=== PATIENT | female | born 1950 | race Caucasian/White ===

== ENCOUNTER → 2018-10-27 16:41 | Outpatient (CLI) | payer MEDICARE, MEDICAID, SELFPAY ==
--- NOTE | 2018-10-27 | XR_ITS ---
XR hip BI w PEL1V CLINICAL INDICATION: Bilateral hip pain ORDERING PHYSICIAN: Fidel aCrdona MD PATIENT AGE: 68 years Comparison: None FINDINGS: AP and abduction views are obtained of both hips. No fracture or dislocation. No significant degenerative change. No significant sclerosis or bony spurring. IMPRESSION: Negative hips with pelvis
--- NOTE | 2018-10-27 | XR_ITS ---
EXAM: XR lumbar spine 6V w bending HISTORY: Low back pain ORDERING PHYSICIAN: Fidel Cardona MD PATIENT AGE: 68 years COMPARISON: None FINDINGS: There is minimal lumbar curvature convex left. No acute fracture or dislocation is evident. There is mild anterolisthesis of L4 on L5 of 4 mm. There is mild degenerative disc disease at T12-S1. Flexion and extension views show no abnormal subluxation in flexion or extension. IMPRESSION: Mild multilevel degenerative disc disease with minimal anterolisthesis of L4 on L5 which does not significantly change in flexion or extension
== END ==
PROVIDERS: PCP Family Medicine; Visit Provider Family Medicine
DX: M25.552 Pain in left hip (principal); M25.551 Pain in right hip; M54.42 Lumbago with sciatica, left side; M54.41 Lumbago with sciatica, right side
CPT/HCPCS: 72114; 73521

== ENCOUNTER 2018-12-12 08:53 | Outpatient (RCR) | payer MEDICARE, MEDICAID, SELFPAY ==
--- NOTE | 2018-12-12 09:39 | HMH.PTOPEV ---
PT Outpatient Evaluation Rehab PT Outpatient Evaluation Start: 12/12/18 09:23 Freq: Status: Active Protocol: Document 12/12/18 09:23 CHRISTIAN (Rec: 12/12/18 09:39 CHRISTIAN [id number]) Electronically Signed By Eran Foley, PT 12/12/18 09:23 Outpatient Therapy Subjective History Subjective History Pt reports h/o chronic LBP since injury in 1988. Pt reports reinjury ~3 months while lifting heavy boxes. I tore my right side out in , and tore my left side out when I picked up that box. Pt reports B LE radicular s/s as well, 'sharp pain all the way down, and then I fall'-8 falls in the last 3 months. Chief Complaint Pain,Gives out/Unstable, Paresthesia,Weakness Symptom Type Ache,Throb,Sharp,Dull,Stabbing ,Burning,Numbness,Tingling, Shooting Symptoms Relieved By Rest/Positioning,Prescription Meds Symptoms Aggravated By Standing,Walking Prior Functional Limitations Housework,Standing,Walking Current Functional Limitations Lifting,Housework,Standing, Walking Symptom Description Constant and Continuous Level of pain today (0-10) 10 Pain scale - at its best (0-10) 10 Pain scale - at its worst (0-10) 10 Lumbopelvic Eval Posture Thoracic Spine Posture Standing Position Neutral Lumbar Spine Posture Standing Position Neutral Assistive device Assistive Devices Wheelchair Gait Observation General Gait Pattern Observation Antalgic Gait,Wide Based Gait, Ataxic Gait,Shuffling Step Palapation tenderness bilateral thoracic spinal tenderness Yes: 2/4 lumbar spinal tenderness Yes: 3/4 paraspinal tenderness Yes: 3/4 buttock tenderness Yes: 3/4 Lumbar/Sacral Palpation Findings Tenderness Accessory Movement T-spine Vertebrae Accessory Movements Central P/A [place] that Elicit Symptoms T10 bilateral T11 bilateral T12 bilateral L-spine Vertebrae Accessory Movements Central P/A [place] that Elicit Symptoms L2 bilateral L3 bilateral L4 bilateral L5 bilateral S1 bilateral Range of Motion Lumbar Spine Active Flexion Range of 0-15 Motion (degrees) Lum
== END 2018-12-12 08:55 | disposition home or self-care (01) ==
LOC: PT 08:53
PROVIDERS: PCP Family Medicine; Visit Provider Family Medicine
DX: M54.5 Low back pain (principal)
CPT/HCPCS: 97163

== ENCOUNTER → 2019-07-31 08:28 | Outpatient (CLI) | payer MEDICARE, MEDICAID, SELFPAY ==
--- NOTE | 2019-07-31 08:28 | MR_ITS ---
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 3-D MIP and myelographic images are also rendered and reviewed FINDINGS: There is normal alignment. Spinal cord ends at the L2 level. T12-L1: Minimal bulging disc. Small central annular fissure. L1-L2: Unremarkable. L2-L3: Unremarkable. L3-L4: Mild facet hypertrophic change. L4-5: Minimal bulging disc with facet and ligamentum hypertrophy. There is narrowing of the canal with bilateral lateral recess narrowing mild to moderate right foraminal narrowing and moderate left foraminal narrowing. There is canal stenosis at this level with canal at 10 mm. L5-S1: Mild facet and ligamentum hypertrophy with mild bilateral foraminal narrowing. No extruded herniated disc. IMPRESSION: 1. Overall no significant change compared to the previous exam. 2. Mild lumbar spondylosis with facet and ligamentum hypertrophy. Please see above for detailed description at each level. 3. L4-5: Minimal bulging disc with facet and ligamentum hypertrophy. There is narrowing of the canal with bilateral lateral recess narrowing mild to moderate right foraminal narrowing and moderate left foraminal narrowing. There is canal stenosis at this level with canal at 10 mm. 4. L5-S1: Mild facet and ligamentum hypertrophy with mild bilateral foraminal narrowing. 5. No extruded herniated disc evident Dictated by: Tony Melton MD 07/31/2019 18:15 Electronically signed by Tony Melton MD in [place] 07/31/2019 18:15
== END ==
PROVIDERS: PCP Emergency Medicine; Visit Provider Emergency Medicine
DX: M54.16 Radiculopathy, lumbar region (principal)
CPT/HCPCS: 72148; 76376

== ENCOUNTER 2019-09-23 03:15 | Observation (INO) | payer MEDICARE, MEDICAID, SELFPAY ==
[2019-09-23] VITALS (14 sets, daily range): BP systolic 102–159; BP diastolic 47–87; PULSE 59–70; RESP 14–18; TEMP 36.4–36.7; O2SAT 92–98; BMI 37.9; BMI 40.5
--- NOTE | 2019-09-23 03:17 | ECG_ITS ---
APPROVED REPORT Exam: Resting ECG HR:67 bpm ECG Measurements Heart Rate 67 AXES VT 144 P -26 QRSd 98 QRS 34 QT 408 T 64 QTc 431 <Conclusion> Normal sinus rhythm Normal ECG Electronically signed by : Fidel Richards, 09/24/2019 17:13:06
--- NOTE | 2019-09-23 03:18 | XR_ITS ---
PROCEDURE: XR CHEST PORTABLE CLINICAL HISTORY: chest pain/soa COMPARISON: CXR CHEST(2 VIEWS-NOT PORTABLE) from 05/14/2012 CXR2 CHEST-AP VIEW ONLY from 10/25/2015 CXR2V XR chest 2V from 01/30/2018 FINDINGS: Borderline cardiomegaly without failure. Prior CABG The lungs are clear without infiltrates, suspicious nodules, or pleural effusions. No acute bony abnormalities. IMPRESSION: No change with no acute finding Dictated by: Tony Melton MD 09/23/2019 07:28 Electronically signed by Tony Melton MD in [place] 09/23/2019 07:28
--- NOTE | 2019-09-23 03:26 | PC.NURSE ---
on phone with dr rizzo.
--- NOTE | 2019-09-23 03:28 | HMH.EDCP ---
ED Disposition Clinical Impression: S/P CABG (coronary artery bypass graft), Obesity (BMI 30-39.9), Hypothyroidism (acquired), Renal insufficiency, Elevated brain natriuretic peptide (BNP) level Chest pain Qualifiers: Chest pain type: precordial pain Qualified Code(s): R07.2 - Precordial pain Disposition: Admitted as Observation Condition on Discharge: Good - Critical Care Critical Care Time: No Attestation: On , the high probability of a clinically significant, sudden or life threatening deterioration of the following system(s) required my full and direct attention, intervention and personal management. The time I documented below is in addition to time spent performing reported procedures but includes the following listed in this critical care notation. Medical Decision Making - Medical Records Medical records reviewed: Yes: I reviewed the patient's medical records. - Faraz Inquiry Pt receiving controlled substance: No Vital Signs: 09/23/19 03:16 09/23/19 04:03 Temperature 97.8 F Temperature Source Oral Pulse Rate [Right Brachial] 68 64 Respiratory Rate 16 18 Blood Pressure [Right Arm] 159/87 H 133/74 Blood Pressure Mean [Right Arm] 111 93 Blood Pressure Source [Right Arm] Automatic Cuff Blood Pressure Position [Right Arm] Sitting 02 Sat by Pulse Oximetry 98 95 Oxygen Delivery Method Room Air Room Air - Lab Data Lab results reviewed: Yes: I reviewed the patient's lab results. Lab Results 09/23/19 03:22: WBC 14.6 H, RBC 4.26, Hgb 12.0 L, Hct 37.2, MCV 87.4, MCH 28.1, MCHC 32.2, RDW 15.4, Plt Count 284, MPV 8.9, Neut % (Auto) 71.4, Lymph % (Auto) 24.2, Harris % (Auto) 2.9, Eos % (Auto) 1.0, Baso % (Auto) 0.4, Neut # (Auto) 10.4 H, Lymph # (Auto) 3.6, Harris # (Auto) 0.4, Eos # (Auto) 0.2, Baso # (Auto) 0.1 09/23/19 03:22: Sodium 139, Potassium 4.1, Chloride 101, Carbon Dioxide 32 H, Anion Gap 10.1, BUN 25 H, Creatinine 1.20 H, Estimated Creat Clear 77, Estimated GFR 45 L, Est GFR ( Amer) 54 L, Glucose 123 H, Calcium 9.3, Troponin I < 0.01 09/23/19 03:22: NT-Pro-B Natriuret Pep 660 H Result diagrams: 09/23/19 03:22 09/23/19 03:22 Orders (Tests/Meds): ED MEDICATIONS Discontinued Medications Generic Name Dose Route Start Last Admin Trade Name Freq PRN Reason Stop Dose Admin Hydromorphone HCl 0.5 mg 09/23/19 03:30 09/23/19 03:37 Dilaudid 2mg/Ml Syringe IV 09/23/19 03:31 0.5 mg ONCE ONE Administration Nitroglycerin 1 gm 09/23/19 03:30 09/23/19 03:38 Nitroglycerin 1 Inch Oint Udp TD 09/23/19 03:31 1 gm ONCE ONE Administration Ondansetron HCl 4 mg 09/23/19 03:39 09/23/19 03:39 Zofran 4mg/2ml Vial IV 09/23/19 03:40 4 mg ONCE ONE Administration ORDERS Category Date Time Status Chest XR -- portable [XR chest portable] Stat Exams 09/23/19 03:18 Taken Troponin I Q3H Lab 09/23/19 06:30 Ordered Troponin I Q3H Lab 09/23/19 09:30 Ordered - Radiology Data #1 Image(s): Chest Image Reviewed: Yes I reviewed the patient's radiology image Preliminary Findings: Abnormal (cm) - ECG Data Tracing #1 Normal Sinus Rhythm: Yes Ischemic changes: non-specific ST-T wave changes ECG compared to prior tracings: this ECG reveals significant changes - Physician Consults Physician Consulted: matthias Reason -: Pt condition Chest Pain HPI - General Chief Complaint: Chest Pain Stated Complaint: cp Time Seen by Provider: 09/23/19 03:20 Mode of Arrival: Family Vehicle Source of Information: Patient, Medical Record Limitations: No Limitations Description of Symptoms (Recalled from ER Triage Doc. by RN): chest pain that initiates in the center of her chest and radiates up her left jaw, down her left arm. denies nausea. has some soa. denies any additional complaints. unable to take nitro due to hypersensitivity per her report. sees dr rizzo and dr godoy for continuity of care. took aspirin 324mg total prior to arrival to ed - History of Present
[2019-09-23 03:36] LABS: Basophils # 0.1 K/mm3 (0-0.2); Basophils % 0.4 % (0.1-2.0); Eosinophils # 0.2 K/mm3 (0.0-0.4); Hematocrit 37.2 % (37.0-47.0); Lymphocytes # 3.6 K/mm3 (0.7-4.5); Lymphocytes % 24.2 % (10-50); Mean Corpuscular HGB Conc 32.2 g/dL (31.8-35.4); Mean Corpuscular Hemoglobin 28.1 pg (27.0-31.2); Mean Corpuscular Volume 87.4 fl (81-99); Mean Platelet Volume 8.9 fl (7.4-10.4); Monocytes # 0.4 K/mm3 (0.1-1.0); Monocytes % 2.9 % (1.7-9.3); Neutrophils # 10.4 K/mm3 (1.8-7.8); Neutrophils % 71.4 % (37.0-80.0); Platelet Count 284 K/mm3 (142-424); Red Blood Count 4.26 M/mm3 (4.20-5.40); Red Cell Distribution Width 15.4 % (11.5-17.5); White Blood Count 14.6 K/mm3 (4.8-10.8)
[2019-09-23 03:47] LABS: Anion Gap 10.1 mEq/L (5-15); Blood Urea Nitrogen 25 mg/dl (7-17); Calcium 9.3 mg/dl (8.4-10.2); Carbon Dioxide 32 mmol/L (22.0-30.0); Chloride 101 mmol/L (98-107); Creatinine Clearance Estimated 77 mL/min (50-200); Estimated Glomerular Filt Rate 45 ml/min (>60); GFR (African American) 54 ML/MIN (>60); Glucose 123 mg/dl (74-100); Potassium 4.1 mmoL/L (3.5-5.1); Sodium 139 mmol/L (136-145)
[2019-09-23 03:56] LABS: NT Pro Brain Natriuretic Pep. 660 pg/mL (0-125)
[2019-09-23 04:08] LABS: Troponin I < 0.01 ng/ml (0.00-0.034)
--- NOTE | 2019-09-23 04:55 | PC.NURSE ---
patient up to floor via wheelchair.
--- NOTE | 2019-09-23 05:49 | PC.NURSE ---
PT STATES SHE IS UNAWARE OF THE MEDICATIONS AND DOSAGE SHE TAKES ON A DAILY BASIS. SHE STATES SHE WILL CALL HER DAUGHTER AND HAVE HER BRING THEM IN THIS MORNING ONCE WE EXPLAINED HER MEDICARE OBSERVATION STATUS. WILL PASS ON TO THE MORNING SHIFT.
--- NOTE | 2019-09-23 05:54 | PC.NURSE ---
A&OX4. PT IS TOLERATING ROOM AIR WELL. RESPIRATIONS REGULAR AND UNLABORED. DIMINISHED BREATH SOUNDS NOTED THROUGHOUT. +1 PITTING EDEMA NOTED TO BLE. NO COUGH NOTED. PT DENIES ANY CHEST PAIN OR NAUSEA. HAND TEACHER PRIVATE EQUAL. ACTIVE BOWEL SOUNDS HEARD IN ALL 4 QUADRANTS. SOFT AND NONTENDER. TELE MONITOR IN USE. NITRO PATCH NOTED TO L UPPER CHEST. NS INFUSING AT 50ML/HR. FSBS WITHIN NORMAL LIMITS. PT IS CURRENTLY RESTING IN BED. BED IN LOWEST POSITION. CALL LIGHT WITHIN REACH. VSS. NO CONCERNS AT THIS TIME. WILL CONTINUE TO MONITOR.
[2019-09-23 06:24] LABS: POC Glucose,Bedside 147 (70-110)
--- NOTE | 2019-09-23 07:12 | HMH.HP ---
*Admission Date: 09/23/19 *Chief complaint: chest pain *History of present illness: this pt presented to the ed with sudden onset of ant lt chest pain described as tightness with radiation to jaw and lt upper ext - she has had pain over the last few weeks but increased tonight - has hx of cad with prev cabg - pt was admitted for eval and treatment and card eval - [facility] History I have reviewed the patient's past medical history: Yes Medical History: Reports:: Asthma, Cancer, Congestive Heart Failure, Chronic Obstructive Pulmonary Disease (COPD), Diabetes Mellitus Type 2, Hypertension, Myocardial Infarction, Transient Ischemic Attacks (TIA) Denies:: Diabetes Mellitus Type 1 *Have you ever received a pneumonia vaccine?: Yes *Have you received a flu vaccine this season?: Yes Other Surgeries: Yes: CABG, Cardiac Catheterization, Cardiac Surgery, Cholecystectomy, Colonoscopy, , Hernia Repair Amputation: No Fractures: No - *Social History Smoking Status: Never smoker Alcohol Intake: former Substance Use Type: denies use *Occupational Status:: retired *Travel in the last 8 weeks: None Family Hx:: Unable to obtain Review of Systems - Review of Systems Review of systems:: pertinent systems reviewed and negative unless documented below - Constitutional Denies fever(s) - Eyes Denies change in vision - ENT Denies sore throat - *Cardiovascular Reports chest pain, Reports radiating jaw, neck or arm pain - *Respiratory Denies cough - *Gastrointestinal Denies abdominal pain - *Genitourinary Denies blood in urine - *Musculoskeletal Denies joint pain - Integumentary/Breasts Denies rash - *Neurologic Denies localized weakness, Denies seizure-like activity - Psychiatric Denies depression Meds Home Medications Medication Instructions Recorded Confirmed Type Ipratropium/Albuterol Sulfate 2 puff IH Q6H #1 inh 01/30/18 08/03/19 Rx [Combivent Respimat Inh] atorvastatin 20 mg tablet 20 mg PO QHS 12/13/18 08/03/19 History cholecalciferol (vitamin D3) 10 400 unit PO DAILY 12/13/18 08/03/19 History mcg (400 unit) capsule docusate sodium 100 mg capsule 100 mg PO .every other day cap 12/13/18 08/03/19 History fluoxetine 20 mg capsule 20 mg PO DAILY 12/13/18 08/03/19 History folic acid 800 mcg tablet 800 mcg PO DAILY 12/13/18 08/03/19 History [id number] 500 tab PO tab 12/13/18 08/03/19 History isosorbide mononitrate 60 mg 60 mg PO DAILY 12/13/18 08/03/19 History tablet,extended release 24 hr levothyroxine 100 mcg capsule 100 mcg PO DAILY 12/13/18 08/03/19 History meclizine 25 mg tablet 25 mg PO TID PRN 12/13/18 08/03/19 History metoprolol succinate 50 mg 50 mg PO DAILY 12/13/18 08/03/19 History tablet,extended release 24 hr omeprazole 40 mg capsule,delayed 40 mg PO DAILY 12/13/18 08/03/19 History release prazosin 1 mg capsule 2 mg PO QHS cap 12/13/18 08/03/19 History vitamin E (dl, acetate) 400 unit 400 unit PO DAILY 12/13/18 08/03/19 History capsule blood sugar diagnostic See Rx Instructions .ROUTE 06/13/19 08/03/19 Rx .MEDSUPPLY #100 each lancets See Rx Instructions .ROUTE 06/13/19 08/03/19 Rx .MEDSUPPLY #50 each methocarbamol 750 mg tablet 750 mg PO TID 30 Days #90 tab 07/06/19 08/03/19 Rx albuterol sulfate 90 mcg/actuation 2 puff INHALATION Q4-6H PRN #18 g 07/16/19 08/03/19 Rx aerosol inhaler ipratropium 20 mcg-albuterol 100 1 puff INHALATION Q6H #4 g 07/16/19 08/03/19 Rx mcg/actuation mist for inhalation gabapentin 600 mg tablet 600 mg PO TID #90 tab 08/03/19 Rx tramadol 50 mg tablet 50 mg PO TID PRN #90 tab 08/03/19 Rx trazodone 50 mg tablet 50 mg PO QHS #30 tab 08/03/19 Rx clopidogrel 75 mg tablet See Rx Instructions .ROUTE 09/03/19 Rx .COMPLEX #90 unspecified Allergies Allergy/AdvReac Type Severity Reaction Status Date / Time morphine [MORPHINE] Allergy Unknown Verified 08/03/19 10:19 Exam Vital signs and Labs for Last 24 Hours: Temp
[2019-09-23 07:14] LABS: Basophils % 0.3 % (0.1-2.0); Eosinophils # 0.2 K/mm3 (0.0-0.4); Eosinophils % 1.5 % (0.1-12.0); Hematocrit 36.1 % (37.0-47.0); Hemoglobin 11.7 g/dL (12.2-16.2); Lymphocytes % 24.4 % (10-50); Mean Corpuscular HGB Conc 32.3 g/dL (31.8-35.4); Mean Corpuscular Hemoglobin 28.1 pg (27.0-31.2); Mean Corpuscular Volume 87.1 fl (81-99); Mean Platelet Volume 8.7 fl (7.4-10.4); Monocytes # 0.3 K/mm3 (0.1-1.0); Monocytes % 2.7 % (1.7-9.3); Neutrophils # 8.6 K/mm3 (1.8-7.8); Neutrophils % 71.2 % (37.0-80.0); Platelet Count 233 K/mm3 (142-424); Red Blood Count 4.15 M/mm3 (4.20-5.40); Red Cell Distribution Width 15.4 % (11.5-17.5); White Blood Count 12.1 K/mm3 (4.8-10.8)
--- NOTE | 2019-09-23 07:25 | PC.NURSE ---
[facility]OR ABOUT MEDREC NEEDING TO BE COMPLETED AND THAT THE PT'S DAUGHTER WOULD BE BRINGING HOME MEDS IN THIS AM.
[2019-09-23 07:40] LABS: Anion Gap 9.1 mEq/L (5-15); Blood Urea Nitrogen 25 mg/dl (7-17); Calcium 9.1 mg/dl (8.4-10.2); Carbon Dioxide 28 mmol/L (22.0-30.0); Chloride 104 mmol/L (98-107); Chol/HDL Ratio 3.4 (1-3.5); Cholesterol 128 mg/dl (140-200); Creatinine Clearance Estimated 81 mL/min (50-200); Estimated Glomerular Filt Rate 50 ml/min (>60); GFR (African American) 60 ML/MIN (>60); Glucose 140 mg/dl (74-100); HDL Cholesterol 38 mg/dl (40-60); Magnesium 1.8 mg/dl (1.6-2.3); Potassium 4.1 mmoL/L (3.5-5.1); Sodium 137 mmol/L (136-145); Triglycerides 146 mg/dl (30-150); VLDL Cholesterol 29 mg/dL (0-40)
[2019-09-23 07:51] LABS: Direct LDL Cholesterol 53.59 mg/dL (100-129)
[2019-09-23 07:52] LABS: Troponin I < 0.01 ng/ml (0.00-0.034)
--- NOTE | 2019-09-23 09:36 | P.CONPHA_ITS ---
[facility] Pharmacy VTE Monitoring - Patient Demographics Admission date: 09/23/19 Report Date: 09/23/19 Time: 09:36 Allergies/Adverse Reactions: Patient Allergies morphine [MORPHINE] Allergy (Unknown, Verified 08/03/19 10:19) Height: 1.6 m Weight: 103.873 kg Patient Problems: Current Active Problems Chest pain (Acute) Obesity (BMI 30-39.9) (Acute) Hypothyroidism (acquired) (Acute) Renal insufficiency (Acute) Elevated brain natriuretic peptide (BNP) level (Acute) Obesity (Acute) S/P CABG (coronary artery bypass graft) (Acute) - VTE Risk Labs: VTE Related Lab Results Hgb 11.7 g/dL (12.2-16.2) L 09/23/19 07:01 Hct 36.1 % (37.0-47.0) L 09/23/19 07:01 Plt Count 233 K/mm3 (142-424) 09/23/19 07:01 BUN 25 mg/dl (7-17) H 09/23/19 07:01 Creatinine 1.10 mg/dl (0.52-1.04) H 09/23/19 07:01 Estimated Creat Clear 81 mL/min (50-200) 09/23/19 07:01 VTE Score: 9 VTE Risk Level: Moderate Risk - Prophylaxis Types of VTE Prophylaxis: TEDS Knee High (JOSE HOSE ORDER PLACED) Location of Applied Device: Bilateral Lower Extremeties
[2019-09-23 10:12] LABS: Troponin I < 0.01 ng/ml (0.00-0.034)
[2019-09-23 10:58] LABS: POC Glucose,Bedside 137 (70-110)
--- NOTE | 2019-09-23 15:17 | PC.NURSE ---
Pt has been alert and oriented and able to make needs known. Has been NSR on tele, did complain of chest pain x 1 this am. Has not since then c/o. Pt has also c/o of headache. PRN tylenol given and was ineffective. Spoke with Dr. Richards and received an order for motrin 600 mg tid prn and omeprazole which is a home med. Pt also c/o earlier that her vision was green and when that has happened in the past it has been prior to a stroke or HI. Neuro checks are WNL at this time. Did make Dr. Richards aware and ask if he wanted head ct at this time and he does not. Will cont to mx. CB in reach. VSS at this time.
[2019-09-23 16:15] LABS: POC Glucose,Bedside 136 (70-110)
[2019-09-23 22:01] LABS: POC Glucose,Bedside 146 (70-110)
[2019-09-24] VITALS: PULSE 50
--- NOTE | 2019-09-24 02:29 | PC.NURSE ---
A&OX4. PT HAS TOLERATED ROOM AIR WELL THROUGHOUT SHIFT. NO COMPLAINTS OF SOB THUS FAR. RESPIRATIONS REGULAR AND UNLABORED. LUNG SOUNDS BILATERALLY CLEAR. NO COUGH NOTED. NSR AND SINUS ITZ ON TELE. NONPITTING EDEMA NOTED TO RLE. ACTIVE BOWEL SOUNDS HEARD IN ALL 4 QUADRANTS. SOFT AND NONTENDER. PT REPORTS NO BM TONIGHT, BUT REPORTS PASSING FLATUS. PT AMBULATES TO THE RESTROOM WITH STANDBY ASSISTANCE. STEADY GAIT AND TOLERATES WELL. CLEAR LIGHT YELLOW URINE NOTED. PT RECEIVED SHOWER, LINEN CHANGE, AND WAS CLIPPED FOR POSSIBLE SERGIO CONSULT. HAND CHOPPER FEEDER EQUAL. NO COMPLAINTS OF CHEST PAIN THUS FAR. NS INFUSING AT 50ML/HR. PT CURRENTLY RESTING IN BED. BED IN LOWEST POSITION. CALL LIGHT WITHIN REACH. VSS. NO CONCERNS AT THIS TIME. WILL CONTINUE TO MONITOR.
[2019-09-24 03:29] VITALS: BP 120/69; PULSE 63; RESP 16; TEMP 36.6; O2SAT 93
[2019-09-24 04:00] VITALS: PULSE 60
[2019-09-24 05:24] VITALS: BMI 40.2
[2019-09-24 05:47] LABS: POC Glucose,Bedside 129 (70-110)
--- NOTE | 2019-09-24 07:21 | HMH.CNCARD ---
History of Present Illness Consult date: 09/24/19 Requesting physician: Marcus Montgomery Consult reason: chest pain Chief complaint: chest pain Additional Medical History:: 1. Coronary artery disease A. History of coronary bypass grafting about 2004 in [place] B. Syncope with NSTEMI, 10/2015, with cardiac cath results: ANGIOGRAPHIC RESULTS: 1. The left main artery normal 2. The left anterior descending artery is a small caliber vessel throughout consistent with a vasculopathic vessel. Proximally and in the mid segments there are diffuse 40% stenoses. The mid LAD has an anastomotic graft from the left internal mammary artery. Distal to the bypass graft the LAD is a smaller caliber vessel less than 1 mm and appears to have vasculopathic disease as it wraps the apex. The first diagonal artery is a small caliber vessel subtotally occluded proximally 3. The circumflex artery is nondominant and has proximal concentric 40% stenosis 4. The right coronary artery is a large dominant vessel and has a proximal to mid vessel hazy 50% stenosis followed by an additional 30-40% stenosis distally 5. The FU ventriculogram reveals normal 65% 6. The left ventricular end-diastolic pressure 10 mmHg 7. The left internal mammary artery is a widely patent graft which anastomoses into the mid LAD and then supplies a small vasculopathic LAD distally as described above 8. The right internal mammary artery is widely patent to the chest wall 9. There appeared to be no patent vein graft to the coronary arteries IMPRESSION: 1. Coronary artery disease as described above 2. Normal ejection fraction 3. Normal left ventricular end-diastolic pressure 4. Subtotally occluded first diagonal artery which is probably the culprit for the non-STEMI 5. Patent GOMEZ to the LAD PLAN: 1. Medical management 2. LDL less than 70 3. Aspirin Plavix for one year B. [facility], 10/2016, no ischemia with LVEF of 65% 2. History of diabetes mellitus, previously on insulin. Discontinued after significant weight loss. 3. Hypertension A. Echo, 10/2016 1. Mildly enlarged left atrium, normal left ventricular size, visually estimated ejection fraction 55% with no obvious regional wall motion abnormality, grade 1 diastolic dysfunction seen with tissue Doppler evidence of raised left atrial pressure. 2. Mildly enlarged right ventricle with normal contractility. 3. Mild mitral and tricuspid regurgitation. 4. No significant pericardial effusion noted. 4. Hyperlipidemia 5. History of breast cancer, status post LEFT lumpectomy 6. History of CVA ?3 in the remote past with no residual. A. History of carotid artery intervention of the LEFT side in the past. B. CNI, 2016, less than 20% stenosis bilaterally 7. 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 reportedly transient renal failure but without dialysis in the past. 8. Hypothyroidism 9. History of gout 10. Chronic back pain A. MRI of the L-spine without contrast, MRI-3D rendering/myelogram, 2016,1. Mild multilevel spondylosis. 2. Bulging disc at L4-L5 with canal stenosis and bilateral lateral recess and foraminal narrowing from facet and ligamentum flavum hypertrophy. 3. No disc herniation 11. COPD secondary to second-hand smoke and chemical exposure while working in [employer] department. 12. BRYCE by sleep study, 2017, referred for CPAP therapy. History of present illness: 69-year-old white female with known history of coronary artery disease status post coronary artery bypass grafting in the remote past presented to the emergency department for 1 month history of increasing lower extremity edema and shortness of breath along with onset of left-sided chest discomfort that radiated into the left arm and neck for about 5 minutes on 09/22/2019. She took 3 baby aspirin at home with resolution of symptoms thereafter. Patient was seen in the emergency department and admitted for further evaluation.
[2019-09-24 08:00] VITALS: BP 153/74; PULSE 60; PULSE 70; RESP 17; TEMP 36.7; O2SAT 94
--- NOTE | 2019-09-24 08:00 | CA_ITS ---
APPROVED REPORT EXAM: Comprehensive 2D, Doppler, and color-flow Echocardiogram Switchman: Suha Angulo CRT Ht: 5 ft 2 in Wt: 227lbs BSA: 2.02 BP: 154/86 mmHg Indications: Chest Pain, Congestive Heart Failure, COPD, Murmur, CVA/TIA, Diabetes, Obesity, CAD, Hyperlipidemia, Hypertension/HDD 2D Dimensions LVOT 1.66 cm (M/F) 1.5-2.5 M-Mode Dimensions RVDd 2.28 cm (0.9-2.6) LVDd 5.26 cm (3.5-5.7) LVDs 3.76 cm (3.5-5.7) IVSd 1.45 cm (0.6-1.1) PWd 0.77 cm (0.6-1.1) EF (Teich) 54.60% FS 28.50% EDV (Teich) 133.00 mL ESV (Teich) 60.40 mL LV Diastology E/A Ratio 1.66 Mitral Valve MV A Velocity 73.00 (40-130 cm/s) Left Ventricle Left atrium is mildly enlarged, left ventricle is normal size, mild concentric left ventricular hypertrophy, visually estimated ejection fraction 55% with no regional wall motion abnormality, grade 1 diastolic dysfunction seen with tissue Doppler evidence of raise left atrial pressure. Right Ventricle Right atrium and right ventricle are mildly enlarged with normal contractility. Aortic Valve Aortic valve is thickened and calcified, there is no aortic stenosis, there is trace aortic insufficiency. Mitral Valve Mitral valve is minimally thickened, there is mild mitral regurgitation. Tricuspid Valve Tricuspid valve is grossly normal, there is mild tricuspid regurgitation, calculated right ventricular systolic pressure 32 mmHg. Pulmonic Valve Pulmonic valve is poorly visualized. Great Vessels Aortic root is normal size. Pericardium No significant pericardial effusion noted. Conclusion 1. Biatrial enlargement, normal left ventricular size, mild concentric left ventricular hypertrophy, visually estimated ejection fraction 55% with no regional wall motion abnormality, grade 1 diastolic dysfunction seen with tissue Doppler evidence of raise left atrial pressure. 2. Mildly enlarged right ventricle with normal contractility. 3. Trace aortic, mild mitral and tricuspid regurgitation, calculated right ventricular systolic pressure 32 mmHg. 4. No significant pericardial effusion noted. Electronically signed by : Simon Spain, 09/24/2019 18:26:02
[2019-09-24 11:29] LABS: POC Glucose,Bedside 135 (70-110)
[2019-09-24 11:43] VITALS: BP 118/55; PULSE 61; RESP 18; TEMP 36.7; O2SAT 95
[2019-09-24 12:00] VITALS: PULSE 60
--- NOTE | 2019-09-24 12:53 | HMH.DCSUM ---
General - General Admission date:: 09/23/19 Discharge date: 09/24/19 HPI HPI: this pt presented to the ed with sudden onset of ant lt chest pain described as tightness with radiation to jaw and lt upper ext - she has had pain over the last few weeks but increased tonight - has hx of cad with prev cabg - pt was admitted for eval and treatment and card eval - Hospital Course Hospital Course: pt has did well with stable vital signs and labs ok - she was seen by card -. Coronary artery disease A. History of coronary bypass grafting about 2004 in [place] B. Syncope with NSTEMI, 10/2015, with cardiac cath results: ANGIOGRAPHIC RESULTS: 1. The left main artery normal 2. The left anterior descending artery is a small caliber vessel throughout consistent with a vasculopathic vessel. Proximally and in the mid segments there are diffuse 40% stenoses. The mid LAD has an anastomotic graft from the left internal mammary artery. Distal to the bypass graft the LAD is a smaller caliber vessel less than 1 mm and appears to have vasculopathic disease as it wraps the apex. The first diagonal artery is a small caliber vessel subtotally occluded proximally 3. The circumflex artery is nondominant and has proximal concentric 40% stenosis 4. The right coronary artery is a large dominant vessel and has a proximal to mid vessel hazy 50% stenosis followed by an additional 30-40% stenosis distally 5. The FU ventriculogram reveals normal 65% 6. The left ventricular end-diastolic pressure 10 mmHg 7. The left internal mammary artery is a widely patent graft which anastomoses into the mid LAD and then supplies a small vasculopathic LAD distally as described above 8. The right internal mammary artery is widely patent to the chest wall 9. There appeared to be no patent vein graft to the coronary arteries IMPRESSION: 1. Coronary artery disease as described above 2. Normal ejection fraction 3. Normal left ventricular end-diastolic pressureedical management 2. LDL less than 70 3. Aspirin Plavix for one year B. Shaka myoview, 10/2016, no ischemia with LVEF of 65% 2. History of diabetes mellitus, previously on insulin. Discontinued after significant weight loss. 3. Hypertension A. Echo, 10/2016 1. Mildly enlarged left atrium, normal left ventricular size, visually estimated ejection fraction 55% with no obvious regional wall motion abnormality, grade 1 diastolic dysfunction seen with tissue Doppler evidence of raised left atrial pressure. 2. Mildly enlarged right ventricle with normal contractility. 3. Mild mitral and tricuspid regurgitation. 4. No significant pericardial effusion noted. 4. Hyperlipidemia 5. History of breast cancer, status post LEFT lumpectomy 6. History of CVA ?3 in the remote past with no residual. A. History of carotid artery intervention of the LEFT side in the past. B. CNI, 2016, less than 20% stenosis bilaterally 4. Subtotally occluded first diagonal artery which is probably the culprit for the non-STEMI 5. Patent GOMEZ to the LAD 69-year-old white female with known history of coronary artery disease status post coronary artery bypass grafting in the remote past presented to the emergency department for 1 month history of increasing lower extremity edema and shortness of breath along with onset of left-sided chest discomfort that radiated into the left arm and neck for about 5 minutes on 09/22/2019. She took 3 baby aspirin at home with resolution of symptoms thereafter. Patient was seen in the emergency department and admitted for further evaluation. Cardiac troponins have returned normal x3 and EKG shows sinus rhythm with slight ST elevation in the inferior leads felt due to early repolarization changes. Chest x-ray shows no evidence of congestive heart failure proBNP elevated at 660. She does complain of some left sided chest soreness that is related to respiratory movement. It is not reproduced with palpation
[2019-09-24 12:58] VITALS: BMI 40.2
--- NOTE | 2019-09-24 13:46 | HMH.PHAINT ---
PATIENT WAS COUNSELED ON NEW MEDICATION: FUROSEMIDE. THE PATIENT WILL CONTINUE TO TAKE ALL HOME MEDICATIONS EXCEPT FOR PRAZOSIN WHICH WAS DISCONTINUED. THE PATIENT DID NOT HAVE ANY QUESTIONS.
--- NOTE | 2019-09-24 15:56 | PC.NURSE ---
Pt has been d/cd. She is alert and oriented and able to make needs known. This nurse did explain d/c instructions and educate pt that she has two f/u appts with dr rizzo and walt. Cardiology plans to do a stress test outpatient after acute chf. Have made pt aware of this. Have explained pumping of heart and pt needed will need reinforcement education in which I did make BECCA Thompson aware of and he stated they would go over everything once again in detail when pt comes to outpatient f/u. Noted. Pt sitting up at this time with no current c/o's. VSS. CB in reach. Awaiting d/c at this time.
== END 2019-09-24 16:00 | disposition home or self-care (01) ==
LOC: ER 03:32 → 2ND 04:25
PROVIDERS: Admitting Provider Emergency Medicine; Emergency Provider Emergency Medicine; PCP Emergency Medicine; Visit Provider Emergency Medicine
DX: R07.9 Chest pain, unspecified (principal); I25.10 Atherosclerotic heart disease of native coronary artery without angina pectoris; I11.0 Hypertensive heart disease with heart failure; I50.9 Heart failure, unspecified; Z95.1 Presence of aortocoronary bypass graft; E03.9 Hypothyroidism, unspecified; Z77.22 Contact with and (suspected) exposure to environmental tobacco smoke (acute) (chronic); J44.9 Chronic obstructive pulmonary disease, unspecified; I34.0 Nonrheumatic mitral (valve) insufficiency; E11.42 Type 2 diabetes mellitus with diabetic polyneuropathy; Z79.4 Long term (current) use of insulin; Z79.01 Long term (current) use of anticoagulants
CPT/HCPCS: 36415; 71045; 80048; 80061; 82962; 83735; 83880; 84484; 85025; 93005; 93306; 96375; 99284; G0378; J2405

== ENCOUNTER → 2019-10-01 14:34 | Outpatient (CLI) | payer MEDICARE, MEDICAID, SELFPAY ==
[2019-10-01 16:14] LABS: Chloride 98 mmol/L (98-107); Potassium 4.5 mmoL/L (3.5-5.1); Sodium 138 mmol/L (136-145)
[2019-10-01 16:17] LABS: Anion Gap 13.5 mEq/L (5-15); Blood Urea Nitrogen 14 mg/dl (7-17); Calcium 9.1 mg/dl (8.4-10.2); Carbon Dioxide 31 mmol/L (22.0-30.0); Estimated Glomerular Filt Rate 62 ml/min (>60); GFR (African American) 76 ML/MIN (>60); Glucose 147 mg/dl (74-100); Magnesium 1.7 mg/dl (1.6-2.3)
[2019-10-01 16:25] LABS: NT Pro Brain Natriuretic Pep. 409 pg/mL (0-125)
== END ==
PROVIDERS: Visit Provider Physician Assistant
DX: I50.9 Heart failure, unspecified; R06.00 Dyspnea, unspecified; R07.2 Precordial pain; E11.69 Type 2 diabetes mellitus with other specified complication; E66.9 Obesity, unspecified; G45.9 Transient cerebral ischemic attack, unspecified; I25.119 Atherosclerotic heart disease of native coronary artery with unspecified angina pectoris; I34.0 Nonrheumatic mitral (valve) insufficiency; J44.9 Chronic obstructive pulmonary disease, unspecified; Z95.1 Presence of aortocoronary bypass graft
CPT/HCPCS: 36415; 80048; 83735; 83880

== ENCOUNTER → 2019-10-15 10:54 | Outpatient (CLI) | payer MEDICARE, MEDICAID, SELFPAY ==
--- NOTE | 2019-10-15 | CA_ITS ---
APPROVED REPORT Exam: Pharmacologic Technologist: Karishma Farfan Ht: 5 ft 3 in Wt: 227 lbs BSA: 2.04 m2 HR: 63 bpm BP: 127/67 mmHg Indications: CAD Medical History Medications: Omeprazole,,,,, Levothyroxine,,,,, Furosemide (LASIX),,,,, Isosorbide,,,,, Metoprolol,,,,, Gabapentin,,,,, Vitamin E,,,,, Vitamin B12,,,,, Vitamin D3,,,,, Allopurinol,,,,, Atorvastatin,,,,, Combivent,,,,, Stress Test Details Test: LEXISCAN HR Resting HR: 68 bpm Max Heart Rate (APMHR): 153 bpm Max HR Achieved: 87 bpm Target HR (85% APMHR): 130 bpm % of APMHR: 56 Recovery HR: 73 bpm BP Resting BP: 127.0/67.0 mmHg Max BP: 132.0/56.0 mmHg Recovery BP: 113.0/71.0 mmHg ECG Clinical Reason for Termination: Completed Protocol Exercise duration: 04:20 min Highest Stage Achieved: Stress ECG Conclusion Resting ECG: Normal sinus rhythm Symptoms: Mild chest pain for 30 seconds at time of injection. Arrhythmias/Ectopy: None ST-T Changes: <1.[address] segment changes Conclusion: Non-diagnostic lexiscan stress test. Patient received the infusion per protocol without arrhythmias or ST segment changes. She had 30 seconds of chest pain during the infusion only. See the nuclear report for further information. Test Summary REST . . . . . . . Resting REST 07:24 . . 68 . 127/ 67 . . Stage 1 . . . . . . . Myoview Injected Stage 1 01:00 . . 80 . . . . Stage 2 . . . . . . . Chest pain lightheaded Stage 2 01:00 . . 85 . . . . Stage 3 01:00 . . 80 . 132/ 56 . . Stage 4 01:00 . . 77 . . . . Stage 4 01:20 . . 78 . 124/ 61 . Stop exercise at 04:20 RECOVERY 01:00 . . 74 . . . . RECOVERY 02:00 . . 75 . . . . RECOVERY 03:00 . . 74 . . . . RECOVERY 04:00 . . 74 . 113/ 71 . . RECOVERY 04:30 . . 74 . 113/ 71 . . Electronically signed by : Simon Spain, 10/15/2019 17:49:59
--- NOTE | 2019-10-15 10:54 | NM_ITS ---
APPROVED REPORT Exam: Nuclear Stress Test Indication: chest pain..short of breath..fatigue Patient Location: Outpatient Stress Tech: Karishma Farfan NM Tech:Carmel Swain NOREENBlair RT(R)(N) Ht: 5 ft 3 in Wt: 227 lbs Bra Size: 40dd HR: 63 bpm BP: 124/67 mmHg BSA: 2.04 m2 BMI: 40.2 History: chest pain..short of breath..fatigue Procedure: Patient received a 0.4 mg of intravenous Lexiscan, resting heart rate 63 bpm, resting blood pressure 127/67 mmHg, with Lexiscan maximum heart rate achived was 81 bpm which is Less than 85 % of the maximum predicted heart rate and blood pressure was 132/56 mmHg. Electrocardiogram Resting electrocardiogram showed sinus rhythm, with Lexiscan there is less than 1.[address] segment depression noted from the baseline EKG. The EKG portion of the Lexiscan Myoview is nondiagnostic. Cardiac Stress and Resting SPECT Images: Cardiac Stress and Resting SPECT images were obtained using technetium 99m Myoview 31.6 mCi stress and 10.09 mCi at rest. Gated SPECT for analysis of segmental wall motion and calculation of ejection fraction also done. Cardiac stress and resting SPECT images show uniform myocardial activity without segmental perfusion abnormality, computer derived ejection fraction is over 65% with no regional wall motion abnormality, right ventricle is normal size and contractility. Conclusion: 1. The EKG portion of the Lexiscan Myoview is nondiagnostic. 2. No scintigraphic evidence of reversible ischemia seen, computer derived ejection fraction is over 65% with no regional wall motion abnormality, right ventricle is normal size and contractility. 3. Normal Lexiscan Myoview study. Electronically signed by : Simon Spain, 10/15/2019 17:52:15
--- NOTE | 2019-10-15 13:31 | HMH.ITSHM ---
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 [] tramadol spironolactone omeprazole levothyroxine
== END ==
PROVIDERS: PCP Emergency Medicine; Visit Provider Physician Assistant
DX: E11.69 Type 2 diabetes mellitus with other specified complication (principal); E66.9 Obesity, unspecified; G45.8 Other transient cerebral ischemic attacks and related syndromes; I25.119 Atherosclerotic heart disease of native coronary artery with unspecified angina pectoris; I34.0 Nonrheumatic mitral (valve) insufficiency; I50.9 Heart failure, unspecified; J44.9 Chronic obstructive pulmonary disease, unspecified; R06.00 Dyspnea, unspecified; R07.2 Precordial pain; Z95.1 Presence of aortocoronary bypass graft
CPT/HCPCS: 78452; 93017; A9502; J2785

== ENCOUNTER → 2019-10-22 09:44 | Outpatient (CLI) | payer MEDICARE, MEDICAID, SELFPAY ==
[2019-10-22 12:15] LABS: Chloride 99 mmol/L (98-107); Sodium 139 mmol/L (136-145)
[2019-10-22 12:16] LABS: Potassium 4.3 mmoL/L (3.5-5.1)
[2019-10-22 12:18] LABS: Blood Urea Nitrogen 30 mg/dl (7-17); Estimated Glomerular Filt Rate 55 ml/min (>60); GFR (African American) 67 ML/MIN (>60)
[2019-10-22 12:19] LABS: Anion Gap 15.3 mEq/L (5-15); Calcium 9.3 mg/dl (8.4-10.2); Carbon Dioxide 29 mmol/L (22.0-30.0); Glucose 163 mg/dl (74-100)
[2019-10-22 12:28] LABS: NT Pro Brain Natriuretic Pep. 318 pg/mL (0-125)
== END ==
PROVIDERS: Visit Provider Internal Medicine Cardiovascular Disease
DX: E66.9 Obesity, unspecified (principal); I25.10 Atherosclerotic heart disease of native coronary artery without angina pectoris; I34.0 Nonrheumatic mitral (valve) insufficiency; I50.9 Heart failure, unspecified; R60.0 Localized edema; R06.00 Dyspnea, unspecified; R07.9 Chest pain, unspecified; Z95.1 Presence of aortocoronary bypass graft; I38 Endocarditis, valve unspecified; I11.0 Hypertensive heart disease with heart failure
CPT/HCPCS: 36415; 80048; 83880

== ENCOUNTER → 2019-11-01 13:35 | Outpatient (CLI) | payer MEDICARE, MEDICAID, SELFPAY ==
[2019-11-01 14:52] LABS: Hemoglobin A1C 7.3 % (4.0-6.0)
== END ==
PROVIDERS: Visit Provider Family Medicine
DX: E11.69 Type 2 diabetes mellitus with other specified complication (principal); Z79.4 Long term (current) use of insulin
CPT/HCPCS: 83036

== ENCOUNTER → 2020-01-07 11:01 | Outpatient (CLI) | payer MEDICARE, MEDICAID, SELFPAY ==
[2020-01-07 14:40] LABS: Coronavirus 19 IgG Antibody Negative (Negative); Coronavirus 19 IgM Antibody Negative (Negative)
== END ==
PROVIDERS: Visit Provider Emergency Medicine
DX: Z03.818 Encounter for observation for suspected exposure to other biological agents ruled out (principal)
CPT/HCPCS: 86328

== ENCOUNTER → 2020-01-08 20:17 | Outpatient (CLI) | payer MEDICARE, MEDICAID, SELFPAY | PROVIDERS: PCP Emergency Medicine; Visit Provider Emergency Medicine | DX: I10 Essential (primary) hypertension; R40.0 Somnolence; R06.83 Snoring; J44.9 Chronic obstructive pulmonary disease, unspecified; G47.33 Obstructive sleep apnea (adult) (pediatric) | CPT/HCPCS: 95810 ==

== ENCOUNTER → 2020-01-11 13:52 | Outpatient (CLI) | payer MEDICARE, MEDICAID, SELFPAY ==
[2020-01-11 14:29] LABS: Chloride 97 mmol/L (98-107)
[2020-01-11 14:30] LABS: Potassium 4.7 mmoL/L (3.5-5.1); Sodium 141 mmol/L (136-145)
[2020-01-11 14:32] LABS: Alanine Aminotransferase 20 U/L (12-78); Alkaline Phosphatase 157 U/L (38-126); Aspartate Amino Transferase 29 U/L (14-36); Bilirubin,Total 0.3 mg/dl (0.2-1.3); Blood Urea Nitrogen 29 mg/dl (7-17); Estimated Glomerular Filt Rate 45 ml/min (>60); GFR (African American) 54 ML/MIN (>60)
[2020-01-11 14:33] LABS: Albumin Level 4.1 g/dl (3.5-5.0); Albumin/Globulin Ratio 1.2 (1.1-1.8); Anion Gap 14.7 mEq/L (5-15); Carbon Dioxide 34 mmol/L (22.0-30.0); Chol/HDL Ratio 4.6 (1-3.5); Cholesterol 166 mg/dl (140-200); Globulin 3.4 g/dL (1.3-3.2); Glucose 158 mg/dl (74-100); HDL Cholesterol 36 mg/dl (40-60); Total Protein,Serum 7.5 g/dl (6.3-8.2); Triglycerides 216 mg/dl (30-150); VLDL Cholesterol 43 mg/dL (0-40)
[2020-01-11 14:44] LABS: Direct LDL Cholesterol 66.53 mg/dL (100-129)
[2020-01-11 15:03] LABS: Thyroid Stimulating Hormone 0.26 uIU/mL (0.465-4.68)
[2020-01-11 15:58] LABS: Creatinine,Urine Random 54 mg/dL (Not Estab.); Microalbumin < 6.000 mg/L (0-16.7)
== END ==
PROVIDERS: Visit Provider Family Medicine
DX: E11.9 Type 2 diabetes mellitus without complications (principal); Z86.32 Personal history of gestational diabetes; K59.00 Constipation, unspecified; E03.9 Hypothyroidism, unspecified; Z79.4 Long term (current) use of insulin
CPT/HCPCS: 80053; 80061; 82043; 82570; 83036; 84443

== ENCOUNTER → 2020-02-22 10:28 | Outpatient (CLI) | payer MEDICARE, MEDICAID, SELFPAY ==
[2020-02-22 12:28] LABS: Anion Gap 13.4 mEq/L (5-15); Blood Urea Nitrogen 29 mg/dl (7-17); Calcium 9.4 mg/dl (8.4-10.2); Carbon Dioxide 30 mmol/L (22.0-30.0); Chloride 100 mmol/L (98-107); Estimated Glomerular Filt Rate 50 ml/min (>60); GFR (African American) 60 ML/MIN (>60); Glucose 198 mg/dl (74-100); Potassium 4.4 mmoL/L (3.5-5.1); Sodium 139 mmol/L (136-145)
[2020-02-22 12:36] LABS: NT Pro Brain Natriuretic Pep. 105 pg/mL (0-125)
== END ==
PROVIDERS: Visit Provider Urology
DX: I10 Essential (primary) hypertension (principal); I25.10 Atherosclerotic heart disease of native coronary artery without angina pectoris; I34.0 Nonrheumatic mitral (valve) insufficiency; I50.9 Heart failure, unspecified; I38 Endocarditis, valve unspecified
CPT/HCPCS: 36415; 80048; 83880

== ENCOUNTER → 2020-03-24 10:26 | Outpatient (CLI) | payer MEDICARE, MEDICAID, SELFPAY | PROVIDERS: PCP Emergency Medicine; Visit Provider Emergency Medicine | DX: Z20.828 Contact with and (suspected) exposure to other viral communicable diseases (principal); U07.1 COVID-19 | CPT/HCPCS: U0003 ==

== ENCOUNTER 2020-07-07 16:42 | Emergency (ER) | payer MEDICARE, MEDICAID, SELFPAY ==
[2020-07-07] VITALS (9 sets, daily range): BP systolic 144–174; BP diastolic 74–90; PULSE 74–82; RESP 18–19; TEMP 36.7; O2SAT 95–100; BMI 38.9
--- NOTE | 2020-07-07 16:49 | HMH.EDGENADL ---
ED Disposition Clinical Impression: Hyperglycemia UTI (urinary tract infection) Qualifiers: Urinary tract infection type: acute cystitis Hematuria presence: without hematuria Qualified Code(s): N30.00 - Acute cystitis without hematuria Disposition: Home, Self-Care Condition on Discharge: Good Instructions: DI for Hyperglycemia -- Adult Additional Instructions: Continue insulin. Take abx as prescribed. Return if new or worsening symptoms. Referrals: Marcus Montgomery MD [Primary Care Provider] - - Critical Care Critical Care Time: No Attestation: On , the high probability of a clinically significant, sudden or life threatening deterioration of the following system(s) required my full and direct attention, intervention and personal management. The time I documented below is in addition to time spent performing reported procedures but includes the following listed in this critical care notation. Medical Decision Making - Medical Records Medical records reviewed: Yes: I reviewed the patient's medical records. - Faraz Inquiry Pt receiving controlled substance: No Vital Signs: 07/07/20 16:43 07/07/20 16:52 07/07/20 17:03 Temperature Temperature Source Pulse Rate 82 76 Pulse Rate [Left Radial] 74 Respiratory Rate 18 Blood Pressure 150/90 H 144/76 H Blood Pressure [Right Arm] 144/76 H Blood Pressure Mean 94 99 Blood Pressure Mean [Right Arm] 98 Blood Pressure Source [Right Arm] Automatic Cuff Blood Pressure Position [Right Arm] Sitting 02 Sat by Pulse Oximetry 98 98 96 Oxygen Delivery Method Room Air 07/07/20 18:19 07/07/20 18:31 07/07/20 19:01 Temperature Temperature Source Pulse Rate 74 74 77 Pulse Rate [Left Radial] Respiratory Rate Blood Pressure 150/74 H 156/81 H 151/81 H Blood Pressure [Right Arm] Blood Pressure Mean 99 92 93 Blood Pressure Mean [Right Arm] Blood Pressure Source [Right Arm] Blood Pressure Position [Right Arm] 02 Sat by Pulse Oximetry 95 96 95 Oxygen Delivery Method 07/07/20 19:31 07/07/20 20:01 07/07/20 20:42 Temperature 98.1 F Temperature Source Oral Pulse Rate 76 79 74 Pulse Rate [Left Radial] Respiratory Rate 19 18 Blood Pressure 173/86 H 174/88 H 152/80 H Blood Pressure [Right Arm] Blood Pressure Mean 110 101 Blood Pressure Mean [Right Arm] Blood Pressure Source [Right Arm] Blood Pressure Position [Right Arm] 02 Sat by Pulse Oximetry 100 Oxygen Delivery Method Room Air Room Air - Lab Data Lab Results 07/07/20 16:48: POC Glucose 306 H* 07/07/20 16:50: WBC 14.6 H, RBC 4.76, Hgb 14.0, Hct 43.6, MCV 91.6, MCH 29.5, MCHC 32.2, RDW 14.6, Plt Count 366, MPV 8.9, Neut % (Auto) 75.2, Lymph % (Auto) 20.7, [place] % (Auto) 2.7, Eos % (Auto) 1.0, Baso % (Auto) 0.3, Neut # (Auto) 11.0 H, Lymph # (Auto) 3.0, [place] # (Auto) 0.4, Eos # (Auto) 0.2, Baso # (Auto) 0.1 07/07/20 16:50: Sodium 137, Potassium 3.6, Chloride 100, Carbon Dioxide 25, Anion Gap 15.6 H, BUN 21 H, Creatinine 1.00, Estimated Creat Clear 86, Estimated GFR 55 L, Est GFR ( Amer) 67, Glucose 276 H, Calcium 10.1, Magnesium 1.6, Total Bilirubin 0.4, AST 40 H, ALT 29, Alkaline Phosphatase 204 H, Troponin I < 0.01, Total Protein 7.9, Albumin 4.3, Globulin 3.6 H, Albumin/Globulin Ratio 1.2, Lipase 58 07/07/20 18:15: Urine Color Yellow, Urine Appearance Sl cloudy, Urine pH 6.0, Ur Specific [place] 1.010, Urine Protein Negative, Urine Glucose (UA) Negative, Urine Ketones Negative, Urine Blood Negative, Urine Nitrate Negative, Urine Bilirubin Negative, Urine Urobilinogen 0.2, Ur Leukocyte Esterase Trace, Urine WBC 3-5, Ur Squamous Epith Cells 3-5, Urine Bacteria 1+ 07/07/20 19:20: Troponin I < 0.01 Result diagrams: 07/07/20 16:50 07/07/20 16:50 Orders (Tests/Meds): ED MEDICATIONS Discontinued Medications Generic Name Dose Route Start Last Admin Trade Name Freq PRN Reason Stop Dose Admin Sodium Chloride 1,000 mls @ 999 mls/hr
--- NOTE | 2020-07-07 17:05 | XR_ITS ---
PROCEDURE: XR CHEST PORTABLE CLINICAL HISTORY: hyperglycemia COPD, CHF, emphysema, shortness of air COMPARISON: CR CXR2 CHEST-AP VIEW ONLY from 10/25/2015 CR CXR2V XR chest 2V from 01/30/2018 CR XR CHEST PORTABLE from 09/23/2019 FINDINGS: There has been a prior CABG. There is evidence of old granulomatous disease. No lobar consolidation or collapse. The lungs are clear without infiltrates, suspicious nodules, or pleural effusions. No acute bony abnormalities. IMPRESSION: No change with no acute finding Dictated by: Tony Melton MD 07/07/2020 17:32 Tony Melton MD in [place] 07/07/2020 17:32
[2020-07-07 17:15] LABS: Basophils # 0.1 K/mm3 (0-0.2); Basophils % 0.3 % (0.1-2.0); Eosinophils # 0.2 K/mm3 (0.0-0.4); Hematocrit 43.6 % (37.0-47.0); Lymphocytes % 20.7 % (10-50); Mean Corpuscular HGB Conc 32.2 g/dL (31.8-35.4); Mean Corpuscular Hemoglobin 29.5 pg (27.0-31.2); Mean Corpuscular Volume 91.6 fl (81-99); Mean Platelet Volume 8.9 fl (7.4-10.4); Monocytes # 0.4 K/mm3 (0.1-1.0); Monocytes % 2.7 % (1.7-9.3); Neutrophils % 75.2 % (37.0-80.0); Platelet Count 366 K/mm3 (142-424); Red Blood Count 4.76 M/mm3 (4.20-5.40); Red Cell Distribution Width 14.6 % (11.5-17.5); White Blood Count 14.6 K/mm3 (4.8-10.8)
[2020-07-07 17:18] LABS: Chloride 100 mmol/L (98-107); Potassium 3.6 mmoL/L (3.5-5.1); Sodium 137 mmol/L (136-145)
[2020-07-07 17:20] LABS: Alanine Aminotransferase 29 U/L (12-78); Alkaline Phosphatase 204 U/L (38-126); Aspartate Amino Transferase 40 U/L (14-36); Bilirubin,Total 0.4 mg/dl (0.2-1.3); Blood Urea Nitrogen 21 mg/dl (7-17); Creatinine Clearance Estimated 86 mL/min (50-200); Estimated Glomerular Filt Rate 55 ml/min (>60); GFR (African American) 67 ML/MIN (>60)
[2020-07-07 17:21] LABS: Albumin Level 4.3 g/dl (3.5-5.0); Albumin/Globulin Ratio 1.2 (1.1-1.8); Anion Gap 15.6 mEq/L (5-15); Calcium 10.1 mg/dl (8.4-10.2); Carbon Dioxide 25 mmol/L (22.0-30.0); Globulin 3.6 g/dL (1.3-3.2); Glucose 276 mg/dl (74-100); Lipase 58 U/L (23-300); Magnesium 1.6 mg/dl (1.6-2.3); Total Protein,Serum 7.9 g/dl (6.3-8.2)
[2020-07-07 18:23] LABS: Microscopic, Urine URINE MICROSCOPIC (MICROSCOPIC)
[2020-07-07 18:27] LABS: Appearance,Urine SL CLOUDY (Clear); Bilirubin,Urine Negative (Negative); Blood, Urine Negative (Negative); Color,Urine YELLOW (Yellow); Glucose,Urine (UA) Negative (Negative); Ketones,Urine Negative (Negative); Leukocyte Esterase,Urine TRACE (Negative); Nitrate,Urine Negative (Negative); Protein,Urine Negative (Negative); Urobilinogen,Urine 0.2 EU/dl (0.2)
[2020-07-07 18:33] LABS: Bacteria,Urine 1+ /lpf
--- NOTE | 2020-07-07 18:47 | ECG_ITS ---
APPROVED REPORT Exam: Resting ECG HR:76 bpm ECG Measurements Heart Rate 76 AXES KS 160 P 57 QRSd 98 QRS 33 QT 404 T 47 QTc 454 Conclusion Normal sinus rhythm Nonspecific ST and T wave abnormality Abnormal ECG Electronically signed by : Fidel Richards, 07/09/2020 17:36:42
[2020-07-07 19:29] LABS: POC Glucose,Bedside 306 (70-110)
[2020-07-07 19:51] LABS: Troponin I < 0.01 ng/ml (0.00-0.034)
[2020-07-07 19:57] LABS: Troponin I < 0.01 ng/ml (0.00-0.034)
== END 2020-07-07 20:51 | disposition home or self-care (01) ==
PROVIDERS: Emergency Provider Emergency Medicine; PCP Emergency Medicine
DX: N30.00 Acute cystitis without hematuria (principal); E11.65 Type 2 diabetes mellitus with hyperglycemia; I50.9 Heart failure, unspecified; J44.9 Chronic obstructive pulmonary disease, unspecified; E78.5 Hyperlipidemia, unspecified; I10 Essential (primary) hypertension; E03.9 Hypothyroidism, unspecified; I25.10 Atherosclerotic heart disease of native coronary artery without angina pectoris; K21.9 Gastro-esophageal reflux disease without esophagitis; I25.2 Old myocardial infarction; M79.7 Fibromyalgia; Z79.899 Other long term (current) drug therapy
CPT/HCPCS: 71045; 80053; 81001; 82962; 83690; 83735; 84484; 85025; 87086; 93005; 99283; J2405

== ENCOUNTER 2020-07-08 17:42 | Emergency (ER) | payer MEDICARE, MEDICAID, SELFPAY ==
[2020-07-08] VITALS (9 sets, daily range): BP systolic 148–172; BP diastolic 76–86; PULSE 66–87; RESP 14–22; TEMP 36.7–37; O2SAT 92–99; BMI 40.4
--- NOTE | 2020-07-08 17:43 | PC.NURSE ---
BLOOD GLUCOSE CHECK AT BEDSIDE: 181. MADE AWARE
--- NOTE | 2020-07-08 17:47 | HMH.EDGENADL ---
ED Disposition Clinical Impression: Gastroenteritis, Anxiety state, Hyperglycemia Disposition: Home, Self-Care Condition on Discharge: Good Instructions: DI for Diarrhea and Traveler's Diarrhea -- Adult, DI for Vomiting -- Adult, DI for Anxiety -- Adult, DI for Hyperglycemia -- Adult Additional Instructions: See Dr. Montgomery in his office tomorrow at 10 AM or 1 PM. Referrals: PCP,No [Non-Staff] - - Critical Care Critical Care Time: No Attestation: On , the high probability of a clinically significant, sudden or life threatening deterioration of the following system(s) required my full and direct attention, intervention and personal management. The time I documented below is in addition to time spent performing reported procedures but includes the following listed in this critical care notation. Medical Decision Making - Medical Records Medical records reviewed: Yes: I reviewed the patient's medical records. MR Comment: Reviewed emergency department record from yesterday. - Faraz Inquiry Pt receiving controlled substance: Yes Faraz was queried for this patient: Yes Risks and benefits of using a controlled substance: were not discussed with pt by me Vital Signs: 07/08/20 17:42 07/08/20 18:30 07/08/20 18:39 Temperature 98.1 F Temperature Source Oral Pulse Rate 66 Pulse Rate [Right Radial] 74 Respiratory Rate 18 14 Blood Pressure 172/76 H Blood Pressure [Right Arm] 159/84 H Blood Pressure Mean 92 Blood Pressure Mean [Right Arm] 109 Blood Pressure Source [Right Arm] Automatic Cuff Blood Pressure Position [Right Arm] Sitting 02 Sat by Pulse Oximetry 99 99 Oxygen Delivery Method Room Air Nasal Cannula Oxygen Flow Rate (LPM) 2 07/08/20 18:44 Temperature Temperature Source Pulse Rate Pulse Rate [Right Radial] Respiratory Rate Blood Pressure Blood Pressure [Right Arm] Blood Pressure Mean Blood Pressure Mean [Right Arm] Blood Pressure Source [Right Arm] Blood Pressure Position [Right Arm] 02 Sat by Pulse Oximetry 99 Oxygen Delivery Method Nasal Cannula Oxygen Flow Rate (LPM) 4 - Lab Data Lab Results 07/08/20 17:35: WBC 15.1 H, RBC 4.66, Hgb 13.7, Hct 41.9, MCV 89.9, MCH 29.4, MCHC 32.7, RDW 14.4, Plt Count 360, MPV 8.7, Neut % (Auto) 76.0, Lymph % (Auto) 20.4, [place] % (Auto) 3.3, Eos % (Auto) 0.1, Baso % (Auto) 0.2, Neut # (Auto) 11.5 H, Lymph # (Auto) 3.1, [place] # (Auto) 0.5, Eos # (Auto) 0.0, Baso # (Auto) 0.0, Total Counted 100, Neutrophils % (Manual) 84 H, Lymphocytes % (Manual) 9 L, Atypical Lymphs % 6.0, Monocytes % (Manual) 1 L, Platelet Estimate Normal, RBC Morphology Normal 07/08/20 17:35: Sodium 138, Potassium 3.4 L, Chloride 102, Carbon Dioxide 22, Anion Gap 17.4 H, BUN 17, Creatinine 1.10 H, Estimated Creat Clear 81, Estimated GFR 50 L, Est GFR ( Amer) 60, Glucose 210 H, Calcium 10.2, Total Bilirubin 0.4, AST 44 H, ALT 32, Alkaline Phosphatase 183 H, Troponin I < 0.01, Total Protein 7.7, Albumin 4.4, Globulin 3.3 H, Albumin/Globulin Ratio 1.3 07/08/20 17:35: ESR 31 H 07/08/20 17:35: C-Reactive Protein 31.9 H 07/08/20 18:01: Urine Color Yellow, Urine Appearance Clear, Urine pH 6.0, Ur Specific [place] <= 1.005, Urine Protein Negative, Urine Glucose (UA) Negative, Urine Ketones 1+, Urine Blood Negative, Urine Nitrate Negative, Urine Bilirubin Negative, Urine Urobilinogen 0.2, Ur Leukocyte Esterase Negative, Urine RBC 3-5, Urine WBC 10-20, Ur Squamous Epith Cells 10-20, Urine Bacteria 1+ Result diagrams: 07/08/20 17:35 07/08/20 17:35 Orders (Tests/Meds): ED MEDICATIONS Generic Name Dose Route Start Last Admin Trade Name Freq PRN Reason Stop Dose Admin Sodium Chloride 1,000 mls @ 100 mls/hr 07/08/20 18:15 07/08/20 18:20 Sod Chlor 0.9% 1000ml Bag IV 08/07/20 18:14 100 mls/hr .Q10H JOE Administration Sodium Chloride 10 ml 07/08/20 18:08 Sodium Chloride 0.9% 10ml Vial IV 05/20/21 18:07 NEEDED PRN to Dilute Lorazepam inj
--- NOTE | 2020-07-08 18:09 | ECG_ITS ---
APPROVED REPORT Exam: Resting ECG HR:75 bpm ECG Measurements Heart Rate 75 AXES [place] 150 P 57 QRSd 96 QRS 16 QT 432 T 32 QTc 482 Conclusion Normal sinus rhythm Normal ECG Electronically signed by : Fidel Richards, 07/23/2020 17:00:15
[2020-07-08 18:15] LABS: Basophils % 0.2 % (0.1-2.0); Eosinophils % 0.1 % (0.1-12.0); Hematocrit 41.9 % (37.0-47.0); Hemoglobin 13.7 g/dL (12.2-16.2); Lymphocytes # 3.1 K/mm3 (0.7-4.5); Lymphocytes % 20.4 % (10-50); Mean Corpuscular HGB Conc 32.7 g/dL (31.8-35.4); Mean Corpuscular Hemoglobin 29.4 pg (27.0-31.2); Mean Corpuscular Volume 89.9 fl (81-99); Mean Platelet Volume 8.7 fl (7.4-10.4); Monocytes # 0.5 K/mm3 (0.1-1.0); Monocytes % 3.3 % (1.7-9.3); Neutrophils # 11.5 K/mm3 (1.8-7.8); Platelet Count 360 K/mm3 (142-424); Red Blood Count 4.66 M/mm3 (4.20-5.40); Red Cell Distribution Width 14.4 % (11.5-17.5); White Blood Count 15.1 K/mm3 (4.8-10.8)
[2020-07-08 18:16] LABS: Chloride 102 mmol/L (98-107); Potassium 3.4 mmoL/L (3.5-5.1); Sodium 138 mmol/L (136-145)
[2020-07-08 18:17] LABS: MANUAL DIFFERENTIAL MANUAL DIFFERENTIAL (MANUAL DIFF)
[2020-07-08 18:18] LABS: Blood Urea Nitrogen 17 mg/dl (7-17); Creatinine Clearance Estimated 81 mL/min (50-200); Estimated Glomerular Filt Rate 50 ml/min (>60); GFR (African American) 60 ML/MIN (>60)
[2020-07-08 18:19] LABS: Alanine Aminotransferase 32 U/L (12-78); Albumin Level 4.4 g/dl (3.5-5.0); Albumin/Globulin Ratio 1.3 (1.1-1.8); Alkaline Phosphatase 183 U/L (38-126); Anion Gap 17.4 mEq/L (5-15); Aspartate Amino Transferase 44 U/L (14-36); Bilirubin,Total 0.4 mg/dl (0.2-1.3); Calcium 10.2 mg/dl (8.4-10.2); Carbon Dioxide 22 mmol/L (22.0-30.0); Globulin 3.3 g/dL (1.3-3.2); Glucose 210 mg/dl (74-100); Total Protein,Serum 7.7 g/dl (6.3-8.2)
[2020-07-08 18:27] LABS: Microscopic, Urine URINE MICROSCOPIC (MICROSCOPIC)
[2020-07-08 18:28] LABS: Appearance,Urine CLEAR (Clear); Bilirubin,Urine Negative (Negative); Blood, Urine Negative (Negative); Color,Urine YELLOW (Yellow); Glucose,Urine (UA) Negative (Negative); Ketones,Urine 1+ (Negative); Leukocyte Esterase,Urine Negative (Negative); Nitrate,Urine Negative (Negative); Protein,Urine Negative (Negative); Specific Gravity, Urine <= 1.005 (1.005-1.030); Urobilinogen,Urine 0.2 EU/dl (0.2)
[2020-07-08 18:29] LABS: C-Reactive Protein 31.9 mg/L (0-4)
[2020-07-08 18:31] LABS: Lymphocytes % 9 % (10-50); Monocytes % 1 % (2-9); Neutrophils % 84 % (42-76); Platelet Estimate Normal; RBC Morphology Normal; Total Cells Counted 100
--- NOTE | 2020-07-08 18:34 | PC.NURSE ---
pt SaO2 noted to be 66% on monitor, when I arrived in pts room pt noted to be griffith in color in the face, pt opened her eyes with verbal stimuli, stated she felt real weird - SaO2 49% on RA at that time. Alerted other ER staff and ER MD, pt placed on 100% NRB. Pt SaO2 back to normal with oxygen, EKG performed, ER MD at BS
[2020-07-08 18:38] LABS: Troponin I < 0.01 ng/ml (0.00-0.034)
--- NOTE | 2020-07-08 18:39 | PC.NURSE ---
pt noted to be going to sleep, SaO2 dropped again at this time to 78% and then to 66% on RA. NRB at 100% placed on pt again, SaO2 improved. Pt at this time reports she has sleep apnea real bad , states she does not wear oxygen at night r/t not being able to tolerate it. Pt placed on O2 @2L per NC, will continue to monitor.
--- NOTE | 2020-07-08 18:44 | PC.NURSE ---
pt dropped SaO2 again at this time, woke pt up encouraged her to take deep breaths in her nose. Pt easily alertable. Pt O2 increased to 4L per NC at this time. Notified JEAN FRANKLIN
[2020-07-08 18:54] LABS: Bacteria,Urine 1+ /lpf
--- NOTE | 2020-07-08 19:29 | PC.NURSE ---
Assisting pt to BSC
[2020-07-08 20:01] LABS: Erythrocyte Sedimentation Rate 31 mm/hr (0-30)
--- NOTE | 2020-07-08 20:25 | PC.NURSE ---
Called pt's daughter Frida to notify pt is ready for d/c
--- NOTE | 2020-07-08 21:35 | PC.NURSE ---
Called pt's daughter per pt's request
[2020-09-01 11:17] LABS: POC Glucose,Bedside 181 (70-110)
== END 2020-07-08 22:05 | disposition home or self-care (01) ==
PROVIDERS: Emergency Provider Emergency Medicine; PCP Emergency Medicine
DX: K52.9 Noninfective gastroenteritis and colitis, unspecified (principal); F41.1 Generalized anxiety disorder; E11.65 Type 2 diabetes mellitus with hyperglycemia; I25.10 Atherosclerotic heart disease of native coronary artery without angina pectoris; N39.0 Urinary tract infection, site not specified; J44.9 Chronic obstructive pulmonary disease, unspecified; K21.9 Gastro-esophageal reflux disease without esophagitis; I10 Essential (primary) hypertension; I25.2 Old myocardial infarction; M79.7 Fibromyalgia; E03.9 Hypothyroidism, unspecified; Z79.899 Other long term (current) drug therapy
CPT/HCPCS: 80053; 81001; 82962; 84484; 85007; 85025; 85651; 86140; 93005; 96365; 96375; 99282; J2405

== ENCOUNTER → 2020-08-13 14:46 | Outpatient (CLI) | payer MEDICARE, MEDICAID, SELFPAY | PROVIDERS: Visit Provider Nurse Practitioner Family | DX: N30.00 Acute cystitis without hematuria (principal) | CPT/HCPCS: 87086 ==

== ENCOUNTER 2020-08-13 22:55 | Emergency (ER) | payer MEDICARE, MEDICAID, SELFPAY ==
[2020-08-13 22:55] VITALS: BP 150/78; PULSE 87; RESP 20; TEMP 36.5; O2SAT 100; BMI 39.4
[2020-08-13 23:11] LABS: POC Glucose,Bedside 173 (70-110)
[2020-08-13 23:23] LABS: Basophils % 0.2 % (0.1-2.0); Eosinophils # 0.1 K/mm3 (0.0-0.4); Eosinophils % 0.6 % (0.1-12.0); Hematocrit 45.8 % (37.0-47.0); Hemoglobin 15.4 g/dL (12.2-16.2); Lymphocytes # 3.4 K/mm3 (0.7-4.5); Lymphocytes % 18.6 % (10-50); Mean Corpuscular HGB Conc 33.5 g/dL (31.8-35.4); Mean Corpuscular Hemoglobin 30.1 pg (27.0-31.2); Mean Corpuscular Volume 89.8 fl (81-99); Mean Platelet Volume 8.8 fl (7.4-10.4); Monocytes # 0.5 K/mm3 (0.1-1.0); Monocytes % 2.7 % (1.7-9.3); Neutrophils # 14.2 K/mm3 (1.8-7.8); Neutrophils % 77.9 % (37.0-80.0); Platelet Count 325 K/mm3 (142-424); Red Cell Distribution Width 13.9 % (11.5-17.5); White Blood Count 18.3 K/mm3 (4.8-10.8)
--- NOTE | 2020-08-13 23:26 | CT_ITS ---
PROCEDURE INFORMATION: Exam: CT Abdomen And Pelvis With Contrast Exam date and time: 08/13/2020 11:26 PM Age: 70 years old Clinical indication: Nausea and vomiting and other: Back pain; Prior surgery; Surgery date: 6+ months; Surgery type: Gb; Patient HX: Back pain, nausea, vomiting and recent dx of UTI; Additional info: Back and low abd pain, nausea, recent dx UTI TECHNIQUE: Imaging protocol: Computed tomography of the abdomen and pelvis with contrast. Radiation optimization: All CT scans at this facility use at least one of these dose optimization techniques: automated exposure control; mA and/or kV adjustment per patient size (includes targeted exams where dose is matched to clinical indication); or iterative reconstruction. Contrast material: ISOVUE; Contrast volume: 75 ml; Contrast route: IV; COMPARISON: CR XR HIP BI W [id number] 10/27/2018 4:59 PM FINDINGS: Liver: Normal. No mass. Gallbladder and bile ducts: cholecystectomy. Pancreas: Normal. No ductal dilation. Spleen: Normal. No splenomegaly. Adrenal glands: Normal. No mass. Kidneys and ureters: Normal. No hydronephrosis. Stomach and bowel: Diverticulosis in the sigmoid without diverticulitis. No colitis. No small bowel obstruction. Appendix: Normal appendix. Intraperitoneal space: Unremarkable. No free air. No significant fluid collection. Vasculature: Unremarkable. No abdominal aortic aneurysm. Lymph nodes: Unremarkable. No enlarged lymph nodes. Urinary bladder: Urinary bladder not well distended. Cannot exclude cystitis. Reproductive: Unremarkable as visualized. Bones/joints: Unremarkable. No acute fracture. Soft tissues: Small umbilical hernia with fat. IMPRESSION: Possible cystitis otherwise no additional acute findings in the abdomen pelvis.
[2020-08-13 23:27] LABS: Lipase 50 U/L (23-300)
[2020-08-13 23:28] LABS: Alanine Aminotransferase 31 U/L (12-78); Albumin Level 4.5 g/dl (3.5-5.0); Albumin/Globulin Ratio 1.3 (1.1-1.8); Alkaline Phosphatase 191 U/L (38-126); Amylase 53 U/L (30-110); Anion Gap 14.3 mEq/L (5-15); Aspartate Amino Transferase 40 U/L (14-36); Bilirubin,Total 0.6 mg/dl (0.2-1.3); Blood Urea Nitrogen 15 mg/dl (7-17); Calcium 9.9 mg/dl (8.4-10.2); Carbon Dioxide 26 mmol/L (22.0-30.0); Chloride 101 mmol/L (98-107); Creatinine Clearance Estimated 81 mL/min (50-200); Estimated Glomerular Filt Rate 49 ml/min (>60); GFR (African American) 60 ML/MIN (>60); Globulin 3.6 g/dL (1.3-3.2); Glucose 195 mg/dl (74-100); Potassium 4.3 mmoL/L (3.5-5.1); Sodium 137 mmol/L (136-145); Total Protein,Serum 8.1 g/dl (6.3-8.2)
[2020-08-13 23:29] LABS: MANUAL DIFFERENTIAL MANUAL DIFFERENTIAL (MANUAL DIFF)
[2020-08-13 23:34] LABS: C-Reactive Protein 32.4 mg/L (0-4)
[2020-08-13 23:43] LABS: Eosinophils % 1 % (0-3); Lymphocytes % 21 % (10-50); Monocytes % 2 % (2-9); Neutrophils % 76 % (42-76); Platelet Estimate Normal; Stomatocytes 1+; Total Cells Counted 100
[2020-08-13 23:48] LABS: Procalcitonin 0.051 ng/mL (0.0-2.0)
[2020-08-14] VITALS (7 sets, daily range): BP systolic 116–174; BP diastolic 53–85; PULSE 72–83; RESP 14–19; TEMP 36.7; O2SAT 96–98
[2020-08-14 00:17] LABS: Lactic Acid 2.2 mmol/L (0.7-2.1)
--- NOTE | 2020-08-14 00:20 | PC.NURSE ---
pt to ct at this time.
[2020-08-14 00:23] LABS: Erythrocyte Sedimentation Rate 20 mm/hr (0-30)
--- NOTE | 2020-08-14 00:24 | HMH.EDGENADL ---
ED Disposition Clinical Impression: UTI (urinary tract infection) Qualifiers: Urinary tract infection type: acute cystitis Hematuria presence: without hematuria Qualified Code(s): N30.00 - Acute cystitis without hematuria Disposition: Home, Self-Care Condition on Discharge: Good Instructions: DI for Acute Pain -- Adult Additional Instructions: fluids and see pcp for follow up Referrals: Tonio Sanchez APRN [Primary Care Provider] - - Critical Care Critical Care Time: No Attestation: On 08/13/20, the high probability of a clinically significant, sudden or life threatening deterioration of the following system(s) required my full and direct attention, intervention and personal management. The time I documented below is in addition to time spent performing reported procedures but includes the following listed in this critical care notation. Medical Decision Making - Medical Records Medical records reviewed: Yes: I reviewed the patient's medical records. - Faraz Inquiry Pt receiving controlled substance: No Vital Signs: 08/13/20 22:55 08/14/20 01:04 08/14/20 01:05 Temperature 97.7 F Temperature Source Oral Pulse Rate 80 72 Pulse Rate [Right] 87 Respiratory Rate 20 19 16 Blood Pressure 164/60 H 164/60 H Blood Pressure [Right Arm] 150/78 H Blood Pressure Mean 95 Blood Pressure Mean [Right Arm] 102 Blood Pressure Source Automatic Cuff Blood Pressure Source [Right Arm] Automatic Cuff Blood Pressure Position Sitting 02 Sat by Pulse Oximetry 100 96 98 Oxygen Delivery Method Room Air Room Air 08/14/20 01:31 Temperature Temperature Source Pulse Rate 78 Pulse Rate [Right] Respiratory Rate 16 Blood Pressure 163/68 H Blood Pressure [Right Arm] Blood Pressure Mean 99 Blood Pressure Mean [Right Arm] Blood Pressure Source Blood Pressure Source [Right Arm] Blood Pressure Position 02 Sat by Pulse Oximetry 96 Oxygen Delivery Method Room Air - Lab Data Lab results reviewed: Yes: I reviewed the patient's lab results. Lab Results 08/13/20 23:03: POC Glucose 173 H 08/13/20 23:05: WBC 18.3 H, RBC 5.10, Hgb 15.4, Hct 45.8, MCV 89.8, MCH 30.1, MCHC 33.5, RDW 13.9, Plt Count 325, MPV 8.8, Neut % (Auto) 77.9, Lymph % (Auto) 18.6, [place] % (Auto) 2.7, Eos % (Auto) 0.6, Baso % (Auto) 0.2, Neut # (Auto) 14.2 H, Lymph # (Auto) 3.4, [place] # (Auto) 0.5, Eos # (Auto) 0.1, Baso # (Auto) 0.0, Total Counted 100, Neutrophils % (Manual) 76, Lymphocytes % (Manual) 21, Monocytes % (Manual) 2, Eosinophils % (Manual) 1, Platelet Estimate Normal, Stomatocytes 1+, ESR 20 08/13/20 23:05: Sodium 137, Potassium 4.3, Chloride 101, Carbon Dioxide 26, Anion Gap 14.3, BUN 15, Creatinine 1.10 H, Estimated Creat Clear 81, Estimated GFR 49 L, Est GFR ( Amer) 60, Glucose 195 H, Calcium 9.9, Total Bilirubin 0.6, AST 40 H, ALT 31, Alkaline Phosphatase 191 H, C-Reactive Protein 32.4 H, Total Protein 8.1, Albumin 4.5, Globulin 3.6 H, Albumin/Globulin Ratio 1.3, Amylase 53, Procalcitonin 0.051 08/13/20 23:05: Lipase 50 08/13/20 23:48: Lactate 2.2 H 08/14/20 00:00: Urine Color Yellow, Urine Appearance Clear, Urine pH 8.0, Ur Specific [place] 1.010, Urine Protein Negative, Urine Glucose (UA) Negative, Urine Ketones Negative, Urine Blood Negative, Urine Nitrate Negative, Urine Bilirubin Negative, Urine Urobilinogen 0.2, Ur Leukocyte Esterase Negative, Urine WBC Occasional, Urine Bacteria Trace, Urine Mucus 1+ Result diagrams: 08/13/20 23:05 08/13/20 23:05 Orders (Tests/Meds): ED MEDICATIONS Generic Name Dose Route Start Last Admin Trade Name Freq PRN Reason Stop Dose Admin Sodium Chloride 1,000 mls @ 999 mls/hr 08/13/20 23:30 08/13/20 23:27 Sod Chlor 0.9% 1000ml Bag IV 08/14/20 00:30 999 mls/hr .Q1H1M JOE Administration Sodium Chloride 1,000 mls @ 999 mls/hr 08/14/20 01:30 08/14/20 01:31 Sod Chlor 0.9% 1000ml Bag IV 08/14/20 02:30 999 mls/hr .Q1H1M JOE Administration Ceftriaxone Sodium 1 gm/
[2020-08-14 01:38] LABS: Microscopic, Urine URINE MICROSCOPIC (MICROSCOPIC)
[2020-08-14 01:40] LABS: Appearance,Urine CLEAR (Clear); Bilirubin,Urine Negative (Negative); Blood, Urine Negative (Negative); Color,Urine YELLOW (Yellow); Glucose,Urine (UA) Negative (Negative); Ketones,Urine Negative (Negative); Leukocyte Esterase,Urine Negative (Negative); Nitrate,Urine Negative (Negative); Protein,Urine Negative (Negative); Urobilinogen,Urine 0.2 EU/dl (0.2)
[2020-08-14 01:47] LABS: Bacteria,Urine Trace /lpf; Mucus,Urine 1+ /lpf; WBC,Urine Occasional #/hpf (0-3)
--- NOTE | 2020-08-14 01:56 | PC.NURSE ---
pt placed on 2LPM NC d/t SaO2 dropped to 80%. Pt sleepy post phenergan but feels much better . Easily awakens and is Oriented x4. Pt says she does not usually use oxygen but states she has had to have O2 before from anxiety medication. Current sat 98%
--- NOTE | 2020-08-14 02:32 | PC.WOUNDNOTE ---
Pt weaned off of O2, sats 93-98% on room air
== END 2020-08-14 03:08 | disposition home or self-care (01) ==
PROVIDERS: Emergency Provider Emergency Medicine; PCP Nurse Practitioner Family
DX: N30.00 Acute cystitis without hematuria (principal); J44.9 Chronic obstructive pulmonary disease, unspecified; E11.9 Type 2 diabetes mellitus without complications; I25.10 Atherosclerotic heart disease of native coronary artery without angina pectoris; E78.5 Hyperlipidemia, unspecified; Z88.5 Allergy status to narcotic agent; I25.2 Old myocardial infarction; E03.9 Hypothyroidism, unspecified; K21.9 Gastro-esophageal reflux disease without esophagitis; Z79.899 Other long term (current) drug therapy
CPT/HCPCS: 74177; 80053; 81001; 82150; 82962; 83605; 83690; 84145; 85007; 85025; 85651; 86140; 87040; 87086; 96365; 96366; 96375; 99283; J2405; Q9967

== ENCOUNTER 2020-08-14 13:46 | Emergency (ER) | payer MEDICARE, MEDICAID, SELFPAY ==
[2020-08-14 13:46] VITALS: BP 138/63; PULSE 79; RESP 18; TEMP 36.8; O2SAT 98; BMI 39.4
--- NOTE | 2020-08-14 14:10 | HMH.EDGENADL ---
ED Disposition Clinical Impression: Withdrawal complaint, Vomiting and diarrhea, Anxiety state Leukocytosis Qualifiers: Leukocytosis type: unspecified Qualified Code(s): D72.829 - Elevated white blood cell count, unspecified Disposition: Home, Self-Care Condition on Discharge: Fair Instructions: DI for Anxiety -- Adult, DI for Diarrhea and Traveler's Diarrhea -- Adult, DI for Nausea -- Adult Additional Instructions: See your primary care provider in the office tomorrow. Zofran as needed for nausea. Restart gabapentin as prescribed. Prescriptions: Gabapentin 600 mg PO TID #15 tablet Transmission Status: Sent to [facility] Referrals: Provider,Referral, [Primary Care Provider] - - Critical Care Critical Care Time: No Attestation: On 08/14/20, the high probability of a clinically significant, sudden or life threatening deterioration of the following system(s) required my full and direct attention, intervention and personal management. The time I documented below is in addition to time spent performing reported procedures but includes the following listed in this critical care notation. Medical Decision Making - Faraz Inquiry Pt receiving controlled substance: Yes Faraz was queried for this patient: Yes (Last prescription for gabapentin 07/05, 30-day supply) Risks and benefits of using a controlled substance: were discussed with pt by Vital Signs: 08/14/20 13:46 08/14/20 14:55 Temperature 98.3 F Temperature Source Oral Oral Pulse Rate 83 Pulse Rate [Right] 79 Respiratory Rate 18 18 Blood Pressure 133/58 L Blood Pressure [Right Arm] 138/63 Blood Pressure Mean [Right Arm] 88 02 Sat by Pulse Oximetry 98 97 Oxygen Delivery Method Room Air Room Air - Lab Data Lab Results 08/14/20 14:28: WBC 18.4 H, RBC 4.59, Hgb 13.6 D, Hct 41.0, MCV 89.4, MCH 29.6, MCHC 33.1, RDW 14.1, Plt Count 324, MPV 8.3, Neut % (Auto) 80.1 H, Lymph % (Auto) 16.4, [place] % (Auto) 2.3, Eos % (Auto) 1.1, Baso % (Auto) 0.2, Neut # (Auto) 14.7 H, Lymph # (Auto) 3.0, [place] # (Auto) 0.4, Eos # (Auto) 0.2, Baso # (Auto) 0.0, Total Counted 100, Neutrophils % (Manual) 77 H, Lymphocytes % (Manual) 20, Monocytes % (Manual) 3, Platelet Estimate Normal, RBC Morphology Normal 08/14/20 14:28: Sodium 136, Potassium 4.1, Chloride 102, Carbon Dioxide 21 L, Anion Gap 17.1 H, BUN 13, Creatinine 1.10 H, Estimated Creat Clear 81, Estimated GFR 49 L, Est GFR ( Amer) 60, Glucose 181 H, Calcium 9.6, Total Bilirubin 0.4, AST 44 H, ALT 33, Alkaline Phosphatase 169 H, Total Protein 7.7, Albumin 4.3, Globulin 3.4 H, Albumin/Globulin Ratio 1.3 Result diagrams: 08/14/20 14:28 08/14/20 14:28 Orders (Tests/Meds): ED MEDICATIONS Discontinued Medications Generic Name Dose Route Start Last Admin Trade Name Freq PRN Reason Stop Dose Admin Clonazepam 1 mg 08/14/20 14:39 08/14/20 14:45 Clonazepam 0.5mg Tablet PO 08/14/20 14:40 1 mg ONCE ONE Administration Gabapentin 600 mg 08/14/20 14:39 08/14/20 14:46 Gabapentin 600mg Tablet PO 08/14/20 14:40 600 mg ONCE ONE Administration Ondansetron HCl 4 mg 08/14/20 14:40 08/14/20 14:46 Ondansetron 4mg/2ml Vial IV 08/14/20 14:41 4 mg ONCE ONE Administration ORDERS Category Date Time Status Diarrhea 6-11 Panel, Cdiff PCR Stat Lab 08/14/20 14:51 Ordered - Physician Consults Physician Consulted: Neus Time: 14:45 Reason -: Pt condition Comment/Response: Okay to prescribe gabapentin for several days until follow-up in the office. - Reevaluation(s) Time: 15:35 Reevaluation #1: sleeping. When awakened states she feels better. Agreeable with plan. Has nausea medicine at home. General Adult HPI - General Chief complaint: Nausea/Vomiting/Diarrhea Stated complaint: N/V/D Time Seen by Provider: 08/14/20 14:10 Mode of Arrival: EMS Limitations: No Limitations Description of Symptoms (Recalled from ER Triage Doc. by RN): PT C/O N/V/D FOR THE LAS
[2020-08-14 14:30] VITALS: BP 152/86; PULSE 70; O2SAT 96
--- NOTE | 2020-08-14 14:36 | PC.NURSE ---
Dr Montalvo called for consult on patient.
[2020-08-14 14:38] LABS: Basophils % 0.2 % (0.1-2.0); Eosinophils # 0.2 K/mm3 (0.0-0.4); Eosinophils % 1.1 % (0.1-12.0); Lymphocytes % 16.4 % (10-50); Mean Corpuscular HGB Conc 33.1 g/dL (31.8-35.4); Mean Corpuscular Hemoglobin 29.6 pg (27.0-31.2); Mean Corpuscular Volume 89.4 fl (81-99); Mean Platelet Volume 8.3 fl (7.4-10.4); Monocytes # 0.4 K/mm3 (0.1-1.0); Monocytes % 2.3 % (1.7-9.3); Neutrophils # 14.7 K/mm3 (1.8-7.8); Neutrophils % 80.1 % (37.0-80.0); Platelet Count 324 K/mm3 (142-424); Red Blood Count 4.59 M/mm3 (4.20-5.40); Red Cell Distribution Width 14.1 % (11.5-17.5); White Blood Count 18.4 K/mm3 (4.8-10.8)
[2020-08-14 14:40] LABS: MANUAL DIFFERENTIAL MANUAL DIFFERENTIAL (MANUAL DIFF)
[2020-08-14 14:48] LABS: Chloride 102 mmol/L (98-107); Sodium 136 mmol/L (136-145)
[2020-08-14 14:49] LABS: Lymphocytes % 20 % (10-50); Monocytes % 3 % (2-9); Neutrophils % 77 % (42-76); Platelet Estimate Normal; Potassium 4.1 mmoL/L (3.5-5.1); RBC Morphology Normal; Total Cells Counted 100
[2020-08-14 14:51] LABS: Alanine Aminotransferase 33 U/L (12-78); Albumin Level 4.3 g/dl (3.5-5.0); Albumin/Globulin Ratio 1.3 (1.1-1.8); Alkaline Phosphatase 169 U/L (38-126); Anion Gap 17.1 mEq/L (5-15); Aspartate Amino Transferase 44 U/L (14-36); Bilirubin,Total 0.4 mg/dl (0.2-1.3); Blood Urea Nitrogen 13 mg/dl (7-17); Calcium 9.6 mg/dl (8.4-10.2); Carbon Dioxide 21 mmol/L (22.0-30.0); Creatinine Clearance Estimated 81 mL/min (50-200); Estimated Glomerular Filt Rate 49 ml/min (>60); GFR (African American) 60 ML/MIN (>60); Globulin 3.4 g/dL (1.3-3.2); Glucose 181 mg/dl (74-100); Total Protein,Serum 7.7 g/dl (6.3-8.2)
[2020-08-14 14:55] VITALS: BP 133/58; PULSE 83; RESP 18; O2SAT 97
[2020-08-14 15:00] VITALS: BP 133/58; PULSE 70; O2SAT 100
[2020-08-14 15:01] LABS: Hemoglobin 13.6 g/dL (12.2-16.2)
--- NOTE | 2020-08-14 15:21 | PC.NURSE ---
Placed pt on 3lpm of O2. O2 sat was 82% on RA post medication admin. O2 came up to 99% on 3lpm.
[2020-08-14 15:53] VITALS: BP 147/67; PULSE 72; O2SAT 96
[2020-08-14 16:15] VITALS: BP 147/67; PULSE 72; RESP 18; TEMP 36.7; O2SAT 98
== END 2020-08-14 16:17 | disposition home or self-care (01) ==
PROVIDERS: Emergency Provider Emergency Medicine
DX: R11.10 Vomiting, unspecified (principal); R19.7 Diarrhea, unspecified; F41.1 Generalized anxiety disorder; D72.829 Elevated white blood cell count, unspecified; M79.7 Fibromyalgia; I25.10 Atherosclerotic heart disease of native coronary artery without angina pectoris; K21.9 Gastro-esophageal reflux disease without esophagitis; E03.9 Hypothyroidism, unspecified; E78.5 Hyperlipidemia, unspecified; I10 Essential (primary) hypertension; Z79.899 Other long term (current) drug therapy
CPT/HCPCS: 80053; 85007; 85025; 96374; 99282; J2405

== ENCOUNTER → 2020-09-09 13:47 | Outpatient (CLI) | payer MEDICARE, MEDICAID, SELFPAY ==
[2020-09-09 13:54] LABS: Basophils # 0.1 K/mm3 (0-0.2); Basophils % 0.5 % (0.1-2.0); Eosinophils # 0.1 K/mm3 (0.0-0.4); Eosinophils % 0.9 % (0.1-12.0); Hematocrit 43.3 % (37.0-47.0); Hemoglobin 14.5 g/dL (12.2-16.2); Lymphocytes # 2.6 K/mm3 (0.7-4.5); Lymphocytes % 20.1 % (10-50); Mean Corpuscular HGB Conc 33.5 g/dL (31.8-35.4); Mean Corpuscular Hemoglobin 30.4 pg (27.0-31.2); Mean Corpuscular Volume 90.7 fl (81-99); Mean Platelet Volume 9.2 fl (7.4-10.4); Monocytes # 0.3 K/mm3 (0.1-1.0); Monocytes % 2.5 % (1.7-9.3); Neutrophils % 76.1 % (37.0-80.0); Platelet Count 294 K/mm3 (142-424); Red Blood Count 4.77 M/mm3 (4.20-5.40); Red Cell Distribution Width 14.4 % (11.5-17.5); White Blood Count 13.1 K/mm3 (4.8-10.8)
[2020-09-09 14:34] LABS: Chloride 100 mmol/L (98-107); Potassium 4.3 mmoL/L (3.5-5.1); Sodium 139 mmol/L (136-145)
[2020-09-09 14:36] LABS: Blood Urea Nitrogen 43 mg/dl (7-17); Estimated Glomerular Filt Rate 41 ml/min (>60); GFR (African American) 49 ML/MIN (>60)
[2020-09-09 14:37] LABS: Alanine Aminotransferase 19 U/L (12-78); Albumin Level 4.3 g/dl (3.5-5.0); Albumin/Globulin Ratio 1.2 (1.1-1.8); Alkaline Phosphatase 184 U/L (38-126); Anion Gap 19.3 mEq/L (5-15); Aspartate Amino Transferase 31 U/L (14-36); Bilirubin,Total 0.4 mg/dl (0.2-1.3); Calcium 9.2 mg/dl (8.4-10.2); Carbon Dioxide 24 mmol/L (22.0-30.0); Globulin 3.5 g/dL (1.3-3.2); Glucose 188 mg/dl (74-100); Total Protein,Serum 7.8 g/dl (6.3-8.2)
[2020-09-09 15:01] LABS: Hemoglobin A1C 7.5 % (4.0-6.0)
[2020-09-09 15:12] LABS: Thyroid Stimulating Hormone 6.23 uIU/mL (0.465-4.68)
== END ==
PROVIDERS: Visit Provider Family Medicine
DX: Z09 Encounter for follow-up examination after completed treatment for conditions other than malignant neoplasm (principal); R73.9 Hyperglycemia, unspecified
CPT/HCPCS: 80053; 83036; 84443; 85025

== ENCOUNTER → 2020-09-29 12:47 | Outpatient (CLI) | payer MEDICARE, MEDICAID, SELFPAY ==
[2020-09-29 12:51] LABS: Microscopic, Urine URINE MICROSCOPIC (MICROSCOPIC)
[2020-09-29 13:19] LABS: Appearance,Urine CLEAR (Clear); Bilirubin,Urine Negative (Negative); Blood, Urine Negative (Negative); Color,Urine YELLOW (Yellow); Glucose,Urine (UA) Negative (Negative); Ketones,Urine Negative (Negative); Leukocyte Esterase,Urine 1+ (Negative); Nitrate,Urine Negative (Negative); Protein,Urine Negative (Negative); Specific Gravity, Urine <= 1.005 (1.005-1.030); Urobilinogen,Urine 0.2 EU/dl (0.2)
[2020-09-29 14:24] LABS: Bacteria,Urine Trace /lpf
== END ==
PROVIDERS: Visit Provider Emergency Medicine
DX: R30.0 Dysuria (principal)
CPT/HCPCS: 81001; 87086

== ENCOUNTER → 2020-10-16 12:06 | Outpatient (CLI) | payer MEDICARE, MEDICAID, SELFPAY ==
[2020-10-16 13:09] LABS: Blood Urea Nitrogen 25 mg/dl (7-17); Estimated Glomerular Filt Rate 55 ml/min (>60); GFR (African American) 67 ML/MIN (>60)
== END ==
PROVIDERS: Visit Provider Family Medicine
DX: R56.9 Unspecified convulsions (principal)
CPT/HCPCS: 36415; 82565; 84520

== ENCOUNTER → 2020-10-17 09:56 | Outpatient (CLI) | payer MEDICARE, MEDICAID, SELFPAY ==
--- NOTE | 2020-10-17 09:57 | CT_ITS ---
PROCEDURE: CT HEAD/BRAIN WO/W CON CLINICAL INDICATION: MAHONEY, seizure COMPARISON: CT HEADWO CT head/brain wo con from 08/13/2018 TECHNIQUE: IV Contrast: 100ML Isovue 370 Axial images obtained. All CT scans at the facility use one or more dose reduction, viz: automated exposure control, ma/kV adjustment per patient size (including targeted exams where dose is matched to indication, i.e. head), or iterative reconstruction technique. FINDINGS: No midline shift, mass effect, intracranial hemorrhage, hydrocephalus, or extra-axial fluid collection is evident. No enhancing lesions are evident. The calvarium has an unremarkable appearance. No mastoid effusion . There is [id number]. Mucosal thickening of the sphenoid sinus on the left. Cavum septum pellucidum is present as a normal variant IMPRESSION: Negative MRI of the head without and with contrast. Left sphenoid sinus mucosal thickening Dictated by: Tony Melton MD 10/17/2020 16:50 Tony Melton MD in [place] 10/17/2020 16:50
== END ==
PROVIDERS: PCP Emergency Medicine; Visit Provider Family Medicine
DX: G40.909 Epilepsy, unspecified, not intractable, without status epilepticus (principal); G43.509 Persistent migraine aura without cerebral infarction, not intractable, without status migrainosus; R42 Dizziness and giddiness
CPT/HCPCS: 70470; Q9967

== ENCOUNTER 2020-11-05 19:18 | Emergency (ER) | payer MEDICARE, MEDICAID, SELFPAY ==
[2020-11-05 18:51] VITALS: BP 169/75; PULSE 69; RESP 18; TEMP 36.9; O2SAT 97; BMI 41.1
--- NOTE | 2020-11-05 19:11 | HMH.EDBACK ---
ED Disposition Condition on Discharge: Good - Critical Care Critical Care Time: No <Jaren Olvera - Last Filed: 11/05/20 20:00> <Marcus Montgomery - Last Filed: 11/05/20 21:17> Clinical Impression: Lumbar radiculopathy Disposition: Home, Self-Care Instructions: DI for Back Pain With Sciatica Additional Instructions: call pcp for follow up and meds Referrals: Provider,Referral, MD [Primary Care Provider] - Attestation: On 11/05/20, the high probability of a clinically significant, sudden or life threatening deterioration of the following system(s) required my full and direct attention, intervention and personal management. The time I documented below is in addition to time spent performing reported procedures but includes the following listed in this critical care notation. Medical Decision Making - Medical Records Medical records reviewed: Yes: I reviewed the patient's medical records. - Faraz Inquiry Pt receiving controlled substance: No <Jaren Olvera - Last Filed: 11/05/20 20:00> - Lab Data Lab results reviewed: Yes: I reviewed the patient's lab results. - Radiology Data #1 Image(s): L-Spine Image Reviewed: Yes I reviewed the patient's radiology image Preliminary Findings: Abnormal <Marcus Montgomery - Last Filed: 11/05/20 21:17> Vital Signs: 11/05/20 18:51 Temperature 98.4 F Temperature Source Oral Pulse Rate [Right] 69 Respiratory Rate 18 Blood Pressure [Right Arm] 169/75 H Blood Pressure Mean [Right Arm] 106 02 Sat by Pulse Oximetry 97 Oxygen Delivery Method Room Air Orders (Tests/Meds): ED MEDICATIONS Discontinued Medications Generic Name Dose Route Start Last Admin Trade Name Michael PRN Reason Stop Dose Admin Ketorolac Tromethamine 60 mg 11/05/20 19:51 11/05/20 20:06 Ketorolac 60mg/2ml Vial IM 11/05/20 19:52 60 mg ONCE ONE Administration Lidocaine 1 each 11/05/20 19:51 11/05/20 20:06 Lidocaine 5% Transdermal Patch TP 11/05/20 19:52 1 each ONCE ONE Administration ORDERS Category Date Time Status Lumbar spine XR 2-3 views [XR lumbar spine 2-3V] Stat Exams 11/05/20 19:29 Taken Medical Decision Narrative: 70-year-old female presents with lumbar pain as above. She is in no acute distress nontoxic-appearing no concern for cauda equina syndrome conus medullaris trauma infection or other emergent pathology. Screening lumbar x-ray will be obtained. Given symptomatic treatment of Toradol lidocaine patch and Robaxin. Dr. Montgomery to follow-up on final results and disposition (Jaren Olvera) feels better and no cauda equina but has radicular pain (Marcus Montgomery) Back Pain HPI - General Mode of Arrival: EMS Limitations: No Limitations Description of Symptoms (Recalled from ER Triage Doc. by RN): Patient c/o lower back pain starting today. Patient reports she has chronic back pain. Patient denies any injury today but reports her back started having back spasms. Patient reports she is normally ambulatory. - History of Present Illness MD Complaint: back pain Onset (ago): hour(s) (3) Duration: constant Similar Symptoms Previously: Yes <Jaren Olvera - Last Filed: 11/05/20 20:00> - General Source of Information: Patient, EMS, Medical Record - History of Present Illness Severity: moderate Radiation: left leg, right leg Severity scale (1-10): 6 Exacerbating factors: movement Associated symptoms: difficulty walking <Marcus Montgomery - Last Filed: 11/05/20 21:17> - General Chief Complaint: Back Pain/Injury Stated Complaint: Back Pain Time Seen by Provider: 11/05/20 19:00 - History of Present Illness HPI Narrative: 70-year-old female with history of chronic lumbar pain presents with worsening lower back pain. She says the pain is worse on the left side and radiates to her left hip. Worse with movement dull constant aching. No fever no chills. No new trauma to her back. No urinary or bowel incontinence and no groin numbne
--- NOTE | 2020-11-05 19:29 | XR_ITS ---
PROCEDURE INFORMATION: Exam: XR Lumbosacral Spine Exam date and time: 11/05/2020 7:29 PM Age: 70 years old Clinical indication: Low back pain; Additional info: Lumbar pain TECHNIQUE: Imaging protocol: XR of the lumbosacral spine. Views: 2 or 3 views. COMPARISON: MR LUMBAR SPINE WO CON 07/31/2019 8:38 AM FINDINGS: Bones/joints: Diffuse osteopenia. No acute fracture. The disc spaces are preserved. Facet arthropathy most pronounced at L4-L5 and L5-S1. Soft tissues: Unremarkable. Intraperitoneal space: Multiple surgical clips are present in the right upper quadrant abdomen. IMPRESSION: 1. No acute fracture. 2. Degenerative changes most pronounced at L4-L5 and L5-S1.
[2020-11-05 20:00] VITALS: BP 156/86; PULSE 84; O2SAT 93
[2020-11-05 20:30] VITALS: BP 147/77; PULSE 75; O2SAT 97
[2020-11-05 21:08] VITALS: BP 129/76; PULSE 71; O2SAT 96
--- NOTE | 2020-11-05 21:21 | PC.NURSE ---
ASSITED PT IN CALLING HER DAUGHTER TO PICK HER UP
[2020-11-05 21:28] VITALS: BP 127/72; PULSE 70; RESP 18; TEMP 36.6; O2SAT 95
== END 2020-11-05 22:38 | disposition home or self-care (01) ==
PROVIDERS: Emergency Provider Emergency Medicine
DX: M54.16 Radiculopathy, lumbar region (principal); J45.909 Unspecified asthma, uncomplicated; I50.9 Heart failure, unspecified; J44.9 Chronic obstructive pulmonary disease, unspecified; I25.10 Atherosclerotic heart disease of native coronary artery without angina pectoris; E11.9 Type 2 diabetes mellitus without complications; K21.9 Gastro-esophageal reflux disease without esophagitis; I10 Essential (primary) hypertension; E78.5 Hyperlipidemia, unspecified; I25.2 Old myocardial infarction; E03.9 Hypothyroidism, unspecified; M79.7 Fibromyalgia; Z79.899 Other long term (current) drug therapy
CPT/HCPCS: 72100; 96372; 99282

== ENCOUNTER → 2020-11-17 10:32 | Outpatient (CLI) | payer MEDICARE, MEDICAID, SELFPAY ==
[2020-11-17 10:51] LABS: Adenovirus,PCR Not Detected (NotDetected); Bordetella Pertussis Not Detected (NotDetected); Chlamydophila Pneumoniae, PCR Not Detected (NotDetected); Coronavirus 19, PCR Not Detected (NotDetected); Coronavirus 229E Not Detected (NotDetected); Coronavirus NL63 Not Detected (NotDetected); Coronavirus OC43 Not Detected (NotDetected); Coronovirus HKU1,PCR Not Detected (NotDetected); Human Metapneumovirus Not Detected (NotDetected); Influenza A, PCR Not Detected (NotDetected); Influenza AH1, 2009 Not Detected (NotDetected); Influenza AH1, PCR Not Detected (NotDetected); Influenza AH3,PCR Not Detected (NotDetected); Influenza B, PCR Not Detected (NotDetected); Mycoplasma Pneumoniae, PCR Not Detected (NotDetected); Parainfluenza 1, PCR Not Detected (NotDetected); Parainfluenza 2, PCR Not Detected (NotDetected); Parainfluenza 3, PCR Not Detected (NotDetected); Parainfluenza 4, PCR Not Detected (NotDetected); Respiratory Syncytial Virus Not Detected (NotDetected); Rhinovirus/Enterovirus Not Detected (NotDetected)
== END ==
PROVIDERS: PCP Emergency Medicine; Visit Provider Emergency Medicine
DX: Z20.822 Contact with and (suspected) exposure to COVID-19 (principal)
CPT/HCPCS: 87581; 87633; 87798

== ENCOUNTER → 2021-01-16 10:39 | Outpatient (CLI) | payer MEDICARE, MEDICAID, SELFPAY ==
[2021-01-16 11:04] LABS: Basophils # 0.1 K/mm3 (0-0.2); Basophils % 0.7 % (0.1-2.0); Eosinophils # 0.1 K/mm3 (0.0-0.4); Eosinophils % 1.1 % (0.1-12.0); Hematocrit 44.6 % (37.0-47.0); Hemoglobin 14.2 g/dL (12.2-16.2); Lymphocytes % 23.3 % (10-50); Mean Corpuscular HGB Conc 31.9 g/dL (31.8-35.4); Mean Corpuscular Hemoglobin 30.1 pg (27.0-31.2); Mean Corpuscular Volume 94.5 fl (81-99); Mean Platelet Volume 9.3 fl (7.4-10.4); Monocytes # 0.3 K/mm3 (0.1-1.0); Monocytes % 2.6 % (1.7-9.3); Neutrophils # 9.2 K/mm3 (1.8-7.8); Neutrophils % 72.4 % (37.0-80.0); Platelet Count 384 K/mm3 (142-424); Red Blood Count 4.72 M/mm3 (4.20-5.40); Red Cell Distribution Width 13.9 % (11.5-17.5); White Blood Count 12.7 K/mm3 (4.8-10.8)
[2021-01-16 11:37] LABS: Alanine Aminotransferase 19 U/L (12-78); Alkaline Phosphatase 169 U/L (38-126); Anion Gap 18.1 mEq/L (5-15); Aspartate Amino Transferase 25 U/L (14-36); Bilirubin,Total 0.2 mg/dl (0.2-1.3); Blood Urea Nitrogen 28 mg/dl (7-17); Calcium 9.8 mg/dl (8.4-10.2); Carbon Dioxide 29 mmol/L (22.0-30.0); Chloride 97 mmol/L (98-107); Chol/HDL Ratio 4.4 (1-3.5); Cholesterol 171 mg/dl (140-200); Estimated Glomerular Filt Rate 55 ml/min (>60); GFR (African American) 67 ML/MIN (>60); Glucose 219 mg/dl (74-100); HDL Cholesterol 39 mg/dl (40-60); Potassium 5.1 mmoL/L (3.5-5.1); Sodium 139 mmol/L (136-145); Total Protein,Serum 7.3 g/dl (6.3-8.2); Triglycerides 275 mg/dl (30-150); VLDL Cholesterol 55 mg/dL (0-40)
[2021-01-16 11:48] LABS: Direct LDL Cholesterol 63.99 mg/dL (100-129)
[2021-01-16 11:55] LABS: 25-OH Vitamin D, Total 46.7 ng/mL (30-100)
[2021-01-16 12:08] LABS: Thyroid Stimulating Hormone 1.55 uIU/mL (0.465-4.68)
[2021-01-16 14:30] LABS: Bilirubin,Unconjugated < -0.3 mg/dL (0.0-1.1)
[2021-01-16 14:37] LABS: Bilirubin,Direct 0.3 mg/dl (0.0-0.4)
== END ==
PROVIDERS: Nurse Practitioner Family; Visit Provider Family Medicine
DX: E78.5 Hyperlipidemia, unspecified (principal); R25.2 Cramp and spasm; R07.9 Chest pain, unspecified; R73.9 Hyperglycemia, unspecified; R53.83 Other fatigue; E55.9 Vitamin D deficiency, unspecified
CPT/HCPCS: 36415; 80048; 80061; 80076; 82306; 84439; 84443; 85025

== ENCOUNTER → 2021-01-21 10:36 | Outpatient (CLI) | payer MEDICARE, MEDICAID, SELFPAY ==
[2021-01-21 11:15] LABS: Basophils % 0.4 % (0.1-2.0); Eosinophils # 0.1 K/mm3 (0.0-0.4); Eosinophils % 1.1 % (0.1-12.0); Hematocrit 44.4 % (37.0-47.0); Hemoglobin 13.8 g/dL (12.2-16.2); Lymphocytes # 2.4 K/mm3 (0.7-4.5); Lymphocytes % 20.8 % (10-50); Mean Corpuscular HGB Conc 31.1 g/dL (31.8-35.4); Mean Corpuscular Hemoglobin 29.7 pg (27.0-31.2); Mean Corpuscular Volume 95.6 fl (81-99); Mean Platelet Volume 8.8 fl (7.4-10.4); Monocytes # 0.3 K/mm3 (0.1-1.0); Monocytes % 2.8 % (1.7-9.3); Neutrophils # 8.8 K/mm3 (1.8-7.8); Neutrophils % 74.9 % (37.0-80.0); Platelet Count 326 K/mm3 (142-424); Red Blood Count 4.65 M/mm3 (4.20-5.40); Red Cell Distribution Width 13.5 % (11.5-17.5); White Blood Count 11.7 K/mm3 (4.8-10.8)
[2021-01-21 11:54] LABS: Erythrocyte Sedimentation Rate 19 mm/hr (0-30)
[2021-01-21 12:00] LABS: C-Reactive Protein 29.4 mg/L (0-4)
[2021-01-21 12:18] LABS: Gamma Glutamyl Transpeptidase 43 U/L (12-43)
== END ==
PROVIDERS: Physician Assistant; Visit Provider Nurse Practitioner Family
DX: K52.9 Noninfective gastroenteritis and colitis, unspecified (principal); E80.6 Other disorders of bilirubin metabolism; R73.9 Hyperglycemia, unspecified; R89.9 Unspecified abnormal finding in specimens from other organs, systems and tissues
CPT/HCPCS: 36415; 82977; 85025; 85651; 86140

== ENCOUNTER → 2021-01-27 13:32 | Outpatient (CLI) | payer MEDICARE, MEDICAID, SELFPAY ==
[2021-01-27 14:15] LABS: Hemoglobin A1C 8.6 % (4.0-6.0)
== END ==
PROVIDERS: Visit Provider Family Medicine
DX: R73.9 Hyperglycemia, unspecified (principal)
CPT/HCPCS: 83036

== ENCOUNTER → 2021-02-04 10:51 | Outpatient (CLI) | payer MEDICARE, MEDICAID, SELFPAY ==
[2021-02-04 12:32] LABS: C-Reactive Protein 43.2 mg/L (0-4)
== END ==
PROVIDERS: Visit Provider Nurse Practitioner Family
DX: R60.0 Localized edema (principal)
CPT/HCPCS: 36415; 86140

== ENCOUNTER 2021-03-06 11:12 | Emergency (ER) | payer MEDICARE, MEDICAID, SELFPAY ==
[2021-03-06 12:45] VITALS: BP 143/80; PULSE 74; RESP 18; TEMP 36.4; O2SAT 94; BMI 40.3
--- NOTE | 2021-03-06 13:18 | HMH.EDUTC ---
[facility] [place] Clinical Impression: COPD exacerbation Disposition: Home, Self-Care Condition on Discharge: Good Instructions: Physical Activity for People with COPD, DI for Chronic Obstructive Pulmonary Disease, Preventing the Spread of Coronavirus Discharge Instructions, DI for COVID-19 (Suspected or Confirmed ) Additional Instructions: Drink plenty of fluids. Take tylenol or ibuprofen for pain or fever. Take the medications as directed. Follow up with your regular doctor. GO TO THE ER FOR ANY WORSENING SYMPTOMS Quarantine until you know the results of your covid-19 test. If it is positive, the health department should call you and give you further instructions about your length of Quarantine and other things. Notify your school or workplace of your results and follow their instructions regarding return to work/school. Don't start the oral steroids until tomorrow, since you had the shot here today. Prescriptions: Promethazine/Dextromethorphan [Promethazine-Dm Syrup] 5 ml PO Q6HP PRN #240 ml PRN Reason: Cough Transmission Status: Pending to [facility] Amoxicillin/Potassium Clav [Augmentin 875-125 Tablet] 1 tab PO Q12H 10 Days #20 tab Transmission Status: Pending to [facility] guaiFENesin [Mucinex 600mg tablet] 1 - 2 tab PO BIDP PRN #30 tab PRN Reason: Congestion Transmission Status: Pending to [facility] predniSONE [Prednisone 20mg Tab] 20 mg PO BID 4 Days #8 tab Transmission Status: Pending to [facility] Referrals: Marcus Montgomery MD [Primary Care Provider] - Time of Disposition: 13:56 Medical Decision Making - Medical Records Medical records reviewed: No: I reviewed the patient's medical records. - Faraz Inquiry Pt receiving controlled substance: No Vital Signs: 03/06/21 12:45 Temperature 97.6 F Temperature Source Oral Pulse Rate [Right Brachial] 74 Respiratory Rate 18 Blood Pressure [Right Arm] 143/80 H Blood Pressure Mean [Right Arm] 101 Blood Pressure Source [Right Arm] Automatic Cuff Blood Pressure Position [Right Arm] Sitting 02 Sat by Pulse Oximetry 94 L Oxygen Delivery Method Room Air Orders (Tests/Meds): ED MEDICATIONS Discontinued Medications Generic Name Dose Route Start Last Admin Trade Name Freq PRN Reason Stop Dose Admin Ceftriaxone Sodium 1 gm 03/06/21 13:26 03/06/21 13:45 Ceftriaxone 1gm Vial IM 03/06/21 13:27 1 gm ONCE ONE Administration Lidocaine HCl 0 ml 03/06/21 13:26 03/06/21 13:45 Lidocaine 1% 5ml Pf Vial IM 03/06/21 13:27 2 ml ONCE ONE Administration Methylprednisolone Sodium Succinate 62.5 mg 03/06/21 13:26 03/06/21 13:45 Methylprednisolone Sod Succ 125mg Vial IM 03/06/21 13:27 62.5 mg ONCE ONE Administration ORDERS Category Date Time Status Full Resp Panel w/COVID ([facility]) Routine Lab 03/06/21 13:28 Ordered Medical Decision Narrative: She refused a chest x-ray today. [facility] [place] - General Stated complaint: congestion, h/a, soa Time Seen by Provider: 03/06/21 13:18 Mode of Arrival: Ambulatory Source of Information: Patient Limitations: No Limitations Description of Symptoms (Recalled from Triage Doc. by RN): PATIENT C/O EAR PAIN, SINUS PRESSURE, AND COUGH HEENT Symptoms (Recalled from RN notes): Yes Resp Symptoms (Recalled from RN notes): Yes Skin Symptoms (Recalled from RN notes): No MS Symptoms (Recalled from RN notes): No Functional Status (Recalled from RN notes): WNL - History of Present Illness Provider Complaint: She states that for the past 4 days she has had a worsening cough and chest congestion. She has a history of copd. She has been coughing up greenish sputum. She has not been vaccinated against covid-19, but she has had covid-19 twice. The last time she had it was in May 2020. She denies fever, but she has been chilling and having a head ache. - Related Data Home Medications Medication Instructions Recorded Confirmed Iprat
[2021-03-06 13:57] VITALS: BP 143/80; PULSE 74; RESP 18; TEMP 36.4; O2SAT 94
[2021-03-06 14:06] LABS: Adenovirus,PCR Not Detected (NotDetected); Bordetella Pertussis Not Detected (NotDetected); Chlamydophila Pneumoniae, PCR Not Detected (NotDetected); Coronavirus 19, PCR Not Detected (NotDetected); Coronavirus 229E Not Detected (NotDetected); Coronavirus NL63 Not Detected (NotDetected); Coronavirus OC43 Not Detected (NotDetected); Coronovirus HKU1,PCR Not Detected (NotDetected); Influenza A, PCR Not Detected (NotDetected); Influenza AH1, 2009 Not Detected (NotDetected); Influenza AH1, PCR Not Detected (NotDetected); Influenza AH3,PCR Not Detected (NotDetected); Influenza B, PCR Not Detected (NotDetected); Mycoplasma Pneumoniae, PCR Not Detected (NotDetected); Parainfluenza 1, PCR Not Detected (NotDetected); Parainfluenza 2, PCR Not Detected (NotDetected); Parainfluenza 3, PCR Not Detected (NotDetected); Parainfluenza 4, PCR Not Detected (NotDetected); Respiratory Syncytial Virus Not Detected (NotDetected); Rhinovirus/Enterovirus Not Detected (NotDetected)
[2021-03-06 17:24] LABS: Human Metapneumovirus Detected (NotDetected)
== END 2021-03-06 14:04 | disposition home or self-care (01) ==
PROVIDERS: Emergency Provider Nurse Practitioner Family; PCP Emergency Medicine
DX: J44.1 Chronic obstructive pulmonary disease with (acute) exacerbation (principal); E11.9 Type 2 diabetes mellitus without complications; K21.9 Gastro-esophageal reflux disease without esophagitis; M79.7 Fibromyalgia; E03.9 Hypothyroidism, unspecified; E78.5 Hyperlipidemia, unspecified; I10 Essential (primary) hypertension; I25.2 Old myocardial infarction; Z79.899 Other long term (current) drug therapy
CPT/HCPCS: G0463; 87581; 87632; 87798; 96372; 99202; C9803; U0003; U0005

== ENCOUNTER 2021-04-08 11:03 | Emergency (ER) | payer MEDICARE, MEDICAID, SELFPAY ==
--- NOTE | 2021-04-08 11:15 | HMH.EDGENADL ---
ED Disposition Clinical Impression: Migraine Qualifiers: Migraine type: with aura Status migrainosus presence: without status migrainosus Intractability: not intractable Qualified Code(s): G43.109 - Migraine with aura, not intractable, without status migrainosus Disposition: Home, Self-Care Condition on Discharge: Fair Referrals: Marcus Montgomery MD [Primary Care Provider] - - Critical Care Critical Care Time: No Attestation: On 04/08/21, the high probability of a clinically significant, sudden or life threatening deterioration of the following system(s) required my full and direct attention, intervention and personal management. The time I documented below is in addition to time spent performing reported procedures but includes the following listed in this critical care notation. Medical Decision Making - Medical Records Medical records reviewed: Yes: I reviewed the patient's medical records. - Faraz Inquiry Pt receiving controlled substance: No Vital Signs: 04/08/21 13:54 04/08/21 14:54 Temperature 98.5 F 98.2 F Temperature Source Oral Oral Pulse Rate 63 Pulse Rate [Left Radial] 67 Respiratory Rate 20 16 Blood Pressure 142/62 H Blood Pressure [Right Arm] 156/67 H Blood Pressure Mean [Right Arm] 96 02 Sat by Pulse Oximetry 96 Oxygen Delivery Method Room Air Room Air - Lab Data Lab results reviewed: Yes: I reviewed the patient's lab results. Lab Results 04/08/21 12:00: WBC 11.8 H, RBC 4.67, Hgb 14.2, Hct 44.9, MCV 96.1, MCH 30.5, MCHC 31.7 L, RDW 15.7, Plt Count 304, MPV 9.0, Neut % (Auto) 72.0, Lymph % (Auto) 22.9, [place] % (Auto) 2.6, Eos % (Auto) 1.6, Baso % (Auto) 0.9, Neut # (Auto) 8.5 H, Lymph # (Auto) 2.7, [place] # (Auto) 0.3, Eos # (Auto) 0.2, Baso # (Auto) 0.1 04/08/21 12:00: PT 12.3, INR 1.10 04/08/21 12:00: Sodium 135 L, Potassium 4.2, Chloride 101, Carbon Dioxide 31 H, Anion Gap 7.2, BUN 28 H, Creatinine 1.10 H, Estimated GFR 49 L, Est GFR ( Amer) 60, Glucose 135 H, Calcium 9.3, Total Bilirubin 0.3, AST 35, ALT 20, Alkaline Phosphatase 137 H, Total Protein 7.2, Albumin 3.9, Globulin 3.3 H, Albumin/Globulin Ratio 1.2 Result diagrams: 04/08/21 12:00 04/08/21 12:00 Orders (Tests/Meds): ED MEDICATIONS Discontinued Medications Generic Name Dose Route Start Last Admin Trade Name Freq PRN Reason Stop Dose Admin Diphenhydramine HCl 50 mg 04/08/21 11:32 04/08/21 12:18 Diphenhydramine 50mg/Ml Vial IV 04/08/21 11:33 50 mg ONCE ONE Administration Lactated Ringer's 1,000 mls @ 999 mls/hr 04/08/21 11:45 04/08/21 12:19 Lactated Ringer's 1000 Ml Bag IV 04/08/21 12:45 999 mls/hr .Q1H1M JOE Administration Iopamidol 100 ml 04/08/21 13:34 04/08/21 13:37 Iopamidol-370 (76%);100ml Bottle IV 04/08/21 13:35 100 ml ONCE ONE Administration Ketorolac Tromethamine 15 mg 04/08/21 11:32 04/08/21 12:18 Ketorolac 30mg/Ml Vial IV 04/08/21 11:33 15 mg ONCE ONE Administration Prochlorperazine Edisylate 10 mg 04/08/21 11:32 04/08/21 12:18 Prochlorperazine 10mg/2ml Vial IV 04/08/21 11:33 10 mg ONCE ONE Administration Sodium Chloride 50 ml 04/08/21 13:34 04/08/21 13:36 0.9 % Sodium Chloride 50 Ml Vial IV 04/08/21 13:35 50 ml ONCE ONE Administration Sodium Chloride 10 ml 04/08/21 13:34 04/08/21 13:36 Sodium Chloride 0.9% 10ml Syr (Rad Only) IV 04/08/21 13:35 10 ml ONCE ONE Administration Medical Decision Narrative: 62-year-old female present emerged department chief complaint of left-sided facial numbness and headache. Differential diagnosis for the patient includes TIA, cerebrovascular accident, complex migraine, recrudescence among others. Given this plan order CBC, CMP, CT head as well as CTA head and neck. Patient was given Toradol, fluids, Compazine, Benadryl. Labs are grossly reassuring, CT head and CT head and neck showed no acute abnormalities. Spoke to the patient, patient stated that she had resolution of he
--- NOTE | 2021-04-08 11:28 | CT_ITS ---
FINAL REPORT TECHNIQUE: Thin section axial CT with IV contrast supplemented with multiplanar reconstruction under CT angiogram protocol. 3-D reconstructions were performed. This study was performed with techniques to keep radiation doses as low as reasonably achievable (ALARA). Individualized dose reduction techniques using automated exposure control or adjustment of mA and/or kV according to the patient''s size were employed. CLINICAL HISTORY: tia FINDINGS: No aneurysm is seen. Major intracranial vessels are patent without significant stenosis. IMPRESSION: No aneurysm or evidence of significant stenosis. Reviewed, Interpreted and Dictated by Rufino Cedeno III, MD Transcribed by Guillaume Moon Authenticated by Rufino Cedeno III, MD on 04/08/2021 02:16:52 PM [facility]
--- NOTE | 2021-04-08 11:28 | CT_ITS ---
FINAL REPORT TECHNIQUE: Thin section axial CT with IV contrast supplemented with multiplanar reconstruction under CT angiogram protocol. This study was performed with techniques to keep radiation doses as low as reasonably achievable (ALARA). Individualized dose reduction techniques using automated exposure control or adjustment of mA and/or kV according to the patient''s size were employed. NASCET criteria was utilized during interpretation. CLINICAL HISTORY: tia FINDINGS: Aortic arch: Arch shows no significant narrowing. Great vessel origins are widely patent. Right carotid: No significant stenosis is seen of the cervical common or internal carotid artery. Left carotid: No significant stenosis is seen of the cervical common or internal carotid artery. Vertebral: Left vertebral artery is dominant. No significant stenosis is present. Images through the lungs demonstrate bilateral pulmonary ground-glass opacities that are nonspecific and could represent edema or pneumonia. There are several bilateral nodules measuring up to 5 mm. There is a calcified granuloma in the left lung. IMPRESSION: No significant stenosis. Nonspecific bilateral ground-glass opacities could represent edema or pneumonia. Several bilateral pulmonary nodules up to 5 mm are nonspecific. If indicated, follow-up CT in 6-12 months. Reviewed, Interpreted and Dictated by Rufino Cedeno III, MD Transcribed by Guillaume Moon Authenticated by Rufino Cedeno III, MD on 04/08/2021 02:16:51 PM [facility]
--- NOTE | 2021-04-08 11:28 | CT_ITS ---
FINAL REPORT CLINICAL HISTORY: tia FINDINGS: Axial images of the head were obtained without contrast. Coronal reformatted images were also obtained.This study was performed with techniques to keep radiation doses as low as reasonably achievable (ALARA). Individualized dose reduction techniques using automated exposure control or adjustment of mA and/or kV according to the patient's size were employed. There is no evidence of intracranial hemorrhage or mass. The ventricular size is within normal limits. There is no evidence of shift of the midline structures. No abnormal extra axial fluid collection is identified. No skull abnormality is seen on the bone window images.There is mucosal thickening in the left sphenoid sinus. IMPRESSION: No acute intracranial abnormality. Reviewed, Interpreted and Dictated by Rufino Cedeno III, MD Transcribed by Guillaume Moon Authenticated by Rufino Cedeno III, MD on 04/08/2021 02:16:48 PM [facility]
[2021-04-08 12:32] LABS: Chloride 101 mmol/L (98-107); Sodium 135 mmol/L (136-145)
[2021-04-08 12:33] LABS: Basophils # 0.1 K/mm3 (0-0.2); Basophils % 0.9 % (0.1-2.0); Eosinophils # 0.2 K/mm3 (0.0-0.4); Eosinophils % 1.6 % (0.1-12.0); Hematocrit 44.9 % (37.0-47.0); Hemoglobin 14.2 g/dL (12.2-16.2); Lymphocytes # 2.7 K/mm3 (0.7-4.5); Lymphocytes % 22.9 % (10-50); Mean Corpuscular HGB Conc 31.7 g/dL (31.8-35.4); Mean Corpuscular Hemoglobin 30.5 pg (27.0-31.2); Mean Corpuscular Volume 96.1 fl (81-99); Monocytes # 0.3 K/mm3 (0.1-1.0); Monocytes % 2.6 % (1.7-9.3); Neutrophils # 8.5 K/mm3 (1.8-7.8); Platelet Count 304 K/mm3 (142-424); Potassium 4.2 mmoL/L (3.5-5.1); Red Blood Count 4.67 M/mm3 (4.20-5.40); Red Cell Distribution Width 15.7 % (11.5-17.5); White Blood Count 11.8 K/mm3 (4.8-10.8)
[2021-04-08 12:35] LABS: Alanine Aminotransferase 20 U/L (12-78); Alkaline Phosphatase 137 U/L (38-126); Anion Gap 7.2 mEq/L (5-15); Aspartate Amino Transferase 35 U/L (14-36); Bilirubin,Total 0.3 mg/dl (0.2-1.3); Blood Urea Nitrogen 28 mg/dl (7-17); Carbon Dioxide 31 mmol/L (22.0-30.0); Estimated Glomerular Filt Rate 49 ml/min (>60); GFR (African American) 60 ML/MIN (>60)
[2021-04-08 12:36] LABS: Albumin Level 3.9 g/dl (3.5-5.0); Albumin/Globulin Ratio 1.2 (1.1-1.8); Calcium 9.3 mg/dl (8.4-10.2); Globulin 3.3 g/dL (1.3-3.2); Glucose 135 mg/dl (74-100); Total Protein,Serum 7.2 g/dl (6.3-8.2)
[2021-04-08 13:08] LABS: Prothrombin Time 12.3 seconds (10.1-12.5)
[2021-04-08 13:54] VITALS: BP 156/67; PULSE 67; RESP 20; TEMP 36.9; O2SAT 96; BMI 40.1
[2021-04-08 14:54] VITALS: BP 142/62; PULSE 63; RESP 16; TEMP 36.8; O2SAT 96
== END 2021-04-08 14:56 | disposition home or self-care (01) ==
PROVIDERS: Emergency Provider Emergency Medicine; PCP Emergency Medicine
DX: G43.109 Migraine with aura, not intractable, without status migrainosus (principal); Z86.73 Personal history of transient ischemic attack (TIA), and cerebral infarction without residual deficits; J44.9 Chronic obstructive pulmonary disease, unspecified; I25.10 Atherosclerotic heart disease of native coronary artery without angina pectoris; K21.9 Gastro-esophageal reflux disease without esophagitis; E78.5 Hyperlipidemia, unspecified; I11.0 Hypertensive heart disease with heart failure; I50.9 Heart failure, unspecified; I25.2 Old myocardial infarction
CPT/HCPCS: 70450; 70496; 70498; 80053; 85025; 85610; 96365; 96375; 99283; Q9967

== ENCOUNTER 2021-08-01 22:41 | Emergency (ER) | payer MEDICARE, MEDICAID, SELFPAY ==
[2021-08-01 22:40] VITALS: BP 158/80; PULSE 88; RESP 24; TEMP 36.9; O2SAT 99; BMI 40.4
--- NOTE | 2021-08-01 22:48 | XR_ITS ---
PROCEDURE INFORMATION: Exam: XR Chest Exam date and time: 08/01/2021 10:49 PM Age: 71 years old Clinical indication: Shortness of breath; Prior surgery; Surgery type: Open heart; Additional info: SOA TECHNIQUE: Imaging protocol: XR of the chest. Views: 1 view. COMPARISON: CR XR CHEST PORTABLE 07/07/2020 5:10 PM FINDINGS: Lungs: Unremarkable. No consolidation. Pleural spaces: Unremarkable. No pleural effusion. No pneumothorax. Heart/Mediastinum: Postsurgical changes compatible with CABG procedure. Bones/joints: Unremarkable. IMPRESSION: No acute findings.
--- NOTE | 2021-08-01 22:48 | ECG_ITS ---
APPROVED REPORT Exam: Resting ECG HR:88 bpm ECG Measurements Heart Rate 88 AXES MD 150 P 69 QRSd 101 QRS 57 QT 348 T 72 QTc 394 Conclusion SINUS RHYTHM MINIMAL ST DEPRESSION [0.025+ mV ST DEPRESSION] BORDERLINE ECG UNCONFIRMED REPORT Electronically signed by : Fidel Richards MD 08/02/2021 08:58:49
[2021-08-01 22:57] LABS: Basophils # 0.1 K/mm3 (0-0.2); Basophils % 0.6 % (0.1-2.0); Eosinophils # 0.1 K/mm3 (0.0-0.4); Eosinophils % 0.3 % (0.1-12.0); Hematocrit 41.8 % (37.0-47.0); Hemoglobin 13.7 g/dL (12.2-16.2); Lymphocytes # 3.4 K/mm3 (0.7-4.5); Lymphocytes % 20.6 % (10-50); Mean Corpuscular HGB Conc 32.9 g/dL (31.8-35.4); Mean Corpuscular Hemoglobin 31.1 pg (27.0-31.2); Mean Corpuscular Volume 94.3 fl (81-99); Monocytes # 0.3 K/mm3 (0.1-1.0); Neutrophils # 12.6 K/mm3 (1.8-7.8); Neutrophils % 76.5 % (37.0-80.0); Platelet Count 467 K/mm3 (142-424); Red Blood Count 4.43 M/mm3 (4.20-5.40); Red Cell Distribution Width 14.5 % (11.5-17.5); White Blood Count 16.5 K/mm3 (4.8-10.8)
[2021-08-01 23:01] LABS: MANUAL DIFFERENTIAL MANUAL DIFFERENTIAL (MANUAL DIFF)
[2021-08-01 23:05] LABS: Alanine Aminotransferase 48 U/L (12-78); Albumin Level 4.2 g/dl (3.5-5.0); Albumin/Globulin Ratio 1.2 (1.1-1.8); Alkaline Phosphatase 163 U/L (38-126); Anion Gap 19.5 mEq/L (5-15); Aspartate Amino Transferase 41 U/L (14-36); Blood Urea Nitrogen 30 mg/dl (7-17); Calcium 9.9 mg/dl (8.4-10.2); Carbon Dioxide 23 mmol/L (22.0-30.0); Chloride 100 mmol/L (98-107); Creatinine Clearance Estimated 79 mL/min (50-200); Estimated Glomerular Filt Rate 49 ml/min (>60); GFR (African American) 60 ML/MIN (>60); Globulin 3.5 g/dL (1.3-3.2); Glucose 279 mg/dl (74-100); Potassium 3.5 mmoL/L (3.5-5.1); Sodium 139 mmol/L (136-145); Total Protein,Serum 7.7 g/dl (6.3-8.2)
[2021-08-01 23:16] LABS: Lymphocytes % 17 % (10-50); Neutrophils % 82 % (42-76); Platelet Estimate Slight Increase; RBC Morphology Normal; Total Cells Counted 100
[2021-08-01 23:17] LABS: Bilirubin,Total < 0.1 mg/dl (0.2-1.3); NT Pro Brain Natriuretic Pep. 458 pg/mL (0-125)
[2021-08-01 23:20] LABS: Troponin I < 0.01 ng/ml (0.00-0.034)
[2021-08-01 23:30] VITALS: BP 151/71; PULSE 82; RESP 16; O2SAT 99
[2021-08-02 00:26] VITALS: BP 153/87; PULSE 84; RESP 18; TEMP 36.7; O2SAT 97
[2021-08-02 00:31] VITALS: BP 171/87; PULSE 67; RESP 18; O2SAT 96
[2021-08-02 01:01] VITALS: BP 190/93; PULSE 71; O2SAT 96
[2021-08-02 01:33] VITALS: BP 154/71; PULSE 83; RESP 81; TEMP 36.7; O2SAT 98
--- NOTE | 2021-08-02 01:33 | HMH.EDGENADL ---
ED Disposition Clinical Impression: Chest pain, Acute exacerbation of chronic obstructive airways disease Disposition: Home, Self-Care Condition on Discharge: Good Instructions: DI for Atypical Chest Pain, DI for Chronic Obstructive Pulmonary Disease Additional Instructions: Please follow-up with your primary care physician in 2 to 3 days for further management. You have been given doxycycline to take as prescribed. Please also utilize your albuterol inhaler 2 puffs every 6 hours for the next 2 days and then as needed. Please return back to the emergency department for any concerning symptoms such as difficulty breathing, chest pain or any other concerns. Please follow-up with your COVID results tomorrow if positive please self quarantine for 5 days. Prescriptions: Doxycycline Hyclate [Doxycycline 150mg Tablet] 150 mg PO BID #14 tab Transmission Status: Received by [facility] Referrals: Mert Ledesma MD [Primary Care Provider] - - Critical Care Critical Care Time: No Attestation: On 08/01/21, the high probability of a clinically significant, sudden or life threatening deterioration of the following system(s) required my full and direct attention, intervention and personal management. The time I documented below is in addition to time spent performing reported procedures but includes the following listed in this critical care notation. Medical Decision Making - Medical Records Medical records reviewed: Yes: I reviewed the patient's medical records. - Faraz Inquiry Pt receiving controlled substance: No Vital Signs: 08/01/21 22:40 08/01/21 23:30 08/02/21 00:26 Temperature 98.5 F 98.1 F Temperature Source Oral Pulse Rate 82 84 Pulse Rate [Right] 88 Respiratory Rate 24 16 18 Blood Pressure 151/71 H 153/87 H Blood Pressure [Right Arm] 158/80 H Blood Pressure Mean 109 Blood Pressure Mean [Right Arm] 106 02 Sat by Pulse Oximetry 99 99 97 Oxygen Delivery Method 08/02/21 00:31 08/02/21 01:01 08/02/21 01:33 Temperature 98.1 F Temperature Source Oral Pulse Rate 67 71 83 Pulse Rate [Right] Respiratory Rate 18 81 H Blood Pressure 171/87 H 190/93 H 154/71 H Blood Pressure [Right Arm] Blood Pressure Mean 109 110 Blood Pressure Mean [Right Arm] 02 Sat by Pulse Oximetry 96 96 Oxygen Delivery Method Room Air - Lab Data Lab results reviewed: Yes: I reviewed the patient's lab results. Lab Results 08/01/21 22:49: WBC 16.5 H, RBC 4.43, Hgb 13.7, Hct 41.8, MCV 94.3, MCH 31.1, MCHC 32.9, RDW 14.5, Plt Count 467 H, MPV 9.0, Neut % (Auto) 76.5, Lymph % (Auto) 20.6, [place] % (Auto) 2.0, Eos % (Auto) 0.3, Baso % (Auto) 0.6, Neut # (Auto) 12.6 H, Lymph # (Auto) 3.4, [place] # (Auto) 0.3, Eos # (Auto) 0.1, Baso # (Auto) 0.1, Total Counted 100, Neutrophils % (Manual) 82 H, Band Neutrophils % 1.0, Lymphocytes % (Manual) 17, Platelet Estimate Slight increase, RBC Morphology Normal 08/01/21 22:49: Sodium 139, Potassium 3.5, Chloride 100, Carbon Dioxide 23, Anion Gap 19.5 H, BUN 30 H, Creatinine 1.10 H, Estimated Creat Clear 79, Estimated GFR 49 L, Est GFR ( Amer) 60, Glucose 279 H, Calcium 9.9, Total Bilirubin < 0.1 L, AST 41 H, ALT 48, Alkaline Phosphatase 163 H, Troponin I < 0.01, NT-Pro-B Natriuret Pep 458 H, Total Protein 7.7, Albumin 4.2, Globulin 3.5 H, Albumin/Globulin Ratio 1.2 Result diagrams: 08/01/21 22:49 08/01/21 22:49 Orders (Tests/Meds): ORDERS Category Date Time Status Covid-19 Nasal PCR ([facility]) Routine Lab 08/02/21 01:28 Received Medical Decision Narrative: Esperanza is a 71-year-old male past medical history for CHF and COPD presenting to the emergency department for increased dyspnea over the last 2 days. Patient is afebrile and hemodynamically stable on arrival. Patient is satting 97% on room air and is breathing comfortably with no wheezing, rales or rhonchi on exam. No stridor or accessory muscle use. Patient appears comfortable. Bedside chest x-ray bradly
== END 2021-08-02 01:50 | disposition home or self-care (01) ==
PROVIDERS: Emergency Provider Student in an Organized Health Care Education/Training Program; PCP Family Medicine
DX: J44.1 Chronic obstructive pulmonary disease with (acute) exacerbation (principal); R07.89 Other chest pain; I50.9 Heart failure, unspecified; E11.9 Type 2 diabetes mellitus without complications; E03.9 Hypothyroidism, unspecified; M79.7 Fibromyalgia; Z79.899 Other long term (current) drug therapy; Z87.891 Personal history of nicotine dependence
CPT/HCPCS: 71045; 80053; 83880; 84484; 85007; 85025; 93005; 99283; C9803; U0003; U0005

== ENCOUNTER 2021-09-20 11:06 | Emergency (ER) | payer MEDICARE, MEDICAID, SELFPAY ==
--- NOTE | 2021-09-20 11:15 | XR_ITS ---
PROCEDURE INFORMATION: Exam: XR Right Foot Exam date and time: 09/20/2021 11:14 AM Age: 71 years old Clinical indication: Injury or trauma; Fall; Blunt trauma; Toes; Right lesser toe(s); Injury date: 09/14/21; Injury details: Hit in door jam and 2nd toe was bent back underneath and she pulled it back out; Additional info: Hit on door jam area and 2nd toe fracture TECHNIQUE: Imaging protocol: Radiologic exam of the Right foot. Views: 3 or more views. COMPARISON: CR LLR LOWER LEG-RT 06/22/2015 1:56 PM FINDINGS: Bones/joints: Generalized osteopenia. The irregularity of the distal aspect of the 2nd proximal phalanx. Findings compatible with nondisplaced fracture. Soft tissues: Diffuse soft tissue swelling right 2nd toe. IMPRESSION: 1. Nondisplaced fracture distal right 2nd proximal phalanx. 2. Diffuse soft tissue swelling right 2nd toe.
--- NOTE | 2021-09-20 11:51 | HMH.EDUTC ---
[facility] [place] Disposition Clinical Impression: Cellulitis of second toe, right Fracture of second toe, right, closed Qualifiers: Encounter type: initial encounter Qualified Code(s): S92.501A - Displaced unspecified fracture of right lesser toe(s), initial encounter for closed fracture Diabetes Qualifiers: Diabetes mellitus type: type 2 Diabetes mellitus detention insulin use: unspecified [employer] insulin use status Diabetes mellitus complication status: with other specified complication Qualified Code(s): E11.69 - Type 2 diabetes mellitus with other specified complication Disposition: Home, Self-Care Condition on Discharge: Good Additional Instructions: Rest the extremity, a Elevate the extremity as tolerated while you are resting. Follow up with Dr. Cruz (podiatry). I put in a referral but you need to call her office and schedule an appointment. Follow up with your regular doctor. GO TO THE ER FOR ANY WORSENING SYMPTOMS Prescriptions: cephALEXin [cephALEXin 500mg capsule] 500 mg PO Q6H 10 Days #40 cap Transmission Status: Received by [facility] Referrals: Marcus Montgomery MD [Primary Care Provider] - Christiana Cruz DPM [Staff Physician] - Time of Disposition: 12:27 Medical Decision Making - Medical Records Medical records reviewed: No: I reviewed the patient's medical records. - Faraz Inquiry Pt receiving controlled substance: No Vital Signs: 09/20/21 12:03 09/20/21 12:37 Temperature 98.2 F 98.2 F Temperature Source Oral Pulse Rate 65 Pulse Rate [Left] 65 Respiratory Rate 16 16 Blood Pressure 132/68 Blood Pressure [Right Arm] 132/68 Blood Pressure Mean [Right Arm] 89 02 Sat by Pulse Oximetry 96 - Radiology Data #1 Image(s): Foot/Toes Image Reviewed: Yes I reviewed the patient's radiology image, Yes I have reviewed radiologist's interpretation Preliminary Findings: Abnormal PROCEDURE INFORMATION: Exam: XR Right Foot Exam date and time: 09/20/2021 11:14 AM Age: 71 years old Clinical indication: Injury or trauma; Fall; Blunt trauma; Toes; Right lesser toe(s); Injury date: 09/14/21; Injury details: Hit in door jam and 2nd toe was bent back underneath and she pulled it back out; Additional info: Hit on door jam area and 2nd toe fracture TECHNIQUE: Imaging protocol: Radiologic exam of the Right foot. Views: 3 or more views. COMPARISON: CR LLR LOWER LEG-RT 06/22/2015 1:56 PM FINDINGS: Bones/joints: Generalized osteopenia. The irregularity of the distal aspect of the 2nd proximal phalanx. Findings compatible with nondisplaced fracture. Soft tissues: Diffuse soft tissue swelling right 2nd toe. IMPRESSION: 1. Nondisplaced fracture distal right 2nd proximal phalanx. 2. Diffuse soft tissue swelling right 2nd toe. [facility] [place] HPI - General Stated complaint: AO 09/13 toe pain Time Seen by Provider: 09/20/21 11:51 - History of Present Illness Provider Complaint: 1 week ago she accidentily bumped her right foot on her bathroom door. Since then she has had pain and swelling of the 2nd toe. She is a diabetic. - Related Data Home Medications Medication Instructions Recorded Confirmed Ipratropium/Albuterol Sulfate 2 puff IH QIDP PRN 09/23/19 03/16/21 [Combivent Respimat Inh] docusate sodium 100 mg capsule 100 mg PO DAILY cap 10/01/19 03/16/21 Blood Sugar Diagnostic [Blood See Rx Instructions .ROUTE 08/14/20 03/16/21 Glucose Test] .MEDSUPPLY Blood-Glucose Meter [Blood Glucose See Rx Instructions .ROUTE 08/14/20 03/16/21 Meter] .MEDSUPPLY Trazodone HCl See Rx Instructions .ROUTE .COMPLEX 08/14/20 03/16/21 ondansetron HCL [Ondansetron 8mg 8 mg PO Q8H 08/14/20 03/16/21 tab*] Previous Rx's Medication Instructions Recorded blood sugar diagnostic See Rx Instructions .ROUTE 07/11/20 .MEDSUPPLY #100 each fluticasone propionate 50 1 spray INTRANASAL DAILY #16 g 08/19/20
[2021-09-20 12:03] VITALS: BP 132/68; PULSE 65; RESP 16; TEMP 36.8; O2SAT 96; BMI 37.8
[2021-09-20 12:37] VITALS: BP 132/68; PULSE 65; RESP 16; TEMP 36.8
== END 2021-09-20 12:38 | disposition home or self-care (01) ==
PROVIDERS: Emergency Provider Nurse Practitioner Family; PCP Emergency Medicine
DX: L03.031 Cellulitis of right toe (principal); S92.501A Displaced unspecified fracture of right lesser toe(s), initial encounter for closed fracture; E11.69 Type 2 diabetes mellitus with other specified complication
CPT/HCPCS: 73630; 99212; G0463

== ENCOUNTER 2021-10-03 21:44 | Emergency (ER) | payer MEDICARE, MEDICAID, SELFPAY ==
[2021-10-03 21:41] VITALS: BP 166/115; PULSE 73; RESP 18; TEMP 37.3; O2SAT 99; BMI 38.7
[2021-10-03 21:46] VITALS: BMI 38.7
--- NOTE | 2021-10-03 21:47 | XR_ITS ---
PROCEDURE INFORMATION: Exam: XR Chest Exam date and time: 10/03/2021 11:30 PM Age: 71 years old Clinical indication: Shortness of breath and other: Covid positive; Prior surgery; Surgery date: 6+ months; Surgery type: Open heart; Additional info: SOA, covid + (home test) TECHNIQUE: Imaging protocol: Radiologic exam of the chest. Views: 2 views. COMPARISON: CR XR CHEST PORTABLE 08/01/2021 10:49 PM FINDINGS: Lungs: Numerous subcentimeter calcified granulomas within the lung parenchyma Pleural spaces: Unremarkable. No pleural effusion. No pneumothorax. Heart/Mediastinum: Unremarkable. No cardiomegaly. Bones/joints: Prior median sternotomy wires. Degenerative spondylosis and increased kyphosis of thoracic spine. IMPRESSION: No evidence of acute cardiopulmonary process.
[2021-10-03 21:56] LABS: Influenza A, PCR Not Detected (NotDetected); Influenza B, PCR Not Detected (NotDetected)
[2021-10-03 22:37] LABS: Coronavirus 19, PCR Detected (NotDetected)
[2021-10-03 23:11] LABS: Basophils # 0.1 K/mm3 (0-0.2); Eosinophils # 0.1 K/mm3 (0.0-0.4); Eosinophils % 1.4 % (0.1-12.0); Hematocrit 41.3 % (37.0-47.0); Lymphocytes # 2.8 K/mm3 (0.7-4.5); Mean Corpuscular HGB Conc 31.5 g/dL (31.8-35.4); Mean Platelet Volume 9.6 fl (7.4-10.4); Monocytes # 0.3 K/mm3 (0.1-1.0); Monocytes % 4.1 % (1.7-9.3); Neutrophils # 3.3 K/mm3 (1.8-7.8); Neutrophils % 50.6 % (37.0-80.0); Platelet Count 254 K/mm3 (142-424); Red Blood Count 4.34 M/mm3 (4.20-5.40); Red Cell Distribution Width 15.2 % (11.5-17.5); White Blood Count 6.6 K/mm3 (4.8-10.8)
[2021-10-03 23:23] VITALS: BP 190/100; PULSE 65; O2SAT 95
[2021-10-03 23:26] LABS: Alanine Aminotransferase 47 U/L (12-78); Albumin Level 3.8 g/dl (3.5-5.0); Albumin/Globulin Ratio 1.2 (1.1-1.8); Alkaline Phosphatase 159 U/L (38-126); Aspartate Amino Transferase 54 U/L (14-36); Blood Urea Nitrogen 21 mg/dl (7-17); Calcium 8.6 mg/dl (8.4-10.2); Carbon Dioxide 24 mmol/L (22.0-30.0); Chloride 105 mmol/L (98-107); Creatinine Clearance Estimated 86 mL/min (50-200); Estimated Glomerular Filt Rate 62 ml/min (>60); GFR (African American) 75 ML/MIN (>60); Globulin 3.2 g/dL (1.3-3.2); Glucose 135 mg/dl (74-100); Magnesium 1.5 mg/dl (1.6-2.3); Sodium 138 mmol/L (136-145)
[2021-10-03 23:27] LABS: Lactic Acid 0.8 mmol/L (0.7-2.1)
[2021-10-03 23:31] LABS: C-Reactive Protein 9.1 mg/L (0-4)
[2021-10-03 23:45] LABS: Procalcitonin 0.094 ng/mL (0.0-2.0)
[2021-10-04 00:04] LABS: POC Glucose,Bedside 124 (70-110)
[2021-10-04 00:20] LABS: Bilirubin,Total < 0.1 mg/dl (0.2-1.3); Troponin I < 0.01 ng/ml (0.00-0.034)
[2021-10-04 00:21] LABS: Erythrocyte Sedimentation Rate 22 mm/hr (0-30)
--- NOTE | 2021-10-04 01:15 | HMH.EDSOB ---
ED Disposition Clinical Impression: COVID-19 Disposition: Home, Self-Care Condition on Discharge: Good Instructions: DI for COVID-19 (Suspected or Confirmed ) Additional Instructions: use meds and see pcp for follow up Prescriptions: Molnupiravir [Molnupiravir (Eua)] 800 mg PO BID #40 cap Transmission Status: Pending to [facility] Referrals: Provider,Referral, [Primary Care Provider] - - Critical Care Critical Care Time: No Attestation: On 10/03/21, the high probability of a clinically significant, sudden or life threatening deterioration of the following system(s) required my full and direct attention, intervention and personal management. The time I documented below is in addition to time spent performing reported procedures but includes the following listed in this critical care notation. Medical Decision Making - Medical Records Medical records reviewed: Yes: I reviewed the patient's medical records. - Faraz Inquiry Pt receiving controlled substance: No Vital Signs: 10/03/21 21:41 10/03/21 23:23 Temperature 99.1 F Temperature Source Oral Pulse Rate 65 Pulse Rate [Left Radial] 73 Respiratory Rate 18 Blood Pressure 190/100 H Blood Pressure [Right Arm] 166/115 H Blood Pressure Mean [Right Arm] 132 Blood Pressure Source [Right Arm] Automatic Cuff Blood Pressure Position [Right Arm] Sitting 02 Sat by Pulse Oximetry 99 95 Oxygen Delivery Method Room Air Room Air - Lab Data Lab results reviewed: Yes: I reviewed the patient's lab results. Lab Results 10/03/21 21:45: SARS-CoV-2 (PCR) Detected A, Influenza A Untype (PCR) Not detected, Influenza Type B (PCR) Not detected 10/03/21 23:00: WBC 6.6, RBC 4.34, Hgb 13.0, Hct 41.3, MCV 95.0, MCH 30.0, MCHC 31.5 L, RDW 15.2, Plt Count 254, MPV 9.6, Neut % (Auto) 50.6, Lymph % (Auto) 43.0, [place] % (Auto) 4.1, Eos % (Auto) 1.4, Baso % (Auto) 1.0, Neut # (Auto) 3.3, Lymph # (Auto) 2.8, [place] # (Auto) 0.3, Eos # (Auto) 0.1, Baso # (Auto) 0.1, ESR 22 10/03/21 23:00: Sodium 138, Potassium 4.0, Chloride 105, Carbon Dioxide 24, Anion Gap 13.0, BUN 21 H, Creatinine 0.90, Estimated Creat Clear 86, Estimated GFR 62, Est GFR ( Amer) 75, Glucose 135 H, Calcium 8.6, Magnesium 1.5 L, Total Bilirubin < 0.1 L, AST 54 H, ALT 47, Alkaline Phosphatase 159 H, Troponin I < 0.01, C-Reactive Protein 9.1 H, Total Protein 7.0, Albumin 3.8, Globulin 3.2, Albumin/Globulin Ratio 1.2, Procalcitonin 0.094 10/03/21 23:00: Lactate 0.8 10/03/21 23:56: POC Glucose 124 H Result diagrams: 10/03/21 23:00 10/03/21 23:00 Orders (Tests/Meds): ED MEDICATIONS Generic Name Dose Route Start Last Admin Trade Name Freq PRN Reason Stop Dose Admin Sodium Chloride 3 ml 10/03/21 21:47 Sodium Chloride 3% 15ml Neb IH 11/02/21 21:46 ONCE PRN INDUCE SPUTUM COLLECTION Discontinued Medications Generic Name Dose Route Start Last Admin Trade Name Freq PRN Reason Stop Dose Admin Dexamethasone Sodium Phosphate 10 mg 10/03/21 21:47 10/03/21 21:55 Dexamethasone 4mg/Ml 5ml Mdv IV 10/03/21 21:48 10 mg ONCE ONE Administration Sodium Chloride 1,000 mls @ 999 mls/hr 10/03/21 22:00 10/03/21 21:55 Sod Chlor 0.9% 1000ml Bag IV 10/03/21 23:00 999 mls/hr .Q1H1M JOE Administration ORDERS Category Date Time Status CT angio chest PE protocol Stat Cat Scan 10/03/21 21:47 Ordered Troponin I Q3H Lab 10/04/21 02:00 Ordered Troponin I Q3H Lab 10/04/21 05:00 Ordered Blood Culture Stat Micro 10/03/21 23:00 Received Sputum Culture & Gram Stain Routine Micro 10/03/21 21:47 Ordered - Radiology Data #1 Image(s): Chest Image Reviewed: Yes I have reviewed radiologist's interpretation Preliminary Findings: Normal/NAD Medical Decision Narrative: stable exam with stable labs and has covid-19 Resp/SOB HPI - General Chief Complaint: Shortness of Breath/Dyspnea Stated Complaint: SOA, C19+ Time Seen by Provider: 10/04/21 01:15 Mode of
[2021-10-04 01:50] VITALS: BP 167/87; PULSE 70; RESP 18; TEMP 37.1; O2SAT 98
== END 2021-10-04 01:52 | disposition home or self-care (01) ==
PROVIDERS: Emergency Provider Emergency Medicine
DX: U07.1 COVID-19 (principal); J44.9 Chronic obstructive pulmonary disease, unspecified; E11.9 Type 2 diabetes mellitus without complications; Z79.4 Long term (current) use of insulin; I10 Essential (primary) hypertension; I25.10 Atherosclerotic heart disease of native coronary artery without angina pectoris
CPT/HCPCS: 36415; 71046; 80053; 82962; 83605; 83735; 84145; 84484; 85025; 85651; 86140; 87040; 87077; 87186; 93005; 96361; 96374; 99284; C9803; U0003; U0005

== ENCOUNTER → 2021-10-08 10:47 | Outpatient (CLI) | payer MEDICARE, MEDICAID, SELFPAY ==
--- NOTE | 2021-10-08 10:52 | XR_ITS ---
FINAL REPORT CLINICAL HISTORY: pain RT FOOT FINDINGS: RIGHT FOOT Three views of the right foot demonstrate no acute fracture or dislocation. The visualized joint spaces are normally aligned. There is a small plantar calcaneal spur. The soft tissues are unremarkable. IMPRESSION: No acute bony abnormality. Reviewed, Interpreted and Dictated by Rufino Cedeno III, MD Transcribed by Xin Das Authenticated and [facility]
== END ==
PROVIDERS: PCP Emergency Medicine; Visit Provider Podiatrist
DX: T14.8XXA Other injury of unspecified body region, initial encounter (principal); S92.501D Displaced unspecified fracture of right lesser toe(s), subsequent encounter for fracture with routine healing; M79.674 Pain in right toe(s)
CPT/HCPCS: 73630

== ENCOUNTER 2021-12-08 18:16 | Emergency (ER) | payer MEDICARE, MEDICAID, SELFPAY ==
--- NOTE | 2021-12-08 18:54 | EXP.UTC ---
Discharge Plan Disposition Patient Disposition: Home, Self-Care Condition: Good Prescriptions Prescriptions: No Action docusate sodium [Stool Softener] 100 mg capsule 100 mg PO DAILY insulin glargine 100 unit/mL (3 mL) insulin pen 30 unit SQ QPM Qty: 15 3RF Rx Instructions: please provide pen needles #30 [id number] hydroxyzine pamoate [Vistaril] 25 mg capsule 25 mg PO TID PRN (Reason: itching) Qty: 60 0RF (DME) OneTouch Ultra Blue Test Strip Strip See Rx Instructions .ROUTE .MEDSUPPLY Qty: 100 12RF Rx Instructions: As directed albuterol sulfate 2.5 mg /3 mL (0.083 %) solution for nebulization 2.5 mg IH Q4-6H PRN (Reason: shortness of breath or wheezing) Qty: 180 0RF alcohol swabs [Alcohol Prep Pads] Pads, Medicated See Rx Instructions .ROUTE .COMPLEX Qty: 200 10RF Dose Instruction: DIRECTED Rx Instructions: DIRECTED gabapentin 800 mg tablet 800 mg PO TID PRN (Reason: neuropathy) Qty: 90 3RF ondansetron HCl 8 mg tablet 8 mg PO Q8H Qty: 30 0RF ipratropium-albuterol 120 PUFF mist 2 puff IH QIDP PRN (Reason: SOA) furosemide 40 MG tablet 40 mg PO DAILY metoprolol succinate 50 MG tablet extended release 24 hr 1 tab PO DAILY Rx Instructions: TAKE 1 TABLET BY MOUTH ONCE DAILY FOR BLOOD PRESSURE prazosin 1 MG capsule 2 tab PO DAILY Rx Instructions: TAKE TWO CAPSULES BY MOUTH AT BEDTIME clopidogrel 75 MG tablet 1 tab PO DAILY Rx Instructions: TAKE ONE TABLET BY MOUTH EVERY DAY FOR HEART allopurinol 100 MG tablet 1 tab PO DAILY Rx Instructions: TAKE 1 TABLET BY MOUTH ONCE DAILY FOR GOUT omeprazole 40 MG capsule,delayed release(DR/EC) 1 tab PO DAILY Rx Instructions: TAKE 1 CAPSULE BY MOUTH ONCE DAILY FOR GERD spironolactone 25 MG tablet 1 tab PO DAILY Rx Instructions: TAKE ONE TABLET BY MOUTH TWICE A DAY isosorbide mononitrate 60 MG tablet extended release 24 hr 1 tab PO DAILY Rx Instructions: TAKE 1 TABLET BY MOUTH ONCE DAILY FOR BLOOD PRESSURE methocarbamol 750 MG tablet 1 tab PO TID PRN (Reason: PAIN) Rx Instructions: TAKE 1 TABLET BY MOUTH THREE TIMES DAILY FOR MUSCLE SPASMS *MAY CAUSE DROWSINESS* cephalexin 500 MG capsule 500 mg PO Q6H levothyroxine 125 MCG tablet 125 mcg PO DAILY furosemide 20 MG tablet 20 mg PO DAILY albuterol sulfate 8.5 GM HFA aerosol inhaler See Rx Instructions .Route .COMPLEX Rx Instructions: INHALE 2 PUFFS BY MOUTH EVERY 4 TO 6 HOURS NEEDED FOR SHORTNESS OF BREATH OR WHEEZING fluoxetine 20 MG capsule 3 cap PO DAILY Rx Instructions: TAKE 3 CAPSULES BY MOUTH EVERY DAY FOR DEPRESSION fluticasone propionate 16 GM spray,suspension 1 spray NS DAILY Rx Instructions: administer into each nostril amoxicillin-pot clavulanate 1 EACH tablet 1 tab PO Q12H insulin lispro 100 UNIT/ML insulin pen 5 unit SQ QAC azithromycin 500 MG tablet 500 mg PO DAILY (DME) inhalational spacing device 1 EACH spacer See Rx Instructions .Route DAILY Rx Instructions: As directed topiramate 50 MG tablet 50 mg PO BID (DME) pen needle, diabetic 1 EACH needle See Rx Instructions .Route .COMPLEX Rx Instructions: USE DAILY ubrogepant 50 MG tablet 50 mg PO ONCE Rx Instructions: take at the onset of migraine headache molnupiravir 200 MG capsule 800 mg PO BID Qty: 40 0RF (DME) blood-glucose meter 1 EACH misc See Rx Instructions .Route .MEDSUPPLY Rx Instructions: As directed trazodone 50 MG tablet 1 tab PO DAILY Rx Instructions: TAKE 1 TABLET BY MOUTH AT BEDTIME FOR SLEEP/DEPRESSION (DME) blood sugar diagnostic 1 EACH strip See Rx Instructions .Route .MEDSUPPLY Rx Instructions: As directed guaifenesin 600 MG tablet extended release 12hr 1 - 2 tab PO BIDP GA
[2021-12-08 18:59] VITALS: BP 132/85; PULSE 104; RESP 20; TEMP 37.1; O2SAT 96; BMI 38.4
--- NOTE | 2021-12-08 18:59 | XR_ITS ---
PROCEDURE INFORMATION: Exam: XR Left Hand Exam date and time: 12/08/2021 7:05 PM Age: 71 years old Clinical indication: Pain; Hand; Left; Additional info: Fall TECHNIQUE: Imaging protocol: Radiologic exam of the Left hand. Views: 3 or more views. COMPARISON: No relevant prior studies available. FINDINGS: Bones/joints: No acute fracture or dislocation. Soft tissues: Normal. IMPRESSION: No acute fracture or dislocation.
--- NOTE | 2021-12-08 18:59 | XR_ITS ---
PROCEDURE INFORMATION: Exam: XR Left Elbow Exam date and time: 12/08/2021 7:11 PM Age: 71 years old Clinical indication: Pain; Elbow; Left; Additional info: Fall TECHNIQUE: Imaging protocol: Radiologic exam of the Left elbow. Views: 3 or more views. COMPARISON: CR XR FOREARM LT 2V 12/08/2021 7:10 PM FINDINGS: Bones/joints: No acute fracture or dislocation. Soft tissues: Normal. IMPRESSION: No acute fracture or dislocation.
--- NOTE | 2021-12-08 18:59 | XR_ITS ---
PROCEDURE INFORMATION: Exam: XR Left Wrist Exam date and time: 12/08/2021 7:08 PM Age: 71 years old Clinical indication: Pain; Wrist; Left; Additional info: Fall TECHNIQUE: Imaging protocol: Radiologic exam of the Left wrist. Views: 3 or more views. COMPARISON: CR XR HAND LT MIN 3V 12/08/2021 7:05 PM FINDINGS: Bones/joints: No acute fracture or dislocation. Soft tissues: Normal. IMPRESSION: No acute fracture or dislocation.
--- NOTE | 2021-12-08 18:59 | XR_ITS ---
PROCEDURE INFORMATION: Exam: XR Left Forearm Exam date and time: 12/08/2021 7:10 PM Age: 71 years old Clinical indication: Pain; Lower or forearm; Left; Additional info: Fall TECHNIQUE: Imaging protocol: Radiologic exam of the Left forearm. Views: 2 views. COMPARISON: CR XR WRIST LT MIN 3V 12/08/2021 7:08 PM FINDINGS: Bones/joints: No acute fracture or dislocation. Soft tissues: Normal. IMPRESSION: No acute fracture or dislocation.
[2021-12-08 20:00] VITALS: BP 132/85; PULSE 100; RESP 18; TEMP 37.1; O2SAT 99
== END 2021-12-08 20:06 | disposition home or self-care (01) ==
PROVIDERS: Emergency Provider Nurse Practitioner Family; PCP Nurse Practitioner Family
DX: W19.XXXA Unspecified fall, initial encounter (principal); S60.222A Contusion of left hand, initial encounter; S63.502A Unspecified sprain of left wrist, initial encounter
CPT/HCPCS: 29125; 73080; 73090; 73110; 73130; 99213; G0463

== ENCOUNTER → 2021-12-10 09:32 | Outpatient (CLI) | payer MEDICARE, MEDICAID, SELFPAY ==
--- NOTE | 2021-12-10 09:36 | US_ITS ---
FINAL REPORT CLINICAL HISTORY: GERD FINDINGS: Ultrasound images of the right upper quadrant were obtained. There is mild focal fatty infiltration of the liver. The gallbladder is absent. The common duct is normal. There is a questionable small hernia in the region of the scar. Limited images of the right kidney are unremarkable. IMPRESSION: Focal fatty infiltration of the liver. Questionable small hernia. Recommend CT for better evaluation. Absent gallbladder. Reviewed, Interpreted and Dictated by Raymundo Lambert MD Transcribed by Guillaume Moon Authenticated and [facility]
== END ==
PROVIDERS: PCP Emergency Medicine; Visit Provider Nurse Practitioner Family
DX: R74.8 Abnormal levels of other serum enzymes (principal); R10.11 Right upper quadrant pain
CPT/HCPCS: 76705

== ENCOUNTER 2022-01-25 12:13 | Emergency (ER) | payer MEDICARE, MEDICAID, SELFPAY ==
--- NOTE | 2022-01-25 12:02 | ECG_ITS ---
APPROVED REPORT Exam: Resting ECG HR:66 bpm ECG Measurements Heart Rate 66 AXES AK 140 P -29 QRSd 98 QRS 9 QT 394 T 47 QTc 408 Conclusion SINUS RHYTHM NORMAL ECG UNCONFIRMED REPORT Electronically signed by : Fidel Richards MD 01/25/2022 21:39:21
[2022-01-25 12:13] VITALS: BP 123/62; PULSE 70; RESP 21; TEMP 36.9; O2SAT 97; BMI 37.2
--- NOTE | 2022-01-25 12:25 | XR_ITS ---
FINAL REPORT CLINICAL HISTORY: chest pain COMPARISON: 08/01/2021 FINDINGS: 2 views of the chest were obtained . The heart is mildly enlarged. Patient is status post median sternotomy. The mediastinum is within normal limits. There are chronic interstitial changes. The lungs are otherwise clear. There is no pneumothorax. Osseous structures are unremarkable. IMPRESSION: No acute cardiopulmonary process. Reviewed, Interpreted and Dictated by Raymundo Lambert MD Transcribed by Evelyn Barrientos Authenticated and [facility]
[2022-01-25 12:31] VITALS: PULSE 70
[2022-01-25 12:32] LABS: Basophils # 0.1 K/mm3 (0-0.2); Basophils % 0.8 % (0.1-2.0); Chloride 94 mmol/L (98-107); Eosinophils # 0.2 K/mm3 (0.0-0.4); Eosinophils % 1.8 % (0.1-12.0); Hemoglobin 13.7 g/dL (12.2-16.2); Lymphocytes # 2.9 K/mm3 (0.7-4.5); Lymphocytes % 23.5 % (10-50); Mean Corpuscular HGB Conc 31.9 g/dL (31.8-35.4); Mean Corpuscular Hemoglobin 29.7 pg (27.0-31.2); Mean Corpuscular Volume 93.3 fl (81-99); Mean Platelet Volume 9.1 fl (7.4-10.4); Monocytes # 0.3 K/mm3 (0.1-1.0); Monocytes % 2.6 % (1.7-9.3); Neutrophils # 8.8 K/mm3 (1.8-7.8); Neutrophils % 71.2 % (37.0-80.0); Platelet Count 339 K/mm3 (142-424); Red Blood Count 4.61 M/mm3 (4.20-5.40); Red Cell Distribution Width 13.7 % (11.5-17.5); Sodium 140 mmol/L (136-145); White Blood Count 12.3 K/mm3 (4.8-10.8)
[2022-01-25 12:35] LABS: Blood Urea Nitrogen 18 mg/dl (7-17); Creatinine Clearance Estimated 67 mL/min (50-200); Estimated Glomerular Filt Rate 45 ml/min (>60); GFR (African American) 54 ML/MIN (>60)
[2022-01-25 12:36] LABS: Calcium 9.8 mg/dl (8.4-10.2); Carbon Dioxide 35 mmol/L (22.0-30.0); Glucose 132 mg/dl (74-100)
[2022-01-25 12:45] VITALS: PULSE 62; RESP 19; O2SAT 92
[2022-01-25 12:50] LABS: Troponin I < 0.01 ng/ml (0.00-0.034)
--- NOTE | 2022-01-25 12:57 | HMH.EDGENADL ---
Discharge Plan Disposition Patient Disposition: Home, Self-Care Condition: Good Chief Complaint: Chest Pain Prescriptions Prescriptions: No Action docusate sodium [Stool Softener] 100 mg capsule 100 mg PO DAILY insulin glargine 100 unit/mL (3 mL) insulin pen 30 unit SQ QPM Qty: 15 3RF Rx Instructions: please provide pen needles #30 [id number] hydroxyzine pamoate [Vistaril] 25 mg capsule 25 mg PO TID PRN (Reason: itching) Qty: 60 0RF (DME) OneTouch Ultra Blue Test Strip Strip See Rx Instructions .ROUTE .MEDSUPPLY Qty: 100 12RF Rx Instructions: As directed albuterol sulfate 2.5 mg /3 mL (0.083 %) solution for nebulization 2.5 mg IH Q4-6H PRN (Reason: shortness of breath or wheezing) Qty: 180 0RF alcohol swabs [Alcohol Prep Pads] Pads, Medicated See Rx Instructions .ROUTE .COMPLEX Qty: 200 10RF Dose Instruction: DIRECTED Rx Instructions: DIRECTED gabapentin 800 mg tablet 800 mg PO TID PRN (Reason: neuropathy) Qty: 90 3RF ondansetron HCl 8 mg tablet 8 mg PO Q8H Qty: 30 0RF ipratropium-albuterol 120 PUFF mist 2 puff IH QIDP PRN (Reason: SOA) furosemide 40 MG tablet 40 mg PO DAILY metoprolol succinate 50 MG tablet extended release 24 hr 1 tab PO DAILY Rx Instructions: TAKE 1 TABLET BY MOUTH ONCE DAILY FOR BLOOD PRESSURE prazosin 1 MG capsule 2 tab PO DAILY Rx Instructions: TAKE TWO CAPSULES BY MOUTH AT BEDTIME clopidogrel 75 MG tablet 1 tab PO DAILY Rx Instructions: TAKE ONE TABLET BY MOUTH EVERY DAY FOR HEART allopurinol 100 MG tablet 1 tab PO DAILY Rx Instructions: TAKE 1 TABLET BY MOUTH ONCE DAILY FOR GOUT omeprazole 40 MG capsule,delayed release(DR/EC) 1 tab PO DAILY Rx Instructions: TAKE 1 CAPSULE BY MOUTH ONCE DAILY FOR GERD spironolactone 25 MG tablet 1 tab PO DAILY Rx Instructions: TAKE ONE TABLET BY MOUTH TWICE A DAY isosorbide mononitrate 60 MG tablet extended release 24 hr 1 tab PO DAILY Rx Instructions: TAKE 1 TABLET BY MOUTH ONCE DAILY FOR BLOOD PRESSURE methocarbamol 750 MG tablet 1 tab PO TID PRN (Reason: PAIN) Rx Instructions: TAKE 1 TABLET BY MOUTH THREE TIMES DAILY FOR MUSCLE SPASMS *MAY CAUSE DROWSINESS* cephalexin 500 MG capsule 500 mg PO Q6H levothyroxine 125 MCG tablet 125 mcg PO DAILY furosemide 20 MG tablet 20 mg PO DAILY albuterol sulfate 8.5 GM HFA aerosol inhaler See Rx Instructions .Route .COMPLEX Rx Instructions: INHALE 2 PUFFS BY MOUTH EVERY 4 TO 6 HOURS NEEDED FOR SHORTNESS OF BREATH OR WHEEZING fluoxetine 20 MG capsule 3 cap PO DAILY Rx Instructions: TAKE 3 CAPSULES BY MOUTH EVERY DAY FOR DEPRESSION fluticasone propionate 16 GM spray,suspension 1 spray NS DAILY Rx Instructions: administer into each nostril amoxicillin-pot clavulanate 1 EACH tablet 1 tab PO Q12H insulin lispro 100 UNIT/ML insulin pen 5 unit SQ QAC azithromycin 500 MG tablet 500 mg PO DAILY (DME) inhalational spacing device 1 EACH spacer See Rx Instructions .Route DAILY Rx Instructions: As directed topiramate 50 MG tablet 50 mg PO BID (DME) pen needle, diabetic 1 EACH needle See Rx Instructions .Route .COMPLEX Rx Instructions: USE DAILY ubrogepant 50 MG tablet 50 mg PO ONCE Rx Instructions: take at the onset of migraine headache molnupiravir 200 MG capsule 800 mg PO BID Qty: 40 0RF (DME) blood-glucose meter 1 EACH misc See Rx Instructions .Route .MEDSUPPLY Rx Instructions: As directed trazodone 50 MG tablet 1 tab PO DAILY Rx Instructions: TAKE 1 TABLET BY MOUTH AT BEDTIME FOR SLEEP/DEPRESSION (DME) blood sugar diagnostic 1 EACH strip See Rx Instructions .Route .MEDSUPPLY Rx Instructions: As directed guaifenesin 600 MG tablet extended release
--- NOTE | 2022-01-25 13:23 | PC.NURSE ---
PT AMBULATED UP TO BR WITH NO PROBLEMS
[2022-01-25 13:40] VITALS: BP 125/69; PULSE 63; RESP 18; TEMP 36.8; O2SAT 99
== END 2022-01-25 13:45 | disposition home or self-care (01) ==
PROVIDERS: Emergency Provider Emergency Medicine; PCP Nurse Practitioner Family
DX: R07.9 Chest pain, unspecified (principal); M79.602 Pain in left arm; I25.10 Atherosclerotic heart disease of native coronary artery without angina pectoris; R06.02 Shortness of breath
CPT/HCPCS: 71046; 80048; 84484; 85025; 93005; 99285

== ENCOUNTER 2022-02-27 13:14 | Emergency (ER) | payer MEDICARE, MEDICAID, SELFPAY ==
[2022-02-27] VITALS (7 sets, daily range): BP systolic 93–123; BP diastolic 57–70; PULSE 71–101; RESP 18–20; TEMP 36.6; O2SAT 93–99; BMI 36.1
--- NOTE | 2022-02-27 13:45 | CT_ITS ---
PROCEDURE INFORMATION: Exam: CT Abdomen And Pelvis Without Contrast Exam date and time: 02/27/2022 2:22 PM Age: 71 years old Clinical indication: Constipation; Additional info: Abdo pain, constipation TECHNIQUE: Imaging protocol: Computed tomography of the abdomen and pelvis without contrast. Radiation optimization: All CT scans at this facility use at least one of these dose optimization techniques: automated exposure control; mA and/or kV adjustment per patient size (includes targeted exams where dose is matched to clinical indication); or iterative reconstruction. COMPARISON: CT ABDOMEN PELVIS W CON 08/14/2020 12:32 AM FINDINGS: Lungs: Subsegmental atelectasis noted in lower lobes Liver: Multiple granulomas noted throughout the liver.No focal hepatic lesions within the limits of noncontrast examination. Gallbladder and bile ducts: There has been a cholecystectomy. No biliary ductal dilation. Pancreas: No peripancreatic fluid stranding. No main pancreatic ductal dilation. Spleen: Multiple splenic granulomas. No splenomegaly. Adrenal glands: The adrenal glands are normal. Kidneys and ureters: No nephrolithiasis or hydroureteronephrosis on either side. The left kidney is atrophic Stomach and bowel: Duodenal diverticulum is incidentally noted. Pancolonic diverticulosis noted without acute inflammatory change. Appendix: A normal appendix is identified. Intraperitoneal space: There is no evidence of free intraperitoneal or pelvic fluid. Vasculature: Aorta is nonaneurysmal. Lymph nodes: No evidence of retroperitoneal or mesenteric lymphadenopathy. Urinary bladder: Urinary bladder is unremarkable. Reproductive: Unremarkable as visualized. Bones/joints: Unremarkable. No acute fracture. Soft tissues: There are two small-sized ventral hernias containing omental fat. No evidence of free fluid or stranding to suggest incarceration. IMPRESSION: No acute abnormality in the abdomen or pelvis
--- NOTE | 2022-02-27 13:46 | HMH.EDGENADL ---
Discharge Plan Disposition Patient Disposition: Home, Self-Care Condition: Good Chief Complaint: Dizziness Prescriptions Prescriptions: No Action insulin glargine 100 unit/mL (3 mL) insulin pen 30 unit SQ QPM Qty: 15 3RF Rx Instructions: please provide pen needles #30 [id number] gabapentin 800 mg tablet 800 mg PO TID PRN (Reason: neuropathy) Qty: 90 3RF ondansetron HCl 8 mg tablet 8 mg PO Q8H Qty: 30 0RF furosemide 40 MG tablet 40 mg PO PM metoprolol succinate 50 MG tablet extended release 24 hr 50 mg PO DAILY Rx Instructions: TAKE 1 TABLET BY MOUTH ONCE DAILY FOR BLOOD PRESSURE prazosin 1 MG capsule 2 mg PO DAILY Rx Instructions: TAKE TWO CAPSULES BY MOUTH AT BEDTIME clopidogrel 75 MG tablet 75 mg PO DAILY Rx Instructions: TAKE ONE TABLET BY MOUTH EVERY DAY FOR HEART allopurinol 100 MG tablet 1 tab PO DAILY Rx Instructions: TAKE 1 TABLET BY MOUTH ONCE DAILY FOR GOUT omeprazole 40 MG capsule,delayed release(DR/EC) 40 mg PO DAILY Rx Instructions: TAKE 1 CAPSULE BY MOUTH ONCE DAILY FOR GERD spironolactone 25 MG tablet 25 mg PO DAILY Rx Instructions: TAKE ONE TABLET BY MOUTH TWICE A DAY isosorbide mononitrate 60 MG tablet extended release 24 hr 60 mg PO DAILY Rx Instructions: TAKE 1 TABLET BY MOUTH ONCE DAILY FOR BLOOD PRESSURE methocarbamol 750 MG tablet 1 tab PO TID PRN (Reason: PAIN) Rx Instructions: TAKE 1 TABLET BY MOUTH THREE TIMES DAILY FOR MUSCLE SPASMS *MAY CAUSE DROWSINESS* levothyroxine 125 MCG tablet 125 mcg PO DAILY furosemide 20 MG tablet 20 mg PO AM rosuvastatin 20 mg tablet 20 mg PO DAILY escitalopram oxalate 10 mg tablet 10 mg PO DAILY aspirin [Aspir-81] 81 mg Tablet,Delayed Release (Dr/Ec) 81 mg PO DAILY lisinopril 2.5 mg tablet 2.5 mg PO DAILY Referrals Follow up/Referrals: Provider,Referral, MD [Referring] - See instructions Activity Restrictions/Add. Instructions Additional Instructions/Restrictions: Follow-up with primary care provider if symptoms persist. Return to the emergency department for any worsening. Clinical Impressions Clinical Impression: Acute constipation, Abdominal cramping, Vaso-vagal reaction Discharge ED Provider: Gilberto Singh Adult HPI General Chief complaint: Dizziness Stated complaint: abd pain Time Seen by Provider: 02/27/22 13:37 Mode of Arrival: EMS Source of Information: Patient Limitations: No Limitations Description of Symptoms (Recalled from ER Triage Doc. by RN): pt to ed via ems c/o abd cramping, and dizziness. pt reports she has had some recent changes to her insulin and since then she has had trouble with her bowels. pt states she took a laxative last night and and has been having diarrhea today with increased abd cramping. History of Present Illness HPI narrative: Patient brought in by ambulance. She states that a month ago she had her insulin medication changed and ever since then she has had severe constipation. She says prior to that she had normal bowel movements or diarrhea. She says that she has been taking stool softeners and fiber supplements without significant improvement. Last bowel movement was about 5 to 6 days ago. Last night she took a laxative and she says afterwards she began having severe abdominal cramping diffusely, feeling dizzy, nauseate and lightheaded, sweaty. She says that she used an enema this morning and only had a small amount of bowel movement afterwards. However, she says after arriving in the emergency department she had a large bowel movement followed by water. Cramping has improved. Since arriving she says she also has discomfort in her left arm that feels like somebody is trying to pull her arm off. She says she has a prior history of coronary artery disease and bypass surgery. Related Data Home Medications Medication Instructions
--- NOTE | 2022-02-27 13:56 | ECG_ITS ---
APPROVED REPORT Exam: Resting ECG HR:76 bpm ECG Measurements Heart Rate 76 AXES [place] 161 P 62 QRSd 103 QRS 29 QT 405 T 60 QTc 436 Conclusion SINUS RHYTHM NORMAL ECG UNCONFIRMED REPORT Electronically signed by : Fidel Richards MD 03/01/2022 20:03:46
[2022-02-27 14:07] LABS: Basophils # 0.1 K/mm3 (0-0.2); Basophils % 0.8 % (0.1-2.0); Eosinophils # 0.2 K/mm3 (0.0-0.4); Eosinophils % 1.4 % (0.1-12.0); Hematocrit 44.8 % (37.0-47.0); Hemoglobin 14.2 g/dL (12.2-16.2); Lymphocytes # 2.8 K/mm3 (0.7-4.5); Lymphocytes % 20.7 % (10-50); Mean Corpuscular HGB Conc 31.7 g/dL (31.8-35.4); Mean Corpuscular Hemoglobin 29.1 pg (27.0-31.2); Mean Corpuscular Volume 91.7 fl (81-99); Mean Platelet Volume 9.5 fl (7.4-10.4); Monocytes # 0.4 K/mm3 (0.1-1.0); Monocytes % 2.8 % (1.7-9.3); Neutrophils % 74.4 % (37.0-80.0); Platelet Count 372 K/mm3 (142-424); Red Blood Count 4.88 M/mm3 (4.20-5.40); Red Cell Distribution Width 14.3 % (11.5-17.5); White Blood Count 13.5 K/mm3 (4.8-10.8)
[2022-02-27 14:08] LABS: Chloride 95 mmol/L (98-107)
[2022-02-27 14:08] LABS: POC Glucose,Bedside 161 (70-110)
[2022-02-27 14:09] LABS: Potassium 3.3 mmoL/L (3.5-5.1); Sodium 137 mmol/L (136-145)
[2022-02-27 14:10] LABS: Lipase 33 U/L (23-300)
[2022-02-27 14:11] LABS: Alanine Aminotransferase 24 U/L (12-78); Alkaline Phosphatase 179 U/L (38-126); Anion Gap 14.3 mEq/L (5-15); Aspartate Amino Transferase 32 U/L (14-36); Bilirubin,Total 0.3 mg/dl (0.2-1.3); Blood Urea Nitrogen 22 mg/dl (7-17); Carbon Dioxide 31 mmol/L (22.0-30.0); Creatinine Clearance Estimated 55 mL/min (50-200); Estimated Glomerular Filt Rate 37 ml/min (>60); GFR (African American) 45 ML/MIN (>60)
[2022-02-27 14:12] LABS: Albumin Level 4.1 g/dl (3.5-5.0); Albumin/Globulin Ratio 1.2 (1.1-1.8); Calcium 10.1 mg/dl (8.4-10.2); Globulin 3.3 g/dL (1.3-3.2); Glucose 162 mg/dl (74-100); Total Protein,Serum 7.4 g/dl (6.3-8.2)
--- NOTE | 2022-02-27 14:16 | HMH.ITSTN ---
GFR 37-- Dr advised to do scan without contrast instead
[2022-02-27 14:32] LABS: Troponin I < 0.01 ng/ml (0.00-0.034)
== END 2022-02-27 16:09 | disposition home or self-care (01) ==
PROVIDERS: Emergency Provider Emergency Medicine; PCP Nurse Practitioner Family
DX: K59.03 Drug induced constipation (principal); T38.3X5A Adverse effect of insulin and oral hypoglycemic [antidiabetic] drugs, initial encounter; R55 Syncope and collapse; Z88.5 Allergy status to narcotic agent; G62.9 Polyneuropathy, unspecified
CPT/HCPCS: 74176; 80053; 82962; 83690; 84484; 85025; 93005; 96365; 99284

== ENCOUNTER 2022-05-28 18:11 | Emergency (ER) | payer MEDICARE, MEDICAID, SELFPAY ==
--- NOTE | 2022-05-28 18:52 | EXP.UTC ---
Discharge Plan Disposition Patient Disposition: Home, Self-Care Condition: Good Prescriptions Prescriptions: New ciprofloxacin HCl [Cipro] 500 mg tablet 500 mg PO BID 7 Days Qty: 14 0RF No Action insulin glargine 100 unit/mL (3 mL) insulin pen 30 unit SQ QPM Qty: 15 3RF Rx Instructions: please provide pen needles #30 [id number] gabapentin 800 mg tablet 800 mg PO TID PRN (Reason: neuropathy) Qty: 90 3RF ondansetron HCl 8 mg tablet 8 mg PO Q8H Qty: 30 0RF furosemide 40 MG tablet 40 mg PO PM metoprolol succinate 50 MG tablet extended release 24 hr 50 mg PO DAILY Rx Instructions: TAKE 1 TABLET BY MOUTH ONCE DAILY FOR BLOOD PRESSURE prazosin 1 MG capsule 2 mg PO DAILY Rx Instructions: TAKE TWO CAPSULES BY MOUTH AT BEDTIME clopidogrel 75 MG tablet 75 mg PO DAILY Rx Instructions: TAKE ONE TABLET BY MOUTH EVERY DAY FOR HEART allopurinol 100 MG tablet 1 tab PO DAILY Rx Instructions: TAKE 1 TABLET BY MOUTH ONCE DAILY FOR GOUT omeprazole 40 MG capsule,delayed release(DR/EC) 40 mg PO DAILY Rx Instructions: TAKE 1 CAPSULE BY MOUTH ONCE DAILY FOR GERD spironolactone 25 MG tablet 25 mg PO DAILY Rx Instructions: TAKE ONE TABLET BY MOUTH TWICE A DAY isosorbide mononitrate 60 MG tablet extended release 24 hr 60 mg PO DAILY Rx Instructions: TAKE 1 TABLET BY MOUTH ONCE DAILY FOR BLOOD PRESSURE methocarbamol 750 MG tablet 1 tab PO TID PRN (Reason: PAIN) Rx Instructions: TAKE 1 TABLET BY MOUTH THREE TIMES DAILY FOR MUSCLE SPASMS *MAY CAUSE DROWSINESS* levothyroxine 125 MCG tablet 125 mcg PO DAILY furosemide 20 MG tablet 20 mg PO AM rosuvastatin 20 mg tablet 20 mg PO DAILY escitalopram oxalate 10 mg tablet 10 mg PO DAILY aspirin [Aspir-81] 81 mg Tablet,Delayed Release (Dr/Ec) 81 mg PO DAILY lisinopril 2.5 mg tablet 2.5 mg PO DAILY Referrals Follow up/Referrals: Indu Schrader APRN [Primary Care Provider] - See instructions Activity Restrictions/Add. Instructions Additional Instructions/Restrictions: Drink plenty of fluids. Take tylenol or ibuprofen for pain or fever. Take the medications as directed. Follow up with your regular doctor. GO TO THE ER FOR ANY WORSENING SYMPTOMS We will culture the urine. That will tell what bacteria is causing your infection and which antibiotics will treat it best. Sometimes the first antibiotic we prescribe turns out to not work against different bacteria. So, make sure you follow up within 3 days if you are not getting better. Clinical Impressions Clinical Impression: UTI (urinary tract infection) Instructions Patient Instructions: Urinary Tract Infection, Urine Culture, DI for Urinary Tract Infection (UTI) Discharge ED Provider: Tiago Davalos [facility] General Stated complaint: poss UTI Time Seen by Provider: 05/28/22 18:52 History of Present Illness Provider Complaint: She states that for the past 2 days she has had dysuria and low back pain. She is sure that she has a uti. Related Data Home Medications Medication Instructions Recorded Confirmed allopurinol 100 mg tablet 1 tab PO DAILY GOUT 10/04/21 02/27/22 clopidogrel 75 mg tablet 75 mg PO DAILY Blood thinner 10/04/21 02/27/22 furosemide 20 mg tablet 20 mg PO AM Fluid 10/04/21 02/27/22 furosemide 40 mg tablet 40 mg PO PM Fluid 10/04/21 02/27/22 isosorbide mononitrate 60 mg 60 mg PO DAILY BLOOD PRESSURE 10/04/21 02/27/22 tablet,extended release 24 hr levothyroxine 125 mcg tablet 125 mcg PO DAILY THYROID 10/04/21 02/27/22 methocarbamol 750 mg tablet 1 tab PO TID PRN PAIN 10/04/21 02/27/22 metoprolol succinate 50 mg 50 mg PO DAILY BLOOD PRESSURE 10/04/21 02/27/22 tablet,extended release 24 hr omeprazole 40 mg capsule,delayed 40 mg PO DAILY GERD 10/04/21 02/27/22 release prazosin 1 mg capsule 2 mg PO DAILY BLOOD PRESSURE 09/18
[2022-05-28 19:00] VITALS: BP 113/71; PULSE 83; RESP 20; TEMP 36.9; O2SAT 96; BMI 37.5
[2022-05-28 19:14] LABS: Apearance,Urine Clear (Clear); Color,Urine Yellow (Yellow); PH,Urine 5.5 (5.0-8.5); Specific Gravity, Urine 1.005 (1.005-1.030)
[2022-05-28 19:15] LABS: Bilirubin,Urine Negative (Negative); Blood, Urine Negative (Negative); Glucose,Urine (UA) Negative (Negative); Ketones,Urine Negative (Negative); Protein,Urine Negative (Negative); UTC Leukocyte Esterase,Urine Negative (Negative); UTC Nitrate,Urine Negative (Negative); Urobilinogen,Urine 1 EU/dl (0.2)
[2022-05-28 20:09] VITALS: BP 113/71; PULSE 83; RESP 20; TEMP 36.9; O2SAT 96
== END 2022-05-28 20:08 | disposition home or self-care (01) ==
PROVIDERS: Emergency Provider Nurse Practitioner Family; PCP Nurse Practitioner Family
DX: N39.0 Urinary tract infection, site not specified (principal)
CPT/HCPCS: 81003; 87086; 99212; 99214; G0463

== ENCOUNTER → 2022-06-25 10:59 | Outpatient (CLI) | payer MEDICARE, MEDICAID, SELFPAY ==
--- NOTE | 2022-06-25 11:05 | CT_ITS ---
FINAL REPORT TECHNIQUE: Axial images through the abdomen and pelvis were performed without contrast. This study was performed with techniques to keep radiation doses as low as reasonably achievable, (ALARA). Individualized dose reduction techniques using automated exposure control or adjustment of mA and/or kV according to the patient's size were employed. CLINICAL HISTORY: Hernia COMPARISON: 02/27/2022 FINDINGS: ABDOMEN: There are calcified granulomas in the right lung base. The heart size is normal. The liver parenchyma is homogeneous. There are calcified granulomas in liver and spleen. The liver is enlarged measuring 19 cm. There appears to be cholecystectomy clips in the right upper quadrant however there is a fluid attenuation structure adjacent to the clips measuring 3.3 x 2.0 cm, stable. Finding may represent postoperative seroma or biloma. No adrenal mass is identified. The aorta is normal in caliber. There is no significant free fluid or adenopathy. The left kidney is atrophic. There is compensatory hypertrophy of the right kidney. Small hernias of the midline upper and mid abdominal romero are unchanged. There is stranding of the mesentery, stable. PELVIS: The appendix is unremarkable. The uterus is present and lies eccentric to the left. The urinary bladder is unremarkable. There is no significant free fluid or adenopathy. IMPRESSION: Stable small anterior abdominal wall hernias. Hepatomegaly. Stable small fluid collection adjacent to the gallbladder fossa, may represent seroma or biloma. Stable stranding of the mesentery. Reviewed, Interpreted and Dictated by Raymundo Lambert MD Transcribed by Emilee Sheppard Authenticated and [facility]
== END ==
PROVIDERS: PCP Nurse Practitioner Family; Visit Provider Surgery
DX: K46.9 Unspecified abdominal hernia without obstruction or gangrene (principal)
CPT/HCPCS: 74176

== ENCOUNTER → 2022-07-06 12:37 | Outpatient (CLI) | payer MEDICARE, MEDICAID, SELFPAY ==
[2022-07-06 12:44] LABS: Microscopic, Urine URINE MICROSCOPIC (MICROSCOPIC)
[2022-07-06 13:07] LABS: Appearance,Urine CLEAR (Clear); Bilirubin,Urine Negative (Negative); Blood, Urine Negative (Negative); Color,Urine YELLOW (Yellow); Glucose,Urine (UA) Negative (Negative); Ketones,Urine Negative (Negative); Leukocyte Esterase,Urine Negative (Negative); Nitrate,Urine Negative (Negative); PH,Urine 6.5 (5.0-8.5); Protein,Urine Negative (Negative); Urobilinogen,Urine 0.2 EU/dl (0.2)
[2022-07-06 13:13] LABS: Basophils # 0.1 K/mm3 (0-0.2); Basophils % 0.5 % (0.1-2.0); Eosinophils # 0.2 K/mm3 (0.0-0.4); Eosinophils % 1.5 % (0.1-12.0); Hematocrit 45.2 % (37.0-47.0); Hemoglobin 14.1 g/dL (12.2-16.2); Lymphocytes # 3.6 K/mm3 (0.7-4.5); Mean Corpuscular HGB Conc 31.3 g/dL (31.8-35.4); Mean Corpuscular Hemoglobin 29.1 pg (27.0-31.2); Mean Corpuscular Volume 93.1 fl (81-99); Monocytes # 0.4 K/mm3 (0.1-1.0); Monocytes % 2.3 % (1.7-9.3); Neutrophils # 11.4 K/mm3 (1.8-7.8); Neutrophils % 72.7 % (37.0-80.0); Platelet Count 442 K/mm3 (142-424); Red Blood Count 4.86 M/mm3 (4.20-5.40); Red Cell Distribution Width 14.8 % (11.5-17.5); White Blood Count 15.6 K/mm3 (4.8-10.8)
[2022-07-06 13:18] LABS: Bacteria,Urine Trace /lpf
[2022-07-06 13:57] LABS: MANUAL DIFFERENTIAL MANUAL DIFFERENTIAL (MANUAL DIFF)
[2022-07-06 14:13] LABS: Anion Gap 17.1 mEq/L (5-15); Blood Urea Nitrogen 18 mg/dl (7-17); Calcium 9.4 mg/dl (8.4-10.2); Carbon Dioxide 29 mmol/L (22.0-30.0); Chloride 96 mmol/L (98-107); Estimated Glomerular Filt Rate 62 ml/min (>60); GFR (African American) 75 ML/MIN (>60); Glucose 165 mg/dl (74-100); Potassium 4.1 mmoL/L (3.5-5.1); Sodium 138 mmol/L (136-145)
[2022-07-06 14:48] LABS: Eosinophils % 1 % (0-3); Lymphocytes % 32 % (10-50); Monocytes % 2 % (2-9); Neutrophils % 65 % (42-76); Platelet Estimate Slight Increase; RBC Morphology Normal; Total Cells Counted 100
== END ==
PROVIDERS: PCP Nurse Practitioner Family; Visit Provider Surgery
DX: J44.1 Chronic obstructive pulmonary disease with (acute) exacerbation (principal); K43.2 Incisional hernia without obstruction or gangrene
CPT/HCPCS: 36415; 80048; 81001; 85007; 85025

== ENCOUNTER → 2022-07-12 10:00 | Outpatient (CLI) | payer MEDICARE, MEDICAID, SELFPAY | PROVIDERS: PCP Nurse Practitioner Family; Visit Provider Physician Assistant | DX: Z01.810 Encounter for preprocedural cardiovascular examination (principal) | CPT/HCPCS: 78452; 93017; 93306; A9502; J2785 ==

== ENCOUNTER 2022-08-15 19:03 | Emergency (ER) | payer MEDICARE, MEDICAID, SELFPAY ==
[2022-08-15] VITALS (8 sets, daily range): BP systolic 112–128; BP diastolic 56–73; PULSE 60–74; RESP 16–18; TEMP 36.3; O2SAT 95–97; BMI 37.5
[2022-08-15 19:18] LABS: Microscopic, Urine URINE MICROSCOPIC (MICROSCOPIC)
[2022-08-15 19:20] LABS: Appearance,Urine CLEAR (Clear); Bilirubin,Urine Negative (Negative); Blood, Urine Negative (Negative); Color,Urine YELLOW (Yellow); Glucose,Urine (UA) Negative (Negative); Ketones,Urine Negative (Negative); Leukocyte Esterase,Urine TRACE (Negative); Nitrate,Urine Negative (Negative); PH,Urine 5.5 (5.0-8.5); Protein,Urine Negative (Negative); Specific Gravity, Urine <= 1.005 (1.005-1.030); Urobilinogen,Urine 0.2 EU/dl (0.2)
[2022-08-15 19:28] LABS: Basophils % 0.1 % (0.1-2.0); Eosinophils # 0.1 K/mm3 (0.0-0.4); Eosinophils % 0.6 % (0.1-12.0); Hemoglobin 14.2 g/dL (12.2-16.2); Lymphocytes # 3.3 K/mm3 (0.7-4.5); Lymphocytes % 18.2 % (10-50); Mean Corpuscular HGB Conc 31.5 g/dL (31.8-35.4); Mean Corpuscular Hemoglobin 29.2 pg (27.0-31.2); Mean Corpuscular Volume 92.7 fl (81-99); Mean Platelet Volume 9.3 fl (7.4-10.4); Monocytes # 0.4 K/mm3 (0.1-1.0); Monocytes % 2.4 % (1.7-9.3); Neutrophils # 14.4 K/mm3 (1.8-7.8); Neutrophils % 78.7 % (37.0-80.0); Platelet Count 330 K/mm3 (142-424); Red Blood Count 4.85 M/mm3 (4.20-5.40); Red Cell Distribution Width 14.9 % (11.5-17.5); White Blood Count 18.3 K/mm3 (4.8-10.8)
[2022-08-15 19:30] LABS: MANUAL DIFFERENTIAL MANUAL DIFFERENTIAL (MANUAL DIFF)
--- NOTE | 2022-08-15 19:32 | CT_ITS ---
PROCEDURE INFORMATION: Exam: CT Abdomen And Pelvis With Contrast Exam date and time: 08/15/2022 7:59 PM Age: 72 years old Clinical indication: Abdominal pain; Additional info: N/v/d TECHNIQUE: Imaging protocol: Computed tomography of the abdomen and pelvis with contrast. Radiation optimization: All CT scans at this facility use at least one of these dose optimization techniques: automated exposure control; mA and/or kV adjustment per patient size (includes targeted exams where dose is matched to clinical indication); or iterative reconstruction. Contrast material: ISOVUE; Contrast volume: 75 ml; Contrast route: IV; REPORTING DATA: Count of CT and Cardiac NM exams in prior 12 months: This patient has received 3 known CTs and 0 known cardiac nuclear medicine studies in the 12 months prior to the current study. COMPARISON: CT ABDOMEN PELVIS WO CON 06/25/2022 11:08 AM FINDINGS: Diaphragm: Small hiatal hernia. Mild elevation of the left hemidiaphragm which is stable. Liver: Nonspecific hepatic calcifications. Gallbladder and bile ducts: Post cholecystectomy change. Pancreas: Normal enhancement. No ductal dilation. Spleen: There are multiple splenic calcifications likely on the basis of prior granulomatous exposure. Adrenal glands: No mass. Kidneys and ureters: Small left kidney. No hydronephrosis. Stomach and bowel: Diverticulosis coli without evidence for diverticulitis. Appendix: No evidence of appendicitis. Intraperitoneal space: No significant fluid collection. No free air. Vasculature: No abdominal aortic aneurysm. Lymph nodes: No enlarged lymph nodes. Urinary bladder: Potential mild wall thickening of the urinary bladder which is decompressed and not well evaluated. Reproductive: No acute abnormality. Bones/joints: Scoliosis. No acute fracture. Soft tissues: Extensive subcutaneous adipose extending beyond the field of view. 4.2 cm fat containing periumbilical hernia. IMPRESSION: 1. Small hiatal hernia. 2. 4.2 cm fat containing periumbilical hernia. 3. Diverticulosis coli without evidence for diverticulitis. 4. Potential mild wall thickening of the urinary bladder for which correlation with UA is recommended.
[2022-08-15 19:45] LABS: Bacteria,Urine Trace /lpf; WBC,Urine Occasional #/hpf (0-3)
[2022-08-15 19:46] LABS: Chloride 100 mmol/L (98-107); Sodium 140 mmol/L (136-145)
[2022-08-15 19:49] LABS: Alanine Aminotransferase 29 U/L (12-78); Albumin Level 3.9 g/dl (3.5-5.0); Albumin/Globulin Ratio 1.1 (1.1-1.8); Alkaline Phosphatase 149 U/L (38-126); Anion Gap 18.9 mEq/L (5-15); Aspartate Amino Transferase 45 U/L (14-36); Bilirubin,Total 0.3 mg/dl (0.2-1.3); Blood Urea Nitrogen 21 mg/dl (7-17); Carbon Dioxide 24 mmol/L (22.0-30.0); Creatinine Clearance Estimated 72 mL/min (50-200); Estimated Glomerular Filt Rate 55 ml/min (>60); GFR (African American) 66 ML/MIN (>60); Globulin 3.6 g/dL (1.3-3.2); Glucose 170 mg/dl (74-100); Total Protein,Serum 7.5 g/dl (6.3-8.2)
[2022-08-15 19:52] LABS: Lymphocytes % 22 % (10-50); Monocytes % 1 % (2-9); Neutrophils % 77 % (42-76); Platelet Estimate Normal; Potassium 2.9 mmoL/L (3.5-5.1); RBC Morphology Normal; Total Cells Counted 100
[2022-08-15 19:54] LABS: Amylase 47 U/L (30-110); Lipase 39 U/L (23-300)
[2022-08-15 20:00] LABS: C-Reactive Protein 70.1 mg/L (0-4)
--- NOTE | 2022-08-15 20:08 | PC.NURSE ---
notified [facility]alt of critical potassium 2.9
[2022-08-15 20:10] LABS: Erythrocyte Sedimentation Rate 21 mm/hr (0-30)
[2022-08-15 20:12] LABS: Lactic Acid 1.3 mmol/L (0.7-2.1)
[2022-08-15 20:13] LABS: Procalcitonin 0.125 ng/mL (0.0-2.0)
--- NOTE | 2022-08-15 20:34 | PC.NURSE ---
Second set of cultures drawn and sent to LAB
[2022-08-15 20:54] LABS: Adenovirus F 40/41, stool Not Detected (NotDetected); Astrovirus Not Detected (NotDetected); Campylobacter Not Detected (NotDetected); Clostridium Difficile A/B, PCR Not Detected (NotDetected); Cryptosporidium Not Detected (NotDetected); Cyclospora Cayetanesis Not Detected (NotDetected); Entamoeba histolytica Not Detected (NotDetected); Enteroaggregative E coli Not Detected (NotDetected); Enteropathogenic E coli Not Detected (NotDetected); Enterotoxigenic E coli Not Detected (NotDetected); Giardia lamblia Not Detected (NotDetected); Norovirus Not Detected (NotDetected); Plesimonas Shigalloides, PCR Not Detected (NotDetected); Salmonella, PCR Not Detected (NotDetected); Sapovirus Not Detected (NotDetected); Shiga-like toxin E coli Not Detected (NotDetected); Shigella Enterovasive E coli Not Detected (NotDetected); Vibrio Cholerae Not Detected (NotDetected); Vibrio, PCR Not Detected (NotDetected); Yersinia Entercolitica, PCR Not Detected (NotDetected)
--- NOTE | 2022-08-15 22:13 | PC.NURSE ---
Rounded on pt. Pt given warm blanket. No other needs at this time.
--- NOTE | 2022-08-15 22:26 | HMH.EDNVD ---
Discharge Plan Disposition Patient Disposition: Home, Self-Care Chief Complaint: Nausea/Vomiting/Diarrhea Prescriptions Prescriptions: No Action gabapentin 800 mg tablet 200 mg PO DAILY peg 3350-electrolytes [GaviLyte-G] [id number] -5.86 gram recon soln 240 ml PO Q10M Qty: 4000 0RF Rx Instructions: until fecal effluent is clear, follow mailed instructions furosemide 40 MG tablet 40 mg PO PM metoprolol succinate 50 MG tablet extended release 24 hr 50 mg PO DAILY Rx Instructions: TAKE 1 TABLET BY MOUTH ONCE DAILY FOR BLOOD PRESSURE clopidogrel 75 MG tablet 75 mg PO DAILY Rx Instructions: TAKE ONE TABLET BY MOUTH EVERY DAY FOR HEART allopurinol 100 MG tablet 1 tab PO DAILY Rx Instructions: TAKE 1 TABLET BY MOUTH ONCE DAILY FOR GOUT omeprazole 40 MG capsule,delayed release(DR/EC) 40 mg PO DAILY Rx Instructions: TAKE 1 CAPSULE BY MOUTH ONCE DAILY FOR GERD spironolactone 25 MG tablet 25 mg PO DAILY Rx Instructions: TAKE ONE TABLET BY MOUTH TWICE A DAY isosorbide mononitrate 60 MG tablet extended release 24 hr 60 mg PO DAILY Rx Instructions: TAKE 1 TABLET BY MOUTH ONCE DAILY FOR BLOOD PRESSURE methocarbamol 750 MG tablet 1 tab PO BID Rx Instructions: TAKE 1 TABLET BY MOUTH THREE TIMES DAILY FOR MUSCLE SPASMS *MAY CAUSE DROWSINESS* levothyroxine 125 MCG tablet 125 mcg PO DAILY furosemide 20 MG tablet 20 mg PO AM rosuvastatin 20 mg tablet 20 mg PO DAILY escitalopram oxalate 10 mg tablet 10 mg PO DAILY aspirin [Aspir-81] 81 mg Tablet,Delayed Release (Dr/Ec) 81 mg PO DAILY lisinopril 2.5 mg tablet 2.5 mg PO DAILY Linzess 145 mcg capsule 145 mcg PO DAILY insulin glargine 100 unit/mL (3 mL) insulin pen 5 unit SQ AC PRN (Reason: diabetes) Rx Instructions: please provide pen needles #30 [id number] Referrals Follow up/Referrals: Mert Ledesma MD [Primary Care Provider] - See instructions Clinical Impressions Clinical Impression: Enteritis due to Rotavirus, Acute hypokalemia Instructions Patient Instructions: DI for Rotavirus -- Adult Discharge ED Provider: Ulises (ED)Marcus Nausea/Vomiting/Diarrhea HPI General Chief complaint: Nausea/Vomiting/Diarrhea Stated complaint: vomiting, diarrhea,MAHONEY Time Seen by Provider: 08/15/22 21:00 Mode of Arrival: Ambulatory Source of Information: Patient and Medical Record Limitations: No Limitations Description of Symptoms (Recalled from ER Triage Doc. by RN): pt c/o n/v/d and MAHONEY x 6 days. pt denies any abd pain History of Present Illness HPI Narrative: mahoney with vomiting and diarrhea over the last few days MD complaint: vomiting and diarrhea Onset (ago): day(s) Description of Vomiting: watery Associated Abdominal Pain: Yes Location of pain: diffuse Severity: moderate Related Data Home Medications Medication Instructions Recorded Confirmed allopurinol 100 mg tablet 1 tab PO DAILY GOUT 10/04/21 07/06/22 clopidogrel 75 mg tablet 75 mg PO DAILY Blood thinner 10/04/21 07/06/22 furosemide 20 mg tablet 20 mg PO AM Fluid 10/04/21 07/06/22 furosemide 40 mg tablet 40 mg PO PM Fluid 10/04/21 07/06/22 isosorbide mononitrate 60 mg 60 mg PO DAILY BLOOD PRESSURE 10/04/21 07/06/22 tablet,extended release 24 hr levothyroxine 125 mcg tablet 125 mcg PO DAILY THYROID 10/04/21 07/06/22 methocarbamol 750 mg tablet 1 tab PO BID muscle 10/04/21 07/06/22 metoprolol succinate 50 mg 50 mg PO DAILY BLOOD PRESSURE 10/04/21 07/06/22 tablet,extended release 24 hr omeprazole 40 mg capsule,delayed 40 mg PO DAILY GERD 10/04/21 07/06/22 release spironolactone 25 mg tablet 25 mg PO DAILY Fluid 10/04/21 07/06/22 aspirin 81 mg tablet,delayed 81 mg PO DAILY Blood thinner 02/27/22 07/06/22 release escitalopram oxalate 10 mg tablet 10 mg PO DAILY Anxiety 02/27/22 07/06/22 lisinopril 2.5 mg tablet 2.5 mg PO DAILY blood pressu
[2022-08-15 22:49] LABS: Rotavirus A Detected (NotDetected)
== END 2022-08-15 23:19 | disposition home or self-care (01) ==
PROVIDERS: Student in an Organized Health Care Education/Training Program; Emergency Provider Emergency Medicine; PCP Family Medicine
DX: A08.0 Rotaviral enteritis (principal); R51.9 Headache, unspecified; Z85.038 Personal history of other malignant neoplasm of large intestine
CPT/HCPCS: 74177; 80053; 81001; 82150; 83605; 83690; 84145; 85007; 85025; 85651; 86140; 87040; 87077; 87186; 87507; 96361; 96374; 99284; 99285; J2405; Q9967

== ENCOUNTER → 2022-10-06 09:30 | Outpatient (CLI) | payer MEDICARE, MEDICAID, SELFPAY ==
--- NOTE | 2022-10-06 09:40 | XR_ITS ---
FINAL REPORT CLINICAL HISTORY: CERVICALAGIA FINDINGS: 5 views of the cervical spine were obtained. There is no acute fracture. There is very mild anterolisthesis of C4 on C5, the alignment is otherwise normal. There is multilevel degenerative disc disease, most pronounced at C5-6. The precervical soft tissues are normal. IMPRESSION: No acute abnormality. Multilevel degenerative disc disease. Reviewed, Interpreted and Dictated by Isabella Barton MD Transcribed by Lali Garcia Authenticated and [facility]
== END ==
PROVIDERS: PCP Nurse Practitioner Family; Visit Provider Nurse Practitioner Family
DX: M54.2 Cervicalgia (principal)
CPT/HCPCS: 72050

== ENCOUNTER 2022-10-27 11:50 | Emergency (ER) | payer MEDICARE, MEDICAID, SELFPAY ==
[2022-10-27] VITALS (7 sets, daily range): BP systolic 114–151; BP diastolic 39–72; PULSE 62–78; RESP 17–20; TEMP 36.7; O2SAT 93–100; BMI 39.4
--- NOTE | 2022-10-27 12:01 | PC.NURSE ---
Patient arrived to [facility] window requesting an epi pen. Stated she could not breath and was having an allergic reaction to metformin. Patient stated that she felt as if she was going to pass out. This nurse got a wheelchair and transported patient to the ER for further evaluation.
--- NOTE | 2022-10-27 12:10 | XR_ITS ---
FINAL REPORT CLINICAL HISTORY: dyspnea FINDINGS: SINGLE-VIEW CHEST There is cardiomegaly. The patient is status post median sternotomy. The lungs are clear. There is no pneumothorax. IMPRESSION: No acute cardiopulmonary process. Reviewed, Interpreted and Dictated by Rufino Cedeno III, MD Transcribed by Emilee Sheppard Authenticated and [facility]
--- NOTE | 2022-10-27 12:14 | HMH.EDGENADL ---
Discharge Plan Disposition Patient Disposition: Home, Self-Care Prescriptions Prescriptions: New epinephrine [EpiPen 2-Arnold] 0.3 mg/0.3 mL auto-injector 0.3 mg IM Q10M PRN (Reason: anaphylaxis) Qty: 2 0RF Rx Instructions: for 2 doses No Action furosemide 40 MG tablet 40 mg PO PM metoprolol succinate 50 MG tablet extended release 24 hr 50 mg PO DAILY Rx Instructions: TAKE 1 TABLET BY MOUTH ONCE DAILY FOR BLOOD PRESSURE clopidogrel 75 MG tablet 75 mg PO DAILY Rx Instructions: TAKE ONE TABLET BY MOUTH EVERY DAY FOR HEART allopurinol 100 MG tablet 1 tab PO DAILY Rx Instructions: TAKE 1 TABLET BY MOUTH ONCE DAILY FOR GOUT omeprazole 40 MG capsule,delayed release(DR/EC) 40 mg PO DAILY Rx Instructions: TAKE 1 CAPSULE BY MOUTH ONCE DAILY FOR GERD spironolactone 25 MG tablet 25 mg PO DAILY Rx Instructions: TAKE ONE TABLET BY MOUTH TWICE A DAY isosorbide mononitrate 60 MG tablet extended release 24 hr 60 mg PO DAILY Rx Instructions: TAKE 1 TABLET BY MOUTH ONCE DAILY FOR BLOOD PRESSURE methocarbamol 750 MG tablet 1 tab PO BID Rx Instructions: TAKE 1 TABLET BY MOUTH THREE TIMES DAILY FOR MUSCLE SPASMS *MAY CAUSE DROWSINESS* levothyroxine 125 MCG tablet 125 mcg PO DAILY furosemide 20 MG tablet 20 mg PO AM rosuvastatin 20 mg tablet 20 mg PO DAILY aspirin [Aspir-81] 81 mg Tablet,Delayed Release (Dr/Ec) 81 mg PO DAILY Linzess 145 mcg capsule 145 mcg PO DAILY insulin glargine 100 unit/mL (3 mL) insulin pen 5 unit SQ AC PRN (Reason: diabetes) Rx Instructions: please provide pen needles #30 [id number] albuterol sulfate 90 mcg/actuation HFA aerosol inhaler 2 puff INHALATION Q6HP PRN (Reason: SOA) fluoxetine 20 mg capsule 20 mg PO TID PRN (Reason: mood) prazosin 2 mg capsule 2 mg PO DAILY Referrals Follow up/Referrals: Indu Schrader APRN [Primary Care Provider] - See instructions Activity Restrictions/Add. Instructions Additional Instructions/Restrictions: Return with any recurrent symptoms or other concerns. Clinical Impressions Clinical Impression: Anaphylaxis Discharge ED Provider: Riddhi Connell General Adult HPI General Chief complaint: Shortness of Breath/Dyspnea Stated complaint: SOA, possible allergic reaction to medicine Time Seen by Provider: 10/27/22 11:57 Mode of Arrival: Wheelchair Source of Information: Patient Limitations: No Limitations Description of Symptoms (Recalled from ER Triage Doc. by RN): PT REPORTS SHORTNESS OF BREATH AND ITCHING ALL OVER THAT STARTED THIS AM. PT REPORTS TONGUE SWELLING THAT SHE NOTED YESTERDAY. PT REPORTS TAKING METFORMIN X 1 WEEK AND INCREASED DOSE YESTERDAY AM History of Present Illness HPI narrative: Patient is a 72-year-old female here stating that she is having an anaphylactic reaction and that she wants an EpiPen. 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 She states she is having shortness of breath wheezing tongue swelling and diffuse pruritus but no urticarial rash. No cardiovascular symptoms or GI symptoms at this point. She states she is recently been started on metformin and believes that this is the inciting event. She also has a history of COPD coronary disease but had no symptoms preceding an abrupt onset and these symptoms today. She denies any fevers cough productive sputum anything leading up to today. Also denies any lower extremity swelling hemoptysis history DVT or PE and states this began suddenly after a recent dose of metformin. She states she does not have any EpiPen's at home and had she had EpiPen's at home she would have self-administered and not come to the emergency department she states. Related Data Home Medications Medication Instructions Recorded Confirmed allopurinol 100 mg tablet 1 tab PO DAILY GOUT 10/04/21 08/15/22 c
--- NOTE | 2022-10-27 12:18 | ECG_ITS ---
APPROVED REPORT Exam: Resting ECG HR:61 bpm ECG Measurements Heart Rate 61 AXES TN 128 P -36 QRSd 90 QRS 24 QT 388 T 39 QTc 390 Conclusion SINUS RHYTHM NORMAL ECG UNCONFIRMED REPORT Electronically signed by : Fidel Richards MD 10/27/2022 18:31:20
[2022-10-27 12:21] LABS: Basophils # 0.1 K/mm3 (0-0.2); Basophils % 0.5 % (0.1-2.0); Eosinophils # 0.2 K/mm3 (0.0-0.4); Eosinophils % 2.1 % (0.1-12.0); Hemoglobin 13.4 g/dL (12.2-16.2); Lymphocytes # 3.4 K/mm3 (0.7-4.5); Lymphocytes % 34.9 % (10-50); Mean Corpuscular HGB Conc 31.1 g/dL (31.8-35.4); Mean Corpuscular Hemoglobin 28.6 pg (27.0-31.2); Mean Corpuscular Volume 92.1 fl (81-99); Monocytes # 0.3 K/mm3 (0.1-1.0); Monocytes % 2.7 % (1.7-9.3); Neutrophils # 5.9 K/mm3 (1.8-7.8); Platelet Count 337 K/mm3 (142-424); Red Blood Count 4.67 M/mm3 (4.20-5.40); Red Cell Distribution Width 14.5 % (11.5-17.5); White Blood Count 9.8 K/mm3 (4.8-10.8)
[2022-10-27 12:27] LABS: POC Glucose,Bedside 155 (70-110)
--- NOTE | 2022-10-27 12:28 | PC.NURSE ---
PT MEDICATED PER EMAR
--- NOTE | 2022-10-27 12:28 | PC.NURSE ---
XR AT BEDSIDE
[2022-10-27 12:42] LABS: D-Dimer 0.66 ug/mL (0.0-0.5)
[2022-10-27 12:58] LABS: Alanine Aminotransferase 21 U/L (12-78); Albumin Level 3.9 g/dl (3.5-5.0); Albumin/Globulin Ratio 1.1 (1.1-1.8); Alkaline Phosphatase 190 U/L (38-126); Aspartate Amino Transferase 31 U/L (14-36); Bilirubin,Total 0.3 mg/dl (0.2-1.3); Blood Urea Nitrogen 16 mg/dl (7-17); Calcium 9.5 mg/dl (8.4-10.2); Carbon Dioxide 29 mmol/L (22.0-30.0); Chloride 104 mmol/L (98-107); Creatinine Clearance Estimated 76 mL/min (50-200); Estimated Glomerular Filt Rate 62 ml/min (>60); GFR (African American) 75 ML/MIN (>60); Globulin 3.6 g/dL (1.3-3.2); Glucose 150 mg/dl (74-100); Sodium 142 mmol/L (136-145); Total Protein,Serum 7.5 g/dl (6.3-8.2)
--- NOTE | 2022-10-27 13:00 | PC.NURSE ---
ROUNDED ON PT, NO NEEDS AT THIS TIME, REPORTS FEELING BETTER
[2022-10-27 13:10] LABS: NT Pro Brain Natriuretic Pep. 862 pg/mL (0-125)
[2022-10-27 13:11] LABS: Troponin I < 0.01 ng/ml (0.00-0.034)
--- NOTE | 2022-10-27 14:05 | PC.NURSE ---
Dr. Connell at [facility] for update on results and POC
--- NOTE | 2022-10-27 14:05 | PC.NURSE ---
DR OBRIEN AT BEDSIDE TO REEVALUATE PT
== END 2022-10-27 14:28 | disposition home or self-care (01) ==
LOC: UTC 11:53 → ER 11:56
PROVIDERS: Emergency Provider Student in an Organized Health Care Education/Training Program; PCP Nurse Practitioner Family
DX: T78.2XXA Anaphylactic shock, unspecified, initial encounter (principal); R06.02 Shortness of breath; G62.9 Polyneuropathy, unspecified
CPT/HCPCS: 71045; 80053; 82962; 83880; 84484; 85025; 85378; 93005; 96361; 96372; 96374; 96375; 99285

== ENCOUNTER 2022-11-26 16:45 | Emergency (ER) | payer MEDICARE, MEDICAID, SELFPAY ==
[2022-11-26 16:45] VITALS: BP 128/68; PULSE 72; RESP 16; TEMP 36.8; O2SAT 95; BMI 39.0
--- NOTE | 2022-11-26 17:55 | EXP.UTC ---
Discharge Plan Disposition Patient Disposition: Home, Self-Care Condition: Good Prescriptions Prescriptions: New cefdinir 300 mg capsule 300 mg PO BID 10 Days Qty: 20 0RF No Action fluoxetine 20 mg capsule See Rx Instructions .ROUTE .COMPLEX Qty: 270 1RF Dose Instruction: TAKE 3 CAPSULES BY MOUTH EVERY DAY FOR DEPRESSION Rx Instructions: TAKE 3 CAPSULES BY MOUTH EVERY DAY FOR DEPRESSION furosemide 40 MG tablet 40 mg PO PM metoprolol succinate 50 MG tablet extended release 24 hr 50 mg PO DAILY Rx Instructions: TAKE 1 TABLET BY MOUTH ONCE DAILY FOR BLOOD PRESSURE clopidogrel 75 MG tablet 75 mg PO DAILY Rx Instructions: TAKE ONE TABLET BY MOUTH EVERY DAY FOR HEART allopurinol 100 MG tablet 1 tab PO DAILY Rx Instructions: TAKE 1 TABLET BY MOUTH ONCE DAILY FOR GOUT omeprazole 40 MG capsule,delayed release(DR/EC) 40 mg PO DAILY Rx Instructions: TAKE 1 CAPSULE BY MOUTH ONCE DAILY FOR GERD spironolactone 25 MG tablet 25 mg PO DAILY Rx Instructions: TAKE ONE TABLET BY MOUTH TWICE A DAY isosorbide mononitrate 60 MG tablet extended release 24 hr 60 mg PO DAILY Rx Instructions: TAKE 1 TABLET BY MOUTH ONCE DAILY FOR BLOOD PRESSURE methocarbamol 750 MG tablet 1 tab PO BID Rx Instructions: TAKE 1 TABLET BY MOUTH THREE TIMES DAILY FOR MUSCLE SPASMS *MAY CAUSE DROWSINESS* levothyroxine 125 MCG tablet 125 mcg PO DAILY furosemide 20 MG tablet 20 mg PO AM rosuvastatin 20 mg tablet 20 mg PO DAILY aspirin [Aspir-81] 81 mg Tablet,Delayed Release (Dr/Ec) 81 mg PO DAILY Linzess 145 mcg capsule 145 mcg PO DAILY insulin glargine 100 unit/mL (3 mL) insulin pen 5 unit SQ AC PRN (Reason: diabetes) Rx Instructions: please provide pen needles #30 [id number] albuterol sulfate 90 mcg/actuation HFA aerosol inhaler 2 puff INHALATION Q6HP PRN (Reason: SOA) prazosin 2 mg capsule 2 mg PO DAILY epinephrine [EpiPen 2-Arnold] 0.3 mg/0.3 mL auto-injector 0.3 mg IM Q10M PRN (Reason: anaphylaxis) Qty: 2 0RF Rx Instructions: for 2 doses Referrals Follow up/Referrals: Indu Schrader APRN [Primary Care Provider] - See instructions Activity Restrictions/Add. Instructions Additional Instructions/Restrictions: *Increase fluids. Water not Soda or Tea *Start antibiotic immediately and be sure to take as ordered for the FULL length of time although you should start to see improvement over the next 48 hours *Pyridium as needed Remember this medication will turn your urine . This is normal but it will stain what ever it gets on *You should not use Pyridium for more than 48 hours. If so , follow up with your primary physician to review urine culture and ensure that antibiotic is adequate for infection *Be SURE to follow up anytime for new or worsening symptoms with your family doctor. AND in 48 hours for urine culture results with your family doctor, if you do not have a doctor then you may call back to the [facility] for urine culture results and further treatment. We do recommend that you choose and establish care with a Primary Care Physician. ?AND follow up with them ?in 10-14 days to repeat UA to ensure infection is resolved and blood no longer present *Be sure to let your PCP know that we sent urine cultures from the [facility] so they can follow up to ensure that you area the on the correct antibiotic Call your doctor office and make appointment for 48 hours (2 days from today) ?to follow up and get the results of your urine culture and further treatment Clinical Impressions Clinical Impression: UTI (urinary tract infection) Qualifiers: Urinary tract infection type: site unspecified Hematuria presence: with hematuria Qualified Code(s): N39.0 - Urinary tract infection, site not specified Instructions Patient Instructions: Urinary Tract Infection, DI for Urinary Tract Infection (UTI
[2022-11-26 18:18] LABS: Microscopic, Urine URINE MICROSCOPIC (MICROSCOPIC)
[2022-11-26 18:20] LABS: Appearance,Urine CLEAR (Clear); Bilirubin,Urine Negative (Negative); Blood, Urine Negative (Negative); Color,Urine YELLOW (Yellow); Glucose,Urine (UA) Negative (Negative); Ketones,Urine Negative (Negative); Leukocyte Esterase,Urine 2+ (Negative); Nitrate,Urine POSITIVE (Negative); Protein,Urine Negative (Negative); Specific Gravity, Urine 1.015 (1.005-1.030)
[2022-11-26 19:00] VITALS: BP 128/68; PULSE 72; RESP 16; TEMP 36.8; O2SAT 95
[2022-11-26 19:23] LABS: Bacteria,Urine 2+ /lpf
== END 2022-11-26 19:01 | disposition home or self-care (01) ==
PROVIDERS: Emergency Provider Nurse Practitioner; PCP Nurse Practitioner Family
DX: N39.0 Urinary tract infection, site not specified (principal); M54.59 Other low back pain; E66.9 Obesity, unspecified
CPT/HCPCS: 81001; 87086; 96372; 99212; 99214; G0463

== ENCOUNTER 2022-12-02 01:09 | Emergency (ER) | payer MEDICARE, MEDICAID, SELFPAY ==
[2022-12-02 01:11] VITALS: BP 130/72; PULSE 75; RESP 16; TEMP 36.8; O2SAT 95; BMI 41.0
--- NOTE | 2022-12-02 01:19 | HMH.EDGENADL ---
Discharge Plan Disposition Patient Disposition: Home, Self-Care Prescriptions Prescriptions: No Action fluoxetine 20 mg capsule See Rx Instructions .ROUTE .COMPLEX Qty: 270 1RF Dose Instruction: TAKE 3 CAPSULES BY MOUTH EVERY DAY FOR DEPRESSION Rx Instructions: TAKE 3 CAPSULES BY MOUTH EVERY DAY FOR DEPRESSION furosemide 40 MG tablet 40 mg PO PM metoprolol succinate 50 MG tablet extended release 24 hr 50 mg PO DAILY Rx Instructions: TAKE 1 TABLET BY MOUTH ONCE DAILY FOR BLOOD PRESSURE clopidogrel 75 MG tablet 75 mg PO DAILY Rx Instructions: TAKE ONE TABLET BY MOUTH EVERY DAY FOR HEART allopurinol 100 MG tablet 1 tab PO DAILY Rx Instructions: TAKE 1 TABLET BY MOUTH ONCE DAILY FOR GOUT omeprazole 40 MG capsule,delayed release(DR/EC) 40 mg PO DAILY Rx Instructions: TAKE 1 CAPSULE BY MOUTH ONCE DAILY FOR GERD spironolactone 25 MG tablet 25 mg PO DAILY Rx Instructions: TAKE ONE TABLET BY MOUTH TWICE A DAY isosorbide mononitrate 60 MG tablet extended release 24 hr 60 mg PO DAILY Rx Instructions: TAKE 1 TABLET BY MOUTH ONCE DAILY FOR BLOOD PRESSURE methocarbamol 750 MG tablet 1 tab PO BID Rx Instructions: TAKE 1 TABLET BY MOUTH THREE TIMES DAILY FOR MUSCLE SPASMS *MAY CAUSE DROWSINESS* levothyroxine 125 MCG tablet 125 mcg PO DAILY furosemide 20 MG tablet 20 mg PO AM rosuvastatin 20 mg tablet 20 mg PO DAILY aspirin [Aspir-81] 81 mg Tablet,Delayed Release (Dr/Ec) 81 mg PO DAILY Linzess 145 mcg capsule 145 mcg PO DAILY insulin glargine 100 unit/mL (3 mL) insulin pen 5 unit SQ AC PRN (Reason: diabetes) Rx Instructions: please provide pen needles #30 [id number] albuterol sulfate 90 mcg/actuation HFA aerosol inhaler 2 puff INHALATION Q6HP PRN (Reason: SOA) prazosin 2 mg capsule 2 mg PO DAILY epinephrine [EpiPen 2-Arnold] 0.3 mg/0.3 mL auto-injector 0.3 mg IM Q10M PRN (Reason: anaphylaxis) Qty: 2 0RF Rx Instructions: for 2 doses cefdinir 300 mg capsule 300 mg PO BID 10 Days Qty: 20 0RF Referrals Follow up/Referrals: Provider,Referral, MD [Primary Care Provider] - See instructions Activity Restrictions/Add. Instructions Additional Instructions/Restrictions: Please follow-up with your primary care provider for repeat evaluation. Your CT scan showed diverticulosis. No evidence of large kidney stone, no evidence of kidney infection.you may have a small stone causing irritation that is not visible on CT. Please return to the emergency department if you develop any new or worsening symptoms or become concerned for your health. Clinical Impressions Clinical Impression: Diverticulosis of colon without diverticulitis Abdominal pain Qualifiers: Abdominal location: left lower quadrant Qualified Code(s): R10.32 - Left lower quadrant pain Instructions Patient Instructions: DI for Diverticulosis Discharge ED Provider: Raffy Bolanos General Adult HPI General Chief complaint: Urogenital-Female Stated complaint: hyperglycemia Time Seen by Provider: 12/02/22 01:18 History of Present Illness HPI narrative: 72-year-old female history of COPD, coronary artery disease, insulin-dependent diabetes, heart failure, prior kidney stones presents with reports of left lower quadrant abdominal pain and intermittent left flank pain for the last week. She reports that she was diagnosed with a UTI 6 days ago and has been taking cefdinir as prescribed. She was seen by her PCP yesterday for persistent symptoms and they reportedly switch antibiotics but she is not sure what they switched it to and she has not been able to begin it. She denies fever at home. She reports that she is drinking a lot of water to clear this out but feels like her mouth is dry currently. She decided to come to the ED tonight because her blood sugar is in the 300s which is much higher
[2022-12-02 01:39] LABS: Microscopic, Urine URINE MICROSCOPIC (MICROSCOPIC)
[2022-12-02 01:46] LABS: Basophils # 0.1 K/mm3 (0-0.2); Basophils % 0.4 % (0.1-2.0); Chloride 97 mmol/L (98-107); Eosinophils # 0.1 K/mm3 (0.0-0.4); Eosinophils % 0.6 % (0.1-12.0); Hematocrit 43.5 % (37.0-47.0); Hemoglobin 13.2 g/dL (12.2-16.2); Lymphocytes # 2.9 K/mm3 (0.7-4.5); Lymphocytes % 23.7 % (10-50); Mean Corpuscular HGB Conc 30.3 g/dL (31.8-35.4); Mean Corpuscular Hemoglobin 28.5 pg (27.0-31.2); Mean Corpuscular Volume 94.1 fl (81-99); Mean Platelet Volume 9.2 fl (7.4-10.4); Monocytes # 0.4 K/mm3 (0.1-1.0); Monocytes % 3.3 % (1.7-9.3); Neutrophils # 8.7 K/mm3 (1.8-7.8); Platelet Count 300 K/mm3 (142-424); Potassium 3.7 mmoL/L (3.5-5.1); Red Blood Count 4.62 M/mm3 (4.20-5.40); Red Cell Distribution Width 14.5 % (11.5-17.5); Sodium 137 mmol/L (136-145); White Blood Count 12.1 K/mm3 (4.8-10.8)
[2022-12-02 01:47] LABS: VBG HCO3 27.5 mmol/L (23-30); VBG Oxygen Saturation 74.2 % (50-70); VBG PCO2 49.9 mmol/L (35-51); VBG PH 7.36 mmol/L (7.31-7.41); VBG PO2 38.1 mmol/L (28-40)
[2022-12-02 01:49] LABS: Alanine Aminotransferase 20 U/L (12-78); Albumin Level 3.6 g/dl (3.5-5.0); Albumin/Globulin Ratio 1.2 (1.1-1.8); Alkaline Phosphatase 143 U/L (38-126); Anion Gap 12.7 mEq/L (5-15); Aspartate Amino Transferase 31 U/L (14-36); Bilirubin,Total 0.3 mg/dl (0.2-1.3); Blood Urea Nitrogen 26 mg/dl (7-17); Calcium 9.6 mg/dl (8.4-10.2); Carbon Dioxide 31 mmol/L (22.0-30.0); Creatinine Clearance Estimated 79 mL/min (50-200); Estimated Glomerular Filt Rate 55 ml/min (>60); GFR (African American) 66 ML/MIN (>60); Globulin 3.1 g/dL (1.3-3.2); Glucose 326 mg/dl (74-100); Lactic Acid 1.8 mmol/L (0.7-2.1); Lipase 34 U/L (23-300); Magnesium 1.6 mg/dl (1.6-2.3); Total Protein,Serum 6.7 g/dl (6.3-8.2)
--- NOTE | 2022-12-02 01:49 | CT_ITS ---
PROCEDURE INFORMATION: Exam: CT Abdomen And Pelvis With Contrast Exam date and time: 12/02/2022 2:12 AM Age: 72 years old Clinical indication: Abdominal pain; Additional info: Flank pain, HX stones, HX UTI, llq pain TECHNIQUE: Imaging protocol: Computed tomography of the abdomen and pelvis with contrast. Radiation optimization: All CT scans at this facility use at least one of these dose optimization techniques: automated exposure control; mA and/or kV adjustment per patient size (includes targeted exams where dose is matched to clinical indication); or iterative reconstruction. Contrast material: ISOVUE; Contrast volume: 75 ml; Contrast route: IV; REPORTING DATA: Count of CT and Cardiac NM exams in prior 12 months: This patient has received 4 known CTs and 0 known cardiac nuclear medicine studies in the 12 months prior to the current study. COMPARISON: CT ABDOMEN PELVIS W CON 08/15/2022 7:59 PM FINDINGS: Liver: There are calcifications in the liver which most likely reflect calcified granulomas. Gallbladder and bile ducts: The patient is status post cholecystectomy. Pancreas: Normal. No ductal dilation. Spleen: There are multiple calcifications in the spleen most likely reflects small granulomas. Adrenal glands: Normal. No mass. Kidneys and ureters: Atrophic left kidney, stable. Stomach and bowel: There are scattered colonic diverticula without evidence for active diverticulitis. Appendix: The appendix is normal. Intraperitoneal space: There is stranding in the central abdominal mesentery which could be associated with mesenteric panniculitis/sclerosing mesenteritis but is technically nonspecific for any entity. Vasculature: Multiple pelvic phleboliths are present. There is atherosclerotic disease of the visualized aorta and its major branch vessels. Lymph nodes: Unremarkable. No enlarged lymph nodes. Urinary bladder: There is mild bladder wall thickening, possibly due to under distention and a nonspecific finding. Reproductive: Unremarkable as visualized. Bones/joints: There is diffuse degenerative disease of the visualized osseous structures. Soft tissues: There is a small fat containing umbilical hernia. IMPRESSION: 1. There are scattered colonic diverticula without evidence for active diverticulitis. 2. No acute pathology is identified in the abdomen or pelvis. 3. Otherwise, incidental findings as above.
[2022-12-02 01:50] LABS: Acetone, Serum (Rapid) None Detected (None Detect); Appearance,Urine CLEAR (Clear); Bilirubin,Urine Negative (Negative); Blood, Urine TRACE-I (Negative); Color,Urine ORANGE (Yellow); Glucose,Urine (UA) 1+ (Negative); Ketones,Urine Negative (Negative); Leukocyte Esterase,Urine TRACE (Negative); Nitrate,Urine POSITIVE (Negative); Protein,Urine TRACE (Negative)
[2022-12-02 02:01] VITALS: BP 115/58; PULSE 75; O2SAT 95
[2022-12-02 02:03] LABS: Bacteria,Urine 1+ /lpf
--- NOTE | 2022-12-02 02:18 | PC.NURSE ---
pt return from ct scan
[2022-12-02 03:18] VITALS: BP 164/73; PULSE 65; RESP 16; TEMP 36.6; O2SAT 94
[2022-12-02 03:24] LABS: POC Glucose,Bedside 262 (70-110)
== END 2022-12-02 03:20 | disposition home or self-care (01) ==
PROVIDERS: Emergency Provider Emergency Medicine
DX: K57.30 Diverticulosis of large intestine without perforation or abscess without bleeding (principal); J44.9 Chronic obstructive pulmonary disease, unspecified; I25.10 Atherosclerotic heart disease of native coronary artery without angina pectoris; E11.9 Type 2 diabetes mellitus without complications; I50.9 Heart failure, unspecified; Z85.038 Personal history of other malignant neoplasm of large intestine; Z85.3 Personal history of malignant neoplasm of breast
CPT/HCPCS: 74177; 80053; 81001; 82009; 82803; 82962; 83605; 83690; 83735; 85025; 87040; 96374; 99285; Q9967

== ENCOUNTER 2023-04-12 16:13 | Emergency (ER) | payer MEDICARE, SELFPAY ==
[2023-04-12 16:16] VITALS: BP 149/72; PULSE 84; RESP 20; TEMP 36.4; O2SAT 97; BMI 42.5
[2023-04-12 16:30] VITALS: BP 144/94; PULSE 81; RESP 20; O2SAT 96
--- NOTE | 2023-04-12 16:43 | XR_ITS ---
PROCEDURE INFORMATION: Exam: XR Chest Exam date and time: 04/12/2023 4:46 PM Age: 72 years old Clinical indication: Shortness of breath; Additional info: SOA, chf and copd TECHNIQUE: Imaging protocol: Radiologic exam of the chest. Views: 1 view. COMPARISON: CR XR CHEST PORTABLE 10/27/2022 12:22 PM FINDINGS: Lungs: No evidence of acute pulmonary disease or infiltrates Pleural spaces: No large effusion or pneumothorax. Heart/Mediastinum: Stable cardiac and mediastinal contours. Bones/joints: No evidence of acute osseous abnormalities within the visualized portions of the thoracic spine and ribs. Osseous structures appear appropriate for patient age. The patient is status post median sternotomy. IMPRESSION: No dense parenchymal consolidation, pleural effusion, or pneumothorax.
[2023-04-12] MEDS: IPRATROPIUM/ALBUTEROL 3 ML NEB 6 ML IH (16:52)
[2023-04-12] MEDS: METHYLPREDNISOLONE SOD SUCC 125MG VIAL 125 MG IV (16:52)
--- NOTE | 2023-04-12 16:54 | ED_ITS ---
Discharge Plan Disposition Patient Disposition: Home, Self-Care Prescriptions Prescriptions: New ipratropium-albuterol 0.5 mg-3 mg(2.5 mg base)/3 mL solution for nebulization 3 ml inhalation Q4H PRN (Reason: wheezing) Qty: 180 2RF prednisone 20 mg tablet 40 mg PO DAILY 5 Days Qty: 10 0RF cefdinir 300 mg capsule 300 mg PO BID 7 Days Qty: 14 0RF No Action fluoxetine 20 mg capsule See Rx Instructions .ROUTE .COMPLEX Qty: 270 1RF Dose Instruction: TAKE 3 CAPSULES BY MOUTH EVERY DAY FOR DEPRESSION Rx Instructions: TAKE 3 CAPSULES BY MOUTH EVERY DAY FOR DEPRESSION furosemide 40 MG tablet 40 mg PO PM metoprolol succinate 50 MG tablet extended release 24 hr 50 mg PO DAILY Rx Instructions: TAKE 1 TABLET BY MOUTH ONCE DAILY FOR BLOOD PRESSURE clopidogrel 75 MG tablet 75 mg PO DAILY Rx Instructions: TAKE ONE TABLET BY MOUTH EVERY DAY FOR HEART allopurinol 100 MG tablet 1 tab PO DAILY Rx Instructions: TAKE 1 TABLET BY MOUTH ONCE DAILY FOR GOUT omeprazole 40 MG capsule,delayed release(DR/EC) 40 mg PO DAILY Rx Instructions: TAKE 1 CAPSULE BY MOUTH ONCE DAILY FOR GERD spironolactone 25 MG tablet 25 mg PO DAILY Rx Instructions: TAKE ONE TABLET BY MOUTH TWICE A DAY isosorbide mononitrate 60 MG tablet extended release 24 hr 60 mg PO DAILY Rx Instructions: TAKE 1 TABLET BY MOUTH ONCE DAILY FOR BLOOD PRESSURE methocarbamol 750 MG tablet 1 tab PO BID Rx Instructions: TAKE 1 TABLET BY MOUTH THREE TIMES DAILY FOR MUSCLE SPASMS *MAY CAUSE D ROWSINESS* levothyroxine 125 MCG tablet 125 mcg PO DAILY furosemide 20 MG tablet 20 mg PO AM rosuvastatin 20 mg tablet 20 mg PO DAILY aspirin [Aspir-81] 81 mg Tablet,Delayed Release (Dr/Ec) 81 mg PO DAILY Linzess 145 mcg capsule 145 mcg PO DAILY insulin glargine 100 unit/mL (3 mL) insulin pen 5 unit SQ AC PRN (Reason: diabetes) Rx Instructions: please provide pen needles #30 [id number] albuterol sulfate 90 mcg/actuation HFA aerosol inhaler 2 puff INHALATION Q6HP PRN (Reason: SOA) prazosin 2 mg capsule 2 mg PO DAILY epinephrine [EpiPen 2-Arnold] 0.3 mg/0.3 mL auto-injector 0.3 mg IM Q10M PRN (Reason: anaphylaxis) Qty: 2 0RF Rx Instructions: for 2 doses cefdinir 300 mg capsule 300 mg PO BID 10 Days Qty: 20 0RF Referrals Follow up/Referrals: Provider,Referral, MD [Primary Care Provider] - See instructions Discharge ED Provider: Haresh Hussein HPI General Chief Complaint: Shortness of Breath/Dyspnea Stated Complaint: SOB,cough,dizziness Time Seen by Provider: 04/12/23 16:17 Mode of Arrival: Wheelchair Source of Information: Patient Limitations: No Limitations Description of Symptoms (Recalled from ER Triage Doc. by RN): Patient presents to ER with worsening shortness of breath for 1 month. Reports brownish mucous. Denies fever, vomiting, diarrhea. History of Present Illness HPI narrative: 72-year-old female history of hypertension, high lipidemia, CAD, CHF COPD not on home oxygen CKD, hypothyroidism presenting with shortness of breath. Patient states this has been going on for months. She recently finished 10 days of an antibiotic 2 days prior to this visit and is now coughing up brownish sputum which used to be greenish-yellow. Denies fevers or chills, nausea or vomiting, or chest pain. No worsening PND orthopnea, lower extremity edema. States that she has been wheezing more often than usual and is concerned she has bronchitis. Related Data Home Medications Medication Instructions Recorded Confirmed allopurinol 100 mg tablet 1 tab PO DAILY GOUT 10/04/21 08/15/22 clopidogrel 75 mg tablet 75 mg PO DAILY Blood thinner 10/04/21 08/15/22 furosemide 20 mg tablet 20 mg PO AM Fluid 10/04/21 08/15/22 furosemide 40 mg tablet 40 mg PO PM Fluid 10/04/21 08/15/22 isosorbide mononitrate 60 mg 60 mg PO DAILY BLOOD PRESSURE 10/04/21 08/15/22 tablet,extended release 24 hr levothyroxine 125 mcg tablet 125 mcg PO DAILY THYROID 10/04/21 08/15/22 methocarbamol 750 mg tablet 1 tab PO BID muscle 10/04/21 08/15/22 metoprolol succinate 50 mg 50 mg PO DAILY BLOOD PRESSURE 10/04/21 08/15/22 tablet,extended release 24 hr omeprazole 40 mg capsule,delayed 40 mg PO DAILY GERD 10/04/21 08/15/22 release spironolactone 25 mg tablet 25 mg PO DAILY Fluid 10/04/21 08/15/22 aspirin 81 mg tablet,delayed 81 mg PO DAILY Blood thinner 02/27/22 08/15/22 release rosuvastatin 20 mg tablet 20 mg PO DAILY Cholesterol 02/27/22 08/15/22 insulin glargine 100 unit/mL (3 5 unit SQ AC PRN diabetes 07/13/22 mL) subcutaneous pen linaclotide 145 mcg capsule 145 mcg PO DAILY constipation 08/02/22 08/15/22 (Linzess) albuterol sulfate 90 mcg/actuation 2 puff inhalation Q6HP PRN SOA 08/15/22 08/15/22 aerosol inhaler prazosin 2 mg capsule 2 mg PO DAILY blood pressure 08/15/22 08/15/22 Previous Rx's Medication Instructions Recorded epinephrine 0.3 mg/0.3 mL 0.3 mg (0.3 mL) IM Q10M PRN 10/27/22 injection, auto-injector (EpiPen anaphylaxis #2 ea 2-Arnold) fluoxetine 20 mg capsule See Rx Instructions .Route 10/29/22 .COMPLEX #270 caps cefdinir 300 mg capsule 300 mg PO BID 10 days #20 caps 11/26/22 cefdinir 300 mg capsule 300 mg PO BID 7 days #14 caps 04/12/23 ipratropium 0.5 mg-albuterol 3 mg 3 ml inhalation Q4H PRN wheezing 04/12/23 (2.5 mg base)/3 mL nebulization #180 mL soln prednisone 20 mg tablet 40 mg PO DAILY 5 days #10 tabs 04/12/23 Allergies Allergy/AdvReac Type Severity Reaction Status Date / Time morphine [MORPHINE] Allergy Unknown Verified 07/06/22 12:09 [facility] Disclaimer: The information contained in this section may have been updated after the patient was seen, as this information can be updated by other users. Medical History (Updated 12/02/22 @ 03:01 by Raffy Bolanos MD) Breast cancer Colon cancer Dyspnea Encounter for pre-operative cardiovascular clearance Gallbladder & bile duct stone with obstruction Hiatal hernia Neuropathy Obesity (BMI 30-39.9) Surgical History (Updated 08/02/22 @ 13:15 by Magdalena Goldman RN) H/O heart bypass surgery H/O: History of cholecystectomy Hx of breast lump removal Hx of exploratory laparotomy Hx of hernia repair Hx of left mastectomy Family History (Updated 08/02/22 @ 13:15 by Magdalena Goldman RN) Mother Diabetes Coronary artery disease Hyperlipidemia Cancer, Onset Age: 69 Father Diabetes Coronary artery disease Diverticula of colon Hyperlipidemia Cancer, Onset Age: 67 Hypertension Other Family history of cancer Family history of diabetes mellitus type II Family history of myocardial infarction Family history of stroke Hx of kidney disease Social History (Updated 08/02/22 @ 13:15 by Magdalena Goldman RN) Smoking Status: Never smoker alcohol intake: never substance use type: denies use current occupational status: retired Travel in the last 8 weeks: None household members: none housing: apartment marital status: education level: master's degree do you feel safe at home: Yes victim of physical abuse: No victim of emotional abuse: No victim of sexual abuse: No would you like helpful sources: No ROS Obtained: Yes All systems reviewed & no additional complaints except as documented Physical Exam General General appearance: alert Neck Neck exam: Present trachea midline Chest Chest inspection: Present normal inspection and symmetric chest wall rise Respiratory Respiratory exam: Present wheezes (Diffuse bilateral); Absent respiratory distress, stridor, accessory muscle use or prolonged expiratory phase Cardiovascular Cardiovascular exam: Present regular rate and normal rhythm Extremities Exam Extremities exam: Absent edema Neurological Exam Neurological exam: Present alert, oriented X3 and CN II-XII intact Skin Skin exam: Present warm and dry; Absent cyanosis, diaphoresis or pallor HEART Score HEART Score HEART Score assessment performed?: Yes History (anamnesis): Slightly suspicious ECG: Normal Age: >65 years Risk factors: 1-2 risk factors Troponin: </= normal limit HEART Score: 3 Critical Care Critical Care Time Critical Care Time: No Medical Decision Making Medical Records Medical records reviewed: Yes I reviewed the patient's medical records. Faraz Inquiry Pt receiving controlled substance: No Faraz was queried for this patient: No Vital Signs Vital Signs: 04/12/23 16:16 04/12/23 16:30 Temperature 97.5 F L Temperature Source Oral Pulse Rate 81 Pulse Rate [Right] 84 Respiratory Rate 20 20 Blood Pressure 144/94 H Blood Pressure [Right Arm] 149/72 H Blood Pressure Mean 116 Blood Pressure Mean [Right Arm] 97 Blood Pressure Source [Right Arm] Automatic Cuff 02 Sat by Pulse Oximetry 97 96 Oxygen Delivery Method Room Air Lab Data Labs: Lab Results 04/12/23 16:43: SARS-CoV-2 (PCR) Not detected, Influenza A Untype (PCR) Not detected, Influenza Type B (PCR) Not detected 04/12/23 16:45: WBC 14.4 H, RBC 4.56, Hgb 13.9, Hct 43.3, MCV 94.8, MCH 30.5, MCHC 32.1, RDW 14.5, Plt Count 311, MPV 9.4, Neut % (Auto) 75.6, Lymph % (Auto) 19.8, Sac % (Auto) 2.3, Eos % (Auto) 1.8, Baso % (Auto) 0.4, Neut # (Auto) 10.9 H, Lymph # (Auto) 2.9, Sac # (Auto) 0.3, Eos # (Auto) 0.3, Baso # (Auto) 0.1, Sodium 134 L, Potassium 4.9, Chloride 95 L, Carbon Dioxide 34 H, Anion Gap 9.9, BUN 22 H, Creatinine 1.00, Estimated Creat Clear 38, Estimated GFR 55 L, Est GFR ( Amer) 66, Glucose 351 H, Calcium 9.5, Total Bilirubin 0.4, AST 30, ALT 21, Alkaline Phosphatase 177 H, Troponin I < 0.01, NT-Pro-B Natriuret Pep 397 H, Total Protein 7.1, Albumin 3.8, Globulin 3.3 H, Albumin/Globulin Ratio 1.2 04/12/23 16:45 04/12/23 16:45 Response Orders (Tests/Meds): ED MEDICATIONS Discontinued Medications Generic Name Dose Route Start Last Admin Trade Name Freq PRN Reason Stop Dose Admin Albuterol/Ipratropium 6 ml 04/12/23 16:42 04/12/23 16:52 Ipratropium/Albuterol 3 Ml Neb IH 04/12/23 16:43 6 ml ONCE ONE Administration Methylprednisolone Sodium Succinate 125 mg 04/12/23 16:42 04/12/23 16:52 Methylprednisolone Sod Succ 125mg Vial IV 04/12/23 16:43 125 mg ONCE ONE Administration ORDERS Category Date Time Status XR chest portable Stat Exams 04/12/23 16:43 Completed Brain Natriuretic Peptide Stat Lab 04/12/23 16:45 Completed Complete Blood Count Auto Diff Stat Lab 04/12/23 16:45 Completed Comprehensive Metabolic Panel Stat Lab 04/12/23 16:45 Completed Rapid PCR Covid and Flu A/B Stat Lab 04/12/23 16:43 Completed Troponin I Q3H Lab 04/12/23 19:45 Ordered Troponin I Q3H Lab 04/12/23 22:45 Ordered Troponin I Stat Lab 04/12/23 16:45 Completed Venous Blood Gas Stat RT 04/12/23 16:45 Received MDM Narrative Medical Decision Narrative: 72-year-old female history of hypertension, high lipidemia, CAD, CHF COPD not on home oxygen CKD, hypothyroidism presenting with shortness of breath. Patient states this has been going on for months. She recently finished 10 days of an antibiotic 2 days prior to this visit and is now coughing up brownish sputum which used to be greenish-yellow. Denies fevers or chills, nausea or vomiting, or chest pain. No worsening PND orthopnea, lower extremity edema. States that she has been wheezing more often than usual and is concerned she has bronchitis. History was obtained via conversation with patient. On arrival, patient hemodynamically stable, alert, oriented x4, appropriate, GCS 15, moving all extremities spontaneously, pupils equal and reactive to light. Full physical exam performed and significant for 72-year-old female who appears well, but anxious. Nontachycardic, normotensive, not requiring oxygen. Bilateral and expiratory wheezes. No focal breath sounds. No lower extremity edema. Abdomen is soft, nontender. Differential includes COPD, CHF, ACS, [place], pneumothorax, PE, dissection, pneumothorax, aortic aneurysm, pneumonia, bronchitis, among others. Patient was given DuoNeb x 2, Solu-Medrol 125 for symptomatic management and correction of underlying abnormalities. Workup independently interpreted and significant for mild leukocytosis 14.4 with neutrophilic shift. Chemistry with CKD, but creatinine within normal limits. Troponin negative, BNP nonactionable. Chest x-ray with nonacute cardiopulmonary airspace disease. See radiology read for full review of final results. Independent interpretation of EKG shows sinus rhythm 82 beats a minute with no ST changes concerning for acute ischemia. Patient does have singular T wave inversions in lead V2, but no reciprocal change. [place] normal. [place], QRS, QT intervals within normal limits.. Heart score 4. On reevaluation, patient feeling much better after breathing treatment. Given patient presentation, workup, history, this most likely represents COPD exacerbation. Because patient at baseline without signs or symptoms of clinical decompensation, deemed appropriate for discharge. Results were relayed to patient who voiced understanding and were agreeable to outpatient management and follow up. At the time of discharge the patient was hemodynamically stable, tolerating PO, and mobilizing appropriately.
--- NOTE | 2023-04-12 16:55 | PC.NURSE ---
XR AT BEDSIDE
[2023-04-12 17:04] LABS: Basophils # 0.1 K/mm3 (0-0.2); Basophils % 0.4 % (0.1-2.0); Eosinophils # 0.3 K/mm3 (0.0-0.4); Eosinophils % 1.8 % (0.1-12.0); Hematocrit 43.3 % (37.0-47.0); Hemoglobin 13.9 g/dL (12.2-16.2); Lymphocytes # 2.9 K/mm3 (0.7-4.5); Lymphocytes % 19.8 % (10-50); Mean Corpuscular HGB Conc 32.1 g/dL (31.8-35.4); Mean Corpuscular Hemoglobin 30.5 pg (27.0-31.2); Mean Corpuscular Volume 94.8 fl (81-99); Mean Platelet Volume 9.4 fl (7.4-10.4); Monocytes # 0.3 K/mm3 (0.1-1.0); Monocytes % 2.3 % (1.7-9.3); Neutrophils # 10.9 K/mm3 (1.8-7.8); Neutrophils % 75.6 % (37.0-80.0); Platelet Count 311 K/mm3 (142-424); Red Blood Count 4.56 M/mm3 (4.20-5.40); Red Cell Distribution Width 14.5 % (11.5-17.5); White Blood Count 14.4 K/mm3 (4.8-10.8)
--- NOTE | 2023-04-12 17:12 | ECG_ITS ---
APPROVED REPORT Exam: Resting ECG HR:82 bpm ECG Measurements Heart Rate 82 AXES LA 133 P -28 QRSd 101 QRS 43 QT 357 T 56 QTc 396 Conclusion SINUS RHYTHM NORMAL ECG UNCONFIRMED REPORT Electronically signed by : Fidel Richards MD 04/15/2023 14:46:47
[2023-04-12 17:14] LABS: Chloride 95 mmol/L (98-107); Sodium 134 mmol/L (136-145)
[2023-04-12 17:15] LABS: Potassium 4.9 mmoL/L (3.5-5.1)
[2023-04-12 17:17] LABS: Alanine Aminotransferase 21 U/L (12-78); Albumin Level 3.8 g/dl (3.5-5.0); Albumin/Globulin Ratio 1.2 (1.1-1.8); Alkaline Phosphatase 177 U/L (38-126); Anion Gap 9.9 mEq/L (5-15); Aspartate Amino Transferase 30 U/L (14-36); Bilirubin,Total 0.4 mg/dl (0.2-1.3); Blood Urea Nitrogen 22 mg/dl (7-17); Carbon Dioxide 34 mmol/L (22.0-30.0); Creatinine Clearance Estimated 38 mL/min (50-200); Estimated Glomerular Filt Rate 55 ml/min (>60); GFR (African American) 66 ML/MIN (>60); Globulin 3.3 g/dL (1.3-3.2); Total Protein,Serum 7.1 g/dl (6.3-8.2)
[2023-04-12 17:18] LABS: Calcium 9.5 mg/dl (8.4-10.2); Glucose 351 mg/dl (74-100)
[2023-04-12 17:27] LABS: NT Pro Brain Natriuretic Pep. 397 pg/mL (0-125)
[2023-04-12 17:32] LABS: Troponin I < 0.01 ng/ml (0.00-0.034)
[2023-04-12 17:36] LABS: Coronavirus 19, PCR Not Detected (NotDetected); Influenza A, PCR Not Detected (NotDetected); Influenza B, PCR Not Detected (NotDetected)
[2023-04-12 19:03] VITALS: BP 155/68; PULSE 85; RESP 18; TEMP 36.3; O2SAT 96
== END 2023-04-12 19:03 | disposition home or self-care (01) ==
PROVIDERS: Emergency Provider Emergency Medicine
DX: R06.02 Shortness of breath (principal); J44.9 Chronic obstructive pulmonary disease, unspecified; I13.0 Hypertensive heart and chronic kidney disease with heart failure and stage 1 through stage 4 chronic kidney disease, or unspecified chronic kidney disease; I50.9 Heart failure, unspecified; N18.9 Chronic kidney disease, unspecified; E78.5 Hyperlipidemia, unspecified; I25.10 Atherosclerotic heart disease of native coronary artery without angina pectoris; E03.9 Hypothyroidism, unspecified; G62.9 Polyneuropathy, unspecified
CPT/HCPCS: 71045; 80053; 82803; 83880; 84484; 85025; 87636; 93005; 96374; 99285

== ENCOUNTER 2023-04-19 15:00 | Emergency (ER) | payer MEDICARE, SELFPAY ==
[2023-04-19] VITALS (7 sets, daily range): BP systolic 121–160; BP diastolic 68–80; PULSE 64–82; RESP 16–18; TEMP 36.6; O2SAT 94–97; BMI 42.2
--- NOTE | 2023-04-19 15:02 | ECG_ITS ---
APPROVED REPORT Exam: Resting ECG HR:78 bpm ECG Measurements Heart Rate 78 AXES UT 120 P -47 QRSd 96 QRS 44 QT 359 T 73 QTc 392 Conclusion ECTOPIC ATRIAL RHYTHM ABNORMAL RHYTHM ECG UNCONFIRMED REPORT Electronically signed by : Fidel Richards MD 04/19/2023 16:35:20
--- NOTE | 2023-04-19 15:05 | ED_ITS ---
I was consulted by the NELI, and we discussed the complexity of the problems being addressed. I approved the treatment and management plan for this patient's care in the emergency department, thus performing a substantive portion of the medical decision making. Discharge Plan Disposition Patient Disposition: Home, Self-Care Prescriptions Prescriptions: No Action fluoxetine 20 mg capsule See Rx Instructions .ROUTE .COMPLEX Qty: 270 1RF Dose Instruction: TAKE 3 CAPSULES BY MOUTH EVERY DAY FOR DEPRESSION Rx Instructions: TAKE 3 CAPSULES BY MOUTH EVERY DAY FOR DEPRESSION furosemide 40 MG tablet 40 mg PO PM metoprolol succinate 50 MG tablet extended release 24 hr 50 mg PO DAILY Rx Instructions: TAKE 1 TABLET BY MOUTH ONCE DAILY FOR BLOOD PRESSURE clopidogrel 75 MG tablet 75 mg PO DAILY Rx Instructions: TAKE ONE TABLET BY MOUTH EVERY DAY FOR HEART allopurinol 100 MG tablet 1 tab PO DAILY Rx Instructions: TAKE 1 TABLET BY MOUTH ONCE DAILY FOR GOUT omeprazole 40 MG capsule,delayed release(DR/EC) 40 mg PO DAILY Rx Instructions: TAKE 1 CAPSULE BY MOUTH ONCE DAILY FOR GERD spironolactone 25 MG tablet 25 mg PO DAILY Rx Instructions: TAKE ONE TABLET BY MOUTH TWICE A DAY isosorbide mononitrate 60 MG tablet extended release 24 hr 60 mg PO DAILY Rx Instructions: TAKE 1 TABLET BY MOUTH ONCE DAILY FOR BLOOD PRESSURE methocarbamol 750 MG tablet 1 tab PO BID Rx Instructions: TAKE 1 TABLET BY MOUTH THREE TIMES DAILY FOR MUSCLE SPASMS *MAY CAUSE DROWSINESS* levothyroxine 125 MCG tablet 125 mcg PO DAILY furosemide 20 MG tablet 20 mg PO AM rosuvastatin 20 mg tablet 20 mg PO DAILY aspirin [Aspir-81] 81 mg Tablet,Delayed Release (Dr/Ec) 81 mg PO DAILY Linzess 145 mcg capsule 145 mcg PO DAILY ipratropium-albuterol 0.5 mg-3 mg(2.5 mg base)/3 mL solution for nebulization 3 ml inhalation Q4H PRN (Reason: wheezing) Qty: 180 2RF prednisone 20 mg tablet 40 mg PO DAILY 5 Days Qty: 10 0RF cefdinir 300 mg capsule 300 mg PO BID 7 Days Qty: 14 0RF insulin glargine 100 unit/mL (3 mL) insulin pen 5 unit SQ AC PRN (Reason: diabetes) Rx Instructions: please provide pen needles #30 [id number] albuterol sulfate 90 mcg/actuation HFA aerosol inhaler 2 puff INHALATION Q6HP PRN (Reason: SOA) prazosin 2 mg capsule 2 mg PO DAILY epinephrine [EpiPen 2-Arnold] 0.3 mg/0.3 mL auto-injector 0.3 mg IM Q10M PRN (Reason: anaphylaxis) Qty: 2 0RF Rx Instructions: for 2 doses cefdinir 300 mg capsule 300 mg PO BID 10 Days Qty: 20 0RF Referrals Follow up/Referrals: Provider,Referral, MD [Referring] - See instructions Activity Restrictions/Add. Instructions Additional Instructions/Restrictions: You need to follow-up tomorrow with your primary care physician for recheck of your serum glucose. May need to adjust your home dose of insulin with your PCP tomorrow. Clinical Impressions Clinical Impression: COPD exacerbation, Leukocytosis, Hyperglycemia due to type 2 diabetes mellitus Clinical Impression: (Ruled Out): Umbilical hernia, incarcerated Discharge ED Provider: Tonio Connell HPI General Stated Complaint: Chest Pain Time Seen by Provider: 04/19/23 15:04 History of Present Illness HPI narrative: Patient is 72-year-old female presents at the behest of her primary care p huyen for elevated blood sugar and posttussive chest pain. Patient gives approximately weeklong history of upper respiratory/lower respiratory symptoms. She was seen in our ER and given a prescription for steroids and antibiotics. She had routine follow-up with her PCP today who noted that her blood sugar was significantly elevated over 500 and her serum. Additionally her hemoglobin A1c was greater than 11. On arrival patient denies cardiac chest pain shortness of breath fever chills hemoptysis hematochezia melena nausea vomiting diarrhea. She does endorse a nonproductive persistent cough. She denies dysuria polyuria polydipsia. Related Data Home Medications Medication Instructions Recorded Confirmed allopurinol 100 mg tablet 1 tab PO DAILY GOUT 10/04/21 08/15/22 clopidogrel 75 mg tablet 75 mg PO DAILY Blood thinner 10/04/21 08/15/22 furosemide 20 mg tablet 20 mg PO AM Fluid 10/04/21 08/15/22 furosemide 40 mg tablet 40 mg PO PM Fluid 10/04/21 08/15/22 isosorbide mononitrate 60 mg 60 mg PO DAILY BLOOD PRESSURE 10/04/21 08/15/22 tablet,extended release 24 hr levothyroxine 125 mcg tablet 125 mcg PO DAILY THYROID 10/04/21 08/15/22 methocarbamol 750 mg tablet 1 tab PO BID muscle 10/04/21 08/15/22 metoprolol succinate 50 mg 50 mg PO DAILY BLOOD PRESSURE 10/04/21 08/15/22 tablet,extended release 24 hr omeprazole 40 mg capsule,delayed 40 mg PO DAILY GERD 10/04/21 08/15/22 release spironolactone 25 mg tablet 25 mg PO DAILY Fluid 10/04/21 08/15/22 aspirin 81 mg tablet,delayed 81 mg PO DAILY Blood thinner 02/27/22 08/15/22 release rosuvastatin 20 mg tablet 20 mg PO DAILY Cholesterol 02/27/22 08/15/22 insulin glargine 100 unit/mL (3 5 unit SQ AC PRN diabetes 07/13/22 mL) subcutaneous pen linaclotide 145 mcg capsule 145 mcg PO DAILY constipation 08/02/22 08/15/22 (Linzess) albuterol sulfate 90 mcg/actuation 2 puff inhalation Q6HP PRN SOA 08/15/22 08/15/22 aerosol inhaler prazosin 2 mg capsule 2 mg PO DAILY blood pressure 08/15/22 08/15/22 Previous Rx's Medication Instructions Recorded epinephrine 0.3 mg/0.3 mL 0.3 mg (0.3 mL) IM Q10M PRN 10/27/22 injection, auto-injector (EpiPen anaphylaxis #2 ea 2-Arnold) fluoxetine 20 mg capsule See Rx Instructions .Route 10/29/22 .COMPLEX #270 caps cefdinir 300 mg capsule 300 mg PO BID 10 days #20 caps 11/26/22 cefdinir 300 mg capsule 300 mg PO BID 7 days #14 caps 04/12/23 ipratropium 0.5 mg-albuterol 3 mg 3 ml inhalation Q4H PRN wheezing 04/12/23 (2.5 mg base)/3 mL nebulization #180 mL soln prednisone 20 mg tablet 40 mg PO DAILY 5 days #10 tabs 04/12/23 Allergies Allergy/AdvReac Type Severity Reaction Status Date / Time morphine [MORPHINE] Allergy Unknown Verified 07/06/22 12:09 [facility] Disclaimer: The information contained in this section may have been updated after the patient was seen, as this information can be updated by other users. Medical History (Updated 04/19/23 @ 17:36 by BECCA Delacruz) Breast cancer Colon cancer Dyspnea Encounter for pre-operative cardiovascular clearance Gallbladder & bile duct stone with obstruction Hiatal hernia Neuropathy Obesity (BMI 30-39.9) Surgical History (Updated 08/02/22 @ 13:15 by Magdalena Goldman RN) H/O heart bypass surgery H/O: History of cholecystectomy Hx of breast lump removal Hx of exploratory laparotomy Hx of hernia repair Hx of left mastectomy Family History (Updated 08/02/22 @ 13:15 by Magdalena Goldman RN) Mother Diabetes Coronary artery disease Hyperlipidemia Cancer, Onset Age: 69 Father Diabetes Coronary artery disease Diverticula of colon Hyperlipidemia Cancer, Onset Age: 67 Hypertension Other Family history of cancer Family history of diabetes mellitus type II Family history of myocardial infarction Family history of stroke Hx of kidney disease Social History (Updated 08/02/22 @ 13:15 by Magdalena Goldman RN) Smoking Status: Never smoker alcohol intake: never substance use type: denies use current occupational status: retired Travel in the last 8 weeks: None household members: none housing: apartment marital status: education level: master's degree do you feel safe at home: Yes victim of physical abuse: No victim of emotional abuse: No victim of sexual abuse: No would you like helpful sources: No ROS Obtained: Yes Systems reviewed as appropriate & no additional complaints except as documented Physical Exam General General appearance: alert and in no apparent distress Head Head exam: atraumatic and normal inspection Eye Eye exam: Present normal appearance, PERRL and EOMI ENT ENT exam: Present normal exam, normal oropharynx and mucous membranes moist Neck Neck exam: Present normal inspection, full ROM and trachea midline; Absent lymphadenopathy Chest Chest inspection: Present normal inspection and symmetric chest wall rise Respiratory Respiratory exam: Present wheezes (end expiratory); Absent respiratory distress or accessory muscle use Cardiovascular Cardiovascular exam: Present regular rate, normal rhythm, normal heart sounds, +S1 and +S2 Abdominal Exam Abdominal exam: Present soft and normal bowel sounds; Absent tenderness, guarding or rebound Extremities Exam Extremities exam: Present normal inspection and full ROM Neurological Exam Neurological exam: Present alert, oriented X3 and CN II-XII intact Psychiatric Psychiatric exam: Present normal affect and normal mood Skin Skin exam: Present warm, dry and normal color Lymphatic Lymphatic Findings: no adenopathy HEART Score HEART Score HEART Score assessment performed?: Yes History (anamnesis): Moderately suspicious ECG: Normal Age: >65 years Risk factors: 3 or more risk factors Troponin: </= normal limit HEART Score: 5 Critical Care Critical Care Time Critical Care Time: Yes Attestation: On 04/19/23, the high probability of a clinically significant, sudden or life threatening deterioration of the following system(s) required my full and direct attention, intervention and personal management. The time I documented below is in addition to time spent performing reported procedures but includes the following listed in this critical care notation. Total Time Total Critical Care Time: 35 Medical Decision Making Faraz Inquiry Pt receiving controlled substance: No Vital Signs Vital Signs: 04/19/23 15:02 04/19/23 15:18 04/19/23 16:08 Temperature 97.9 F Temperature Source Oral Pulse Rate 75 82 Pulse Rate [Right] 78 Respiratory Rate 18 17 Blood Pressure 134/73 Blood Pressure [Right Arm] 160/80 H Blood Pressure Mean Blood Pressure Mean [Right Arm] 106 Blood Pressure Source [Right Arm] Automatic Cuff 02 Sat by Pulse Oximetry 96 96 95 Oxygen Delivery Method Room Air Room Air 04/19/23 16:37 04/19/23 17:01 04/19/23 17:30 Temperature Temperature Source Pulse Rate 78 64 78 Pulse Rate [Right] Respiratory Rate 18 16 Blood Pressure 128/68 137/72 121/74 Blood Pressure [Right Arm] Blood Pressure Mean 103 92 Blood Pressure Mean [Right Arm] Blood Pressure Source [Right Arm] 02 Sat by Pulse Oximetry 97 97 95 Oxygen Delivery Method Room Air Lab Data Labs: Lab Results 04/19/23 15:15: WBC 19.8 H, RBC 4.34, Hgb 14.0, Hct 40.6, MCV 93.6, MCH 32.3 H, MCHC 34.4, RDW 14.1, Plt Count 322, MPV 9.5, Neut % (Auto) 78.9, Lymph % (Auto) 17.0, [place] % (Auto) 2.2, Eos % (Auto) 1.3, Baso % (Auto) 0.5, Neut # (Auto) 15.6 H, Lymph # (Auto) 3.4, [place] # (Auto) 0.4, Eos # (Auto) 0.3, Baso # (Auto) 0.1, Total Counted 100, Neutrophils % (Manual) 75, Lymphocytes % (Manual) 24, Eosinophils % (Manual) 1, Platelet Estimate Normal, Stomatocytes 1+, Sodium 131 L, Potassium 4.6, Chloride 93 L, Carbon Dioxide 29, Anion Gap 13.6, BUN 30 H, Creatinine 1.20 H, Estimated Creat Clear 31, Estimated GFR 44 L, Est GFR ( Amer) 54 L, Glucose 573 H*, Calcium 9.5, Total Bilirubin 0.5, AST 39 H, ALT 45, Alkaline Phosphatase 240 H, Troponin I < 0.01, Total Protein 6.7, Albumin 3.7, Globulin 3.0, Albumin/Globulin Ratio 1.2 04/19/23 15:15 04/19/23 15:15 Response Orders (Tests/Meds): ED MEDICATIONS Discontinued Medications Generic Name Dose Route Start Last Admin Trade Name Freq PRN Reason Stop Dose Admin Albuterol/Ipratropium 3 ml 04/19/23 15:27 04/19/23 15:30 Ipratropium/Albuterol 3 Ml Neb IH 04/19/23 15:28 3 ml ONCE ONE Administration Lactated Ringer's 1,000 mls @ 999 mls/hr 04/19/23 16:21 04/19/23 16:30 Lactated Ringer's 1000 Ml Bag IV 04/19/23 17:21 999 mls/hr .Q1H1M ONE Administration Insulin Human Regular 5 unit 04/19/23 16:19 04/19/23 16:31 Insulin Human Regular 100 Units/Ml 10ml Vial IVP 04/19/23 16:20 5 unit ONCE ONE Administration ORDERS Category Date Time Status Chest XR -- portable [XR chest portable] Stat Exams 04/19/23 15:16 Completed CBC Man Diff [Complete Blood Count Man Dif] Stat Lab 04/19/23 15:15 Completed CMP [Comprehensive Metabolic Panel] Stat Lab 04/19/23 15:15 Completed Trop I [Troponin I] Stat Lab 04/19/23 15:15 Completed Troponin I Q3H Lab 04/19/23 18:15 Ordered Troponin I Q3H Lab 04/19/23 21:15 Ordered ECG initial Besson Stat Y 04/19/23 15:02 Completed ECG Data Tracing #1: ECG Narrative: Independently interpreted by me rate of 78, rhythm is regular, axis is normal, no ST elevation or depression in anatomical contiguous leads, QTc 392 MDM Narrative Medical Decision Narrative: In summary patient is a 72-year-old female who presents to the emergency department for evaluation of initially chest pain but in fact is here due to elevated blood sugars at her PCPs office. Patient is hemodynamically stable upon arrival, afebrile. On exam patient has right-sided chest wall pain upon coughing. Auscultation of breath sounds reveals index end expiratory wheezes in all 4 spicer. Serum blood sugar was 573 anion gap is normal bicarb is 29 differ ential diagnosis includes ACS versus DKA versus COPD exacerbation. Initial workup will be conducted with CBC CMP EKG plain film chest x-ray. Initial interventions include DuoNeb. physicians assistant shows normal sinus rhythm with a rate of 80. Patient's has leukocytosis however she has no clinical signs of sepsis and is on steroids. Remainder of hematological labs are unremarkable and troponin is undetectable.. Patient's plain film chest x-ray informally interpreted by myself shows no acute processes. Upon repeat evaluation patient reports subjective improvement in her wheezing after nebulizer. Patient still having cough but more tolerable. Patient's fingerstick blood sugars now under 397 at 1728. Given this the patient is appropriate for discharge home with follow-up with her PCP tomorrow. We have arranged for her to receive a battery for her fingerstick blood sugar machine at home.
--- NOTE | 2023-04-19 15:16 | XR_ITS ---
FINAL REPORT CLINICAL HISTORY: cough wheezing COMPARISON: 04/12/2023 FINDINGS: No acute pulmonary opacity is present. There is no evidence of effusion or pneumothorax. Patient is status post median sternotomy and CABG. Heart size is normal. IMPRESSION: No acute abnormality. Reviewed, Interpreted and Dictated by Mauricio Varghese MD Transcribed by Emilee Sheppard Authenticated and [facility]
[2023-04-19 15:27] LABS: MANUAL DIFFERENTIAL MANUAL DIFFERENTIAL (MANUAL DIFF)
[2023-04-19] MEDS: IPRATROPIUM/ALBUTEROL 3 ML NEB IH (15:30)
[2023-04-19 15:35] LABS: Basophils # 0.1 K/mm3 (0-0.2); Basophils % 0.5 % (0.1-2.0); Eosinophils # 0.3 K/mm3 (0.0-0.4); Eosinophils % 1.3 % (0.1-12.0); Hematocrit 40.6 % (37.0-47.0); Lymphocytes # 3.4 K/mm3 (0.7-4.5); Mean Corpuscular HGB Conc 34.4 g/dL (31.8-35.4); Mean Corpuscular Hemoglobin 32.3 pg (27.0-31.2); Mean Corpuscular Volume 93.6 fl (81-99); Mean Platelet Volume 9.5 fl (7.4-10.4); Monocytes # 0.4 K/mm3 (0.1-1.0); Monocytes % 2.2 % (1.7-9.3); Neutrophils # 15.6 K/mm3 (1.8-7.8); Neutrophils % 78.9 % (37.0-80.0); Platelet Count 322 K/mm3 (142-424); Red Blood Count 4.34 M/mm3 (4.20-5.40); Red Cell Distribution Width 14.1 % (11.5-17.5); White Blood Count 19.8 K/mm3 (4.8-10.8)
[2023-04-19 15:36] LABS: Chloride 93 mmol/L (98-107); Potassium 4.6 mmoL/L (3.5-5.1); Sodium 131 mmol/L (136-145)
[2023-04-19 15:38] LABS: Alanine Aminotransferase 45 U/L (12-78); Aspartate Amino Transferase 39 U/L (14-36); Blood Urea Nitrogen 30 mg/dl (7-17); Creatinine Clearance Estimated 31 mL/min (50-200); Estimated Glomerular Filt Rate 44 ml/min (>60); GFR (African American) 54 ML/MIN (>60)
[2023-04-19 15:39] LABS: Albumin Level 3.7 g/dl (3.5-5.0); Albumin/Globulin Ratio 1.2 (1.1-1.8); Alkaline Phosphatase 240 U/L (38-126); Anion Gap 13.6 mEq/L (5-15); Bilirubin,Total 0.5 mg/dl (0.2-1.3); Calcium 9.5 mg/dl (8.4-10.2); Carbon Dioxide 29 mmol/L (22.0-30.0); Total Protein,Serum 6.7 g/dl (6.3-8.2)
--- NOTE | 2023-04-19 15:43 | PC.NURSE ---
PORTABLE XRAY AT BEDSIDE
--- NOTE | 2023-04-19 15:43 | PC.NURSE ---
XRAY AT FOR PORTABLE XRAY
[2023-04-19 15:51] LABS: Troponin I < 0.01 ng/ml (0.00-0.034)
[2023-04-19 15:52] LABS: Glucose 573 mg/dl (74-100)
--- NOTE | 2023-04-19 15:52 | PC.NURSE ---
aware of glucose
[2023-04-19 16:09] LABS: Eosinophils % 1 % (0-3); Lymphocytes % 24 % (10-50); Neutrophils % 75 % (42-76); Total Cells Counted 100
[2023-04-19 16:10] LABS: Platelet Estimate Normal; Stomatocytes 1+
--- NOTE | 2023-04-19 16:29 | PC.NURSE ---
used [employer] for battery for pt glucose bertin
[2023-04-19] MEDS: LACTATED RINGERS 1000ML 1,000 ML 999 ML IV (16:30)
[2023-04-19] MEDS: INSULIN HUMAN REGULAR 100 UNITS/ML 10ML VIAL 5 UNIT IVP (16:31)
== END 2023-04-19 18:07 | disposition home or self-care (01) ==
PROVIDERS: Physician Assistant; Emergency Provider Ophthalmology; PCP Nurse Practitioner Family
DX: J44.1 Chronic obstructive pulmonary disease with (acute) exacerbation (principal); R07.9 Chest pain, unspecified; E11.65 Type 2 diabetes mellitus with hyperglycemia; D72.829 Elevated white blood cell count, unspecified; G62.9 Polyneuropathy, unspecified
CPT/HCPCS: 71045; 80053; 84484; 85007; 85014; 85018; 85048; 85049; 93005; 96361; 96374; 99291

== ENCOUNTER 2023-05-02 17:15 | Emergency (ER) | payer MEDICARE, SELFPAY ==
[2023-05-02 17:16] VITALS: BP 157/59; PULSE 88; RESP 18; TEMP 36.8; O2SAT 98; BMI 41.3
--- NOTE | 2023-05-02 17:26 | ECG_ITS ---
APPROVED REPORT Exam: Resting ECG HR:88 bpm ECG Measurements Heart Rate 88 AXES VT 133 P 42 QRSd 96 QRS 53 QT 341 T 68 QTc 386 Conclusion SINUS RHYTHM NORMAL ECG UNCONFIRMED REPORT Electronically signed by : Fidel Richards MD 05/03/2023 21:54:55
--- NOTE | 2023-05-02 17:29 | XR_ITS ---
PROCEDURE INFORMATION: Exam: XR Right Shoulder Exam date and time: 05/02/2023 6:07 PM Age: 72 years old Clinical indication: Injury or trauma; Fall; Blunt trauma (contusions or hematomas); Shoulder; Right TECHNIQUE: Imaging protocol: Radiologic exam of the right shoulder. Views: 2 or more views. COMPARISON: CR XR CHEST PORTABLE 05/02/2023 6:07 PM FINDINGS: Bones/joints: No acute fracture or malalignment. Mild acromioclavicular and glenohumeral joint degenerative changes. Soft tissues: Normal. IMPRESSION: No acute osseous findings.
--- NOTE | 2023-05-02 17:29 | XR_ITS ---
PROCEDURE INFORMATION: Exam: XR Chest Exam date and time: 05/02/2023 6:07 PM Age: 72 years old Clinical indication: Shortness of breath; Additional info: Sob/copd TECHNIQUE: Imaging protocol: Radiologic exam of the chest. Views: 1 view. COMPARISON: CR XR CHEST PORTABLE 04/19/2023 3:38 PM FINDINGS: Lungs: Unremarkable. No consolidation. Pleural spaces: Unremarkable. No pleural effusion. No pneumothorax. Heart/Mediastinum: Postsurgical changes of CABG. Bones/joints: Median sternotomy. IMPRESSION: No acute pulmonary findings.
--- NOTE | 2023-05-02 17:32 | ED_ITS ---
Discharge Plan Disposition Patient Disposition: Home, Self-Care Prescriptions Prescriptions: New prednisone 50 mg tablet 50 mg PO DAILY 4 Days Qty: 4 0RF azithromycin [Zithromax Z-Arnold] 250 mg tablet 250 mg PO DAILY 4 Days Qty: 4 0RF Rx Instructions: start on day 2 of therapy No Action fluoxetine 20 mg capsule See Rx Instructions .ROUTE .COMPLEX Qty: 270 1RF Dose Instruction: TAKE 3 CAPSULES BY MOUTH EVERY DAY FOR DEPRESSION Rx Instructions: TAKE 3 CAPSULES BY MOUTH EVERY DAY FOR DEPRESSION furosemide 40 MG tablet 40 mg PO PM metoprolol succinate 50 MG tablet extended release 24 hr 50 mg PO DAILY Rx Instructions: TAKE 1 TABLET BY MOUTH ONCE DAILY FOR BLOOD PRESSURE clopidogrel 75 MG tablet 75 mg PO DAILY Rx Instructions: TAKE ONE TABLET BY MOUTH EVERY DAY FOR HEART allopurinol 100 MG tablet 1 tab PO DAILY Rx Instructions: TAKE 1 TABLET BY MOUTH ONCE DAILY FOR GOUT omeprazole 40 MG capsule,delayed release(DR/EC) 40 mg PO DAILY Rx Instructions: TAKE 1 CAPSULE BY MOUTH ONCE DAILY FOR GERD spironolactone 25 MG tablet 25 mg PO DAILY Rx Instructions: TAKE ONE TABLET BY MOUTH TWICE A DAY isosorbide mononitrate 60 MG tablet extended release 24 hr 60 mg PO DAILY Rx Instructions: TAKE 1 TABLET BY MOUTH ONCE DAILY FOR BLOOD PRESSURE methocarbamol 750 MG tablet 1 tab PO BID Rx Instructions: TAKE 1 TABLET BY MOUTH THREE TIMES DAILY FOR MUSCLE SPASMS *MAY CAUSE DROWSINESS* levothyroxine 125 MCG tablet 125 mcg PO DAILY furosemide 20 MG tablet 20 mg PO AM rosuvastatin 20 mg tablet 20 mg PO DAILY aspirin [Aspir-81] 81 mg Tablet,Delayed Release (Dr/Ec) 81 mg PO DAILY Linzess 145 mcg capsule 145 mcg PO DAILY ipratropium-albuterol 0.5 mg-3 mg(2.5 mg base)/3 mL solution for nebulization 3 ml inhalation Q4H PRN (Reason: wheezing) Qty: 180 2RF prednisone 20 mg tablet 40 mg PO DAILY 5 Days Qty: 10 0RF cefdinir 300 mg capsule 300 mg PO BID 7 Days Qty: 14 0RF insulin glargine 100 unit/mL (3 mL) insulin pen 5 unit SQ AC PRN (Reason: diabetes) Rx Instructions: please provide pen needles #30 [id number] albuterol sulfate 90 mcg/actuation HFA aerosol inhaler 2 puff INHALATION Q6HP PRN (Reason: SOA) prazosin 2 mg capsule 2 mg PO DAILY epinephrine [EpiPen 2-Arnold] 0.3 mg/0.3 mL auto-injector 0.3 mg IM Q10M PRN (Reason: anaphylaxis) Qty: 2 0RF Rx Instructions: for 2 doses cefdinir 300 mg capsule 300 mg PO BID 10 Days Qty: 20 0RF Referrals Follow up/Referrals: Indu Schrader APRN [Primary Care Provider] - See instructions Activity Restrictions/Add. Instructions Additional Instructions/Restrictions: At this time it was felt you are safe to be discharged home. If new or worsening symptoms please do not hesitate to return the emergency department. If symptoms persist please follow-up with your family doctor as you are able. Please take your medications as prescribed. Please continue to monitor your glucose at home to adjust your short-term acting insulin as discussed. Clinical Impressions Clinical Impression: COPD exacerbation Discharge ED Provider: Harvey Shepard [facility] General Chief Complaint: Shortness of Breath/Dyspnea Stated Complaint: AO Fall shoulder pain SOA blood sugar fluxuating Time Seen by Provider: 05/02/23 17:22 History of Present Illness HPI narrative: Patient is 72-year-old female past medical history of COPD not on home oxygen who presents emergency department for evaluation of shortness of breath and a fall. History is obtained by patient at bedside. Patient has had respiratory infections requiring hospitalization over the last month with interval resolution with resurgence of infections. Over the last few days she has had worsening shortness of breath refractory to her DuoNebs at home causing her to present here for continued evaluation. Patient was also using the restroom today when she attempted to stand up from sitting and had a fall onto her right shoulder, did not strike her head, no loss of consciousness. Due to persistent cough she presents here for continued evaluation. No chest pain. Related Data Home Medications Medication Instructions Recorded Confirmed allopurinol 100 mg tablet 1 tab PO DAILY GOUT 10/04/21 08/15/22 clopidogrel 75 mg tablet 75 mg PO DAILY Blood thinner 10/04/21 08/15/22 furosemide 20 mg tablet 20 mg PO AM Fluid 10/04/21 08/15/22 furosemide 40 mg tablet 40 mg PO PM Fluid 10/04/21 08/15/22 isosorbide mononitrate 60 mg 60 mg PO DAILY BLOOD PRESSURE 10/04/21 08/15/22 tablet,extended release 24 hr levothyroxine 125 mcg tablet 125 mcg PO DAILY THYROID 10/04/21 08/15/22 methocarbamol 750 mg tablet 1 tab PO BID muscle 10/04/21 08/15/22 metoprolol succinate 50 mg 50 mg PO DAILY BLOOD PRESSURE 10/04/21 08/15/22 tablet,extended release 24 hr omeprazole 40 mg capsule,delayed 40 mg PO DAILY GERD 10/04/21 08/15/22 release spironolactone 25 mg tablet 25 mg PO DAILY Fluid 10/04/21 08/15/22 aspirin 81 mg tablet,delayed 81 mg PO DAILY Blood thinner 02/27/22 08/15/22 release rosuvastatin 20 mg tablet 20 mg PO DAILY Cholesterol 02/27/22 08/15/22 insulin glargine 100 unit/mL (3 5 unit SQ AC PRN diabetes 07/13/22 mL) subcutaneous pen linaclotide 145 mcg capsule 145 mcg PO DAILY constipation 08/02/22 08/15/22 (Linzess) albuterol sulfate 90 mcg/actuation 2 puff inhalation Q6HP PRN SOA 08/15/22 08/15/22 aerosol inhaler prazosin 2 mg capsule 2 mg PO DAILY blood pressure 08/15/22 08/15/22 Previous Rx's Medication Instructions Recorded epinephrine 0.3 mg/0.3 mL 0.3 mg (0.3 mL) IM Q10M PRN 10/27/22 injection, auto-injector (EpiPen anaphylaxis #2 ea 2-Arnold) fluoxetine 20 mg capsule See Rx Instructions .Route 10/29/22 .COMPLEX #270 caps cefdinir 300 mg capsule 300 mg PO BID 10 days #20 caps 11/26/22 cefdinir 300 mg capsule 300 mg PO BID 7 days #14 caps 04/12/23 ipratropium 0.5 mg-albuterol 3 mg 3 ml inhalation Q4H PRN wheezing 04/12/23 (2.5 mg base)/3 mL nebulization #180 mL soln prednisone 20 mg tablet 40 mg PO DAILY 5 days #10 tabs 04/12/23 azithromycin 250 mg tablet 250 mg PO DAILY 4 days #4 tabs 05/02/23 (Zithromax Z-Arnold) prednisone 50 mg tablet 50 mg PO DAILY 4 days #4 tabs 05/02/23 Allergies Allergy/AdvReac Type Severity Reaction Status Date / Time morphine [MORPHINE] Allergy Unknown Verified 07/06/22 12:09 [facility] Disclaimer: The information contained in this section may have been updated after the patient was seen, as this information can be updated by other users. Medical History (Updated 05/02/23 @ 21:21 by Harvey Shepard MD) Breast cancer Colon cancer Dyspnea Encounter for pre-operative cardiovascular clearance Gallbladder & bile duct stone with obstruction Hiatal hernia Neuropathy Obesity (BMI 30-39.9) Surgical History (Updated 08/02/22 @ 13:15 by Magdalena Goldman, RN) H/O heart bypass surgery H/O: History of cholecystectomy Hx of breast lump removal Hx of exploratory laparotomy Hx of hernia repair Hx of left mastectomy Family History (Updated 08/02/22 @ 13:15 by Magdalena Goldman, RN) Mother Diabetes Coronary artery disease Hyperlipidemia Cancer, Onset Age: 69 Father Diabetes Coronary artery disease Diverticula of colon Hyperlipidemia Cancer, Onset Age: 67 Hypertension Other Family history of cancer Family history of diabetes mellitus type II Family history of myocardial infarction Family history of stroke Hx of kidney disease Social History (Updated 08/02/22 @ 13:15 by Magdalena Goldman, RN) Smoking Status: Never smoker alcohol intake: never substance use type: denies use current occupational status: retired Travel in the last 8 weeks: None household members: none housing: apartment marital status: education level: master's degree do you feel safe at home: Yes victim of physical abuse: No victim of emotional abuse: No victim of sexual abuse: No would you like helpful sources: No ROS Obtained: Yes Systems reviewed as appropriate & no additional complaints except as documented Physical Exam General General appearance: alert and in no apparent distress Head Head exam: atraumatic and normocephalic Eye Eye exam: Present PERRL and EOMI ENT ENT exam: Present mucous membranes moist Neck Neck exam: Present normal inspection Chest Chest inspection: Present normal inspection and symmetric chest wall rise Respiratory Respiratory exam: Present respiratory distress and wheezes (Biphasic) Cardiovascular Cardiovascular exam: Present regular rate and normal rhythm Abdominal Exam Abdominal exam: Present soft; Absent tenderness Extremities Exam Extremities exam: Present other (Nonpitting edema bilateral lower extremities) Neurological Exam Neurological exam: Present alert Psychiatric Psychiatric exam: Present normal affect Skin Skin exam: Present warm and dry HEART Score HEART Score HEART Score assessment performed?: No Critical Care Critical Care Time Critical Care Time: Yes Attestation: On 05/02/23, the high probability of a clinically significant, sudden or life threatening deterioration of the following system(s) required my full and direct attention, intervention and personal management. The time I documented below is in addition to time spent performing reported procedures but includes the following listed in this critical care notation. Total Time Total Critical Care Time: 35 Medical Decision Making Faraz Inquiry Pt receiving controlled substance: No Vital Signs Vital Signs: 05/02/23 17:16 05/02/23 17:33 05/02/23 18:00 Temperature 98.2 F Temperature Source Oral Pulse Rate 87 80 Pulse Rate [Left Radial] 88 Respiratory Rate 18 24 20 Blood Pressure 108/53 L 139/71 Blood Pressure [Right Arm] 157/59 H Blood Pressure Mean 71 89 Blood Pressure Mean [Right Arm] 91 Blood Pressure Source [Right Arm] Automatic Cuff Blood Pressure Position [Right Arm] Sitting 02 Sat by Pulse Oximetry 98 99 100 Oxygen Delivery Method Room Air 05/02/23 19:14 Temperature Temperature Source Pulse Rate 93 H Pulse Rate [Left Radial] Respiratory Rate Blood Pressure Blood Pressure [Right Arm] Blood Pressure Mean Blood Pressure Mean [Right Arm] Blood Pressure Source [Right Arm] Blood Pressure Position [Right Arm] 02 Sat by Pulse Oximetry Oxygen Delivery Method Lab Data Labs: Lab Results 05/02/23 17:44: WBC 19.5 H, RBC 3.96 L, Hgb 12.3, Hct 37.2, MCV 93.9, MCH 31.2, MCHC 33.2, RDW 14.9, Plt Count 348, MPV 9.1, Neut % (Auto) 76.1, Lymph % (Auto) 19.5, [place] % (Auto) 2.9, Eos % (Auto) 1.1, Baso % (Auto) 0.3, Neut # (Auto) 14.8 H, Lymph # (Auto) 3.8, [place] # (Auto) 0.6, Eos # (Auto) 0.2, Baso # (Auto) 0.1, Total Counted 100, Neutrophils % (Manual) 78 H, Lymphocytes % (Manual) 16, Monocytes % (Manual) 6, Platelet Estimate Normal, Hypochromasia 1+, Anisocytosis 1+, Sodium 139, Potassium 3.9, Chloride 102, Carbon Dioxide 32 H, Anion Gap 8.9, BUN 27 H, Creatinine 1.30 H, Estimated Creat Clear 29, Estimated GFR 40 L, Est GFR ( Amer) 49 L, Glucose 80, Calcium 9.0, Total Bilirubin 0.3, AST 32, ALT 20, Alkaline Phosphatase 136 H, NT-Pro-B Natriuret Pep 1360 H, Total Protein 6.5, Albumin 3.5, Globulin 3.0, Albumin/Globulin Ratio 1.2 05/02/23 17:56: VBG pH 7.42 H, VBG pCO2 49.3, VBG pO2 35.9, VBG HCO3 30.9 H, VBG Total CO2 32.4 H, VBG O2 Saturation 71.7 H, VBG Base Excess 6.3 H 05/02/23 18:00: SARS-CoV-2 (PCR) Not detected, Influenza A Untype (PCR) Not detected, Influenza Type B (PCR) Not detected 05/02/23 17:44 05/02/23 17:44 Response Orders (Tests/Meds): ED MEDICATIONS Generic Name Dose Route Start Last Admin Trade Name Freq PRN Reason Stop Dose Admin Azithromycin 500 mg/ Sodium 250 mls @ 250 mls/hr 05/02/23 17:30 05/02/23 18:01 Chloride IV 05/12/23 17:29 250 mls/hr Q24H JOE Administration Discontinued Medications Generic Name Dose Route Start Last Admin Trade Name Freq PRN Reason Stop Dose Admin Albuterol Sulfate 20 mg 05/02/23 18:53 05/02/23 19:13 Albuterol 0.083% 2.5 Mg/3 Ml [facility] 05/02/23 18:54 20 mg ONCE ONE Administration Albuterol/Ipratropium 9 ml 05/02/23 17:29 05/02/23 17:47 Ipratropium/Albuterol 3 Ml [facility] 05/02/23 17:30 9 ml ONCE ONE Administration Magnesium Sulfate 2 gm in 50 mls @ 50 mls/hr 05/02/23 18:53 05/02/23 19:02 Magnesium Sulfate 2gm/50ml Premix IV 05/02/23 19:52 50 mls/hr ONCE ONE Administration Methylprednisolone Sodium Succinate 125 mg 05/02/23 17:29 05/02/23 17:47 Methylprednisolone Sod Succ 125mg Vial IV 05/02/23 17:30 125 mg ONCE ONE Administration ORDERS Category Date Time Status CXR --portable [XR chest portable] Stat Exams 05/02/23 17:29 Completed Shoulder XR right miminum 2 views [XR shoulder RT min Exams 05/02/23 17:29 Completed 2V] Stat BNP [Brain Natriuretic Peptide] Stat Lab 05/02/23 17:44 Completed CBC w/Auto Diff [Complete Blood Count Auto Diff] Stat Lab 05/02/23 17:44 Completed CMP [Comprehensive Metabolic Panel] Stat Lab 05/02/23 17:44 Completed Rapid PCR Covid and Flu A/B Stat Lab 05/02/23 18:00 Completed VBG [Venous Blood Gas] Stat RT 05/02/23 17:56 Completed ECG Data Tracing #1: ECG Narrative: Independently interpreted by me, rate is 88, rhythm is regular, axis is normal, no ST elevation in anatomical contiguous leads, QTc 386. MDM Narrative Medical Decision Narrative: In summary patient is a 9-year-old female past medical history described above presents emergency department for evaluation of shortness of breath and cough. Patient is hemodynamically stable nontoxic-appearing upon arrival in mild respiratory distress, biphasic wheezing, no oxygen requirement. Differential diagnosis includes viral induced COPD exacerbation, pneumonia, among others. Workup will be conducted with hematologic labs, chest x-ray, EKG. Initial inventions include methylprednisolone, azithromycin, DuoNebs x 3. Initial workup reviewed by me, hematologic labs remarkable for persistent leukocytosis in the setting of recent steroid administration, no other elevated cell lines, VBG is compensated, no acute hypercarbic acidosis, no ANCELMO, no critical electroly te abnormalities, persistent mild transaminitis which is nonactionable, no significant hyperglycemia. Patient's BNP is elevated however I suspect that patient's COPD is contributing much more so than a degree of heart failure that she has, viral swab is negative. Chest x-ray informally interpreted by me, no acute dense lobar opacities or large pneumothorax, formal read shows no acute pathology. Per repeat evaluation patient had improvement of air movement, persistent shortness of breath and wheezing for which continuous albuterol and IV magnesium will be administered. Upon subsequent evaluation patient had resolution of wheezing, no tachypnea, no respiratory distress, reporting significant resolution of symptoms. Given this patient is appropriate for outpatient management at this time will be discharged with a course of prednisone, azithromycin. Patient has adequate DuoNebs at home for which she will continue. Patient is appropriate for discharge at this time.
[2023-05-02 17:33] VITALS: BP 108/53; PULSE 87; RESP 24; O2SAT 99
[2023-05-02] MEDS: METHYLPREDNISOLONE SOD SUCC 125MG VIAL 125 MG IV (17:47)
[2023-05-02] MEDS: IPRATROPIUM/ALBUTEROL 3 ML NEB 9 ML IH (17:47)
[2023-05-02 18:00] VITALS: BP 139/71; PULSE 80; RESP 20; O2SAT 100
[2023-05-02] MEDS: AZITHROMYCIN 500 MG in 0.9 % SODIUM CHLORIDE 250 ML 250 MG IV (18:01)
[2023-05-02 18:15] LABS: Basophils # 0.1 K/mm3 (0-0.2); Basophils % 0.3 % (0.1-2.0); Eosinophils # 0.2 K/mm3 (0.0-0.4); Eosinophils % 1.1 % (0.1-12.0); Hematocrit 37.2 % (37.0-47.0); Hemoglobin 12.3 g/dL (12.2-16.2); Lymphocytes # 3.8 K/mm3 (0.7-4.5); Lymphocytes % 19.5 % (10-50); Mean Corpuscular HGB Conc 33.2 g/dL (31.8-35.4); Mean Corpuscular Hemoglobin 31.2 pg (27.0-31.2); Mean Corpuscular Volume 93.9 fl (81-99); Mean Platelet Volume 9.1 fl (7.4-10.4); Monocytes # 0.6 K/mm3 (0.1-1.0); Monocytes % 2.9 % (1.7-9.3); Neutrophils # 14.8 K/mm3 (1.8-7.8); Neutrophils % 76.1 % (37.0-80.0); Platelet Count 348 K/mm3 (142-424); Red Blood Count 3.96 M/mm3 (4.20-5.40); Red Cell Distribution Width 14.9 % (11.5-17.5); White Blood Count 19.5 K/mm3 (4.8-10.8)
[2023-05-02 18:17] LABS: MANUAL DIFFERENTIAL MANUAL DIFFERENTIAL (MANUAL DIFF)
[2023-05-02 18:20] LABS: Alanine Aminotransferase 20 U/L (12-78); Albumin Level 3.5 g/dl (3.5-5.0); Albumin/Globulin Ratio 1.2 (1.1-1.8); Alkaline Phosphatase 136 U/L (38-126); Anion Gap 8.9 mEq/L (5-15); Aspartate Amino Transferase 32 U/L (14-36); Bilirubin,Total 0.3 mg/dl (0.2-1.3); Blood Urea Nitrogen 27 mg/dl (7-17); Carbon Dioxide 32 mmol/L (22.0-30.0); Chloride 102 mmol/L (98-107); Creatinine Clearance Estimated 29 mL/min (50-200); Estimated Glomerular Filt Rate 40 ml/min (>60); GFR (African American) 49 ML/MIN (>60); Glucose 80 mg/dl (74-100); Potassium 3.9 mmoL/L (3.5-5.1); Total Protein,Serum 6.5 g/dl (6.3-8.2)
[2023-05-02 18:21] LABS: VBG Base Excess 6.3 mmol/L (-2.4-2.3); VBG HCO3 30.9 mmol/L (23-30); VBG Oxygen Saturation 71.7 % (50-70); VBG PCO2 49.3 mmol/L (35-51); VBG PH 7.42 mmol/L (7.31-7.41); VBG PO2 35.9 mmol/L (28-40); VBG Total CO2 32.4 mmol/L (23-27)
[2023-05-02 18:29] LABS: NT Pro Brain Natriuretic Pep. 1360 pg/mL (0-125)
[2023-05-02 18:33] LABS: Anisocytosis 1+; Hypochromasia 1+; Lymphocytes % 16 % (10-50); Monocytes % 6 % (2-9); Neutrophils % 78 % (42-76); Platelet Estimate Normal; Total Cells Counted 100
--- NOTE | 2023-05-02 18:54 | PC.NURSE ---
respiratory aware of duoneb order
[2023-05-02] MEDS: MAGNESIUM SULFATE IN WATER 2 GM/50 ML PIGGYBACK IV (19:02)
[2023-05-02 19:09] LABS: Coronavirus 19, PCR Not Detected (NotDetected); Influenza A, PCR Not Detected (NotDetected); Influenza B, PCR Not Detected (NotDetected)
[2023-05-02 19:11] LABS: Sodium 139 mmol/L (136-145)
[2023-05-02] MEDS: ALBUTEROL 0.083% 2.5 MG/3 ML NEB 20 MG IH (19:13)
[2023-05-02 19:14] VITALS: PULSE 93
[2023-05-02 21:23] VITALS: BP 156/80; PULSE 99; RESP 20; TEMP 37.2; O2SAT 92
== END 2023-05-02 21:30 | disposition home or self-care (01) ==
PROVIDERS: Emergency Provider Emergency Medicine; PCP Nurse Practitioner Family
DX: J44.1 Chronic obstructive pulmonary disease with (acute) exacerbation (principal); R05.9 Cough, unspecified; M25.511 Pain in right shoulder; W18.39XA Other fall on same level, initial encounter
CPT/HCPCS: 71045; 73030; 80053; 82803; 83880; 85007; 85025; 87636; 93005; 96365; 96367; 96375; 99285; J0456; J3475

== ENCOUNTER 2023-05-17 13:18 | Emergency (ER) | payer MEDICARE, SELFPAY ==
[2023-05-17 13:25] VITALS: BP 128/62; PULSE 72; RESP 18; TEMP 36.6; O2SAT 95; BMI 42.2
[2023-05-17 13:45] VITALS: BP 128/62; PULSE 72; O2SAT 94
--- NOTE | 2023-05-17 13:56 | HMH.EDGENADL ---
Discharge Plan Disposition Patient Disposition: Home, Self-Care Condition: Good Prescriptions Prescriptions: New nitrofurantoin monohyd/m-cryst [Macrobid] 100 mg capsule 100 mg PO BID 5 Days Qty: 10 0RF Rx Instructions: must administer with a meal/food No Action fluoxetine 20 mg capsule See Rx Instructions .ROUTE .COMPLEX Qty: 270 1RF Dose Instruction: TAKE 3 CAPSULES BY MOUTH EVERY DAY FOR DEPRESSION Rx Instructions: TAKE 3 CAPSULES BY MOUTH EVERY DAY FOR DEPRESSION furosemide 40 MG tablet 40 mg PO PM metoprolol succinate 50 MG tablet extended release 24 hr 50 mg PO DAILY Rx Instructions: TAKE 1 TABLET BY MOUTH ONCE DAILY FOR BLOOD PRESSURE clopidogrel 75 MG tablet 75 mg PO DAILY Rx Instructions: TAKE ONE TABLET BY MOUTH EVERY DAY FOR HEART allopurinol 100 MG tablet 1 tab PO DAILY Rx Instructions: TAKE 1 TABLET BY MOUTH ONCE DAILY FOR GOUT omeprazole 40 MG capsule,delayed release(DR/EC) 40 mg PO DAILY Rx Instructions: TAKE 1 CAPSULE BY MOUTH ONCE DAILY FOR GERD spironolactone 25 MG tablet 25 mg PO DAILY Rx Instructions: TAKE ONE TABLET BY MOUTH TWICE A DAY isosorbide mononitrate 60 MG tablet extended release 24 hr 60 mg PO DAILY Rx Instructions: TAKE 1 TABLET BY MOUTH ONCE DAILY FOR BLOOD PRESSURE methocarbamol 750 MG tablet 1 tab PO BID Rx Instructions: TAKE 1 TABLET BY MOUTH THREE TIMES DAILY FOR MUSCLE SPASMS *MAY CAUSE DROWSINESS* levothyroxine 125 MCG tablet 125 mcg PO DAILY furosemide 20 MG tablet 20 mg PO AM rosuvastatin 20 mg tablet 20 mg PO DAILY aspirin [Aspir-81] 81 mg Tablet,Delayed Release (Dr/Ec) 81 mg PO DAILY Linzess 145 mcg capsule 145 mcg PO DAILY ipratropium-albuterol 0.5 mg-3 mg(2.5 mg base)/3 mL solution for nebulization 3 ml inhalation Q4H PRN (Reason: wheezing) Qty: 180 2RF prednisone 20 mg tablet 40 mg PO DAILY 5 Days Qty: 10 0RF cefdinir 300 mg capsule 300 mg PO BID 7 Days Qty: 14 0RF insulin glargine 100 unit/mL (3 mL) insulin pen 5 unit SQ AC PRN (Reason: diabetes) Rx Instructions: please provide pen needles #30 [id number] albuterol sulfate 90 mcg/actuation HFA aerosol inhaler 2 puff INHALATION Q6HP PRN (Reason: SOA) prazosin 2 mg capsule 2 mg PO DAILY epinephrine [EpiPen 2-Arnold] 0.3 mg/0.3 mL auto-injector 0.3 mg IM Q10M PRN (Reason: anaphylaxis) Qty: 2 0RF Rx Instructions: for 2 doses cefdinir 300 mg capsule 300 mg PO BID 10 Days Qty: 20 0RF prednisone 50 mg tablet 50 mg PO DAILY 4 Days Qty: 4 0RF azithromycin [Zithromax Z-Arnold] 250 mg tablet 250 mg PO DAILY 4 Days Qty: 4 0RF Rx Instructions: start on day 2 of therapy Referrals Follow up/Referrals: Provider,Referral, MD [Referring] - See instructions Activity Restrictions/Add. Instructions Additional Instructions/Restrictions: Please do not take your long-acting dose of insulin this evening. You may adjust with immediate release sliding scale. Please contact your PCP in the a.m. for close follow-up and medication adjustment. I have called in a prescription for Macrobid to your pharmacy. May return to the emergency department for any worsening symptoms or recurrence of hyper or hypoglycemia as needed. Clinical Impressions Clinical Impression: Urinary tract infection Qualifiers: Urinary tract infection type: site unspecified Hematuria presence: with hematuria Qualified Code(s): N39.0 - Urinary tract infection, site not specified Leukocytosis Qualifiers: Leukocytosis type: leukemoid reaction Qualified Code(s): D72.823 - Leukemoid reaction Discharge ED Provider: Avril Billingsley General Adult HPI <BECCA Delacruz - Last Filed: 05/17/23 16:14> General Chief complaint: Hyper/Hypoglycemia Stated complaint: SYNCOPE Time Seen by Provider: 05/17/23 13:56 Mode of Arrival: EMS Source of Information: Patient and EMS Limitations: No Limitations Description of Symptoms (Recalled from ER Triage Doc. by RN): Pt called EMS for her glucose dropping 4X since last night. pts finger stick is 122 on arrival. pt also c/o being sick x2 months. pt reports taking 3 glucose tablets and drinking sweetened coffee creamer [employer]. pt does not have an insulin pump or take insulin. Pt had an appointment with her DR today, however, she missed the appointment. pt c/o LLQ abd pain, pain in her bladder, pain with urination and foul smelling urine. pt states she thinks she has a UTI. pt has been taking AZO with minute relief of symptoms. pt reports she has been taking jaurdiance x1.5 months, she states this can cause UTI. History of Present Illness HPI narrative: Patient reports for hypoglycemia as low as the 50s last night. Patient reports her blood sugars have been very labile with significant peaks and valleys per her Dexcom. Patient reports no very recent medication changes but she is on 30 units of subcu long-acting twice a day sliding scale 3 times a day and Jardiance. She is not on metformin due to constipation . Most recent medication change was the addition of Jardiance approximately 1 month ago. Patient denies chest pain fever chills hemoptysis hematochezia melena hematemesis hematuria. She does report burning with urination and feeling of incomplete voiding. She did not lose consciousness and was able to get her sugar back up with oral repletion. Related Data Home Medications Medication Instructions Recorded Confirmed allopurinol 100 mg tablet 1 tab PO DAILY GOUT 10/04/21 08/15/22 clopidogrel 75 mg tablet 75 mg PO DAILY Blood thinner 10/04/21 08/15/22 furosemide 20 mg tablet 20 mg PO AM Fluid 10/04/21 08/15/22 furosemide 40 mg tablet 40 mg PO PM Fluid 10/04/21 08/15/22 isosorbide mononitrate 60 mg 60 mg PO DAILY BLOOD PRESSURE 10/04/21 08/15/22 tablet,extended release 24 hr levothyroxine 125 mcg tablet 125 mcg PO DAILY THYROID 10/04/21 08/15/22 methocarbamol 750 mg tablet 1 tab PO BID muscle 10/04/21 08/15/22 metoprolol succinate 50 mg 50 mg PO DAILY BLOOD PRESSURE 10/04/21 08/15/22 tablet,extended release 24 hr omeprazole 40 mg capsule,delayed 40 mg PO DAILY GERD 10/04/21 08/15/22 release spironolactone 25 mg tablet 25 mg PO DAILY Fluid 10/04/21 08/15/22 aspirin 81 mg tablet,delayed 81 mg PO DAILY Blood thinner 02/27/22 08/15/22 release rosuvastatin 20 mg tablet 20 mg PO DAILY Cholesterol 02/27/22 08/15/22 insulin glargine 100 unit/mL (3 5 unit SQ AC PRN diabetes 07/13/22 mL) subcutaneous pen linaclotide 145 mcg capsule 145 mcg PO DAILY constipation 08/02/22 08/15/22 (Linzess) albuterol sulfate 90 mcg/actuation 2 puff inhalation Q6HP PRN SOA 08/15/22 08/15/22 aerosol inhaler prazosin 2 mg capsule 2 mg PO DAILY blood pressure 08/15/22 08/15/22 Previous Rx's Medication Instructions Recorded epinephrine 0.3 mg/0.3 mL 0.3 mg (0.3 mL) IM Q10M PRN 10/27/22 injection, auto-injector (EpiPen anaphylaxis #2 ea 2-Arnold) fluoxetine 20 mg capsule See Rx Instructions .Route 10/29/22 .COMPLEX #270 caps cefdinir 300 mg capsule 300 mg PO BID 10 days #20 caps 11/26/22 cefdinir 300 mg capsule 300 mg PO BID 7 days #14 caps 04/12/23 ipratropium 0.5 mg-albuterol 3 mg 3 ml inhalation Q4H PRN wheezing 04/12/23 (2.5 mg base)/3 mL nebulization #180 mL soln prednisone 20 mg tablet 40 mg PO DAILY 5 days #10 tabs 04/12/23 azithromycin 250 mg tablet 250 mg PO DAILY 4 days #4 tabs 05/02/23 (Zithromax Z-Arnold) prednisone 50 mg tablet 50 mg PO DAILY 4 days #4 tabs 05/02/23 nitrofurantoin 100 mg PO BID 5 days #10 caps 05/17/23 monohydrate/macrocrystals 100 mg capsule (Macrobid) Allergies Allergy/AdvReac Type Severity Reaction Status Date / Time morphine [MORPHINE] Allergy Unknown Verified 07/06/22 12:09 [facility] <BECCA Delacruz - Last Filed: 05/17/23 16:14> [facility] Disclaimer: The information contained in this section may have been updated after the patient was seen, as this information can be updated by other users. Medical History (Updated 05/17/23 @ 16:14 by BECCA Delacruz) Breast cancer Colon cancer Dyspnea Encounter for pre-operative cardiovascular clearance Gallbladder & bile duct stone with obstruction Hiatal hernia Neuropathy Obesity (BMI 30-39.9) Surgical History (Updated 08/02/22 @ 13:15 by Magdalena Goldman RN) H/O heart bypass surgery H/O: History of cholecystectomy Hx of breast lump removal Hx of exploratory laparotomy Hx of hernia repair Hx of left mastectomy Family History (Updated 08/02/22 @ 13:15 by Magdalena Goldman RN) Mother Diabetes Coronary artery disease Hyperlipidemia Cancer, Onset Age: 69 Father Diabetes Coronary artery disease Diverticula of colon Hyperlipidemia Cancer, Onset Age: 67 Hypertension Other Family history of cancer Family history of diabetes mellitus type II Family history of myocardial infarction Family history of stroke Hx of kidney disease Social History (Updated 08/02/22 @ 13:15 by Magdalena Goldman RN) Smoking Status: Never smoker alcohol intake: never substance use type: denies use current occupational status: retired Travel in the last 8 weeks: None household members: none housing: apartment marital status: education level: master's degree do you feel safe at home: Yes victim of physical abuse: No victim of emotional abuse: No victim of sexual abuse: No would you like helpful sources: No <BECCA Delacruz - Last Filed: 05/17/23 16:14> ROS Obtained: Yes Systems reviewed as appropriate & no additional complaints except as documented Physical Exam <BECCA Delacruz - Last Filed: 05/17/23 16:14> General General appearance: alert and in no apparent distress Head Head exam: atraumatic and normal inspection Eye Eye exam: Present normal appearance, PERRL and EOMI ENT ENT exam: Present normal exam, normal oropharynx and mucous membranes moist Neck Neck exam: Present normal inspection and full ROM Chest Chest inspection: Present normal inspection and symmetric chest wall rise Respiratory Respiratory exam: Present normal lung sounds bilaterally; Absent respiratory distress or accessory muscle use Cardiovascular Cardiovascular exam: Present regular rate, normal rhythm, normal heart sounds, +S1 and +S2 Abdominal Exam Abdominal exam: Present soft, normal bowel sounds and other (No suprapubic tenderness no CVA tenderness to percussion.); Absent tenderness, guarding or rebound Extremities Exam Extremities exam: Present normal inspection and full ROM Neurological Exam Neurological exam: Present alert, oriented X3 and CN II-XII intact Psychiatric Psychiatric exam: Present normal affect and normal mood Skin Skin exam: Present warm, dry and normal color Medical Decision Making <BECCA Delacruz - Last Filed: 05/17/23 16:14> Medical Records Medical records reviewed: Yes I reviewed the patient's medical records. Faraz Inquiry Pt receiving controlled substance: No Vital Signs: 05/17/23 13:25 05/17/23 13:45 05/17/23 14:00 Temperature 97.9 F Temperature Source Oral Pulse Rate 72 71 Pulse Rate [Right] 72 Respiratory Rate 18 Blood Pressure 128/62 124/69 Blood Pressure [Right Arm] 128/62 Blood Pressure Mean [Right Arm] 84 Blood Pressure Source [Right Arm] Automatic Cuff Blood Pressure Position [Right Arm] Sitting 02 Sat by Pulse Oximetry 95 94 L 95 Oxygen Delivery Method Room Air Room Air Room Air 05/17/23 16:55 Temperature 97.9 F Temperature Source Oral Pulse Rate 71 Pulse Rate [Right] Respiratory Rate 18 Blood Pressure 124/69 Blood Pressure [Right Arm] Blood Pressure Mean [Right Arm] Blood Pressure Source [Right Arm] Blood Pressure Position [Right Arm] 02 Sat by Pulse Oximetry Oxygen Delivery Method Room Air Lab Data Lab results reviewed: Yes I reviewed the patient's lab results. Lab Results 05/17/23 13:30: WBC 14.5 H, RBC 3.92 L, Hgb 12.2, Hct 39.0, MCV 99.5 H, MCH 31.2, MCHC 31.4 L, RDW 15.2, Plt Count 334, MPV 9.1, Neut % (Auto) 65.2, Lymph % (Auto) 29.2, [place] % (Auto) 4.5, Eos % (Auto) 0.8, Baso % (Auto) 0.2, Neut # (Auto) 9.4 H, Lymph # (Auto) 4.2, [place] # (Auto) 0.7, Eos # (Auto) 0.1, Baso # (Auto) 0.0, Sodium 140, Potassium 4.2, Chloride 107, Carbon Dioxide 27, Anion Gap 10.2, BUN 22 H, Creatinine 1.40 H, Estimated Creat Clear 27, Estimated GFR 37 L, Est GFR ( Amer) 45 L, Glucose 120 H, Hemoglobin A1c 9.5 H, Calcium 8.8, Total Bilirubin 0.6, AST 35, ALT 23, Alkaline Phosphatase 144 H, Total Protein 6.4, Albumin 3.6, Globulin 2.8, Albumin/Globulin Ratio 1.3, Procalcitonin 0.121 05/17/23 14:25: Urine Color [place], Urine Appearance Sl cloudy, Urine pH 5.5, Ur Specific Starr 1.010, Urine Protein Negative, Urine Glucose (UA) 3+, Urine Ketones Negative, Urine Blood Negative, Urine Nitrate Positive, Urine Bilirubin Negative, Urine Urobilinogen 1.0, Ur Leukocyte Esterase Negative, Urine RBC Occasional, Urine WBC 5-10, Ur Squamous Epith Cells 10-20, Urine Bacteria 1+ 05/17/23 13:30 05/17/23 13:30 Orders (Tests/Meds): ED MEDICATIONS Discontinued Medications Generic Name Dose Route Start Last Admin Trade Name Freq PRN Reason Stop Dose Admin Lactated Ringer's 1,000 mls @ 999 mls/hr 05/17/23 14:37 05/17/23 15:24 Lactated Ringer's 1000 Ml Bag IV 05/17/23 15:37 999 mls/hr .Q1H1M ONE Administration Ceftriaxone Sodium 1 gm/ 50 mls @ 100 mls/hr 05/17/23 14:45 05/17/23 15:24 Sodium Chloride IV 05/27/23 14:44 100 mls/hr Q24H JOE Administration ORDERS Category Date Time Status Chest XR -- portable [XR chest portable] Stat Exams 05/17/23 14:37 Completed CMP [Comprehensive Metabolic Panel] Stat Lab 05/17/23 13:30 Completed Complete Blood Count Auto Diff Stat Lab 05/17/23 13:30 Completed Hemoglobin A1C Stat Lab 05/17/23 13:30 Completed Procalcitonin Stat Lab 05/17/23 13:30 Completed Urinalysis-Acute [Urinalysis and Microscopic] Stat Lab 05/17/23 14:25 Completed Blood Culture Stat Micro 05/17/23 15:15 Received Medical Decision Narrative: In summary patient is a 72-year-old female who presents to the emergency department for evaluation of hypoglycemia and difficult control blood sugar. Patient is hemodynamically stable and afebrile on arrival. Patient is a unremarkable physical exam with normal breath sounds normal heart sounds no pain on tenderness to palpation. Patient has no suprapubic tenderness. Patient's blood sugar is currently 120 on arrival. Patient reports compliance with a diabetic diet but does not currently count carbs and is not on a fixed dose of short acting insulin only on sliding scale.. Differential diagnosis includes therapeutic misadventure with long-acting insulin along with Jardiance versus infection. Initial workup will be conducted with hematologic labs flu and COVID swabs plain film chest x-ray. Initial interventions include crystalloid bolus. Initial workup reviewed by me shows had an elevated white count with a left shift, a not negative but not positive procalcitonin urinalysis with nitrites and 1+ bacteria but also 10-20 epithelial cells, the rest of her workup is nonactionable.. Upon repeat evaluation patient recalled that she had been recently placed on steroids by her PCP for a long COVID and that was the reason for the adjustment in her long-acting insulin to twice daily dosing. Given this patient has remained with normal blood sugars with neither drop or elevation while in the ER. Given her hypoglycemia a couple of hours after taking her nighttime long-acting dose I recommend that she not take the nighttime dose tonight and contact her PCP in the a.m. for medication adjustment recommendations. Patient given a prescription for Macrobid for urinary tract symptoms. She may continue to take Azo for symptomatic relief. Via shared decision making patient verbalized understanding and agreement with suggested plan. <Avril Billingsley, DO - Last Filed: 05/17/23 19:41> Vital Signs: 05/17/23 13:25 05/17/23 13:45 05/17/23 14:00 Temperature 97.9 F Temperature Source Oral Pulse Rate 72 71 Pulse Rate [Right] 72 Respiratory Rate 18 Blood Pressure 128/62 124/69 Blood Pressure [Right Arm] 128/62 Blood Pressure Mean [Right Arm] 84 Blood Pressure Source [Right Arm] Automatic Cuff Blood Pressure Position [Right Arm] Sitting 02 Sat by Pulse Oximetry 95 94 L 95 Oxygen Delivery Method Room Air Room Air Room Air 05/17/23 16:55 Temperature 97.9 F Temperature Source Oral Pulse Rate 71 Pulse Rate [Right] Respiratory Rate 18 Blood Pressure 124/69 Blood Pressure [Right Arm] Blood Pressure Mean [Right Arm] Blood Pressure Source [Right Arm] Blood Pressure Position [Right Arm] 02 Sat by Pulse Oximetry Oxygen Delivery Method Room Air Lab Data Lab Results 05/17/23 13:30: WBC 14.5 H, RBC 3.92 L, Hgb 12.2, Hct 39.0, MCV 99.5 H, MCH 31.2, MCHC 31.4 L, RDW 15.2, Plt Count 334, MPV 9.1, Neut % (Auto) 65.2, Lymph % (Auto) 29.2, [place] % (Auto) 4.5, Eos % (Auto) 0.8, Baso % (Auto) 0.2, Neut # (Auto) 9.4 H, Lymph # (Auto) 4.2, [place] # (Auto) 0.7, Eos # (Auto) 0.1, Baso # (Auto) 0.0, Sodium 140, Potassium 4.2, Chloride 107, Carbon Dioxide 27, Anion Gap 10.2, BUN 22 H, Creatinine 1.40 H, Estimated Creat Clear 27, Estimated GFR 37 L, Est GFR ( Amer) 45 L, Glucose 120 H, Hemoglobin A1c 9.5 H, Calcium 8.8, Total Bilirubin 0.6, AST 35, ALT 23, Alkaline Phosphatase 144 H, Total Protein 6.4, Albumin 3.6, Globulin 2.8, Albumin/Globulin Ratio 1.3, Procalcitonin 0.121 05/17/23 14:25: Urine Color [place], Urine Appearance Sl cloudy, Urine pH 5.5, Ur Specific Starr 1.010, Urine Protein Negative, Urine Glucose (UA) 3+, Urine Ketones Negative, Urine Blood Negative, Urine Nitrate Positive, Urine Bilirubin Negative, Urine Urobilinogen 1.0, Ur Leukocyte Esterase Negative, Urine RBC Occasional, Urine WBC 5-10, Ur Squamous Epith Cells 10-20, Urine Bacteria 1+ Orders (Tests/Meds): ED MEDICATIONS Discontinued Medications Generic Name Dose Route Start Last Admin Trade Name Freq PRN Reason Stop Dose Admin Lactated Ringer's 1,000 mls @ 999 mls/hr 05/17/23 14:37 05/17/23 15:24 Lactated Ringer's 1000 Ml Bag IV 05/17/23 15:37 999 mls/hr .Q1H1M ONE Administration Ceftriaxone Sodium 1 gm/ 50 mls @ 100 mls/hr 05/17/23 14:45 05/17/23 15:24 Sodium Chloride IV 05/27/23 14:44 100 mls/hr Q24H JOE Administration ORDERS Category Date Time Status Chest XR -- portable [XR chest portable] Stat Exams 05/17/23 14:37 Completed CMP [Comprehensive Metabolic Panel] Stat Lab 05/17/23 13:30 Completed Complete Blood Count Auto Diff Stat Lab 05/17/23 13:30 Completed Hemoglobin A1C Stat Lab 05/17/23 13:30 Completed Procalcitonin Stat Lab 05/17/23 13:30 Completed Urinalysis-Acute [Urinalysis and Microscopic] Stat Lab 05/17/23 14:25 Completed Blood Culture Stat Micro 05/17/23 15:15 Received Medical Decision Narrative: In summary patient is a 72-year-old female who presents to the emergency department for evaluation of hypoglycemia and difficult control blood sugar. Patient is hemodynamically stable and afebrile on arrival. Patient is a unremarkable physical exam with normal breath sounds normal heart sounds no pain on tenderness to palpation. Patient has no suprapubic tenderness. Patient's blood sugar is currently 120 on arrival. Patient reports compliance with a diabetic diet but does not currently count carbs and is not on a fixed dose of short acting insulin only on sliding scale.. Differential diagnosis includes therapeutic misadventure with long-acting insulin along with Jardiance versus infection. Initial workup will be conducted with hematologic labs flu and COVID swabs plain film chest x-ray. Initial interventions include crystalloid bolus. Initial workup reviewed by me shows had an elevated white count with a left shift, a not negative but not positive procalcitonin urinalysis with nitrites and 1+ bacteria but also 10-20 epithelial cells, the rest of her workup is nonactionable.. Upon repeat evaluation patient recalled that she had been recently placed on steroids by her PCP for a long COVID and that was the reason for the adjustment in her long-acting insulin to twice daily dosing. Given this patient has remained with normal blood sugars with neither drop or elevation while in the ER. Given her hypoglycemia a couple of hours after taking her nighttime long-acting dose I recommend that she not take the nighttime dose tonight and contact her PCP in the a.m. for medication adjustment recommendations. Patient given a prescription for Macrobid for urinary tract symptoms. She may continue to take Azo for symptomatic relief. Via shared decision making patient verbalized understanding and agreement with suggested plan. I was consulted by the NELI, and we discussed the complexity of the problems being addressed. I approved the treatment and management plan for this patient's care in the emergency department, thus performing a substantive portion of the medical decision making. Patient stable on the emergency department with stable blood glucoses. It was felt at this time she was appropriate for outpatient management for her current blood sugar control issues. Urinary tract aphasia could be playing a role, so treatment was initiated. Strict return precautions given. Avril Billingsley, DO Critical Care <BECCA Delacruz - Last Filed: 05/17/23 16:14> Critical Care Time Critical Care Time: No
[2023-05-17 14:00] VITALS: BP 124/69; PULSE 71; O2SAT 95
[2023-05-17 14:16] LABS: Alanine Aminotransferase 23 U/L (12-78); Albumin Level 3.6 g/dl (3.5-5.0); Albumin/Globulin Ratio 1.3 (1.1-1.8); Alkaline Phosphatase 144 U/L (38-126); Anion Gap 10.2 mEq/L (5-15); Aspartate Amino Transferase 35 U/L (14-36); Bilirubin,Total 0.6 mg/dl (0.2-1.3); Blood Urea Nitrogen 22 mg/dl (7-17); Calcium 8.8 mg/dl (8.4-10.2); Carbon Dioxide 27 mmol/L (22.0-30.0); Chloride 107 mmol/L (98-107); Creatinine Clearance Estimated 27 mL/min (50-200); Estimated Glomerular Filt Rate 37 ml/min (>60); GFR (African American) 45 ML/MIN (>60); Globulin 2.8 g/dL (1.3-3.2); Glucose 120 mg/dl (74-100); Potassium 4.2 mmoL/L (3.5-5.1); Sodium 140 mmol/L (136-145); Total Protein,Serum 6.4 g/dl (6.3-8.2)
[2023-05-17 14:34] LABS: Basophils % 0.2 % (0.1-2.0); Eosinophils # 0.1 K/mm3 (0.0-0.4); Eosinophils % 0.8 % (0.1-12.0); Hemoglobin 12.2 g/dL (12.2-16.2); Lymphocytes # 4.2 K/mm3 (0.7-4.5); Lymphocytes % 29.2 % (10-50); Mean Corpuscular HGB Conc 31.4 g/dL (31.8-35.4); Mean Corpuscular Hemoglobin 31.2 pg (27.0-31.2); Mean Corpuscular Volume 99.5 fl (81-99); Mean Platelet Volume 9.1 fl (7.4-10.4); Monocytes # 0.7 K/mm3 (0.1-1.0); Monocytes % 4.5 % (1.7-9.3); Neutrophils # 9.4 K/mm3 (1.8-7.8); Neutrophils % 65.2 % (37.0-80.0); Platelet Count 334 K/mm3 (142-424); Red Blood Count 3.92 M/mm3 (4.20-5.40); Red Cell Distribution Width 15.2 % (11.5-17.5); White Blood Count 14.5 K/mm3 (4.8-10.8)
--- NOTE | 2023-05-17 14:37 | XR_ITS ---
FINAL REPORT CLINICAL HISTORY: Leukocytosis, hypoglycemia COMPARISON: 04/19/2023 FINDINGS: A single PA view of the chest was obtained. There is no prior exam for comparison. The cardiac silhouette is within normal limits. Patient is status post median sternotomy. The lungs are clear. There is no effusion or pneumothorax. IMPRESSION: No radiographic evidence of acute cardiac or pulmonary disease on this single view of the chest. Reviewed, Interpreted and Dictated by Isabella Barton MD Transcribed by Emilee Sheppard Authenticated and [facility]
[2023-05-17 14:46] LABS: Microscopic, Urine URINE MICROSCOPIC (MICROSCOPIC)
--- NOTE | 2023-05-17 14:46 | PC.NURSE ---
lab called about blood culture collection
[2023-05-17 14:47] LABS: Appearance,Urine SL CLOUDY (Clear); Bilirubin,Urine Negative (Negative); Blood, Urine Negative (Negative); Color,Urine ORANGE (Yellow); Glucose,Urine (UA) 3+ (Negative); Ketones,Urine Negative (Negative); Leukocyte Esterase,Urine Negative (Negative); Nitrate,Urine POSITIVE (Negative); PH,Urine 5.5 (5.0-8.5); Protein,Urine Negative (Negative)
[2023-05-17 14:57] LABS: Bacteria,Urine 1+ /lpf; RBC,Urine Occasional #/hpf (0-3)
[2023-05-17 15:19] LABS: Procalcitonin 0.121 ng/mL (0.0-2.0)
[2023-05-17] MEDS: CEFTRIAXONE SODIUM 1 GM in 0.9 % SODIUM CHLORIDE 50 ML IV (15:24)
[2023-05-17] MEDS: LACTATED RINGERS 1000ML 1,000 ML 999 ML IV (15:24)
[2023-05-17 16:50] LABS: Hemoglobin A1C 9.5 % (4.0-6.0)
[2023-05-17 16:55] VITALS: BP 124/69; PULSE 71; RESP 18; TEMP 36.6; O2SAT 95
--- NOTE | 2023-05-20 21:33 | PC.NURSE ---
notified Dr Hussein of blood cultures. Dr Hussein contacted patient. Patient states she feeling better. no new orders given.
== END 2023-05-17 16:57 | disposition home or self-care (01) ==
PROVIDERS: Emergency Medicine; Physician Assistant; Emergency Provider Emergency Medicine; PCP Nurse Practitioner Family
DX: N39.0 Urinary tract infection, site not specified (principal); D72.823 Leukemoid reaction; R10.32 Left lower quadrant pain; R55 Syncope and collapse; E16.2 Hypoglycemia, unspecified; G62.9 Polyneuropathy, unspecified; Z85.3 Personal history of malignant neoplasm of breast; Z85.038 Personal history of other malignant neoplasm of large intestine
CPT/HCPCS: 71045; 80053; 81001; 83036; 84145; 85025; 87040; 96361; 96374; 99285; J0696

== ENCOUNTER 2023-06-23 17:05 | Outpatient (CLI) | payer MEDICARE, SELFPAY ==
[2023-06-23 18:17] LABS: Microscopic, Urine URINE MICROSCOPIC (MICROSCOPIC)
[2023-06-23 20:03] LABS: Appearance,Urine CLEAR (Clear); Bilirubin,Urine Negative (Negative); Blood, Urine Negative (Negative); Color,Urine YELLOW (Yellow); Glucose,Urine (UA) Negative (Negative); Ketones,Urine Negative (Negative); Leukocyte Esterase,Urine Negative (Negative); Nitrate,Urine Negative (Negative); Protein,Urine Negative (Negative); Specific Gravity, Urine 1.015 (1.005-1.030); Urobilinogen,Urine 0.2 EU/dl (0.2)
== END 2023-06-23 23:59 ==
PROVIDERS: PCP Nurse Practitioner Family; Visit Provider Nurse Practitioner Family
DX: R39.9 Unspecified symptoms and signs involving the genitourinary system (principal)
CPT/HCPCS: 81001

== ENCOUNTER 2023-09-21 16:14 | Emergency (ER) | payer MEDICARE, SELFPAY ==
--- NOTE | 2023-09-21 16:12 | ECG_ITS ---
APPROVED REPORT Exam: Resting ECG HR:64 bpm ECG Measurements Heart Rate 64 AXES FL 137 P -44 QRSd 97 QRS 42 QT 405 T 53 QTc 414 Conclusion Sinus rhythm Electronically signed by : YAYA ESTES, 09/21/2023 22:44:18
[2023-09-21 16:15] VITALS: BP 141/72; PULSE 62; RESP 18; TEMP 37.2; O2SAT 96; BMI 43.3
--- NOTE | 2023-09-21 16:27 | CT_ITS ---
PROCEDURE INFORMATION: Exam: CTA Neck With Contrast Exam date and time: 09/21/2023 5:35 PM Age: 73 years old Clinical indication: Other: AMS; Additional info: Possible stroke TECHNIQUE: Imaging protocol: Computed tomographic angiography of the neck with contrast. Exam focused on the cervical segments of the vasculature. 3D rendering (Not supervised by radiologist): MIP and/or 3D reconstructed images were created by the technologist. Radiation optimization: All CT scans at this facility use at least one of these dose optimization techniques: automated exposure control; mA and/or kV adjustment per patient size (includes targeted exams where dose is matched to clinical indication); or iterative reconstruction. Contrast material: ISO 370; Contrast volume: 100 ml; Contrast route: INTRAVENOUS (IV); COMPARISON: CT ANGIO HEAD 09/21/2023 5:35 PM FINDINGS: Right common carotid artery: Mild atherosclerosis of the carotid bulb without flow-limiting stenosis. No dissection or occlusion. Right internal carotid artery: Mild stenosis of the proximal cervical segment. No dissection or occlusion. Right external carotid artery: No occlusion or stenosis of the origin. Left common carotid artery: No stenosis. No dissection or occlusion. Left internal carotid artery: No stenosis of the extracranial segment. No dissection or occlusion. Left external carotid artery: No occlusion or stenosis of the origin. Right vertebral artery: Dominant vessel. No stenosis. No dissection or occlusion. Left vertebral artery: Aortic arch origin. Diminutive vessel. No stenosis. No dissection or occlusion. Soft tissues: Normal. No significant soft tissue swelling. Bones/joints: Median sternotomy. No acute fracture. Lungs: Mosaic attenuation of the lungs IMPRESSION: 1. Mild right internal carotid artery proximal cervical segment stenosis. 2. Mosaic attenuation of the lungs, which may be seen with infection, pulmonary edema, or obstructive small airways disease. REFERENCES: NASCET CRITERIA. The degree of stenosis in the cervical segment of the internal carotid artery is based on NASCET criteria. Normal is no stenosis. Mild is less than 50% stenosis. Moderate is 50-69% stenosis. Severe is 70% to 99% stenosis. Total occlusion is no detectable patent lumen.
--- NOTE | 2023-09-21 16:27 | CT_ITS ---
PROCEDURE INFORMATION: Exam: CTA Head With Contrast, Arteriography Exam date and time: 09/21/2023 5:35 PM Age: 73 years old Clinical indication: Other: AMS; Additional info: Possible stroke TECHNIQUE: Imaging protocol: Computed tomographic angiography of the head with contrast. Exam focused on the arteries. 3D rendering (Not supervised by radiologist): MIP and/or 3D reconstructed images were created by the technologist. Radiation optimization: All CT scans at this facility use at least one of these dose optimization techniques: automated exposure control; mA and/or kV adjustment per patient size (includes targeted exams where dose is matched to clinical indication); or iterative reconstruction. Contrast material: ISO 370; Contrast volume: 100 ml; Contrast route: INTRAVENOUS (IV); COMPARISON: CT HEAD/BRAIN WO CON 09/21/2023 5:33 PM FINDINGS: ANTERIOR CIRCULATION: Right internal carotid artery: Intracranial segment is patent with no significant stenosis. No aneurysm. Right middle cerebral artery: No occlusion or significant stenosis. No aneurysm. Right anterior cerebral artery: No occlusion or significant stenosis. No aneurysm. Left internal carotid artery: Intracranial segment is patent with no significant stenosis. No aneurysm. Left middle cerebral artery: No occlusion or significant stenosis. No aneurysm. Left anterior cerebral artery: No occlusion or significant stenosis. No aneurysm. POSTERIOR CIRCULATION: Right vertebral artery: No occlusion or significant stenosis. No aneurysm. Left vertebral artery: Terminates as the PICA. No occlusion or significant stenosis. No aneurysm. Basilar artery: No occlusion or significant stenosis. No aneurysm. Right posterior cerebral artery: No occlusion or significant stenosis. No aneurysm. Left posterior cerebral artery: No occlusion or significant stenosis. No aneurysm. Brain: No definite mass, mass effect, or midline shift. Cerebral ventricles: No ventriculomegaly. Bones/joints: Unremarkable. No acute fracture. Soft tissues: Unremarkable. IMPRESSION: No large vessel stenosis or occlusion.
--- NOTE | 2023-09-21 16:27 | XR_ITS ---
PROCEDURE INFORMATION: Exam: XR Chest Exam date and time: 09/21/2023 5:22 PM Age: 73 years old Clinical indication: Mass, lump, or swelling in the chest and other: AMS; Additional info: Stroke symptoms TECHNIQUE: Imaging protocol: Radiologic exam of the chest. Views: 1 view. COMPARISON: CR XR CHEST PORTABLE 05/17/2023 2:41 PM FINDINGS: Lungs: No consolidation. Minimal left basilar atelectasis and/or scarring. Pleural spaces: No pleural effusion. No pneumothorax. Heart/Mediastinum: Postsurgical changes of CABG. Bones/joints: Median sternotomy. IMPRESSION: No acute pulmonary findings.
--- NOTE | 2023-09-21 16:27 | CT_ITS ---
PROCEDURE INFORMATION: Exam: CT Head Without Contrast Exam date and time: 09/21/2023 5:33 PM Age: 73 years old Clinical indication: Stroke-like symptoms; Generalized weakness; Additional info: Possible stroke TECHNIQUE: Imaging protocol: Computed tomography of the head without contrast. Radiation optimization: All CT scans at this facility use at least one of these dose optimization techniques: automated exposure control; mA and/or kV adjustment per patient size (includes targeted exams where dose is matched to clinical indication); or iterative reconstruction. Other technique: STROKE PROTOCOL was implemented. COMPARISON: CT HEAD/BRAIN WO CON 09/21/2023 5:33 PM FINDINGS: Brain: Mild volume loss. No acute intracranial hemorrhage, midline shift or intracranial mass effect. Cerebral ventricles: No obstructive hydrocephalus. Paranasal sinuses: Visualized sinuses are unremarkable. No fluid levels. Mastoid air cells: Visualized mastoid air cells are well aerated. Bones: Unremarkable. No acute fracture. Soft tissues: Unremarkable. IMPRESSION: No acute intracranial abnormality. ASSESSMENT: ASPECTS ([place] Stroke Program Early CT Score) is 10.
--- NOTE | 2023-09-21 16:27 | PC.NURSE ---
fbs 115 upon triage
[2023-09-21 16:31] VITALS: BP 129/63; PULSE 62; O2SAT 96
--- NOTE | 2023-09-21 16:46 | PC.NURSE ---
DR ESTES AT BEDSIDE
--- NOTE | 2023-09-21 16:56 | ED_ITS ---
Discharge Plan Disposition Patient Disposition: Home, Self-Care Prescriptions Prescriptions: No Action fluoxetine 20 mg capsule See Rx Instructions .ROUTE .COMPLEX Qty: 270 1RF Dose Instruction: TAKE 3 CAPSULES BY MOUTH EVERY DAY FOR DEPRESSION Rx Instructions: TAKE 3 CAPSULES BY MOUTH EVERY DAY FOR DEPRESSION furosemide 40 MG tablet 40 mg PO PM metoprolol succinate 50 MG tablet extended release 24 hr 50 mg PO DAILY Rx Instructions: TAKE 1 TABLET BY MOUTH ONCE DAILY FOR BLOOD PRESSURE clopidogrel 75 MG tablet 75 mg PO DAILY Rx Instructions: TAKE ONE TABLET BY MOUTH EVERY DAY FOR HEART allopurinol 100 MG tablet 1 tab PO DAILY Rx Instructions: TAKE 1 TABLET BY MOUTH ONCE DAILY FOR GOUT omeprazole 40 MG capsule,delayed release(DR/EC) 40 mg PO DAILY Rx Instructions: TAKE 1 CAPSULE BY MOUTH ONCE DAILY FOR GERD spironolactone 25 MG tablet 25 mg PO DAILY Rx Instructions: TAKE ONE TABLET BY MOUTH TWICE A DAY isosorbide mononitrate 60 MG tablet extended release 24 hr 60 mg PO DAILY Rx Instructions: TAKE 1 TABLET BY MOUTH ONCE DAILY FOR BLOOD PRESSURE methocarbamol 750 MG tablet 1 tab PO BID Rx Instructions: TAKE 1 TABLET BY MOUTH THREE TIMES DAILY FOR MUSCLE SPASMS *MAY CAUSE DROWSINESS* levothyroxine 125 MCG tablet 125 mcg PO DAILY furosemide 20 MG tablet 20 mg PO AM rosuvastatin 20 mg tablet 20 mg PO DAILY aspirin [Aspir-81] 81 mg Tablet,Delayed Release (Dr/Ec) 81 mg PO DAILY Linzess 145 mcg capsule 145 mcg PO DAILY ipratropium-albuterol 0.5 mg-3 mg(2.5 mg base)/3 mL solution for nebulization 3 ml inhalation Q4H PRN (Reason: wheezing) Qty: 180 2RF prednisone 20 mg tablet 40 mg PO DAILY 5 Days Qty: 10 0RF cefdinir 300 mg capsule 300 mg PO BID 7 Days Qty: 14 0RF insulin glargine 100 unit/mL (3 mL) insulin pen 5 unit SQ AC PRN (Reason: diabetes) Rx Instructions: please provide pen needles #30 [id number] albuterol sulfate 90 mcg/actuation HFA aerosol inhaler 2 puff INHALATION Q6HP PRN (Reason: SOA) prazosin 2 mg capsule 2 mg PO DAILY epinephrine [EpiPen 2-Arnold] 0.3 mg/0.3 mL auto-injector 0.3 mg IM Q10M PRN (Reason: anaphylaxis) Qty: 2 0RF Rx Instructions: for 2 doses cefdinir 300 mg capsule 300 mg PO BID 10 Days Qty: 20 0RF prednisone 50 mg tablet 50 mg PO DAILY 4 Days Qty: 4 0RF azithromycin [Zithromax Z-Arnold] 250 mg tablet 250 mg PO DAILY 4 Days Qty: 4 0RF Rx Instructions: start on day 2 of therapy nitrofurantoin monohyd/m-cryst [Macrobid] 100 mg capsule 100 mg PO BID 5 Days Qty: 10 0RF Rx Instructions: must administer with a meal/food Referrals Follow up/Referrals: Provider,Referral, MD [Referring] - See instructions Activity Restrictions/Add. Instructions Additional Instructions/Restrictions: White blood cell count today was 11.1. You can contact your surgeon in case you need to have operation. Migraine cocktail today was given with Compazine, Benadryl (to combat some side effects of Compazine), Toradol (similar to ibuprofen), acetaminophen. Call your family doctor to establish care for this visit to the emergency department and schedule follow-up within 48 hours to ensure improvement. If you have any worsening of your condition or any other concerning signs or symptoms, return to the emergency department or your primary care doctor for further evaluation. Clinical Impressions Clinical Impression: Numbness on right side, Weakness of right lower extremity Discharge ED Provider: Haresh Hussein General Adult HPI General Chief complaint: Neuro Symptoms/Deficit Stated complaint: stroke systoms Time Seen by Provider: 09/21/23 16:27 Mode of Arrival: Ambulatory Source of Information: Patient Limitations: No Limitations Description of Symptoms (Recalled from ER Triage Doc. by RN): pt is here bc she has been having migraines 3-4 days as well as numbness in right side of face down into neck, pt has hx of previous stroke and CABG History of Present Illness HPI narrative: Please note that above description of symptoms, in this electronic medical record under categorization of recalled from ER triage doctor by RN are reflective of an initial nursing assessment, however, is not reflective of my full history and physical exam that was personally taken and clarified. Consequentially, this preceding description of symptoms, which may include the patient's categorized chief complaint in the EMR, do not reflect my personal clinical impression, and the ultimate description of history of present illness and patient stated complaints should be deferred to this section of the note. Unless stated otherwise or congruent with this section of the note, additional signs, symptoms, or incongruence should be interpreted as inaccurate with my clinical impression. Related Data Home Medications Medication Instructions Recorded Confirmed allopurinol 100 mg tablet 1 tab PO DAILY GOUT 10/04/21 08/15/22 clopidogrel 75 mg tablet 75 mg PO DAILY Blood thinner 10/04/21 08/15/22 furosemide 20 mg tablet 20 mg PO AM Fluid 10/04/21 08/15/22 furosemide 40 mg tablet 40 mg PO PM Fluid 10/04/21 08/15/22 isosorbide mononitrate 60 mg 60 mg PO DAILY BLOOD PRESSURE 10/04/21 08/15/22 tablet,extended release 24 hr levothyroxine 125 mcg tablet 125 mcg PO DAILY THYROID 10/04/21 08/15/22 methocarbamol 750 mg tablet 1 tab PO BID muscle 10/04/21 08/15/22 metoprolol succinate 50 mg 50 mg PO DAILY BLOOD PRESSURE 10/04/21 08/15/22 tablet,extended release 24 hr omeprazole 40 mg capsule,delayed 40 mg PO DAILY GERD 10/04/21 08/15/22 release spironolactone 25 mg tablet 25 mg PO DAILY Fluid 10/04/21 08/15/22 aspirin 81 mg tablet,delayed 81 mg PO DAILY Blood thinner 02/27/22 08/15/22 release rosuvastatin 20 mg tablet 20 mg PO DAILY Cholesterol 02/27/22 08/15/22 insulin glargine 100 unit/mL (3 5 unit SQ AC PRN diabetes 07/13/22 mL) subcutaneous pen linaclotide 145 mcg capsule 145 mcg PO DAILY constipation 08/02/22 08/15/22 (Linzess) albuterol sulfate 90 mcg/actuation 2 puff inhalation Q6HP PRN SOA 08/15/22 08/15/22 aerosol inhaler prazosin 2 mg capsule 2 mg PO DAILY blood pressure 08/15/22 08/15/22 Previous Rx's Medication Instructions Recorded epinephrine 0.3 mg/0.3 mL 0.3 mg (0.3 mL) IM Q10M PRN 10/27/22 injection, auto-injector (EpiPen anaphylaxis #2 ea 2-Arnold) fluoxetine 20 mg capsule See Rx Instructions .Route 10/29/22 .COMPLEX #270 caps cefdinir 300 mg capsule 300 mg PO BID 10 days #20 caps 11/26/22 cefdinir 300 mg capsule 300 mg PO BID 7 days #14 caps 04/12/23 ipratropium 0.5 mg-albuterol 3 mg 3 ml inhalation Q4H PRN wheezing 04/12/23 (2.5 mg base)/3 mL nebulization #180 mL soln prednisone 20 mg tablet 40 mg (2 x 20 mg) PO DAILY 5 days 04/12/23 #10 tabs azithromycin 250 mg tablet 250 mg PO DAILY 4 days #4 tabs 05/02/23 (Zithromax Z-Arnold) prednisone 50 mg tablet 50 mg PO DAILY 4 days #4 tabs 05/02/23 nitrofurantoin 100 mg PO BID 5 days #10 caps 05/17/23 monohydrate/macrocrystals 100 mg capsule (Macrobid) Allergies Allergy/AdvReac Type Severity Reaction Status Date / Time morphine [MORPHINE] Allergy Unknown Verified 07/06/22 12:09 [facility] Disclaimer: The information contained in this section may have been updated after the patient was seen, as this information can be updated by other users. Medical History (Updated 09/21/23 @ 19:48 by Haresh Hussein MD) Encounter for pre-operative cardiovascular clearance Colon cancer Breast cancer Gallbladder & bile duct stone with obstruction Hiatal hernia Dyspnea Obesity (BMI 30-39.9) Neuropathy Surgical History (Updated 08/02/22 @ 13:15 by Magdalena Goldman RN) Hx of exploratory laparotomy Hx of left mastectomy Hx of breast lump removal Hx of hernia repair History of cholecystectomy H/O: H/O heart bypass surgery Family History (Updated 08/02/22 @ 13:15 by Magdalena Goldman RN) Mother Diabetes Coronary artery disease Hyperlipidemia Cancer, Onset Age: 69 Father Diabetes Coronary artery disease Diverticula of colon Hyperlipidemia Cancer, Onset Age: 67 Hypertension Other Family history of cancer Family history of diabetes mellitus type II Family history of myocardial infarction Family history of stroke Hx of kidney disease Social History (Updated 08/02/22 @ 13:15 by Magdalena Goldman RN) Smoking Status: Never smoker alcohol intake: never substance use type: denies use current occupational status: retired Travel in the last 8 weeks: None household members: none housing: apartment marital status: education level: master's degree do you feel safe at home: Yes victim of physical abuse: No victim of emotional abuse: No victim of sexual abuse: No would you like helpful sources: No ROS Obtained: Yes All systems reviewed & no additional complaints except as documented Physical Exam General General appearance: alert and in no apparent distress Head Head exam: atraumatic and normocephalic Eye Eye exam: Present normal appearance, PERRL and EOMI ENT ENT exam: Present mucous membranes moist Neck Neck exam: Present normal inspection, full ROM and trachea midline Respiratory Respiratory exam: Present normal lung sounds bilaterally; Absent respiratory distress, wheezes, stridor, accessory muscle use or prolonged expiratory phase Cardiovascular Cardiovascular exam: Present regular rate and normal rhythm Abdominal Exam Abdominal exam: Present soft; Absent distention, tenderness, guarding, rebound or rigidity Extremities Exam Extremities exam: Absent edema Neurological Exam Neurological exam: Present alert, oriented X3, CN II-XII intact, normal gait and motor sensory deficit (Right sided entire sensory deficit, RLE 4/5 strength) Skin Skin exam: Present warm and dry; Absent diaphoresis or erythema Medical Decision Making Medical Records Medical records reviewed: Yes I reviewed the patient's medical records. Faraz Inquiry Pt receiving controlled substance: No Faraz was queried for this patient: No Vital Signs: 09/21/23 16:15 09/21/23 16:31 09/21/23 18:00 Temperature 98.9 F Temperature Source Oral Pulse Rate 62 65 Pulse Rate [Right Radial] 62 Respiratory Rate 18 Blood Pressure 129/63 155/74 H Blood Pressure [Right Arm] 141/72 H Blood Pressure Mean [Right Arm] 95 Blood Pressure Source Blood Pressure Position 02 Sat by Pulse Oximetry 96 96 95 Oxygen Delivery Method Room Air Room Air 09/21/23 18:01 09/21/23 18:31 09/21/23 19:34 Temperature 97.9 F Temperature Source Oral Pulse Rate 60 60 60 Pulse Rate [Right Radial] Respiratory Rate 16 Blood Pressure 153/63 H 157/67 H 159/79 H Blood Pressure [Right Arm] Blood Pressure Mean [Right Arm] Blood Pressure Source Automatic Cuff Blood Pressure Position Sitting 02 Sat by Pulse Oximetry 96 96 Oxygen Delivery Method Room Air Room Air Room Air Lab Data Lab Results 09/21/23 17:00: WBC 11.1 H, RBC 4.05 L, Hgb 12.0 L, Hct 37.7, MCV 93.2, MCH 29.5, MCHC 31.7 L, RDW 16.0, Plt Count 319, MPV 9.0, Neut % (Auto) 69.7, Lymph % (Auto) 25.5, Walsh % (Auto) 3.0, Eos % (Auto) 1.2, Baso % (Auto) 0.5, Neut # (Auto) 7.8, Lymph # (Auto) 2.8, Walsh # (Auto) 0.3, Eos # (Auto) 0.1, Baso # (Auto) 0.1, PT 11.4, INR 1.02, APTT 27.7, Sodium 141, Potassium 5.1, Chloride 109 H, Carbon Dioxide 28, Anion Gap 9.1, BUN 24 H, Creatinine 1.00, Estimated Creat Clear 37, Estimated GFR 55 L, Est GFR ( Amer) 66, Glucose 125 H, Calcium 9.5, Total Bilirubin 0.3, AST 34, ALT 21, Alkaline Phosphatase 151 H, Troponin I < 0.01, Total Protein 6.9, Albumin 3.8, Globulin 3.1, Albumin/Globulin Ratio 1.2, Triglycerides 90, Cholesterol 114 L, LDL Cholesterol Direct 53.83 L, VLDL Cholesterol 18, HDL Cholesterol 37 L, Cholesterol/HDL Ratio 3.1, Plasma/Serum Alcohol < 10 09/21/23 17:40: Urine Color Yellow, Urine Appearance Clear, Urine pH 6.0, Ur Specific [place] <= 1.005, Urine Protein Negative, Urine Glucose (UA) Negative, Urine Ketones Negative, Urine Blood Negative, Urine Nitrate Negative, Urine Bilirubin Negative, Urine Urobilinogen 0.2, Ur Leukocyte Esterase Negative, Urine RBC None, Urine WBC None, Ur Squamous Epith Cells 3-5, Urine Bacteria None, Urine Opiates Screen Negative, Urine Methadone Screen Negative, Ur Barbituates Screen Negative, Ur Phencyclidine Scrn Negative, Ur Amphetamines Screen Negative, U Benzodiazepines Scrn Negative, Urine Cocaine Screen Negative, U Marijuana (THC) Screen Negative 09/21/23 19:40: Troponin I < 0.01 09/21/23 17:00 09/21/23 17:00 Orders (Tests/Meds): ED MEDICATIONS Discontinued Medications Generic Name Dose Route Start Last Admin Trade Name Freq PRN Reason Stop Dose Admin Iopamidol 100 ml 09/21/23 17:46 09/21/23 17:47 Iopamidol-370 (76%);100ml Bottle IV 09/21/23 17:47 100 ml ONCE ONE Administration Sodium Chloride 10 ml 09/21/23 16:27 Sodium Chloride 0.9% 10ml Flush Syringe IV 10/21/23 16:26 NEEDED PRN Maintain IV Site Sodium Chloride 10 ml 09/21/23 17:46 09/21/23 17:47 Sodium Chloride 0.9% 10ml Syr (Rad Only) IV 09/21/23 17:47 10 ml ONCE ONE Administration Sodium Chloride 50 ml 09/21/23 17:46 09/21/23 17:47 0.9 % Sodium Chloride 50 Ml Vial IV 09/21/23 17:47 50 ml ONCE ONE Administration ORDERS Category Date Time Status CT angio head Stat Cat Scan 09/21/23 16:[address] angio neck Stat Cat Scan 09/21/23 16:[address] head/brain wo con Stat Cat Scan 09/21/23 16:27 Completed XR chest portable Stat Exams 09/21/23 16:27 Completed Activated Partial Thrombo Time Stat Lab 09/21/23 17:00 Completed Complete Blood Count Auto Diff Stat Lab 09/21/23 17:00 Completed Comprehensive Metabolic Panel Stat Lab 09/21/23 17:00 Completed Drug Screen,Urine Stat Lab 09/21/23 17:40 Completed Ethyl Alcohol Stat Lab 09/21/23 17:00 Completed Lipid Panel Stat Lab 09/21/23 17:00 Completed Prothrombin Time INR Stat Lab 09/21/23 17:00 Completed Troponin I Q3H Lab 09/21/23 19:40 Completed Troponin I Stat Lab 09/21/23 17:00 Completed Urinalysis and Microscopic Stat Lab 09/21/23 17:40 Completed Medical Decision Narrative: 73-year-old female history of 10 right-sided strokes, 2 left-sided strokes presenting with concern for stroke. Patient states that her symptoms started 3 days prior to this visit. States that she is having migraine, has had numerous interpersonal stressors including recent deaths in the family, close family member with stroke and pleat incapacitation. States that her migraines have been going on pretty constant. Has not been able to get rid of them. States that she started realizing she had a vision deficit intermittently for the last 2 or 3 days. Right side of her vision in her right eye and superior quadrant. Intermittently in and out. Did not come in because she has had strokes and TIAs in the past, she knew but nothing would be done anyway. Given that she is on optimal medical therapy. Has had little bit of weakness on the right in her right lower extremity, complete sensation deficit on right side of body as well. No difficulty speaking, chest pain, shortness of breath, nausea or vomiting, or any other concerns. History was obtained via conversation with patient. On arrival, patient hemodynamically stable, alert, oriented x4, appropriate, GCS 15, moving all extremities spontaneously, pupils equal and reactive to light. Full physical exam performed and significant for NIHSS 2 for right-sided lower extremity weakness as compared to left and right-sided sensation deficits. Cardiopulmonary exam within normal limits. No lower extremity edema. Differential includes complex migraine, CVA, among others. Independent interpretation of EKG shows sinus rhythm without ST or T wave changes concerning for acute ischemia. SD, QRS, QT intervals within normal limits. Patient was given migraine cocktail for symptomatic management and correction of underlying abnormalities. Workup independently interpreted and significant for nonactionable CBC or chemistry. Patient's coags normal. Troponin negative, cholesterol panel normal as well. Urinalysis negative. CTA of the head and neck with mild stenosis of her extracranial vessels, but no acute intracranial abnormality. CT head without acute hemorrhage. See radiology read for full review of final results. On reevaluation, patient states that she is not currently having any symptoms and feels much better. Is difficult for me to discern whether this is due to a complex migraine, or due to a TIA. Because patient symptomatically better, I feel she is appropriate for outpatient management, she is also on optimal medical management for TIA. Is recommended that she follow-up with her family doctor regarding this visit to the emergency department. I do feel this is likely to be complex migraine because patient has a plethora of interpersonal stressors that have been causing worsening migraines over the past few days to weeks. Because patient at baseline without signs or symptoms of clinical decompensation, deemed appropriate for discharge. Results were relayed to patient who voiced understanding and were agreeable to outpatient management and follow up. I discussed my clinical impression with patient and answered all questions. At this time, the evidence for any other entities in the differential is insufficient to warrant any further testing or ED observation. This was explained as well. Advisory was given that persistent or worsening symptoms require further evaluation. I confirmed the understanding of this discussion. Cell Inspector disclaimer Much of this encounter note is an electronic nurse charge rn spoken language to printed text. Electronic nurse charge rn of the spoken language may permit errors. Although I have reviewed the note, some errors may still exist. Critical Care Critical Care Time Critical Care Time: No
[2023-09-21 17:14] LABS: Basophils # 0.1 K/mm3 (0-0.2); Basophils % 0.5 % (0.1-2.0); Eosinophils # 0.1 K/mm3 (0.0-0.4); Eosinophils % 1.2 % (0.1-12.0); Hematocrit 37.7 % (37.0-47.0); Lymphocytes # 2.8 K/mm3 (0.7-4.5); Lymphocytes % 25.5 % (10-50); Mean Corpuscular HGB Conc 31.7 g/dL (31.8-35.4); Mean Corpuscular Hemoglobin 29.5 pg (27.0-31.2); Mean Corpuscular Volume 93.2 fl (81-99); Monocytes # 0.3 K/mm3 (0.1-1.0); Neutrophils # 7.8 K/mm3 (1.8-7.8); Neutrophils % 69.7 % (37.0-80.0); Platelet Count 319 K/mm3 (142-424); Red Blood Count 4.05 M/mm3 (4.20-5.40); White Blood Count 11.1 K/mm3 (4.8-10.8)
[2023-09-21 17:21] LABS: Chloride 109 mmol/L (98-107); Potassium 5.1 mmoL/L (3.5-5.1); Sodium 141 mmol/L (136-145)
[2023-09-21 17:23] LABS: Alanine Aminotransferase 21 U/L (12-78); Anion Gap 9.1 mEq/L (5-15); Aspartate Amino Transferase 34 U/L (14-36); Blood Urea Nitrogen 24 mg/dl (7-17); Carbon Dioxide 28 mmol/L (22.0-30.0); Creatinine Clearance Estimated 37 mL/min (50-200); Estimated Glomerular Filt Rate 55 ml/min (>60); GFR (African American) 66 ML/MIN (>60)
[2023-09-21 17:24] LABS: Albumin Level 3.8 g/dl (3.5-5.0); Albumin/Globulin Ratio 1.2 (1.1-1.8); Alkaline Phosphatase 151 U/L (38-126); Bilirubin,Total 0.3 mg/dl (0.2-1.3); Calcium 9.5 mg/dl (8.4-10.2); Chol/HDL Ratio 3.1 (1-3.5); Cholesterol 114 mg/dl (140-200); Globulin 3.1 g/dL (1.3-3.2); Glucose 125 mg/dl (74-100); HDL Cholesterol 37 mg/dl (40-60); Total Protein,Serum 6.9 g/dl (6.3-8.2); Triglycerides 90 mg/dl (30-150); VLDL Cholesterol 18 mg/dL (0-40)
[2023-09-21 17:26] LABS: Ethyl Alcohol < 10 mg/dl (0-10)
[2023-09-21 17:27] LABS: Activated Partial Thrombo Time 27.7 seconds (22.8-30.6); INR 1.02 (0.9-1.1); Prothrombin Time 11.4 seconds (10.1-12.5)
[2023-09-21 17:35] LABS: Direct LDL Cholesterol 53.83 mg/dL (100-129)
[2023-09-21] MEDS: IOPAMIDOL-370 (76%);100ML BOTTLE 100 ML IV (17:47)
[2023-09-21] MEDS: 0.9 % SODIUM CHLORIDE 50 ML VIAL IV (17:47)
[2023-09-21] MEDS: SODIUM CHLORIDE 0.9% 10ML SYR (RAD ONLY) 10 ML IV (17:47)
[2023-09-21 17:53] LABS: Microscopic, Urine URINE MICROSCOPIC (MICROSCOPIC)
[2023-09-21 17:55] LABS: Appearance,Urine CLEAR (Clear); Bilirubin,Urine Negative (Negative); Blood, Urine Negative (Negative); Color,Urine YELLOW (Yellow); Glucose,Urine (UA) Negative (Negative); Ketones,Urine Negative (Negative); Leukocyte Esterase,Urine Negative (Negative); Nitrate,Urine Negative (Negative); Protein,Urine Negative (Negative); Specific Gravity, Urine <= 1.005 (1.005-1.030); Urobilinogen,Urine 0.2 EU/dl (0.2)
[2023-09-21 17:58] LABS: Troponin I < 0.01 ng/ml (0.00-0.034)
[2023-09-21 18:00] VITALS: BP 155/74; PULSE 65; O2SAT 95
[2023-09-21 18:01] VITALS: BP 153/63; PULSE 60; O2SAT 96
[2023-09-21 18:08] LABS: Barbiturates Screen,Urine Negative ng/ml (<200)
[2023-09-21 18:09] LABS: Amphetamine/Metha Screen,Urine Negative ng/ml (<1000); Benzodiazepines Screen,Urine Negative ng/ml (<200)
[2023-09-21 18:10] LABS: Cocaine Screen,Urine Negative ng/ml (<300)
[2023-09-21 18:11] LABS: Cannabinoid Screen,Urine Negative ng/ml (<50); Methadone Screen,Urine Negative ng/ml (<300)
[2023-09-21 18:12] LABS: Opiate Screen,Urine Negative ng/ml (<300)
[2023-09-21 18:13] LABS: Phencyclidine Screen,Urine Negative ng/ml (<25)
[2023-09-21 18:31] VITALS: BP 157/67; PULSE 60; O2SAT 96
--- NOTE | 2023-09-21 19:23 | PC.NURSE ---
FROYLAN contacted us back and to speak to the provider.
[2023-09-21 19:34] VITALS: BP 159/79; PULSE 60; RESP 16; TEMP 36.6; O2SAT 95
[2023-09-21 20:20] LABS: Troponin I < 0.01 ng/ml (0.00-0.034)
== END 2023-09-21 20:03 | disposition home or self-care (01) ==
PROVIDERS: Emergency Provider Emergency Medicine; PCP Nurse Practitioner Family
DX: G43.909 Migraine, unspecified, not intractable, without status migrainosus; I69.341 Monoplegia of lower limb following cerebral infarction affecting right dominant side; R20.0 Anesthesia of skin; E11.9 Type 2 diabetes mellitus without complications; Z79.01 Long term (current) use of anticoagulants; Z79.4 Long term (current) use of insulin; I10 Essential (primary) hypertension
CPT/HCPCS: 70450; 70496; 70498; 71045; 80053; 80061; 80307; 80320; 81001; 84484; 85025; 85610; 85730; 93005; 99285; G0480; Q9967

== ENCOUNTER 2024-01-27 09:04 | Emergency (ER) | payer MEDICARE, SELFPAY ==
[2024-01-27 09:04] VITALS: BP 160/66; PULSE 65; RESP 18; TEMP 36.5; O2SAT 96; BMI 41.5
--- NOTE | 2024-01-27 09:26 | PC.NURSE ---
DR WRIGHT AT BEDSIDE
--- NOTE | 2024-01-27 09:26 | PC.NURSE ---
Dr. Billingsley at bedside
[2024-01-27 09:30] VITALS: BP 156/73; PULSE 68; O2SAT 95
--- NOTE | 2024-01-27 09:35 | PC.NURSE ---
PT AMBULATORY TO UNIT TO PROVIDE UA
[2024-01-27 09:48] LABS: Microscopic, Urine URINE MICROSCOPIC (MICROSCOPIC)
[2024-01-27 09:54] LABS: Appearance,Urine CLEAR (Clear); Bilirubin,Urine Negative (Negative); Blood, Urine Negative (Negative); Color,Urine YELLOW (Yellow); Glucose,Urine (UA) Negative (Negative); Ketones,Urine Negative (Negative); Leukocyte Esterase,Urine 2+ (Negative); Nitrate,Urine Negative (Negative); Protein,Urine Negative (Negative); Specific Gravity, Urine 1.025 (1.005-1.030); Urobilinogen,Urine 0.2 EU/dl (0.2)
[2024-01-27 10:08] LABS: Basophils # 0.1 K/mm3 (0-0.2); Basophils % 0.6 % (0.1-2.0); Eosinophils # 0.2 K/mm3 (0.0-0.4); Eosinophils % 1.5 % (0.1-12.0); Hematocrit 40.6 % (37.0-47.0); Hemoglobin 13.2 g/dL (12.2-16.2); Lymphocytes # 2.5 K/mm3 (0.7-4.5); Lymphocytes % 22.5 % (10-50); Mean Corpuscular HGB Conc 32.6 g/dL (31.8-35.4); Mean Corpuscular Hemoglobin 30.4 pg (27.0-31.2); Mean Corpuscular Volume 93.3 fl (81-99); Mean Platelet Volume 8.5 fl (7.4-10.4); Monocytes # 0.3 K/mm3 (0.1-1.0); Neutrophils # 8.2 K/mm3 (1.8-7.8); Neutrophils % 72.4 % (37.0-80.0); Platelet Count 286 K/mm3 (142-424); Red Blood Count 4.35 M/mm3 (4.20-5.40); Red Cell Distribution Width 15.3 % (11.5-17.5); White Blood Count 11.3 K/mm3 (4.8-10.8)
[2024-01-27 10:09] LABS: Albumin Level 3.9 g/dl (3.5-5.0); Chloride 104 mmol/L (98-107); Sodium 141 mmol/L (136-145)
--- NOTE | 2024-01-27 10:09 | ED_ITS ---
Discharge Plan Disposition Patient Disposition: Home, Self-Care Condition: Good Prescriptions Prescriptions: No Action fluoxetine 20 mg capsule See Rx Instructions .ROUTE .COMPLEX Qty: 270 1RF Dose Instruction: TAKE 3 CAPSULES BY MOUTH EVERY DAY FOR DEPRESSION Rx Instructions: TAKE 3 CAPSULES BY MOUTH EVERY DAY FOR DEPRESSION furosemide 40 MG tablet 40 mg PO PM metoprolol succinate 50 MG tablet extended release 24 hr 50 mg PO DAILY Rx Instructions: TAKE 1 TABLET BY MOUTH ONCE DAILY FOR BLOOD PRESSURE clopidogrel 75 MG tablet 75 mg PO DAILY Rx Instructions: TAKE ONE TABLET BY MOUTH EVERY DAY FOR HEART allopurinol 100 MG tablet 1 tab PO DAILY Rx Instructions: TAKE 1 TABLET BY MOUTH ONCE DAILY FOR GOUT omeprazole 40 MG capsule,delayed release(DR/EC) 40 mg PO DAILY Rx Instructions: TAKE 1 CAPSULE BY MOUTH ONCE DAILY FOR GERD spironolactone 25 MG tablet 25 mg PO DAILY Rx Instructions: TAKE ONE TABLET BY MOUTH TWICE A DAY isosorbide mononitrate 60 MG tablet extended release 24 hr 60 mg PO DAILY Rx Instructions: TAKE 1 TABLET BY MOUTH ONCE DAILY FOR BLOOD PRESSURE methocarbamol 750 MG tablet 1 tab PO BID Rx Instructions: TAKE 1 TABLET BY MOUTH THREE TIMES DAILY FOR MUSCLE SPASMS *MAY CAUSE DROWSINESS* levothyroxine 125 MCG tablet 125 mcg PO DAILY furosemide 20 MG tablet 20 mg PO AM rosuvastatin 20 mg tablet 20 mg PO DAILY aspirin [Aspir-81] 81 mg Tablet,Delayed Release (Dr/Ec) 81 mg PO DAILY Linzess 145 mcg capsule 145 mcg PO DAILY ipratropium-albuterol 0.5 mg-3 mg(2.5 mg base)/3 mL solution for nebulization 3 ml inhalation Q4H PRN (Reason: wheezing) Qty: 180 2RF prednisone 20 mg tablet 40 mg PO DAILY 5 Days Qty: 10 0RF cefdinir 300 mg capsule 300 mg PO BID 7 Days Qty: 14 0RF insulin glargine 100 unit/mL (3 mL) insulin pen 5 unit SQ AC PRN (Reason: diabetes) Rx Instructions: please provide pen needles #30 [id number] albuterol sulfate 90 mcg/actuation HFA aerosol inhaler 2 puff INHALATION Q6HP PRN (Reason: SOA) prazosin 2 mg capsule 2 mg PO DAILY epinephrine [EpiPen 2-Arnold] 0.3 mg/0.3 mL auto-injector 0.3 mg IM Q10M PRN (Reason: anaphylaxis) Qty: 2 0RF Rx Instructions: for 2 doses cefdinir 300 mg capsule 300 mg PO BID 10 Days Qty: 20 0RF prednisone 50 mg tablet 50 mg PO DAILY 4 Days Qty: 4 0RF azithromycin [Zithromax Z-Arnold] 250 mg tablet 250 mg PO DAILY 4 Days Qty: 4 0RF Rx Instructions: start on day 2 of therapy nitrofurantoin monohyd/m-cryst [Macrobid] 100 mg capsule 100 mg PO BID 5 Days Qty: 10 0RF Rx Instructions: must administer with a meal/food Referrals Follow up/Referrals: Indu Schrader APRN [Primary Care Provider] - See instructions Activity Restrictions/Add. Instructions Additional Instructions/Restrictions: You were evaluated in the emergency department today. Please follow-up very closely with your primary care provider over the next 48 hours. Your urine was contaminated but did have some white blood cells, so we are sending it for culture. We will call you if anything comes back positive. Return to the emergency department right away for new or worsening symptoms Clinical Impressions Clinical Impression: Chronic low back pain Instructions Patient Instructions: DI for Low Back Pain Print Language Print Language: Luxembourgish Discharge ED Provider: Avril Billingsley General Adult HPI General Chief complaint: Back Pain/Injury Stated complaint: Back Pain Time Seen by Provider: 01/27/24 09:12 Mode of Arrival: EMS Source of Information: Patient and EMS Limitations: No Limitations Description of Symptoms (Recalled from ER Triage Doc. by RN): PT BROUGHT VIA EMS FOR BACK PAIN. REPORTS PAIN MID TO LOW BACK. PT REPORTS CHRONIC BACK AND LEG PAIN. History of Present Illness HPI narrative: This patient is a 73-year-old female with a history of chronic renal insufficiency, CAD status post CABG, TIA, COPD, hypertension, hyperlipidemia, diabetes, COPD, CHF, and hypothyroidism presenting to the emergency department for evaluation with concern for low back pain and abnormal labs. According to home health aide who is at bedside, the patient had worsening kidney function, prompting recommendations to come to the ED. Patient notes that she is been having bilateral low back pain but she states that is always there and constant. 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 No new features related to this. It has not increased. She denies any new numbness, tingling, saddle anesthesia, incontinence, retention, or other concerns. She denies any fevers, chills, changes in appetite, nausea, vomiting, changes of bowel movements, or other issues. She notes she is otherwise been in her usual state of health Related Data Home Medications ?Medication ?Instructions ?Recorded ?Confirmed allopurinol 100 mg tablet 1 tab PO DAILY GOUT 10/04/21 08/15/22 clopidogrel 75 mg tablet 75 mg PO DAILY Blood thinner 10/04/21 08/15/22 furosemide 20 mg tablet 20 mg PO AM Fluid 10/04/21 08/15/22 furosemide 40 mg tablet 40 mg PO PM Fluid 10/04/21 08/15/22 isosorbide mononitrate 60 mg 60 mg PO DAILY BLOOD PRESSURE 10/04/21 08/15/22 tablet,extended release 24 hr levothyroxine 125 mcg tablet 125 mcg PO DAILY THYROID 10/04/21 08/15/22 methocarbamol 750 mg tablet 1 tab PO BID muscle 10/04/21 08/15/22 metoprolol succinate 50 mg 50 mg PO DAILY BLOOD PRESSURE 10/04/21 08/15/22 tablet,extended release 24 hr omeprazole 40 mg capsule,delayed 40 mg PO DAILY GERD 10/04/21 08/15/22 release spironolactone 25 mg tablet 25 mg PO DAILY Fluid 10/04/21 08/15/22 aspirin 81 mg tablet,delayed 81 mg PO DAILY Blood thinner 02/27/22 08/15/22 release rosuvastatin 20 mg tablet 20 mg PO DAILY Cholesterol 02/27/22 08/15/22 insulin glargine 100 unit/mL (3 5 unit SQ AC PRN diabetes 07/13/22 mL) subcutaneous pen linaclotide 145 mcg capsule 145 mcg PO DAILY constipation 08/02/22 08/15/22 (Linzess) albuterol sulfate 90 mcg/actuation 2 puff inhalation Q6HP PRN SOA 08/15/22 08/15/22 aerosol inhaler prazosin 2 mg capsule 2 mg PO DAILY blood pressure 08/15/22 08/15/22 Previous Rx's ?Medication ?Instructions ?Recorded epinephrine 0.3 mg/0.3 mL 0.3 mg (0.3 mL) IM Q10M PRN 10/27/22 injection, auto-injector (EpiPen anaphylaxis #2 ea 2-Arnold) fluoxetine 20 mg capsule See Rx Instructions .Route 10/29/22 .COMPLEX #270 caps cefdinir 300 mg capsule 300 mg PO BID 10 days #20 caps 11/26/22 cefdinir 300 mg capsule 300 mg PO BID 7 days #14 caps 04/12/23 ipratropium 0.5 mg-albuterol 3 mg 3 ml inhalation Q4H PRN wheezing 04/12/23 (2.5 mg base)/3 mL nebulization #180 mL soln prednisone 20 mg tablet 40 mg (2 x 20 mg) PO DAILY 5 days 04/12/23 #10 tabs azithromycin 250 mg tablet 250 mg PO DAILY 4 days #4 tabs 05/02/23 (Zithromax Z-Arnold) prednisone 50 mg tablet 50 mg PO DAILY 4 days #4 tabs 05/02/23 nitrofurantoin 100 mg PO BID 5 days #10 caps 05/17/23 monohydrate/macrocrystals 100 mg capsule (Macrobid) Allergies Allergy/AdvReac Type Severity Reaction Status Date / Time morphine [MORPHINE] Allergy Unknown Verified 07/06/22 12:09 [facility] Disclaimer: The information contained in this section may have been updated after the patient was seen, as this information can be updated by other users. Medical History Encounter for pre-operative cardiovascular clearance Colon cancer Breast cancer Gallbladder & bile duct stone with obstruction Hiatal hernia Dyspnea Obesity (BMI 30-39.9) Neuropathy Surgical History Hx of exploratory laparotomy Hx of left mastectomy Hx of breast lump removal Hx of hernia repair History of cholecystectomy H/O: H/O heart bypass surgery Family History Mother Diabetes Coronary artery disease Hyperlipidemia Cancer, Onset Age: 69 Father Diabetes Coronary artery disease Diverticula of colon Hyperlipidemia Cancer, Onset Age: 67 Hypertension Other Family history of cancer Family history of diabetes mellitus type II Family history of myocardial infarction Family history of stroke Hx of kidney disease Social History Smoking Status: Never smoker alcohol intake: never substance use type: denies use current occupational status: retired Travel in the last 8 weeks: None household members: none housing: apartment marital status: education level: master's degree do you feel safe at home: Yes victim of physical abuse: No victim of emotional abuse: No victim of sexual abuse: No would you like helpful sources: No Other Medical History Have you received the Flu Vaccine for this season: Yes Have you received the Pneumonia Vaccine: Yes ROS Obtained: Yes All systems reviewed & no additional complaints except as documented Physical Exam General General appearance: alert, in no apparent distress and obese Head Head exam: atraumatic and normocephalic Eye Eye exam: Present normal appearance, PERRL and EOMI ENT ENT exam: Present normal exam, normal oropharynx, mucous membranes moist and normal external ear exam Neck Neck exam: Present normal inspection, full ROM and trachea midline; Absent tenderness Chest Chest inspection: Present normal inspection and symmetric chest wall rise; Absent tenderness Respiratory Respiratory exam: Present normal lung sounds bilaterally; Absent respiratory distress, wheezes, stridor or accessory muscle use Cardiovascular Cardiovascular exam: Present regular rate and normal rhythm Abdominal Exam Abdominal exam: Present soft; Absent distention, tenderness or guarding Extremities Exam Extremities exam: Present normal inspection, full ROM and normal capillary refill; Absent tenderness or edema Back Exam Back exam: Present normal inspection and full ROM; Absent tenderness Neurological Exam Neurological exam: Present alert, oriented X3, CN II-XII intact and normal gait; Absent motor sensory deficit Psychiatric Psychiatric exam: Present normal affect and normal mood Skin Skin exam: Present warm and dry Medical Decision Making Medical Records Medical records reviewed: Yes I reviewed the patient's medical records. Screening: Per USPSTF and CDC recommendations, given the prevalence of disease in our region, it is our hospital?s policy to screen for HIV and viral Hepatitis for all patients aged 18 and over and those with ongoing risk factors. Faraz Inquiry Pt receiving controlled substance: No Vital Signs: 01/27/24 09:04 01/27/24 09:30 01/27/24 11:21 Temperature 97.7 F 97.9 F Temperature Source Oral Oral Pulse Rate 68 64 Pulse Rate [Radial] 65 Respiratory Rate 18 16 Blood Pressure 156/73 H 142/55 H Blood Pressure [Right Arm] 160/66 H Blood Pressure Mean 100 Blood Pressure Mean [Right Arm] 97 Blood Pressure Source Automatic Cuff Blood Pressure Source [Right Arm] Automatic Cuff Blood Pressure Position Sitting Blood Pressure Position [Right Arm] Sitting 02 Sat by Pulse Oximetry 96 95 Oxygen Delivery Method Room Air Room Air Lab Data Lab results reviewed: Yes I reviewed the patient's lab results. Lab Results 01/27/24 09:38: Urine Color Yellow, Urine Appearance Clear, Urine pH 6.0, Ur Specific [place] 1.025, Urine Protein Negative, Urine Glucose (UA) Negative, Urine Ketones Negative, Urine Blood Negative, Urine Nitrate Negative, Urine Bilirubin Negative, Urine Urobilinogen 0.2, Ur Leukocyte Esterase 2+ A, Urine RBC None, Urine WBC 10-20, Ur Squamous Epith Cells 5-10, Urine Bacteria Trace 01/27/24 09:50: WBC 11.3 H, RBC 4.35, Hgb 13.2, Hct 40.6, MCV 93.3, MCH 30.4, MCHC 32.6, RDW 15.3, Plt Count 286, MPV 8.5, Neut % (Auto) 72.4, Lymph % (Auto) 22.5, [place] % (Auto) 3.0, Eos % (Auto) 1.5, Baso % (Auto) 0.6, Neut # (Auto) 8.2 H, Lymph # (Auto) 2.5, [place] # (Auto) 0.3, Eos # (Auto) 0.2, Baso # (Auto) 0.1, Sodium 141, Potassium 4.0, Chloride 104, Carbon Dioxide 27, Anion Gap 14.0, BUN 25 H, Creatinine 1.00, Estimated Creat Clear 37, Estimated GFR 55 L, Est GFR ( Amer) 66, Glucose 135 H, Calcium 9.4, Phosphorus 3.4, Magnesium 1.8, Total Bilirubin 0.5, AST 26, ALT 16, Alkaline Phosphatase 127 H, Total Protein 7.1, Albumin 3.9, Globulin 3.2, Albumin/Globulin Ratio 1.2, HIV 1&2 Antibody Rapid Nonreactive 01/27/24 09:50 01/27/24 09:50 Orders (Tests/Meds): ED MEDICATIONS Discontinued Medications Generic Name Dose Route Start Last Admin Trade Name Freq PRN Reason Stop Dose Admin Ketorolac Tromethamine 30 mg 01/27/24 11:07 01/27/24 11:12 Ketorolac 30mg/Ml Vial IM 01/27/24 11:08 Not Given ONCE ONE Ketorolac Tromethamine 15 mg 01/27/24 11:13 01/27/24 11:14 Ketorolac 30mg/Ml Vial IV 01/27/24 11:14 15 mg ONCE ONE Administration Sodium Chloride 10 ml 01/27/24 09:52 Sodium Chloride 0.9% 10ml Flush Syringe IV 02/26/24 09:51 NEEDED PRN Maintain IV Site ORDERS Category Date Time Status CBC w/Auto Diff [Complete Blood Count Auto Diff] Stat Lab 01/27/24 09:50 Completed CMP [Comprehensive Metabolic Panel] Stat Lab 01/27/24 09:50 Completed HIV (1&2) Antibody Rapid Stat Lab 01/27/24 09:50 Completed Hep C Ab with Reflex to RNA Stat Lab 01/27/24 09:50 Received MAG [Magnesium] Stat Lab 01/27/24 09:50 Completed PHOS [Phosphorous] Stat Lab 01/27/24 09:50 Completed UA [Urinalysis and Microscopic] Stat Lab 01/27/24 09:38 Completed Urine Culture Stat Micro 01/27/24 09:38 Received Medical Decision Narrative: In summary, this patient is a 73-year-old female presenting to the Emergency Department for evaluation of low back pain and reported abnormal kidney function on outpatient lab. Differential diagnoses considered include but are not limited to ANCELMO, CKD, ureterolithiasis, colitis, cystitis, pyelonephritis. Ruling out the most morbid conditions drove assessment. It should be noted patient's history includes CKD, hypertension, hyperlipidemia, diabetes, COPD, CHF which likely are not at goal therapy. This complicates all aspects of care by increasing patient's risk for morbidity. I reviewed patient's past medical records and noted previous evaluations in the past for urinary tract infections and COPD. On exam, the patient is lying in bed in no acute distress. She is able to ambulate to the bathroom without significant issue. She is at her baseline. She states that her back pain is always there and is unchanged, but home health aide advises that she had abnormal labs with abnormal kidney function. Workup included CBC, CMP, urinalysis, magnesium, Phos. On reassessment, the patient is feeling fine and states that she is feeling at her baseline with her baseline back pain. I did give her IV Toradol for this. Labs are very reassuring with no significant ANCELMO. Urine is not concerning for infection, though she does have some contamination. I did send culture to be on the safe side. Labs overall very reassuring. I had interactive discussion with the patient's primary care provider and with her health aide at bedside. Ultimately, they were worried about her kidneys because of her back pain and history of issues with her kidneys, and they were also worried about her history of stroke and chronic back pain. No evidence of acute neurologic decompensation on my assessment. Given that she is at her neurologic baseline with reassuring workup, I feel that she is appropriate for discharge home with close follow-up and strict return precautions. She was discharged after all questions were answered Critical Care Critical Care Time Critical Care Time: No
[2024-01-27 10:12] LABS: Alanine Aminotransferase 16 U/L (12-78); Albumin/Globulin Ratio 1.2 (1.1-1.8); Aspartate Amino Transferase 26 U/L (14-36); Blood Urea Nitrogen 25 mg/dl (7-17); Carbon Dioxide 27 mmol/L (22.0-30.0); Creatinine Clearance Estimated 37 mL/min (50-200); Estimated Glomerular Filt Rate 55 ml/min (>60); GFR (African American) 66 ML/MIN (>60); Globulin 3.2 g/dL (1.3-3.2); Total Protein,Serum 7.1 g/dl (6.3-8.2)
[2024-01-27 10:13] LABS: Alkaline Phosphatase 127 U/L (38-126); Bilirubin,Total 0.5 mg/dl (0.2-1.3); Calcium 9.4 mg/dl (8.4-10.2); Glucose 135 mg/dl (74-100); Magnesium 1.8 mg/dl (1.6-2.3); Phosphorous 3.4 mg/dl (2.5-4.5)
[2024-01-27 10:20] LABS: Bacteria,Urine Trace /lpf
[2024-01-27] MEDS: KETOROLAC 30MG/ML VIAL 15 MG IV (11:14)
[2024-01-27 11:21] VITALS: BP 142/55; PULSE 64; RESP 16; TEMP 36.6; O2SAT 94
[2024-01-27 11:29] LABS: HIV (1&2) Antibody Rapid NONREACTIVE (NONREACTIVE)
[2024-01-28 08:22] LABS: HCV Ab Non Reactive (Non Reactive)
== END 2024-01-27 11:22 | disposition home or self-care (01) ==
PROVIDERS: Emergency Provider Emergency Medicine; PCP Nurse Practitioner Family
DX: M54.50 Low back pain, unspecified (principal); G89.4 Chronic pain syndrome
CPT/HCPCS: 80053; 81001; 83735; 84100; 85025; 86803; 87086; 87389; 96372; 96374; 99283; J1885

== ENCOUNTER 2024-04-03 13:58 | Observation (INO) | payer MEDICARE, MEDICAID, SELFPAY ==
[2024-04-03] VITALS (13 sets, daily range): BP systolic 103–147; BP diastolic 41–78; PULSE 52–72; RESP 14–19; TEMP 36.6–36.8; O2SAT 95–98; BMI 38.9
--- NOTE | 2024-04-03 14:07 | PC.NURSE ---
GLUCOSE 158
--- NOTE | 2024-04-03 14:11 | ECG_ITS ---
APPROVED REPORT Exam: Resting ECG HR:65 bpm ECG Measurements Heart Rate 65 AXES WA 157 P 54 QRSd 93 QRS 30 QT 396 T 35 QTc 407 Conclusion SINUS RHYTHM POSSIBLE INFERIOR MYOCARDIAL INFARCTION , OF INDETERMINATE AGE [30 ms Q WAVE IN II/aVF] ABNORMAL ECG No STEMI Electronically signed by : GABI KELSEY, 04/04/2024 03:19:43
--- NOTE | 2024-04-03 14:12 | CT_ITS ---
FINAL REPORT TECHNIQUE: Noncontrast exam This study was performed with techniques to keep radiation doses as low as reasonably achievable, (ALARA). Individualized dose reduction techniques using automated exposure control or adjustment of mA and/or kV according to the patient''s size were employed. CLINICAL HISTORY: L sided numbness, r/o stroke COMPARISON: 09/21/2023 FINDINGS: No abnormal density is seen. Ventricles are normal. There is no hemorrhage. No mass effect is seen. Bone windows show no evidence of fracture. IMPRESSION: No acute findings Reviewed, Interpreted and Dictated by Mauricio Varghese MD Transcribed by Emilee Sheppard Authenticated and . [facility]
--- NOTE | 2024-04-03 14:12 | CT_ITS ---
FINAL REPORT TECHNIQUE: Thin section axial CT with contrast with 3D MIP reconstruction This study was performed with techniques to keep radiation doses as low as reasonably achievable, (ALARA). Individualized dose reduction techniques using automated exposure control or adjustment of mA and/or kV according to the patient's size were employed. CLINICAL HISTORY: L sided numbness COMPARISON: 09/21/2023 FINDINGS: CTA HEAD No aneurysm is seen. Major intracranial vessels are patent without significant stenosis. . IMPRESSION: Unremarkable Reviewed, Interpreted and Dictated by Mauricio Varghese MD Transcribed by Corinna Thomas Authenticated and . [facility]
--- NOTE | 2024-04-03 14:12 | CT_ITS ---
FINAL REPORT CLINICAL HISTORY: L sided numbness COMPARISON: 09/21/2023 FINDINGS: CT NECK ANGIO, WITHOUT AND WITH CONTRAST TECHNIQUE: Thin section axial CT with contrast with multiplanar 3D MIP reconstruction. This study was performed with techniques to keep radiation doses as low as reasonably achievable, (ALARA). Individualized dose reduction techniques using automated exposure control or adjustment of mA and/or kV according to the patient''s size were employed. NASCET criteria and technique was utilized during interpretation. FINDINGS: Aortic arch: Arch shows no significant narrowing. Great vessel origins are widely patent. Right carotid: No significant stenosis is seen of the cervical common or internal carotid artery. Left carotid: No significant stenosis is seen of the cervical common or internal carotid artery. Vertebrals: Right vertebral artery is dominant. No significant stenosis is present. IMPRESSION: No significant stenosis of the cervical carotid arteries Reviewed, Interpreted and Dictated by Mauricio Varghese MD Transcribed by Corinna Thomas Authenticated and '[facility]
--- NOTE | 2024-04-03 14:14 | PC.NURSE ---
pt to CT via stretcher
[2024-04-03] MEDS: IOPAMIDOL-370 (76%);100ML BOTTLE 80 ML IV (14:37)
[2024-04-03] MEDS: SODIUM CHLORIDE 0.9% 10ML SYR (RAD ONLY) 10 ML IV (14:37)
[2024-04-03] MEDS: 0.9 % SODIUM CHLORIDE 50 ML VIAL IV (14:37)
[2024-04-03 14:50] LABS: Basophils % 0.3 % (0.1-2.0); Eosinophils # 0.1 K/mm3 (0.0-0.4); Eosinophils % 1.2 % (0.1-12.0); Hematocrit 36.2 % (37.0-47.0); Hemoglobin 11.7 g/dL (12.2-16.2); Lymphocytes # 2.9 K/mm3 (0.7-4.5); Mean Corpuscular HGB Conc 32.3 g/dL (31.8-35.4); Mean Corpuscular Hemoglobin 30.2 pg (27.0-31.2); Mean Corpuscular Volume 93.3 fl (81-99); Mean Platelet Volume 10.8 fl (7.4-10.4); Monocytes # 0.4 K/mm3 (0.1-1.0); Monocytes % 3.3 % (1.7-9.3); Neutrophils # 8.5 K/mm3 (1.8-7.8); Neutrophils % 70.5 % (37.0-80.0); Platelet Count 340 K/mm3 (142-424); Red Blood Count 3.88 M/mm3 (4.20-5.40); Red Cell Distribution Width 14.7 % (11.5-17.5); White Blood Count 12.1 K/mm3 (4.8-10.8)
[2024-04-03 15:04] LABS: Activated Partial Thrombo Time 26.8 seconds (22.8-30.6); INR 1.01 (0.9-1.1); Prothrombin Time 11.3 seconds (10.1-12.5)
--- NOTE | 2024-04-03 15:05 | PC.NURSE ---
Lab reports pts labs should start coming through shortly...
[2024-04-03 15:07] LABS: Alanine Aminotransferase 18 U/L (12-78); Albumin Level 3.8 g/dl (3.5-5.0); Albumin/Globulin Ratio 1.4 (1.1-1.8); Alkaline Phosphatase 141 U/L (38-126); Anion Gap 11.4 mEq/L (5-15); Aspartate Amino Transferase 32 U/L (14-36); Bilirubin,Total 0.2 mg/dl (0.2-1.3); Blood Urea Nitrogen 31 mg/dl (7-17); Calcium 9.5 mg/dl (8.4-10.2); Carbon Dioxide 30 mmol/L (22.0-30.0); Chloride 102 mmol/L (98-107); Chol/HDL Ratio 4.6 (1-3.5); Cholesterol 130 mg/dl (140-200); Creatinine Clearance Estimated 79 mL/min (50-200); Estimated Glomerular Filt Rate 62 ml/min (>60); GFR (African American) 75 ML/MIN (>60); Globulin 2.8 g/dL (1.3-3.2); Glucose 163 mg/dl (74-100); HDL Cholesterol 28 mg/dl (40-60); Potassium 4.4 mmoL/L (3.5-5.1); Sodium 139 mmol/L (136-145); Total Protein,Serum 6.6 g/dl (6.3-8.2); Triglycerides 200 mg/dl (30-150); VLDL Cholesterol 40 mg/dL (0-40)
[2024-04-03 15:17] LABS: Direct LDL Cholesterol 44.01 mg/dL (100-129)
[2024-04-03 15:17] LABS: Microscopic, Urine URINE MICROSCOPIC (MICROSCOPIC)
[2024-04-03 15:23] LABS: Troponin I < 0.01 ng/ml (0.00-0.034)
[2024-04-03 15:25] LABS: Ethyl Alcohol < 10 mg/dl (0-10)
--- NOTE | 2024-04-03 15:26 | HMH.EDGENADL ---
Discharge Plan Disposition Patient Disposition: Admitted Condition: Good Clinical Impressions Clinical Impression: Left sided numbness, Migraine Discharge ED Provider: Avril Billingsley General Adult HPI <Haresh Hussein MD - Last Filed: 04/03/24 15:32> General Chief complaint: Neuro Symptoms/Deficit Stated complaint: STROKE SYMPTOMS Time Seen by Provider: 04/03/24 14:04 Mode of Arrival: EMS Source of Information: Patient Limitations: No Limitations Description of Symptoms (Recalled from ER Triage Doc. by RN): pt to the ED via EMS with complaints of numbness and tingling radiating down her left face and arm but not her leg at this time. pt reports it started at approx 1330 and resolved before EMS arrived and then began again on the transport here. pt reports she has had multiple strokes in the past all with similar symtpoms. pt denies any chest pain, SOB or pain at this time History of Present Illness HPI narrative: Please note that above description of symptoms, in this electronic medical record under categorization of recalled from ER triage doctor by RN are reflective of an initial nursing assessment, however, is not reflective of my full history and physical exam that was personally taken and clarified. Consequentially, this preceding description of symptoms, which may include the patient's categorized chief complaint in the EMR, do not reflect my personal clinical impression, and the ultimate description of history of present illness and patient stated complaints should be deferred to this section of the note. Unless stated otherwise or congruent with this section of the note, additional signs, symptoms, or incongruence should be interpreted as inaccurate with my clinical impression. Related Data Home Medications ?Medication ?Instructions ?Recorded ?Confirmed allopurinol 100 mg tablet 1 tab PO DAILY GOUT 10/04/21 04/03/24 clopidogrel 75 mg tablet 75 mg PO DAILY Blood thinner 10/04/21 04/03/24 furosemide 20 mg tablet 20 mg PO AM Fluid 10/04/21 04/03/24 furosemide 40 mg tablet 40 mg PO PM Fluid 10/04/21 04/03/24 isosorbide mononitrate 60 mg 60 mg PO DAILY BLOOD PRESSURE 10/04/21 04/03/24 tablet,extended release 24 hr levothyroxine 125 mcg tablet 125 mcg PO DAILY THYROID 10/04/21 04/03/24 methocarbamol 750 mg tablet 1 tab PO BID muscle 10/04/21 04/03/24 metoprolol succinate 50 mg 50 mg PO DAILY BLOOD PRESSURE 10/04/21 04/03/24 tablet,extended release 24 hr omeprazole 40 mg capsule,delayed 40 mg PO DAILY GERD 10/04/21 04/03/24 release spironolactone 25 mg tablet 25 mg PO DAILY Fluid 10/04/21 04/03/24 aspirin 81 mg tablet,delayed 81 mg PO DAILY Blood thinner 02/27/22 04/03/24 release rosuvastatin 20 mg tablet 20 mg PO DAILY Cholesterol 02/27/22 04/03/24 insulin glargine 100 unit/mL (3 35 unit SQ HS 07/13/22 04/03/24 mL) subcutaneous pen linaclotide 145 mcg capsule 145 mcg PO DAILY constipation 08/02/22 04/03/24 (Linzess) albuterol sulfate 90 mcg/actuation 2 puff inhalation Q6HP PRN SOA 08/15/22 04/03/24 aerosol inhaler prazosin 2 mg capsule 2 mg PO DAILY blood pressure 08/15/22 04/03/24 Previous Rx's ?Medication ?Instructions ?Recorded epinephrine 0.3 mg/0.3 mL 0.3 mg (0.3 mL) IM Q10M PRN 10/27/22 injection, auto-injector (EpiPen anaphylaxis #2 ea 2-Arnold) fluoxetine 20 mg capsule See Rx Instructions .Route 10/29/22 .COMPLEX #270 caps ipratropium 0.5 mg-albuterol 3 mg 3 ml inhalation Q4H PRN wheezing 04/12/23 (2.5 mg base)/3 mL nebulization #180 mL soln Allergies Allergy/AdvReac Type Severity Reaction Status Date / Time morphine (MORPHINE) Allergy Unknown Verified 07/06/22 12:09 [facility] <Haresh Hussein MD - Last Filed: 04/03/24 15:32> [facility] Disclaimer: The information contained in this section may have been updated after the patient was seen, as this information can be updated by other users. Medical History Encounter for pre-operative cardiovascular clearance Colon cancer Breast cancer Gallbladder & bile duct stone with obstruction Hiatal hernia Dyspnea Obesity (BMI 30-39.9) Neuropathy Surgical History Hx of exploratory laparotomy Hx of left mastectomy Hx of breast lump removal Hx of hernia repair History of cholecystectomy H/O: H/O heart bypass surgery Family History Mother Diabetes Coronary artery disease Hyperlipidemia Cancer, Onset Age: 69 Father Diabetes Coronary artery disease Diverticula of colon Hyperlipidemia Cancer, Onset Age: 67 Hypertension Other Family history of cancer Family history of diabetes mellitus type II Family history of myocardial infarction Family history of stroke Hx of kidney disease Social History (Updated 04/03/24 @ 18:53 by Leona Rubio RN) Smoking Status: Never smoker alcohol intake: former substance use type: denies use current occupational status: retired Travel in the last 8 weeks: None household members: none housing: apartment marital status: education level: master's degree do you feel safe at home: Yes victim of physical abuse: No victim of emotional abuse: No victim of sexual abuse: No would you like helpful sources: No Have you lived/traveled outside [place] in past 30 days?: No Contact w/someone who lives/traveled outside US past 30 days?: No Exposure to someone with infectious disease in past 14 days?: No Do you have a fever (greater than 100.4 F or 38 C)?: No Have you tested positive for COVID-19: No Exposed to someone with COVID-19 in past 14 days?: No Do you have a sore throat?: No Do you have a cough?: No Do you have any weakness?: No Are you experiencing any nausea/vomitting?: No Do you have any diarrhea?: No Are you experiencing any unusual bleeding?: No Do you have any muscle aches/pain?: No Do you have any abdominal pain?: No Are you experiencing loss of taste or smell?: No Other Medical History Have you received the Flu Vaccine for this season: Yes Have you received the Pneumonia Vaccine: Yes <Haresh Hussein MD - Last Filed: 04/03/24 15:32> KARISHMA Obtained: Yes All systems reviewed & no additional complaints except as documented Physical Exam <Haresh Hussein MD - Last Filed: 04/03/24 15:32> General General appearance: alert Head Head exam: atraumatic and normocephalic Eye Eye exam: Present normal appearance, PERRL and EOMI Neck Neck exam: Present normal inspection, full ROM and trachea midline Respiratory Respiratory exam: Absent respiratory distress, wheezes, stridor, accessory muscle use or prolonged expiratory phase Cardiovascular Cardiovascular exam: Present other (Pulses equal symmetric in upper and lower extremities) Abdominal Exam Abdominal exam: Present soft; Absent distention, tenderness or pulsatile mass Extremities Exam Extremities exam: Absent edema Neurological Exam Neurological exam: Present alert, oriented X3, CN II-XII intact and motor sensory deficit (NIHSS 2 for numbness of the left face and left upper extremity) Skin Skin exam: Present warm and dry; Absent diaphoresis or erythema Medical Decision Making <Haresh Hussein MD - Last Filed: 04/03/24 15:32> Medical Records Medical records reviewed: Yes I reviewed the patient's medical records. Screening: Per USPSTF and CDC recommendations, given the prevalence of disease in our region, it is our hospital?s policy to screen for HIV and viral Hepatitis for all patients aged 18 and over and those with ongoing risk factors. Faraz Inquiry Pt receiving controlled substance: No Faraz was queried for this patient: No Vital Signs: 04/03/24 13:59 04/03/24 14:08 04/03/24 14:45 Temperature 98.3 F Temperature Source Oral Pulse Rate 62 69 Pulse Rate [Left Radial] 72 Respiratory Rate 17 15 Blood Pressure 147/78 H 145/59 H Blood Pressure [Right Arm] 147/78 H Blood Pressure Mean [Right Arm] 101 Blood Pressure Source [Right Arm] Automatic Cuff Blood Pressure Position [Right Arm] Sitting 02 Sat by Pulse Oximetry 95 96 96 Oxygen Delivery Method Room Air Room Air Room Air 04/03/24 15:01 04/03/24 15:30 04/03/24 16:00 Temperature Temperature Source Pulse Rate 63 53 L Pulse Rate [Left Radial] Respiratory Rate 14 14 15 Blood Pressure 129/60 137/73 127/74 Blood Pressure [Right Arm] Blood Pressure Mean [Right Arm] Blood Pressure Source [Right Arm] Blood Pressure Position [Right Arm] 02 Sat by Pulse Oximetry 95 96 Oxygen Delivery Method Room Air Room Air Room Air 04/03/24 16:30 04/03/24 17:00 04/03/24 17:30 Temperature Temperature Source Pulse Rate 52 L 60 Pulse Rate [Left Radial] Respiratory Rate 18 17 17 Blood Pressure 103/41 L 144/77 H 130/78 Blood Pressure [Right Arm] Blood Pressure Mean [Right Arm] Blood Pressure Source [Right Arm] Blood Pressure Position [Right Arm] 02 Sat by Pulse Oximetry 96 98 Oxygen Delivery Method Room Air Room Air Room Air 04/03/24 18:00 04/03/24 18:13 04/03/24 18:15 Temperature 98.3 F Temperature Source Pulse Rate 56 L 61 61 Pulse Rate [Left Radial] Respiratory Rate 18 19 19 Blood Pressure 117/53 L 124/64 124/64 Blood Pressure [Right Arm] Blood Pressure Mean [Right Arm] Blood Pressure Source [Right Arm] Blood Pressure Position [Right Arm] 02 Sat by Pulse Oximetry 95 98 Oxygen Delivery Method Room Air Room Air Room Air Lab Data Lab Results 04/03/24 14:37: WBC 12.1 H, RBC 3.88 L, Hgb 11.7 L, Hct 36.2 L, MCV 93.3, MCH 30.2, MCHC 32.3, RDW 14.7, Plt Count 340, MPV 10.8 H, Neut % (Auto) 70.5, Lymph % (Auto) 24.0, Atkinson % (Auto) 3.3, Eos % (Auto) 1.2, Baso % (Auto) 0.3, Neut # (Auto) 8.5 H, Lymph # (Auto) 2.9, Atkinson # (Auto) 0.4, Eos # (Auto) 0.1, Baso # (Auto) 0.0, PT 11.3, INR 1.01, APTT 26.8, Sodium 139, Potassium 4.4, Chloride 102, Carbon Dioxide 30, Anion Gap 11.4, BUN 31 H, Creatinine 0.90, Estimated Creat Clear 79, Estimated GFR 62, Est GFR ( Amer) 75, Glucose 163 H, Hemoglobin A1c 7.9 H, Calcium 9.5, Total Bilirubin 0.2, AST 32, ALT 18, Alkaline Phosphatase 141 H, Troponin I < 0.01, Total Protein 6.6, Albumin 3.8, Globulin 2.8, Albumin/Globulin Ratio 1.4, Triglycerides 200 H, Cholesterol 130 L, LDL Cholesterol Direct 44.01 L, VLDL Cholesterol 40, HDL Cholesterol 28 L, Cholesterol/HDL Ratio 4.6 H, Plasma/Serum Alcohol < 10 04/03/24 15:07: Urine Color Yellow, Urine Appearance Clear, Urine pH 6.5, Ur Specific [place] 1.010, Urine Protein Negative, Urine Glucose (UA) Negative, Urine Ketones Negative, Urine Blood Negative, Urine Nitrate Negative, Urine Bilirubin Negative, Urine Urobilinogen 0.2, Ur Leukocyte Esterase Negative, Urine RBC 3-5, Urine WBC 10-20, Ur Squamous Epith Cells 5-10, Urine Bacteria 4+ 04/03/24 17:13: Troponin I < 0.01 04/03/24 14:37 04/03/24 14:37 Orders (Tests/Meds): ED MEDICATIONS Generic Name Dose Route Start Last Admin Trade Name Freq PRN Reason Stop Dose Admin Albuterol/Ipratropium 3 ml 04/03/24 19:01 Ipratropium/Albuterol 3 Ml Neb IH 05/03/24 19:00 Q4H PRN wheezing Allopurinol 100 mg 04/04/24 09:00 Allopurinol 100mg Tablet PO 05/04/24 08:59 DAILY JOE Aspirin 81 mg 04/04/24 09:00 Aspirin Ec 81mg Tablet PO 05/04/24 08:59 DAILY JOE Atorvastatin Calcium 40 mg 04/03/24 21:00 04/03/24 21:10 Atorvastatin 40mg Tablet PO 05/03/24 20:59 40 mg HS JOE Administration Clopidogrel Bisulfate 75 mg 04/04/24 09:00 Clopidogrel 75mg Tab PO 05/04/24 08:59 DAILY JOE Fluoxetine HCl 60 mg 04/04/24 09:00 Fluoxetine 20mg Capsule PO 05/04/24 08:59 DAILY JOE Furosemide 40 mg 04/04/24 09:00 Furosemide 40 Mg Tablet PO 05/04/24 08:59 DAILY JOE Insulin Glargine 35 unit 04/03/24 19:08 Insulin Glargine 100 Units/Ml 3ml Flexpen SUBCUT 05/03/24 19:00 AC PRN diabetes Insulin Human Lispro 0 unit 04/03/24 21:00 04/03/24 21:10 Humalog 100 Units/Ml 10ml Vial (Ssi) SUBCUT 05/03/24 20:59 2 unit ACHS JOE Administration Protocol Levothyroxine Sodium 125 mcg 04/04/24 09:00 Levothyroxine 125mcg (0.125mg) Tab PO 05/04/24 08:59 DAILY COUNTS INCLUDE 234 BEDS AT [facility] Metoprolol Succinate 50 mg 04/04/24 09:00 Metoprolol Succinate Xl 50mg Tablet PO 05/04/24 08:59 DAILY JOE Pantoprazole Sodium 40 mg 04/03/24 21:00 04/03/24 21:10 Pantoprazole 40mg Tablet PO 05/03/24 20:59 40 mg HS JOE Administration Sodium Chloride 10 ml 04/03/24 14:12 Sodium Chloride 0.9% 10ml Flush Syringe IV 05/03/24 14:11 NEEDED PRN Maintain IV Site Spironolactone 25 mg 04/04/24 09:00 Spironolactone 25mg Tablet PO 05/04/24 08:59 DAILY JOE Discontinued Medications Generic Name Dose Route Start Last Admin Trade Name Freq PRN Reason Stop Dose Admin Acetaminophen 1,000 mg 04/03/24 15:26 04/03/24 15:51 Acetaminophen 1,000mg/100ml Vial IV 04/03/24 15:27 1,000 mg ONCE ONE Administration Diphenhydramine HCl 25 mg 04/03/24 15:26 04/03/24 15:50 Diphenhydramine 50mg/Ml Vial IV 04/03/24 15:27 25 mg ONCE ONE Administration Magnesium Sulfate 2 gm in 50 mls @ 50 mls/hr 04/03/24 15:26 04/03/24 15:52 Magnesium Sulfate 2gm/50ml Premix IV 04/03/24 16:25 50 mls/hr ONCE ONE Administration Insulin Glargine 5 unit 04/03/24 19:01 Insulin Glargine 100 Units/Ml 3ml Flexpen SUBCUT 05/03/24 19:00 AC PRN diabetes Iopamidol 80 ml 04/03/24 14:36 04/03/24 14:37 Iopamidol-370 (76%);100ml Bottle IV 04/03/24 14:37 80 ml ONCE ONE Administration Ketorolac Tromethamine 15 mg 04/03/24 15:26 04/03/24 15:48 Ketorolac 30mg/Ml Vial IV 04/03/24 15:27 15 mg ONCE ONE Administration Prochlorperazine Edisylate 10 mg 04/03/24 15:26 04/03/24 15:49 Prochlorperazine 10mg/2ml Vial IV 04/03/24 15:27 10 mg ONCE ONE Administration Sodium Chloride 50 ml 04/03/24 14:36 04/03/24 14:37 0.9 % Sodium Chloride 50 Ml Vial IV 04/03/24 14:37 50 ml ONCE ONE Administration Sodium Chloride 10 ml 04/03/24 14:36 04/03/24 14:37 Sodium Chloride 0.9% 10ml Syr (Rad Only) IV 04/03/24 14:37 10 ml ONCE ONE Administration ORDERS Category Date Time Status CT angio head Stat Cat Scan 04/03/24 14:[address] angio neck Stat Cat Scan 04/03/24 14:[address] head/brain wo con Stat Cat Scan 04/03/24 14:12 Completed Activated Partial Thrombo Time Stat Lab 04/03/24 14:37 Completed Complete Blood Count Auto Diff AMLAB Lab 04/04/24 06:00 Ordered Complete Blood Count Auto Diff Stat Lab 04/03/24 14:37 Completed Comprehensive Metabolic Panel AMLAB Lab 04/04/24 06:00 Ordered Comprehensive Metabolic Panel Stat Lab 04/03/24 14:37 Completed Ethyl Alcohol Stat Lab 04/03/24 14:37 Completed Lipid Panel Stat Lab 04/03/24 14:37 Completed Magnesium AMLAB Lab 04/04/24 06:00 Ordered Prothrombin Time INR Stat Lab 04/03/24 14:37 Completed Troponin I Q3H Lab 04/03/24 17:13 Completed Troponin I Q3H Lab 04/03/24 20:30 Completed Troponin I Stat Lab 04/03/24 14:37 Completed Urinalysis and Microscopic Stat Lab 04/03/24 15:07 Completed Urine Culture Stat Micro 04/03/24 15:07 Received CA echo doppler complete Routine Y 04/03/24 17:01 Ordered HEART Score History (anamnesis): Slightly suspicious ECG: Normal Age: >65 years Risk factors: 3 or more risk factors Troponin: </= normal limit HEART Score: 4 Medical Decision Narrative: 73-year-old female presenting with left upper extremity and left facial numbness and stroke alerted on upon arrival. Patient states that she has been having migraines on and off, has had difficulty obtaining migraine medications and intermittently has migraines at present with weakness or numbness. She states that this feels similar to her migraines, however she has also had CVAs in the past. States that about 30 minutes prior to arrival, she started having numbness of her left face, left arm, no left lower extremity involvement. Also having a left-sided migraine, not right sided. No vision changes, chest pain, shortness of breath, or any other concerns. History was obtained via conversation with patient. On arrival, patient hemodynamically stable, alert, oriented x4, appropriate, GCS 15, moving all extremities spontaneously, pupils equal and reactive to light. Full physical exam performed and significant for NIHSS 2 for left-sided facial numbness and left upper extremity numbness. No weakness. No abnormalities of cerebellar examination. Cardiopulmonary exam normal and patient hemodynamically stable saturating appropriately. Differential includes metabolic abnormality, endocrinologic abnormality, intracranial bleed, intracranial thrombus, dissection, ACS, DE, complex migraine, among others. Patient placed on continuous cardiac monitoring and continuous pulse ox with initial blood pressure 147/70, heart rate 72, saturation 95% on room air. Independent interpretation of EKG shows sinus rhythm 65 bpm with no acute ischemic change. WV 157, QRS 93, QTc 4 7. [id number] glucose 158. Patient was given migraine cocktail for symptomatic management and correction of underlying abnormalities. Workup independently interpreted and significant for stably elevated leukocytosis. Patient's chemistry nonactionable with normal kidney function. Initial troponin negative. Lipid panel normal. Tox labs negative. On independent interpretation of imaging, no acute intracranial hemorrhage or intra/extracranial vessel abnormality acutely. See radiology read for full review of final results. Heart score 4. [facility] neurosurgery was contacted and images were shared, no intracranial hemorrhage or intracranial process requiring transfer and immediate intervention. Prior to full workup and disposition, care handed off to oncoming physician. Supervisor Component Assembler disclaimer Much of this encounter note is an electronic press puller spoken language to printed text. Electronic press puller of the spoken language may permit errors. Although I have reviewed the note, some errors may still exist. <Avril Billingsley, DO - Last Filed: 04/03/24 23:59> Vital Signs: 04/03/24 13:59 04/03/24 14:08 04/03/24 14:45 Temperature 98.3 F Temperature Source Oral Pulse Rate 62 69 Pulse Rate [Left Radial] 72 Respiratory Rate 17 15 Blood Pressure 147/78 H 145/59 H Blood Pressure [Right Arm] 147/78 H Blood Pressure Mean [Right Arm] 101 Blood Pressure Source [Right Arm] Automatic Cuff Blood Pressure Position [Right Arm] Sitting 02 Sat by Pulse Oximetry 95 96 96 Oxygen Delivery Method Room Air Room Air Room Air 04/03/24 15:01 04/03/24 15:30 04/03/24 16:00 Temperature Temperature Source Pulse Rate 63 53 L Pulse Rate [Left Radial] Respiratory Rate 14 14 15 Blood Pressure 129/60 137/73 127/74 Blood Pressure [Right Arm] Blood Pressure Mean [Right Arm] Blood Pressure Source [Right Arm] Blood Pressure Position [Right Arm] 02 Sat by Pulse Oximetry 95 96 Oxygen Delivery Method Room Air Room Air Room Air 04/03/24 16:30 04/03/24 17:00 04/03/24 17:30 Temperature Temperature Source Pulse Rate 52 L 60 Pulse Rate [Left Radial] Respiratory Rate 18 17 17 Blood Pressure 103/41 L 144/77 H 130/78 Blood Pressure [Right Arm] Blood Pressure Mean [Right Arm] Blood Pressure Source [Right Arm] Blood Pressure Position [Right Arm] 02 Sat by Pulse Oximetry 96 98 Oxygen Delivery Method Room Air Room Air Room Air 04/03/24 18:00 04/03/24 18:13 04/03/24 18:15 Temperature 98.3 F Temperature Source Pulse Rate 56 L 61 61 Pulse Rate [Left Radial] Respiratory Rate 18 19 19 Blood Pressure 117/53 L 124/64 124/64 Blood Pressure [Right Arm] Blood Pressure Mean [Right Arm] Blood Pressure Source [Right Arm] Blood Pressure Position [Right Arm] 02 Sat by Pulse Oximetry 95 98 Oxygen Delivery Method Room Air Room Air Room Air Lab Data Lab Results 04/03/24 14:37: WBC 12.1 H, RBC 3.88 L, Hgb 11.7 L, Hct 36.2 L, MCV 93.3, MCH 30.2, MCHC 32.3, RDW 14.7, Plt Count 340, MPV 10.8 H, Neut % (Auto) 70.5, Lymph % (Auto) 24.0, Atkinson % (Auto) 3.3, Eos % (Auto) 1.2, Baso % (Auto) 0.3, Neut # (Auto) 8.5 H, Lymph # (Auto) 2.9, Atkinson # (Auto) 0.4, Eos # (Auto) 0.1, Baso # (Auto) 0.0, PT 11.3, INR 1.01, APTT 26.8, Sodium 139, Potassium 4.4, Chloride 102, Carbon Dioxide 30, Anion Gap 11.4, BUN 31 H, Creatinine 0.90, Estimated Creat Clear 79, Estimated GFR 62, Est GFR ( Amer) 75, Glucose 163 H, Hemoglobin A1c 7.9 H, Calcium 9.5, Total Bilirubin 0.2, AST 32, ALT 18, Alkaline Phosphatase 141 H, Troponin I < 0.01, Total Protein 6.6, Albumin 3.8, Globulin 2.8, Albumin/Globulin Ratio 1.4, Triglycerides 200 H, Cholesterol 130 L, LDL Cholesterol Direct 44.01 L, VLDL Cholesterol 40, HDL Cholesterol 28 L, Cholesterol/HDL Ratio 4.6 H, Plasma/Serum Alcohol < 10 04/03/24 15:07: Urine Color Yellow, Urine Appearance Clear, Urine pH 6.5, Ur Specific [place] 1.010, Urine Protein Negative, Urine Glucose (UA) Negative, Urine Ketones Negative, Urine Blood Negative, Urine Nitrate Negative, Urine Bilirubin Negative, Urine Urobilinogen 0.2, Ur Leukocyte Esterase Negative, Urine RBC 3-5, Urine WBC 10-20, Ur Squamous Epith Cells 5-10, Urine Bacteria 4+ 04/03/24 17:13: Troponin I < 0.01 Orders (Tests/Meds): ED MEDICATIONS Generic Name Dose Route Start Last Admin Trade Name Freq PRN Reason Stop Dose Admin Albuterol/Ipratropium 3 ml 04/03/24 19:01 Ipratropium/Albuterol 3 Ml Neb 05/03/24 19:00 Q4H PRN wheezing Allopurinol 100 mg 04/04/24 09:00 Allopurinol 100mg Tablet PO 05/04/24 08:59 DAILY COUNTS INCLUDE 234 BEDS AT [facility] Aspirin 81 mg 04/04/24 09:00 Aspirin Ec 81mg Tablet PO 05/04/24 08:59 DAILY COUNTS INCLUDE 234 BEDS AT [facility] Atorvastatin Calcium 40 mg 04/03/24 21:00 04/03/24 21:10 Atorvastatin 40mg Tablet PO 05/03/24 20:59 40 mg HS JOE Administration Clopidogrel Bisulfate 75 mg 04/04/24 09:00 Clopidogrel 75mg Tab PO 05/04/24 08:59 DAILY COUNTS INCLUDE 234 BEDS AT [facility] Fluoxetine HCl 60 mg 04/04/24 09:00 Fluoxetine 20mg Capsule PO 05/04/24 08:59 DAILY COUNTS INCLUDE 234 BEDS AT [facility] Furosemide 40 mg 04/04/24 09:00 Furosemide 40 Mg Tablet PO 05/04/24 08:59 DAILY JOE Insulin Glargine 35 unit 04/03/24 19:08 Insulin Glargine 100 Units/Ml 3ml Flexpen SUBCUT 05/03/24 19:00 AC PRN diabetes Insulin Human Lispro 0 unit 04/03/24 21:00 04/03/24 21:10 Humalog 100 Units/Ml 10ml Vial (Ssi) SUBCUT 05/03/24 20:59 2 unit ACHS JOE Administration Protocol Levothyroxine Sodium 125 mcg 04/04/24 09:00 Levothyroxine 125mcg (0.125mg) Tab PO 05/04/24 08:59 DAILY JOE Metoprolol Succinate 50 mg 04/04/24 09:00 Metoprolol Succinate Xl 50mg Tablet PO 05/04/24 08:59 DAILY JOE Pantoprazole Sodium 40 mg 04/03/24 21:00 04/03/24 21:10 Pantoprazole 40mg Tablet PO 05/03/24 20:59 40 mg HS JOE Administration Sodium Chloride 10 ml 04/03/24 14:12 Sodium Chloride 0.9% 10ml Flush Syringe IV 05/03/24 14:11 NEEDED PRN Maintain IV Site Spironolactone 25 mg 04/04/24 09:00 Spironolactone 25mg Tablet PO 05/04/24 08:59 DAILY JOE Discontinued Medications Generic Name Dose Route Start Last Admin Trade Name Georgeq PRN Reason Stop Dose Admin Acetaminophen 1,000 mg 04/03/24 15:26 04/03/24 15:51 Acetaminophen 1,000mg/100ml Vial IV 04/03/24 15:27 1,000 mg ONCE ONE Administration Diphenhydramine HCl 25 mg 04/03/24 15:26 04/03/24 15:50 Diphenhydramine 50mg/Ml Vial IV 04/03/24 15:27 25 mg ONCE ONE Administration Magnesium Sulfate 2 gm in 50 mls @ 50 mls/hr 04/03/24 15:26 04/03/24 15:52 Magnesium Sulfate 2gm/50ml Premix IV 04/03/24 16:25 50 mls/hr ONCE ONE Administration Insulin Glargine 5 unit 04/03/24 19:01 Insulin Glargine 100 Units/Ml 3ml Flexpen SUBCUT 05/03/24 19:00 AC PRN diabetes Iopamidol 80 ml 04/03/24 14:36 04/03/24 14:37 Iopamidol-370 (76%);100ml Bottle IV 04/03/24 14:37 80 ml ONCE ONE Administration Ketorolac Tromethamine 15 mg 04/03/24 15:26 04/03/24 15:48 Ketorolac 30mg/Ml Vial IV 04/03/24 15:27 15 mg ONCE ONE Administration Prochlorperazine Edisylate 10 mg 04/03/24 15:26 04/03/24 15:49 Prochlorperazine 10mg/2ml Vial IV 04/03/24 15:27 10 mg ONCE ONE Administration Sodium Chloride 50 ml 04/03/24 14:36 04/03/24 14:37 0.9 % Sodium Chloride 50 Ml Vial IV 04/03/24 14:37 50 ml ONCE ONE Administration Sodium Chloride 10 ml 04/03/24 14:36 04/03/24 14:37 Sodium Chloride 0.9% 10ml Syr (Rad Only) IV 04/03/24 14:37 10 ml ONCE ONE Administration ORDERS Category Date Time Status CT angio head Stat Cat Scan 04/03/24 14:[address] angio neck Stat Cat Scan 04/03/24 14:[address] head/brain wo con Stat Cat Scan 04/03/24 14:12 Completed Activated Partial Thrombo Time Stat Lab 04/03/24 14:37 Completed Complete Blood Count Auto Diff AMLAB Lab 04/04/24 06:00 Ordered Complete Blood Count Auto Diff Stat Lab 04/03/24 14:37 Completed Comprehensive Metabolic Panel AMLAB Lab 04/04/24 06:00 Ordered Comprehensive Metabolic Panel Stat Lab 04/03/24 14:37 Completed Ethyl Alcohol Stat Lab 04/03/24 14:37 Completed Lipid Panel Stat Lab 04/03/24 14:37 Completed Magnesium AMLAB Lab 04/04/24 06:00 Ordered Prothrombin Time INR Stat Lab 04/03/24 14:37 Completed Troponin I Q3H Lab 04/03/24 17:13 Completed Troponin I Q3H Lab 04/03/24 20:30 Completed Troponin I Stat Lab 04/03/24 14:37 Completed Urinalysis and Microscopic Stat Lab 04/03/24 15:07 Completed Urine Culture Stat Micro 04/03/24 15:07 Received CA echo doppler complete Routine Y 04/03/24 17:01 Ordered HEART Score HEART Score: 4 Medical Decision Narrative: 73-year-old female presenting with left upper extremity and left facial numbness and stroke alerted on upon arrival. Patient states that she has been having migraines on and off, has had difficulty obtaining migraine medications and intermittently has migraines at present with weakness or numbness. She states that this feels similar to her migraines, however she has also had CVAs in the past. States that about 30 minutes prior to arrival, she started having numbness of her left face, left arm, no left lower extremity involvement. Also having a left-sided migraine, not right sided. No vision changes, chest pain, shortness of breath, or any other concerns. History was obtained via conversation with patient. On arrival, patient hemodynamically stable, alert, oriented x4, appropriate, GCS 15, moving all extremities spontaneously, pupils equal and reactive to light. Full physical exam performed and significant for NIHSS 2 for left-sided facial numbness and left upper extremity numbness. No weakness. No abnormalities of cerebellar examination. Cardiopulmonary exam normal and patient hemodynamically stable saturating appropriately. Differential includes metabolic abnormality, endocrinologic abnormality, intracranial bleed, intracranial thrombus, dissection, ACS, DE, complex migraine, among others. Patient placed on continuous cardiac monitoring and continuous pulse ox with initial blood pressure 147/70, heart rate 72, saturation 95% on room air. Independent interpretation of EKG shows sinus rhythm 65 bpm with no acute ischemic change. WV 157, QRS 93, QTc 4 7. [id number] glucose 158. Patient was given migraine cocktail for symptomatic management and correction of underlying abnormalities. Workup independently interpreted and significant for stably elevated leukocytosis. Patient's chemistry nonactionable with normal kidney function. Initial troponin negative. Lipid panel normal. Tox labs negative. On independent interpretation of imaging, no acute intracranial hemorrhage or intra/extracranial vessel abnormality acutely. See radiology read for full review of final results. Heart score 4. [facility] neurosurgery was contacted and images were shared, no intracranial hemorrhage or intracranial process requiring transfer and immediate intervention. Prior to full workup and disposition, care handed off to oncoming physician. Supervisor Component Assembler disclaimer Much of this encounter note is an electronic press puller spoken language to printed text. Electronic press puller of the spoken language may permit errors. Although I have reviewed the note, some errors may still exist. DO Jose Cruz: I assumed care of the patient at 1500. She continues to complain of left-sided numbness on my assessment. CT scans not concerning for any acute intracranial pathology, labs reassuring. No significant improvement after migraine cocktail, so I had an interactive discussion with the hospitalist to admit the patient for further evaluation and management of possible CVA. Patient kept here because she is not a candidate for thrombectomy given no large vessel occlusion, and tPA/TNK not administered given low NIH stroke scale Critical Care <Haresh Hussein MD - Last Filed: 04/03/24 15:32> Critical Care Time Critical Care Time: Yes (neuro) Attestation: On 04/03/24, the high probability of a clinically significant, sudden or life threatening deterioration of the following system(s) required my full and direct attention, intervention and personal management. The time I documented below is in addition to time spent performing reported procedures but includes the following listed in this critical care notation. Total Time Total Critical Care Time: 45
[2024-04-03 15:29] LABS: Appearance,Urine CLEAR (Clear); Bilirubin,Urine Negative (Negative); Blood, Urine Negative (Negative); Color,Urine YELLOW (Yellow); Glucose,Urine (UA) Negative (Negative); Ketones,Urine Negative (Negative); Leukocyte Esterase,Urine Negative (Negative); Nitrate,Urine Negative (Negative); PH,Urine 6.5 (5.0-8.5); Protein,Urine Negative (Negative); Urobilinogen,Urine 0.2 EU/dl (0.2)
[2024-04-03] MEDS: KETOROLAC 30MG/ML VIAL 15 MG IV (15:48)
[2024-04-03] MEDS: PROCHLORPERAZINE 10MG/2ML VIAL 10 MG IV (15:49)
[2024-04-03] MEDS: diphenhydrAMINE 50MG/ML VIAL 25 MG IV (15:50)
[2024-04-03] MEDS: ACETAMINOPHEN 1,000MG/100ML VIAL 1000 MG IV (15:51)
[2024-04-03] MEDS: MAGNESIUM SULFATE IN WATER 2 GM/50 ML PIGGYBACK IV (15:52)
[2024-04-03 16:57] LABS: Bacteria,Urine 4+ /lpf
--- NOTE | 2024-04-03 17:02 | PC.NURSE ---
CALLING HOUSE FOR BED ASSIGNMENT
[2024-04-03 18:09] LABS: Troponin I < 0.01 ng/ml (0.00-0.034)
--- NOTE | 2024-04-03 18:18 | PC.NURSE ---
arrived by w/c from ED
--- NOTE | 2024-04-03 19:04 | P.HP_ITS ---
History of Present Illness *Admission Date: 04/03/24 *Reason for visit:: left sided numbness *History of present illness: Ms. Elam is a 73-year-old female who presented to the ER with complaint of left upper extremity and left facial numbness. Stroke alert activated on arrival. States she has been having migraines on and off and has had difficulty obtaining her migraine medication. Intermittently her migraines have had weakness and numbness. States she has a vessel in her brain that impacts her symptoms. Symptoms today similar to her migraine however she has also had at least 11 strokes in the past per her report. About 30 minutes prior to arrival, she began having numbness to her left face, left arm, left lower extremity. Also noted to have left-sided migraine not right sided per her report. Denies any change in vision, chest pain, shortness of breath, nausea or vomiting. No syncope. No confusion. Already on aspirin, Plavix, Crestor. Reports taking Ubrelvy but has been out because of insurance change within a year. Workup in the ER with imaging did not show acute stroke. Labs showed mild elevation of white count of 12, hemoglobin 11.7, kidney function and electrolytes relatively normal with BUN 31, creatinine 0.9, sodium 139, potassium 4.4, calcium 9.5. Diabetes above goal with A1c of 7.9 and glucose elevated at 163. CTA head showed no aneurysm or large vessel occlusion. Urinalysis shows significant white count with 4+ bacteria. Negative for nitrate and leuk esterase however. Sample was clean-catch. Denies any dysuria Full physical exam performed and significant for NIHSS 2 for left-sided facial numbness and left upper extremity numbness. No weakness. No abnormalities of cerebellar examination. Medicine admitted patient for evaluation overnight and consideration for MRI in the morning. Patient's symptoms not completely resolved by the time she left the ER but doing better by the time she got to the floor. Alert and oriented x 4. States she is convinced she had a stroke. stable on RA [facility] Disclaimer: The information contained in this section may have been updated after the patient was seen, as this information can be updated by other users. Medical History Encounter for pre-operative cardiovascular clearance Colon cancer Breast cancer Gallbladder & bile duct stone with obstruction Hiatal hernia Dyspnea Obesity (BMI 30-39.9) Neuropathy Surgical History Hx of exploratory laparotomy Hx of left mastectomy Hx of breast lump removal Hx of hernia repair History of cholecystectomy H/O: H/O heart bypass surgery Family History Mother Diabetes Coronary artery disease Hyperlipidemia Cancer, Onset Age: 69 Father Diabetes Coronary artery disease Diverticula of colon Hyperlipidemia Cancer, Onset Age: 67 Hypertension Other Family history of cancer Family history of diabetes mellitus type II Family history of myocardial infarction Family history of stroke Hx of kidney disease Social History Smoking Status: Never smoker alcohol intake: former substance use type: denies use current occupational status: retired Travel in the last 8 weeks: None household members: none housing: apartment marital status: education level: master's degree do you feel safe at home: Yes victim of physical abuse: No victim of emotional abuse: No victim of sexual abuse: No would you like helpful sources: No Have you lived/traveled outside [place] in past 30 days?: No Contact w/someone who lives/traveled outside [place] past 30 days?: No Exposure to someone with infectious disease in past 14 days?: No Do you have a fever (greater than 100.4 F or 38 C)?: No Have you tested positive for COVID-19: No Exposed to someone with COVID-19 in past 14 days?: No Do you have a sore throat?: No Do you have a cough?: No Do you have any weakness?: No Are you experiencing any nausea/vomitting?: No Do you have any diarrhea?: No Are you experiencing any unusual bleeding?: No Do you have any muscle aches/pain?: No Do you have any abdominal pain?: No Are you experiencing loss of taste or smell?: No Other Medical History Have you received the Flu Vaccine for this season: Yes Have you received the Pneumonia Vaccine: Yes Review of Systems Review of Systems Review of systems (narrative): 14 point review of systems performed, pertinent positives and negatives as per HPI Meds Home Medications and Allergies Home Medications ?Medication ?Instructions ?Recorded ?Confirmed ?Type allopurinol 100 mg tablet 1 tab PO DAILY GOUT 10/04/21 04/03/24 History clopidogrel 75 mg tablet 75 mg PO DAILY Blood thinner 10/04/21 04/03/24 History furosemide 20 mg tablet 20 mg PO AM Fluid 10/04/21 04/03/24 History furosemide 40 mg tablet 40 mg PO PM Fluid 10/04/21 04/03/24 History isosorbide mononitrate 60 mg 60 mg PO DAILY BLOOD PRESSURE 10/04/21 04/03/24 History tablet,extended release 24 hr levothyroxine 125 mcg tablet 125 mcg PO DAILY THYROID 10/04/21 04/03/24 History methocarbamol 750 mg tablet 1 tab PO BID muscle 10/04/21 04/03/24 History metoprolol succinate 50 mg 50 mg PO DAILY BLOOD PRESSURE 10/04/21 04/03/24 History tablet,extended release 24 hr omeprazole 40 mg capsule,delayed 40 mg PO DAILY GERD 10/04/21 04/03/24 History release spironolactone 25 mg tablet 25 mg PO DAILY Fluid 10/04/21 04/03/24 History aspirin 81 mg tablet,delayed 81 mg PO DAILY Blood thinner 02/27/22 04/03/24 History release rosuvastatin 20 mg tablet 20 mg PO DAILY Cholesterol 02/27/22 04/03/24 History insulin glargine 100 unit/mL (3 35 unit SQ HS 07/13/22 04/03/24 History mL) subcutaneous pen linaclotide 145 mcg capsule 145 mcg PO DAILY constipation 08/02/22 04/03/24 History (Linzess) albuterol sulfate 90 mcg/actuation 2 puff inhalation Q6HP PRN SOA 08/15/22 04/03/24 History aerosol inhaler prazosin 2 mg capsule 2 mg PO DAILY blood pressure 08/15/22 04/03/24 History epinephrine 0.3 mg/0.3 mL 0.3 mg (0.3 mL) IM Q10M PRN 10/27/22 04/03/24 Rx injection, auto-injector (EpiPen anaphylaxis #2 ea 2-Arnold) fluoxetine 20 mg capsule See Rx Instructions .Route 10/29/22 04/03/24 Rx .COMPLEX #270 caps ipratropium 0.5 mg-albuterol 3 mg 3 ml inhalation Q4H PRN wheezing 04/12/23 04/03/24 Rx (2.5 mg base)/3 mL nebulization #180 mL soln New Prescriptions to Start Prescriptions: Allergies Allergy/AdvReac Type Severity Reaction Status Date / Time morphine (MORPHINE) Allergy Unknown Verified 07/06/22 12:09 Exam Data for Last 24 hours Vital signs and Labs for Last 24 Hours: Temp Pulse Resp BP Pulse Ox O2 Del Method 98.3 F 61 19 124/64 98 Room Air 04/03/24 18:15 04/03/24 18:15 04/03/24 18:15 04/03/24 18:15 04/03/24 18:13 04/03/24 18:36 Laboratory Results - last 24 hr 04/03/24 14:37: WBC 12.1 H, RBC 3.88 L, Hgb 11.7 L, Hct 36.2 L, MCV 93.3, MCH 30.2, MCHC 32.3, RDW 14.7, Plt Count 340, MPV 10.8 H, Neut % (Auto) 70.5, Lymph % (Auto) 24.0, [place] % (Auto) 3.3, Eos % (Auto) 1.2, Baso % (Auto) 0.3, Neut # (Auto) 8.5 H, Lymph # (Auto) 2.9, [place] # (Auto) 0.4, Eos # (Auto) 0.1, Baso # (Auto) 0.0, PT 11.3, INR 1.01, APTT 26.8, Sodium 139, Potassium 4.4, Chloride 102, Carbon Dioxide 30, Anion Gap 11.4, BUN 31 H, Creatinine 0.90, Estimated Creat Clear 79, Estimated GFR 62, Est GFR ( Amer) 75, Glucose 163 H, Calcium 9.5, Total Bilirubin 0.2, AST 32, ALT 18, Alkaline Phosphatase 141 H, Troponin I < 0.01, Total Protein 6.6, Albumin 3.8, Globulin 2.8, Albumin/G lobulin Ratio 1.4, Triglycerides 200 H, Cholesterol 130 L, LDL Cholesterol Direct 44.01 L, VLDL Cholesterol 40, HDL Cholesterol 28 L, Cholesterol/HDL Ratio 4.6 H, Plasma/Serum Alcohol < 10 04/03/24 15:07: Urine Color Yellow, Urine Appearance Clear, Urine pH 6.5, Ur Specific [place] 1.010, Urine Protein Negative, Urine Glucose (UA) Negative, Urine Ketones Negative, Urine Blood Negative, Urine Nitrate Negative, Urine Bilirubin Negative, Urine Urobilinogen 0.2, Ur Leukocyte Esterase Negative, Urine RBC 3-5, Urine WBC 10-20, Ur Squamous Epith Cells 5-10, Urine Bacteria 4+ 04/03/24 17:13: Troponin I < 0.01 I & O for Last 24 hours: Intake & Output 03/31/24 04/01/24 04/02/24 04/03/24 23:59 23:59 23:59 23:59 Weight 96.615 kg Constitutional Constitutional: no acute distress, obese, chronically ill appearing and cooperative *Routine HEENT Exam Head: Present normocephalic and atraumatic Eye: Present EOMI and PERRL ENT: Present mucous membranes moist *Routine Neck Exam Neck: Present supple; Absent lymphadenopathy *Routine Respiratory Exam Respiratory: Present CTA bilaterally; Absent rhonchi, wheezes or crackles *Routine Cardiovascular Exam Cardiovascular: Present RRR *Routine Abdominal Exam Abdominal: Present soft and normoactive bowel sounds; Absent tenderness *Routine Rectal Exam Rectal:: deferred *Routine Genitalia Exam Genitalia:: deferred *Routine Extremities Exam Extremities: Present edema (trace); Absent cyanosis or clubbing *Routine Skin Exam Skin: Present intact and warm; Absent rash *Routine Neurological Exam Neurological: Present alert, oriented X3, CN II-XII intact, normal reflexes, moving all extremities, vision grossly intact and normal speech; Absent sensory deficit, motor deficit, pronator drift, altered mental status or facial asymmetry Assessment and Plan *Assessment and plan (1) Left sided numbness: Status: Acute Category: Medical Code(s): R20.0 - Anesthesia of skin (2) Migraine: Status: Acute Category: Medical Code(s): G43.909 - Migraine, unspecified, not intractable, without status migrainosus (3) CHF due to valvular disease: Status: Acute Category: Medical Code(s): I50.9 - Heart failure, unspecified; I38 - Endocarditis, valve unspecified (4) Obesity: Status: Chronic Qualifiers: Body mass index: BMI 40.0-44.9 Obesity classification: adult class 3 (BMI >= 40) Obesity type: due to excess calories Serious obesity comorbidity presence: with serious comorbidity Qualified Code(s): E66.01 - Morbid (severe) obesity due to excess calories; Z68.41 - Body mass index (BMI) 40.0-44.9, adult Category: Medical Code(s): E66.9 - Obesity, unspecified (5) Hypothyroidism (acquired): Status: Acute Category: Medical Code(s): E03.9 - Hypothyroidism, unspecified (6) COPD (chronic obstructive pulmonary disease): Status: Chronic Qualifiers: COPD type: unspecified COPD Qualified Code(s): J44.9 - Chronic obstructive pulmonary disease, unspecified Category: Medical Code(s): J44.9 - Chronic obstructive pulmonary disease, unspecified (7) Hypertension: Status: Chronic Qualifiers: Hypertension type: essential hypertension Qualified Code(s): I10 - Essential (primary) hypertension Category: Medical Code(s): I10 - Essential (primary) hypertension (8) Diabetes: Status: Chronic Qualifiers: Diabetes mellitus complication status: with other specified complication 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 transplanted heart: [place] heart Qualified Code(s): I25.119 - Atherosclerotic heart disease of [place] coronary artery with unspecified angina pectoris Category: Medical Code(s): I25.10 - Atherosclerotic heart disease of [place] coronary artery without angina pectoris (11) Neuropathy: Status: Chronic Category: Medical Code(s): G62.9 - Polyneuropathy, unspecified Plan 73-year-old female with history of complex migraines and CVAs who presents with left-sided numbness in face arm and leg. CTA of head unremarkable for acute abnormality. Medicine consulted for admission and further management overnight. I agreed to admit. By the time the patient arrived to the floor however symptoms more or less resolved. Discussed obtaining MRI in the morning. Discus sed how she is already on goal-directed therapy and it would not change treatment significantly. Discussed reevaluation in the morning prior to obtaining the MRI. Discussed potential for getting MRI as an outpatient if patient remains neurologically intact in the morning. She is amenable after discussion. Will monitor overnight. Problems addressed as follows: Left-sided weakness TIA versus CVA versus complex migraine -Patient has had multiple episodes in the past that she reports. CT obtained in the ER with no acute findings consistent with stroke -Treated for migraine in the ER. Symptoms improving by the time she arrived to the floor. Numbness more or less resolved per her report. Sensation and motor neuroexam normal - Patient already on goal-directed therapy with aspirin 81 mg daily, Plavix 75 mg daily, and Crestor 20mg daily -Discussed benefit of MRI and diagnosis however would not change her management at this time. As her symptoms are more or less resolved, discussed obtaining MRI in the morning versus obtaining as an outpatient. Patient stated she was agreeable to either option. We will reevaluate in the morning. -Echo ordered to evaluate for ASD - Labs showed mild elevation of white count of 12, hemoglobin 11.7, kidney function and electrolytes relatively normal with BUN 31, creatinine 0.9, sodium 139, potassium 4.4, calcium 9.5. - CTA head showed no aneurysm or large vessel occlusion. - Repeat CBC, CMP, magnesium ordered for the morning UTI? Urinalysis shows significant white count with 4+ bacteria. Negative for nitrate and leuk esterase however. Sample was clean-catch. Denies any dysuria. Culture pending. In light of elevated WBC, will initiate ceftriaxone 1g daily for 48 hrs pending culture Diabetes: A1c 7.9. Resume home regimen with insulin glargine 35 units nightly. Sliding scale insulin low intensity with fingersticks ACHS. History of migraines. Concern for complex migraine with onset of headache and numbness along with improvement after receiving migraine cocktail. Initiate Ubrelvy 100 mg daily as needed Continue allopurinol 100 mg daily for gout Continue Prozac 60 mg daily for mood Continue pantoprazole 40 mg nightly for GERD Continue levothyroxine 125 mcg daily, TSH ordered for the morning Full code enoxaparin 40mg subcu daily diabetic diet
[2024-04-03 20:05] LABS: Hemoglobin A1C 7.9 % (4.0-6.0)
[2024-04-03] MEDS: PANTOPRAZOLE 40MG TABLET 40 MG PO (21:10)
[2024-04-03] MEDS: humaLOG 100 UNITS/ML 10ML VIAL (SSI) SUBCUT (21:10)
[2024-04-03] MEDS: ATORVASTATIN 40MG TABLET 40 MG PO (21:10)
[2024-04-03 21:43] LABS: Troponin I < 0.01 ng/ml (0.00-0.034)
[2024-04-04] VITALS: BP 98/52; PULSE 61; PULSE 70; RESP 17; TEMP 36.6; O2SAT 97
[2024-04-04] MEDS: CEFTRIAXONE SODIUM 1 GM in 0.9 % SODIUM CHLORIDE 50 ML IV (01:49)
[2024-04-04 03:49] VITALS: BP 124/58; PULSE 68; RESP 18; TEMP 36.6; O2SAT 96; BMI 40.0
[2024-04-04 04:00] VITALS: PULSE 60
[2024-04-04 05:34] LABS: POC Glucose,Bedside 135 (70-110)
[2024-04-04 06:01] LABS: POC Glucose,Bedside 162 (70-110)
--- NOTE | 2024-04-04 06:15 | CA_ITS ---
APPROVED REPORT EXAM: Comprehensive 2D, Doppler, and color-flow Echocardiogram Stroboroma Operator: Nidhi Suoza RT(R) Ht: 5 ft 1 in Wt: 213lbs BSA: 1.94 BP: 142/86 mmHg Indications: stroke symptoms (lt arm/face numbness), CAD, hx CABG, migraines, HTN 2D Dimensions Left Atrium 3.71 cm F: 2.7 - 3.8 LVEF ([place]'s) 62.30 % F: 54 - 74 LVOT 2.04 cm (M/F) 1.5-2.5 LV Volume 80.20 mL F: 46 - 106 LV Volume Index 41.3 mL/m2 F: 29 - 61 LA Volume 40.70 mL LA Volume Index 20.98 mL/m2 (M/F) 16-34 EF AP4 61.80 % EF AP2 60.0 % EF BP 62.3 % GL Strain -23.0 % M-Mode Dimensions RVDd 2.50 cm (0.9-2.6) LVDd 4.75 cm (3.5-5.7) Ao Diam 2.43 cm (2.0-3.7) LVDs 3.61 cm (3.5-5.7) IVSd 0.68 cm (0.6-1.1) PWd 0.98 cm (0.6-1.1) EF (Teich) 47.80% FS 24.00% EDV (Teich) 104.90 mL ESV (Teich) 54.80 mL LV Diastology E Decel Time 140 (160-240 msec) E/A Ratio 1.1 MED E' 6.3 (>= 7 cm/sec) E'/MED E' Ratio 19.22 (<= 14) LAT E' 6.9 (>= 10 cm/sec) E/LAT E' Ratio 17.55 (<= 14) Mitral Valve MV E Max Sagar. 121.0 (40-130 cm/s) MV A Velocity 108.0 (40-130 cm/s) E/A Ratio 1.12 MV Decel. Time 140 (160-240 ms) Left Ventricle The left ventricle is normal size. The left ventricular systolic function is normal. The left ventricular ejection fraction is within the normal range. There is increased LV wall thickness There is normal LV segmental wall motion. Transmitral Doppler flow pattern suggests impaired LV relaxation. LVEF is 55%. Right Ventricle The right ventricle is normal size. The right ventricular systolic function is normal. Atria Left atrium is mildly dilated. The right atrium size is normal. Color Doppler is indeterminate for presence of interatrial shunt. Aortic Valve The aortic valve is mildly thickened. There is no aortic valvular stenosis. Mild aortic regurgitation. Mitral Valve The mitral valve leaflets are mildly thickened. Mild mitral regurgitation. No evidence of mitral valve stenosis. Tricuspid Valve The tricuspid valve leaflets are thin and pliable. Trace tricuspid regurgitation. There is insufficient TR jet to estimate RVSP. Pulmonic Valve The pulmonary valve is normal in structure. Trace pulmonic regurgitation. Great Vessels The aortic root is normal in size. The ascending aorta is not well-visualized. IVC is normal in size and collapses >50% with inspiration. Pericardium There is no pericardial effusion. Other Information Study Quality: Fair Conclusion Normal biventricular systolic function. Mild LA dilation. Mild AI, mild MR. Color Doppler is indeterminate for presence of interatrial shunt. Electronically signed by : Trupti Helton MD 04/04/2024 12:50:29
[2024-04-04 07:07] LABS: Basophils % 0.3 % (0.1-2.0); Eosinophils # 0.2 K/mm3 (0.0-0.4); Eosinophils % 1.1 % (0.1-12.0); Hematocrit 35.3 % (37.0-47.0); Hemoglobin 11.4 g/dL (12.2-16.2); Lymphocytes # 2.9 K/mm3 (0.7-4.5); Lymphocytes % 21.6 % (10-50); Mean Corpuscular HGB Conc 32.3 g/dL (31.8-35.4); Mean Corpuscular Volume 92.9 fl (81-99); Mean Platelet Volume 11.5 fl (7.4-10.4); Monocytes # 0.5 K/mm3 (0.1-1.0); Monocytes % 3.9 % (1.7-9.3); Neutrophils # 9.6 K/mm3 (1.8-7.8); Neutrophils % 72.8 % (37.0-80.0); Platelet Count 354 K/mm3 (142-424); Red Cell Distribution Width 14.8 % (11.5-17.5); White Blood Count 13.3 K/mm3 (4.8-10.8)
[2024-04-04 07:20] LABS: Alanine Aminotransferase 16 U/L (12-78); Albumin Level 3.6 g/dl (3.5-5.0); Albumin/Globulin Ratio 1.2 (1.1-1.8); Alkaline Phosphatase 98 U/L (38-126); Anion Gap 11.3 mEq/L (5-15); Aspartate Amino Transferase 44 U/L (14-36); Bilirubin,Total 0.5 mg/dl (0.2-1.3); Blood Urea Nitrogen 37 mg/dl (7-17); Calcium 9.4 mg/dl (8.4-10.2); Carbon Dioxide 25 mmol/L (22.0-30.0); Chloride 108 mmol/L (98-107); Creatinine Clearance Estimated 80 mL/min (50-200); Estimated Glomerular Filt Rate 55 ml/min (>60); GFR (African American) 66 ML/MIN (>60); Globulin 2.9 g/dL (1.3-3.2); Glucose 126 mg/dl (74-100); Magnesium 2.4 mg/dl (1.6-2.3); Potassium 5.3 mmoL/L (3.5-5.1); Sodium 139 mmol/L (136-145); Total Protein,Serum 6.5 g/dl (6.3-8.2)
--- NOTE | 2024-04-04 07:32 | MR_ITS ---
FINAL REPORT TECHNIQUE: Multiplanar MR without contrast CLINICAL HISTORY: TIA/STROKE COMPARISON: Prior CT of head 04/03/2024 FINDINGS: Diffusion sequences show no signal abnormality to indicate acute infarct. A few scattered periventricular white matter signal changes are seen of doubtful significance. Mild generalized atrophy is present. No mass, hemorrhage or edema is seen. There are tiny subependymal nodules in the lateral ventricles measuring 2 mm or less. Major vascular flow voids are intact. IMPRESSION: No acute intracranial abnormality identified. Tiny subependymal nodules are present in the lateral ventricles, of doubtful clinical significance given their small size. Neoplasm is felt to be highly unlikely. Reviewed, Interpreted and Dictated by Mauricio Varghese MD Transcribed by Iliana Huerta Authenticated and [facility]
[2024-04-04 07:45] LABS: Thyroid Stimulating Hormone 1.73 uIU/mL (0.465-4.68)
[2024-04-04 08:00] VITALS: BP 139/62; PULSE 78; PULSE 80; RESP 20; TEMP 36.6; O2SAT 96
[2024-04-04] MEDS: LEVOTHYROXINE 125MCG (0.125MG) TAB 125 MCG PO (08:44)
[2024-04-04] MEDS: FLUOXETINE 20MG CAPSULE 60 MG PO (08:45)
[2024-04-04] MEDS: FUROSEMIDE 40 MG TABLET PO (08:45)
[2024-04-04] MEDS: ALLOPURINOL 100MG TABLET 100 MG PO (08:45)
[2024-04-04] MEDS: METOPROLOL SUCCINATE XL 50MG TABLET 50 MG PO (08:45)
[2024-04-04] MEDS: ASPIRIN EC 81MG TABLET 81 MG PO (08:45)
[2024-04-04] MEDS: CLOPIDOGREL 75MG TAB 75 MG PO (08:45)
[2024-04-04] MEDS: SPIRONOLACTONE 25MG TABLET 25 MG PO (08:45)
[2024-04-04] MEDS: ENOXAPARIN 40MG/0.4ML SYRINGE 40 MG SUBCUT (08:48)
--- NOTE | 2024-04-04 10:28 | HMH.PHAINT1 ---
Pharmacy Intervention Comments: VERIFIED MEDICATIONS WITH BOTH OUTPATIENT PHARMACIES, CONFIRMED MEDICATIONS WITH PATIENT.
[2024-04-04 12:00] VITALS: PULSE 70
[2024-04-04 12:13] LABS: POC Glucose,Bedside 170 (70-110)
[2024-04-04] MEDS: humaLOG 100 UNITS/ML 10ML VIAL (SSI) SUBCUT (12:20)
[2024-04-04] MEDS: ACETAMINOPHEN 325MG TAB 650 MG PO (12:24)
[2024-04-04] MEDS: UBROGEPANT 50MG TABLET 100 MG PO (12:28)
--- NOTE | 2024-04-04 14:47 | P.DS_ITS ---
General Admission date:: 04/03/24 HPI HPI HPI: Ms. Elam is a 73-year-old female who presented to the ER with complaint of left upper extremity and left facial numbness. Stroke alert activated on arrival. States she has been having migraines on and off and has had difficulty obtaining her migraine medication. Intermittently her migraines have had weakness and numbness. States she has a vessel in her brain that impacts her symptoms. Symptoms today similar to her migraine however she has also had at least 11 strokes in the past per her report. About 30 minutes prior to arrival, she began having numbness to her left face, left arm, left lower extremity. Also noted to have left-sided migraine not right sided per her report. Denies any change in vision, chest pain, shortness of breath, nausea or vomiting. No syncope. No confusion. Already on aspirin, Plavix, Crestor. Reports taking Ubrelvy but has been out because of insurance change within a year. Workup in the ER with imaging did not show acute stroke. Labs showed mild elevation of white count of 12, hemoglobin 11.7, kidney function and electrolytes relatively normal with BUN 31, creatinine 0.9, sodium 139, potassium 4.4, calcium 9.5. Diabetes above goal with A1c of 7.9 and glucose elevated at 163. CTA head showed no aneurysm or large vessel occlusion. Urinalysis shows significant white count with 4+ bacteria. Negative for nitrate and leuk esterase however. Sample was clean-catch. Denies any dysuria Full physical exam performed and significant for NIHSS 2 for left-sided facial numbness and left upper extremity numbness. No weakness. No abnormalities of cerebellar examination. Medicine admitted patient for evaluation overnight and consideration for MRI in the morning. Patient's symptoms not completely resolved by the time she left the ER but doing better by the time she got to the floor. Alert and oriented x 4. States she is convinced she had a stroke. stable on RA Hospital Course Hospital Course Hospital Course: Denisa Elam is a 73-year-old female with history of complex migraines and CVAs who presents with left-sided numbness in face arm and leg. CTA of head unremarkable for acute abnormality. Medicine consulted for admission and further management overnight. I agreed to admit. By the time the patient arrived to the floor however symptoms more or less resolved. #Left-sided weakness #Complex migraine vs TIA - Patient has had multiple episodes in the past that she reports. CT obtained in the ER with no acute findings consistent with stroke. CTA head showed no aneurysm or large vessel occlusion. - Treated for migraine in the ER. Symptoms improving by the time she arrived to the floor. Numbness more or less resolved per her report. Sensation and motor neuro exam normal. - Patient already on goal-directed therapy with aspirin 81 mg daily, Plavix 75 mg daily, and Crestor 20mg daily - ECHO did not show acute ischemia but did show tiny subependymal nodules are present in the lateral ventricles, of doubtful clinical significance given their small size. Neoplasm is felt to be highly unlikely. No focal neurological deficits. - ECHO was indeterminate for shunts. - Patient was referred to neurology for further evaluation and management. Will also follow-up with PCP within 1 week. #Abnormal UA - UC showed multiple organisms, patient denied symptoms. Diabetes: A1c 7.9. Resume home regimen with insulin glargine 35 units nightly. History of migraines. Concern for complex migraine with onset of headache and numbness along with improvement after receiving migraine cocktail. Initiate Ubrelvy 100 mg daily as needed Continue allopurinol 100 mg daily for gout Continue Prozac 60 mg daily for mood Continue pantoprazole 40 mg nightly for GERD Continue levothyroxine 125 mcg daily, TSH ordered for the morning Total time spent on discharge: 32 minutes on chart review, counseling, documentation, and direct care with patient. Exam Data for Last 24 hours Vital signs and Labs for Last 24 Hours: Temp Pulse Resp BP Pulse Ox O2 Del Method 98 F 70 20 139/62 96 Room Air 04/04/24 08:00 04/04/24 12:00 04/04/24 08:00 04/04/24 08:00 04/04/24 08:00 04/04/24 09:49 Laboratory Results - last 24 hr 04/03/24 14:37: WBC 12.1 H, RBC 3.88 L, Hgb 11.7 L, Hct 36.2 L, MCV 93.3, MCH 30.2, MCHC 32.3, RDW 14.7, Plt Count 340, MPV 10.8 H, Neut % (Auto) 70.5, Lymph % (Auto) 24.0, [place] % (Auto) 3.3, Eos % (Auto) 1.2, Baso % (Auto) 0.3, Neut # (Auto) 8.5 H, Lymph # (Auto) 2.9, [place] # (Auto) 0.4, Eos # (Auto) 0.1, Baso # (Auto) 0.0, PT 11.3, INR 1.01, APTT 26.8, Sodium 139, Potassium 4.4, Chloride 102, Carbon Dioxide 30, Anion Gap 11.4, BUN 31 H, Creatinine 0.90, Estimated Creat Clear 79, Estimated GFR 62, Est GFR ( Amer) 75, Glucose 163 H, Hemoglobin A1c 7.9 H, Calcium 9.5, Total Bilirubin 0.2, AST 32, ALT 18, Alkaline Phosphatase 141 H, Troponin I < 0.01, Total Protein 6.6, Albumin 3.8, Globulin 2.8, Albumin/Globulin Ratio 1.4, Triglycerides 200 H, Cholesterol 130 L, LDL C holesterol Direct 44.01 L, VLDL Cholesterol 40, HDL Cholesterol 28 L, Cholesterol/HDL Ratio 4.6 H, Plasma/Serum Alcohol < 10 04/03/24 15:07: Urine Color Yellow, Urine Appearance Clear, Urine pH 6.5, Ur Specific [place] 1.010, Urine Protein Negative, Urine Glucose (UA) Negative, Urine Ketones Negative, Urine Blood Negative, Urine Nitrate Negative, Urine Bilirubin Negative, Urine Urobilinogen 0.2, Ur Leukocyte Esterase Negative, Urine RBC 3-5, Urine WBC 10-20, Ur Squamous Epith Cells 5-10, Urine Bacteria 4+ 04/03/24 17:13: Troponin I < 0.01 04/03/24 20:17: POC Glucose 162 H 04/03/24 20:30: Troponin I < 0.01 04/04/24 05:27: POC Glucose 135 H 04/04/24 06:19: WBC 13.3 H, RBC 3.80 L, Hgb 11.4 L, Hct 35.3 L, MCV 92.9, MCH 30.0, MCHC 32.3, RDW 14.8, Plt Count 354, MPV 11.5 H, Neut % (Auto) 72.8, Lymph % (Auto) 21.6, [place] % (Auto) 3.9, Eos % (Auto) 1.1, Baso % (Auto) 0.3, Neut # (Auto) 9.6 H, Lymph # (Auto) 2.9, [place] # (Auto) 0.5, Eos # (Auto) 0.2, Baso # (Auto) 0.0, Sodium 139, Potassium 5.3 H D, Chloride 108 H, Carbon Dioxide 25, Anion Gap 11.3, BUN 37 H, Creatinine 1.00, Estimated Creat Clear 80, Estimated GFR 55 L, Est GFR ( Amer) 66, Glucose 126 H D, Calcium 9.4, Magnesium 2.4 H, Total Bilirubin 0.5, AST 44 H D, ALT 16, Alkaline Phosphatase 98, Total Protein 6.5, Albumin 3.6, Globulin 2.9, Albumin/Globulin Ratio 1.2, TSH 1.73 04/04/24 12:07: POC Glucose 170 H I & O for Last 24 hours: Intake & Output 04/01/24 04/02/24 04/03/24 04/04/24 23:59 23:59 23:59 23:59 Intake Total 350 / 350 Output Total 0 / 0 Balance 350 / 350 Weight 96.615 kg 98.628 kg Constitutional Constitutional: no acute distress *Routine HEENT Exam Head: Present normocephalic Eye: Present EOMI and PERRL ENT: Present mucous membranes moist *Routine Neck Exam Neck: Present supple; Absent lymphadenopathy *Routine Respiratory Exam Respiratory: Present CTA bilaterally *Routine Cardiovascular Exam Cardiovascular: Present RRR *Routine Abdominal Exam Abdominal: Present soft and normoactive bowel sounds; Absent tenderness *Routine Extremities Exam Extremities: Absent cyanosis, clubbing or edema *Routine Skin Exam Skin: Present warm; Absent rash *Routine Neurological Exam Neurological: Present alert and oriented X3 Results Data Completed and Pending Labs on day of discharge: Labs from last 24 hours 04/04/24 04/04/24 04/04/24 12:07 06:19 05:27 WBC 13.3 H RBC 3.80 L Hgb 11.4 L Hct 35.3 L MCV 92.9 MCH 30.0 MCHC 32.3 RDW 14.8 Plt Count 354 MPV 11.5 H Neut % (Auto) 72.8 Lymph % (Auto) 21.6 [place] % (Auto) 3.9 Eos % (Auto) 1.1 Baso % (Auto) 0.3 Neut # (Auto) 9.6 H Lymph # (Auto) 2.9 [place] # (Auto) 0.5 Eos # (Auto) 0.2 Baso # (Auto) 0.0 PT INR APTT Sodium 139 Potassium 5.3 H D Chloride 108 H Carbon Dioxide 25 Anion Gap 11.3 BUN 37 H Creatinine 1.00 Estimated Creat Clear 80 Estimated GFR 55 L Est GFR ( Amer) 66 Glucose 126 H D POC Glucose 170 H 135 H Hemoglobin A1c Calcium 9.4 Magnesium 2.4 H Total Bilirubin 0.5 AST 44 H D ALT 16 Alkaline Phosphatase 98 Troponin I Total Protein 6.5 Albumin 3.6 Globulin 2.9 Albumin/Globulin Ratio 1.2 Triglycerides Cholesterol LDL Cholesterol Direct VLDL Cholesterol HDL Cholesterol Cholesterol/HDL Ratio TSH 1.73 Urine Color Urine Appearance Urine pH Ur Specific [place] Urine Protein Urine Glucose (UA) Urine Ketones Urine Blood Urine Nitrate Urine Bilirubin Urine Urobilinogen Ur Leukocyte Esterase Urine RBC Urine WBC Ur Squamous Epith Cells Urine Bacteria Plasma/Serum Alcohol 04/03/24 04/03/24 04/03/24 20:30 20:17 17:13 WBC RBC Hgb Hct MCV MCH MCHC RDW Plt Count MPV Neut % (Auto) Lymph % (Auto) [place] % (Auto) Eos % (Auto) Baso % (Auto) Neut # (Auto) Lymph # (Auto) [place] # (Auto) Eos # (Auto) Baso # (Auto) PT INR APTT Sodium Potassium Chloride Carbon Dioxide Anion Gap BUN Creatinine Estimated Creat Clear Estimated GFR Est GFR ( Amer) Glucose POC Glucose 162 H Hemoglobin A1c Calcium Magnesium Total Bilirubin AST ALT Alkaline Phosphatase Troponin I < 0.01 < 0.01 Total Protein Albumin Globulin Albumin/Globulin Ratio Triglycerides Cholesterol LDL Cholesterol Direct VLDL Cholesterol HDL Cholesterol Cholesterol/HDL Ratio TSH Urine Color Urine Appearance Urine pH Ur Specific [place] Urine Protein Urine Glucose (UA) Urine Ketones Urine Blood Urine Nitrate Urine Bilirubin Urine Urobilinogen Ur Leukocyte Esterase Urine RBC Urine WBC Ur Squamous Epith Cells Urine Bacteria Plasma/Serum Alcohol 04/03/24 04/03/24 15:07 14:37 WBC 12.1 H RBC 3.88 L Hgb 11.7 L Hct 36.2 L MCV 93.3 MCH 30.2 MCHC 32.3 RDW 14.7 Plt Count 340 MPV 10.8 H Neut % (Auto) 70.5 Lymph % (Auto) 24.0 [place] % (Auto) 3.3 Eos % (Auto) 1.2 Baso % (Auto) 0.3 Neut # (Auto) 8.5 H Lymph # (Auto) 2.9 [place] # (Auto) 0.4 Eos # (Auto) 0.1 Baso # (Auto) 0.0 PT 11.3 INR 1.01 APTT 26.8 Sodium 139 Potassium 4.4 Chloride 102 Carbon Dioxide 30 Anion Gap 11.4 BUN 31 H Creatinine 0.90 Estimated Creat Clear 79 Estimated GFR 62 Est GFR ( Amer) 75 Glucose 163 H POC Glucose Hemoglobin A1c 7.9 H Calcium 9.5 Magnesium Total Bilirubin 0.2 AST 32 ALT 18 Alkaline Phosphatase 141 H Troponin I < 0.01 Total Protein 6.6 Albumin 3.8 Globulin 2.8 Albumin/Globulin Ratio 1.4 Triglycerides 200 H Cholesterol 130 L LDL Cholesterol Direct 44.01 L VLDL Cholesterol 40 HDL Cholesterol 28 L Cholesterol/HDL Ratio 4.6 H TSH Urine Color Yellow Urine Appearance Clear Urine pH 6.5 Ur Specific [place] 1.010 Urine Protein Negative Urine Glucose (UA) Negative Urine Ketones Negative Urine Blood Negative Urine Nitrate Negative Urine Bilirubin Negative Urine Urobilinogen 0.2 Ur Leukocyte Esterase Negative Urine RBC 3-5 Urine WBC 10-20 Ur Squamous Epith Cells 5-10 Urine Bacteria 4+ Plasma/Serum Alcohol < 10 DS: Diagnosis Discharge Diagnosis (1) Left sided numbness: Status: Acute Code(s): R20.0 - Anesthesia of skin (2) Migraine: Status: Acute Code(s): G43.909 - Migraine, unspecified, not intractable, without status migrainosus (3) CHF due to valvular disease: Status: Acute Code(s): I50.9 - Heart failure, unspecified; I38 - Endocarditis, valve unspecified (4) Obesity: Status: Chronic Code(s): E66.9 - Obesity, unspecified Qualifiers: Body mass index: BMI 40.0-44.9 Obesity classification: adult class 3 (BMI >= 40) Obesity type: due to excess calories Serious obesity comorbidity presence: with serious comorbidity Qualified Code(s): E66.01 - Morbid (severe) obesity due to excess calories; Z68.41 - Body mass index (BMI) 40.0-44.9, adult (5) Hypothyroidism (acquired): Status: Acute Code(s): E03.9 - Hypothyroidism, unspecified (6) COPD (chronic obstructive pulmonary disease): Status: Chronic Code(s): J44.9 - Chronic obstructive pulmonary disease, unspecified Qualifiers: COPD type: unspecified COPD Qualified Code(s): J44.9 - Chronic obstructive pulmonary disease, unspecified (7) Hypertension: Status: Chronic Code(s): I10 - Essential (primary) hypertension Qualifiers: Hypertension type: essential hypertension Qualified Code(s): I10 - Essential (primary) hypertension (8) Diabetes: Status: Chronic Code(s): E11.9 - Type 2 diabetes mellitus without complications Qualifiers: Diabetes mellitus complication status: with other specified complication Diabetes mellitus intermediate accountant insulin use: unspecified residential insulin use status Diabetes mellitus type: type 2 Qualified Code(s): E11.69 - Type 2 diabetes mellitus with other specified complication (9) S/P CABG (coronary artery bypass graft): Status: Acute Code(s): Z95.1 - Presence of aortocoronary bypass graft Problem details: 2004 () CAD (coronary artery disease): Status: Chronic Code(s): I25.10 - Atherosclerotic heart disease of [place] coronary artery without angina pectoris Qualifiers: Associated angina: with unspecified angina Coronary Disease-Associated Artery/Lesion type: [place] artery [place] vs. transplanted heart: [place] heart Qualified Code(s): I25.119 - Atherosclerotic heart disease of [place] coronary artery with unspecified angina pectoris (11) Neuropathy: Status: Chronic Code(s): G62.9 - Polyneuropathy, unspecified Meds Home Medications and Allergies Home Medications ?Medication ?Instructions ?Recorded ?Confirmed ?Type allopurinol 100 mg tablet 1 tab PO BID 10/04/21 04/04/24 History clopidogrel 75 mg tablet 75 mg PO DAILY 10/04/21 04/04/24 History isosorbide mononitrate 60 mg 60 mg PO DAILY 10/04/21 04/04/24 History tablet,extended release 24 hr levothyroxine 125 mcg tablet 125 mcg PO DAILY 10/04/21 04/04/24 History metoprolol succinate 50 mg 50 mg PO DAILY 10/04/21 04/04/24 History tablet,extended release 24 hr omeprazole 40 mg capsule,delayed 40 mg PO DAILY 10/04/21 04/04/24 History release spironolactone 25 mg tablet 25 mg PO DAILY 10/04/21 04/04/24 History rosuvastatin 20 mg tablet 20 mg PO DAILY 02/27/22 04/04/24 History albuterol sulfate 90 mcg/actuation 2 puff inhalation Q6HP PRN 08/15/22 04/04/24 History aerosol inhaler shortness of air prazosin 2 mg capsule 2 mg PO DAILY 08/15/22 04/04/24 History epinephrine 0.3 mg/0.3 mL 0.3 mg (0.3 mL) IM Q10M PRN 10/27/22 04/04/24 Rx injection, auto-injector (EpiPen anaphylaxis #2 ea 2-Arnold) ipratropium 0.5 mg-albuterol 3 mg 3 ml inhalation Q4H PRN wheezing 04/12/23 04/04/24 Rx (2.5 mg base)/3 mL nebulization #180 mL soln aspirin 81 mg tablet,delayed 81 mg PO MOWEFR 04/04/24 04/04/24 History release fluoxetine 20 mg capsule 60 mg PO DAILY 04/04/24 04/04/24 History furosemide 40 mg tablet 40 mg PO AM 30 days #30 tabs 04/04/24 04/04/24 Rx insulin regular human 100 unit/mL 8 unit SQ TID 04/04/24 04/04/24 History injection solution (Novolin R Regular U-100 Insulin) linaclotide 72 mcg capsule 72 mcg PO DAILY 04/04/24 04/04/24 History (Linzess) montelukast 10 mg tablet 10 mg PO DAILY 04/04/24 04/04/24 History rimegepant 75 mg disintegrating 75 mg PO QODHS 04/04/24 04/04/24 History tablet (Nurtec ODT) New Prescriptions to Start Prescriptions: Allergies Allergy/AdvReac Type Severity Reaction Status Date / Time morphine (MORPHINE) Allergy Unknown Verified 07/06/22 12:09 Discharge Plan Disposition Patient Disposition: Home, Self-Care Condition: Good Follow up Plan Follow up with: Indu Schrader APRN [Primary Care Provider] - 04/12/24 9:00 am Lo Muro MD [Staff Physician] - 07/17/24 11:00 am Prescriptions/Medication Reconciliation: Continued metoprolol succinate 50 MG tablet extended release 24 hr 50 mg PO DAILY clopidogrel 75 MG tablet 75 mg PO DAILY allopurinol 100 MG tablet 1 tab PO BID omeprazole 40 MG capsule,delayed release(DR/EC) 40 mg PO DAILY spironolactone 25 MG tablet 25 mg PO DAILY isosorbide mononitrate 60 MG tablet extended release 24 hr 60 mg PO DAILY levothyroxine 125 MCG tablet 125 mcg PO DAILY rosuvastatin 20 mg tablet 20 mg PO DAILY ipratropium-albuterol 0.5 mg-3 mg(2.5 mg base)/3 mL solution for nebulization 3 ml inhalation Q4H PRN (Reason: wheezing) Qty: 180 2RF albuterol sulfate 90 mcg/actuation HFA aerosol inhaler 2 puff INHALATION Q6HP PRN (Reason: shortness of air ) prazosin 2 mg capsule 2 mg PO DAILY epinephrine [EpiPen 2-Arnold] 0.3 mg/0.3 mL auto-injector 0.3 mg IM Q10M PRN (Reason: anaphylaxis) Qty: 2 0RF Rx Instructions: for 2 doses fluoxetine 20 mg capsule 60 mg PO DAILY Linzess 72 mcg capsule 72 mcg PO DAILY Nurtec ODT 75 mg tablet,disintegrating 75 mg PO QODHS Patient Comments: DISSOLVE 1 TABLET BY MOUTH EVERY OTHER DAY aspirin 81 mg Tablet,Delayed Release (Dr/Ec) 81 mg PO MOWEFR Novolin R Regular U100 Insulin 100 unit/mL Solution 8 unit SQ TID montelukast 10 mg tablet 10 mg PO DAILY furosemide 40 MG tablet 40 mg PO AM 30 Days Qty: 30 0RF Discontinued methocarbamol 750 MG tablet 1 tab PO TID furosemide 20 mg tablet 20 mg PO PM Problem Reconciliation Problems Reviewed?: Yes Patient Discharge Instructions Patient Instructions: DI for Migraine, DI for Numbness/Tingling Print Language: Arabic Providers Primary Care Provider: Indu Schrader Admit Provider: Tiago Duffy Attending Provider: Tiago Duffy
--- NOTE | 2024-04-04 15:13 | HMH.PHAINT1 ---
Pharmacy Intervention Comments: DISCUSSED CONTINUED AND STOPPED MEDICATIONS WITH PATIENT. PATIENT VERBALIZED UNDERSTANDING, HOWEVER SHE IS RELUCTANT TO STOP TAKING THE METHOCARBAMOL AND WISHES TO SPEAK WITH DOCTOR.
--- NOTE | 2024-04-05 10:21 | SW/DCPLANNER ---
Spoke with patients plant health care technician. Patients caregiver stated that she is still having migraines. Patients plant health care technician stated that she is aware of the upcoming appointments. Patients caregiver asked if there is any nuerologist here at the hospital and told the caregiver that its Dr Coronel. Patients caregiver stated that she doesnt have any concerns or questions at this time. Winsome Jason
== END 2024-04-04 15:40 | disposition home or self-care (01) ==
LOC: ER 17:01 → 2ND 17:41
PROVIDERS: Emergency Medicine; Admitting Provider Internal Medicine Adolescent Medicine; Emergency Provider Emergency Medicine; PCP Nurse Practitioner Family; Visit Provider Internal Medicine Adolescent Medicine
DX: R20.0 Anesthesia of skin (principal); R29.702 NIHSS score 2; G43.919 Migraine, unspecified, intractable, without status migrainosus; E66.9 Obesity, unspecified; E11.40 Type 2 diabetes mellitus with diabetic neuropathy, unspecified; E03.9 Hypothyroidism, unspecified; Z85.3 Personal history of malignant neoplasm of breast; Z85.038 Personal history of other malignant neoplasm of large intestine; Z86.73 Personal history of transient ischemic attack (TIA), and cerebral infarction without residual deficits; Z79.82 Long term (current) use of aspirin; Z79.51 Long term (current) use of inhaled steroids; Z79.01 Long term (current) use of anticoagulants; Z79.899 Other long term (current) drug therapy; Z68.41 Body mass index [BMI] 40.0-44.9, adult; Z95.1 Presence of aortocoronary bypass graft; Z79.4 Long term (current) use of insulin; Z79.02 Long term (current) use of antithrombotics/antiplatelets
CPT/HCPCS: 36415; 70450; 70496; 70498; 70551; 80053; 80061; 80320; 81001; 82962; 83036; 83735; 84443; 84484; 85025; 85610; 85730; 87086; 93005; 93306; 99291; G0378; J0131; J0696; J0780; J1200; J1650; J1885; J3475; Q9967

== ENCOUNTER 2024-04-25 09:33 | Outpatient (CLI) | payer MEDICARE, MEDICAID, SELFPAY ==
--- NOTE | 2024-04-25 09:38 | XR_ITS ---
FINAL REPORT CLINICAL HISTORY: wrist pain FINDINGS: RIGHT WRIST Three views demonstrate no acute fracture or dislocation. The visualized joint spaces are normally aligned. The soft tissues are unremarkable. IMPRESSION: No acute bony abnormality. Reviewed, Interpreted and Dictated by Raymundo Lambert MD Transcribed by Evelyn Barrientos Authenticated and [facility]
[2024-04-25 11:16] LABS: C-Reactive Protein 28.3 mg/L (0-4)
[2024-04-25 11:28] LABS: Erythrocyte Sedimentation Rate 22 mm/hr (0-30)
[2024-04-26 12:10] LABS: Anti-Centromere B Antibodies <0.2 AI (0.0-0.9); Anti-DNA (DS) Ab Qn <1 IU/mL (0-9); Anti-Jo-1 <0.2 AI (0.0-0.9); Anti-Smith Antibody <0.2 AI (0.0-0.9); Antichromatin Antibodies <0.2 AI (0.0-0.9); Antiscleroderma-70 Antibodies <0.2 AI (0.0-0.9); RNP Antibodies 0.2 AI (0.0-0.9); Sjogren's Anti-SS-A <0.2 AI (0.0-0.9); Sjogren's Anti-SS-B <0.2 AI (0.0-0.9)
== END 2024-04-25 23:59 | disposition home or self-care (01) ==
PROVIDERS: PCP Nurse Practitioner Family; Visit Provider Specialist
DX: M25.531 Pain in right wrist (principal); G43.809 Other migraine, not intractable, without status migrainosus; G47.33 Obstructive sleep apnea (adult) (pediatric); R90.89 Other abnormal findings on diagnostic imaging of central nervous system
CPT/HCPCS: 36415; 73110; 85651; 86140; 86225; 86235

== ENCOUNTER 2024-05-18 12:41 | Outpatient (CLI) | payer MEDICARE, MEDICAID, SELFPAY ==
--- NOTE | 2024-05-18 12:42 | MR_ITS ---
FINAL REPORT TECHNIQUE: Multiplanar MR without contrast. CLINICAL HISTORY: Rt wrist pain, mostly located on the thumb side of the wrist COMPARISON: None FINDINGS: There is significant motion artifact. The osseous structures have an unremarkable appearance. Specifically no evidence of fracture or bone contusion is present. There are moderate degenerative changes of the first carpometacarpal joint. Mild degenerative changes are noted within the carpus. Carpal tunnel is unremarkable. The TFCC is intact. Visualized tendons are unremarkable. Major ligaments are intact. 12 mm ganglion cyst along the radial styloid located between the flexor pollicis longus and abductor pollicis longus tendons. There is a tiny ganglion cyst along the ulnar styloid process measuring 5 mm. IMPRESSION: No acute osseous abnormality. 12 mm ganglion cyst along the volar radial styloid. No tendon abnormality Reviewed, Interpreted and Dictated by Mauricio Varghese MD Transcribed by Corinna Thomas Authenticated and . [facility]
== END 2024-05-18 23:59 | disposition home or self-care (01) ==
LOC: RAD 12:42
PROVIDERS: PCP Nurse Practitioner Family; Visit Provider Physician Assistant
DX: M67.431 Ganglion, right wrist (principal)
CPT/HCPCS: 73221; 76000

== ENCOUNTER 2024-07-11 01:29 | Emergency (ER) | payer MEDICARE, MEDICAID, SELFPAY ==
[2024-07-11 01:23] VITALS: BP 142/86; PULSE 85; RESP 20; TEMP 36.5; O2SAT 96; BMI 29.2
[2024-07-11 01:29] LABS: POC Glucose,Bedside 144 (70-110)
[2024-07-11 01:30] VITALS: BP 168/84; PULSE 79; O2SAT 96
--- NOTE | 2024-07-11 01:32 | XR_ITS ---
PROCEDURE INFORMATION: Exam: XR Chest Exam date and time: 07/11/2024 1:44 AM Age: 73 years old Clinical indication: Other: Hypoglycemia TECHNIQUE: Imaging protocol: Radiologic exam of the chest. Views: 1 view. COMPARISON: CR XR CHEST PORTABLE 09/21/2023 5:22 PM FINDINGS: Lungs: Unremarkable. No consolidation. Pleural spaces: Unremarkable. No pleural effusion. No pneumothorax. Heart/Mediastinum: Unremarkable. No cardiomegaly. Bones/joints: Unremarkable. Postsurgical change median sternotomy. IMPRESSION: No acute findings.
--- NOTE | 2024-07-11 01:34 | PC.NURSE ---
Patient states that she feels like her sugar is dropping. FSBS 184 at this time. Patient diaphoretic in bed. Alert and oriented x4.
[2024-07-11 01:40] LABS: Basophils # 0.1 K/mm3 (0-0.2); Basophils % 0.4 % (0.1-2.0); Eosinophils # 0.2 Kmm3 (0.0-0.4); Eosinophils % 1.1 % (0.1-12.0); Hematocrit 37.9 % (37.0-47.0); Hemoglobin 12.3 g/dL (12.2-16.2); Lymphocytes # 8.1 K/mm3 (0.7-4.5); Lymphocytes % 42.2 % (10-50); Mean Corpuscular HGB Conc 32.5 g/dL (31.8-35.4); Mean Corpuscular Volume 92.4 fl (81-99); Monocytes # 0.7 K/mm3 (0.1-1.0); Monocytes % 3.5 % (1.7-9.3); Neutrophils % 52.3 % (37.0-80.0); Nucleated Red Blood Cells # 0 10^3/uL; Nucleated Red Blood Cells % 0 %; Platelet Count 378 K/mm3 (142-424); Red Cell Distribution Width 15.2 % (11.5-17.5); Red Cell Distribution Width-SD 51.8 fL; White Blood Count 19.2 K/mm3 (4.8-10.8)
[2024-07-11 01:41] LABS: VBG Base Excess -1.2 mmol/L (-2.4-2.3); VBG HCO3 23.1 mmol/L (23-30); VBG Oxygen Saturation 89.3 % (50-70); VBG PCO2 35.9 mmol/L (35-51); VBG PH 7.43 mmol/L (7.31-7.41); VBG PO2 53.3 mmol/L (28-40); VBG Total CO2 24.2 mmol/L (23-27)
[2024-07-11 01:42] LABS: Lactate Venous 3.8 mmol/L (0.4-2.0)
--- NOTE | 2024-07-11 01:42 | ECG_ITS ---
APPROVED REPORT Exam: Resting ECG HR:70 bpm ECG Measurements Heart Rate 70 AXES FL 164 P 72 QRSd 101 QRS 24 QT 418 T 62 QTc 440 Conclusion SINUS RHYTHM NORMAL ECG UNCONFIRMED REPORT Electronically signed by : HUA ADAMS, 07/13/2024 06:08:34
[2024-07-11 01:45] LABS: MANUAL DIFFERENTIAL MANUAL DIFFERENTIAL (MANUAL DIFF)
[2024-07-11 01:47] LABS: Coronavirus 19, PCR Not Detected (NotDetected); Influenza A, PCR Not Detected (NotDetected); Influenza B, PCR Not Detected (NotDetected)
[2024-07-11 01:51] LABS: Alanine Aminotransferase 21 U/L (12-78); Albumin Level 3.8 g/dl (3.5-5.0); Albumin/Globulin Ratio 1.1 (1.1-1.8); Alkaline Phosphatase 126 U/L (38-126); Anion Gap 12.5 mEq/L (5-15); Aspartate Amino Transferase 28 U/L (14-36); Bilirubin,Total 0.3 mg/dl (0.2-1.3); Blood Urea Nitrogen 23 mg/dl (7-17); Calcium 9.7 mg/dl (8.4-10.2); Carbon Dioxide 26 mmol/L (22.0-30.0); Chloride 107 mmol/L (98-107); Creatinine Clearance Estimated 63 mL/min (50-200); Estimated Glomerular Filt Rate 55 ml/min (>60); GFR (African American) 66 ML/MIN (>60); Globulin 3.5 g/dL (1.3-3.2); Glucose 138 mg/dl (74-100); Magnesium 1.8 mg/dl (1.6-2.3); Potassium 3.5 mmoL/L (3.5-5.1); Sodium 142 mmol/L (136-145); Total Protein,Serum 7.3 g/dl (6.3-8.2)
[2024-07-11 02:08] LABS: T4 (Thyroxine) 8.1 ug/dl (5.53-11.0)
[2024-07-11 02:12] LABS: Lymphocytes % 55 % (10-50); Neutrophils % 45 % (42-76); Total Cells Counted 100
[2024-07-11 02:13] LABS: Platelet Estimate Normal; Stomatocytes 1+
[2024-07-11 02:21] LABS: Thyroid Stimulating Hormone 3.97 uIU/mL (0.465-4.68)
[2024-07-11 02:23] LABS: Microscopic, Urine URINE MICROSCOPIC (MICROSCOPIC)
[2024-07-11 02:29] LABS: Appearance,Urine CLEAR (Clear); Bilirubin,Urine Negative (Negative); Blood, Urine Negative (Negative); Color,Urine YELLOW (Yellow); Glucose,Urine (UA) Negative (Negative); Ketones,Urine Negative (Negative); Leukocyte Esterase,Urine Negative (Negative); Nitrate,Urine Negative (Negative); Protein,Urine Negative (Negative); Specific Gravity, Urine 1.015 (1.005-1.030); Urobilinogen,Urine 0.2 EU/dl (0.2)
--- NOTE | 2024-07-11 02:32 | HMH.EDGENADL ---
Discharge Plan Disposition Patient Disposition: Home, Self-Care Prescriptions Prescriptions: No Action Ubrelvy 50 mg tablet 100 mg PO ONCE Patient Comments: TAKE 2 TABLETS BY MOUTH ONCE MAY REPEAT DOSE ONCE AFTER 2 HOURS IF NEEDED DO NOT EXCEED 200 MG IN 24 HOURS acetaminophen [Tylenol Extra Strength] 500 mg tablet 500 mg PO Q6H PRN Nurtec ODT 75 mg tablet,disintegrating 75 mg PO QODHS Qty: 16 11RF metoprolol succinate 50 MG tablet extended release 24 hr 50 mg PO DAILY clopidogrel 75 MG tablet 75 mg PO DAILY allopurinol 100 MG tablet 1 tab PO BID omeprazole 40 MG capsule,delayed release(DR/EC) 40 mg PO DAILY spironolactone 25 MG tablet 25 mg PO DAILY isosorbide mononitrate 60 MG tablet extended release 24 hr 60 mg PO DAILY levothyroxine 125 MCG tablet 125 mcg PO DAILY rosuvastatin 20 mg tablet 20 mg PO DAILY ipratropium-albuterol 0.5 mg-3 mg(2.5 mg base)/3 mL solution for nebulization 3 ml inhalation Q4H PRN (Reason: wheezing) Qty: 180 2RF albuterol sulfate 90 mcg/actuation HFA aerosol inhaler 2 puff INHALATION Q6HP PRN (Reason: shortness of air ) prazosin 2 mg capsule 2 mg PO DAILY epinephrine [EpiPen 2-Arnold] 0.3 mg/0.3 mL auto-injector 0.3 mg IM Q10M PRN (Reason: anaphylaxis) Qty: 2 0RF Rx Instructions: for 2 doses fluoxetine 20 mg capsule 60 mg PO DAILY Linzess 72 mcg capsule 72 mcg PO DAILY aspirin 81 mg Tablet,Delayed Release (Dr/Ec) 81 mg PO MOWEFR Novolin R Regular U100 Insulin 100 unit/mL Solution 8 unit SQ TID montelukast 10 mg tablet 10 mg PO DAILY furosemide 40 MG tablet 40 mg PO AM 30 Days Qty: 30 0RF Referrals Follow up/Referrals: Provider,Referral, MD [Primary Care Provider] - See instructions Activity Restrictions/Add. Instructions Additional Instructions/Restrictions: Please follow-up with your primary care provider. Please return to the emergency department if you develop any new or worsening symptoms or become concerned for your health. Clinical Impressions Clinical Impression: Hypoglycemia, Leukocytosis Instructions Patient Instructions: DI for Hyperglycemia -- Adult Print Language Print Language: Kazakh Discharge ED Provider: [place],Raffy General Adult HPI General Chief complaint: Hyper/Hypoglycemia Stated complaint: hypoglycemia Time Seen by Provider: 07/11/24 01:30 Mode of Arrival: EMS Source of Information: Patient Description of Symptoms (Recalled from ER Triage Doc. by RN): Pt states she has had trouble with hypoglycemia for past week and a half History of Present Illness HPI narrative: 73-year-old female with history of diabetes, heart failure, COPD, coronary artery disease status post CABG, obesity presents for hypoglycemia. She reports that she has been having trouble with her sugar being more erratic over the last week or so, reports it dropped a couple times a day. Patient presented via EMS, they gave her glucagon. Her blood sugar was initially in the 50s rhythm, came to the 90s and then to the 140s. Patient reports that she is stable on her home insulin regimen with both long-acting and short acting insulin. She denies any fever, cough, chest pain abdominal pain shortness of breath or urinary symptoms. Related Data Home Medications ?Medication ?Instructions ?Recorded ?Confirmed allopurinol 100 mg tablet 1 tab PO BID 10/04/21 05/21/24 clopidogrel 75 mg tablet 75 mg PO DAILY 10/04/21 05/21/24 isosorbide mononitrate 60 mg 60 mg PO DAILY 10/04/21 05/21/24 tablet,extended release 24 hr levothyroxine 125 mcg tablet 125 mcg PO DAILY 10/04/21 05/21/24 metoprolol succinate 50 mg 50 mg PO DAILY 10/04/21 05/21/24 tablet,extended release 24 hr omeprazole 40 mg capsule,delayed 40 mg PO DAILY 10/04/21 05/21/24 release spironolactone 25 mg tablet 25 mg PO DAILY 10/04/21 05/21/24 rosuvastatin 20 mg tablet 20 mg PO DAILY 02/27/22 05/21/24 albuterol sulfate 90 mcg/actuation 2 puff inhalation Q6HP PRN 08/15/22 05/21/24 aerosol inhaler shortness of air prazosin 2 mg capsule 2 mg PO DAILY 08/15/22 05/21/24 aspirin 81 mg tablet,delayed 81 mg PO MOWEFR 04/04/24 05/21/24 release fluoxetine 20 mg capsule 60 mg PO DAILY 04/04/24 05/21/24 insulin regular human 100 unit/mL 8 unit SQ TID 04/04/24 05/21/24 injection solution (Novolin R Regular U-100 Insulin) linaclotide 72 mcg capsule 72 mcg PO DAILY 04/04/24 05/21/24 (Linzess) montelukast 10 mg tablet 10 mg PO DAILY 04/04/24 05/21/24 acetaminophen 500 mg tablet 500 mg PO Q6H PRN 04/24/24 05/21/24 (Tylenol Extra Strength) ubrogepant 50 mg tablet (Ubrelvy) 100 mg PO ONCE 04/24/24 05/21/24 Previous Rx's ?Medication ?Instructions ?Recorded epinephrine 0.3 mg/0.3 mL 0.3 mg (0.3 mL) IM Q10M PRN 10/27/22 injection, auto-injector (EpiPen anaphylaxis #2 ea 2-Arnold) ipratropium 0.5 mg-albuterol 3 mg 3 ml inhalation Q4H PRN wheezing 04/12/23 (2.5 mg base)/3 mL nebulization #180 mL soln furosemide 40 mg tablet 40 mg PO AM 30 days #30 tabs 04/04/24 rimegepant 75 mg disintegrating 75 mg PO QODHS Migraine #16 tabs 04/24/24 tablet (Nurtec ODT) Allergies Allergy/AdvReac Type Severity Reaction Status Date / Time morphine (MORPHINE) Allergy Unknown Verified 05/21/24 13:09 [facility] Disclaimer: The information contained in this section may have been updated after the patient was seen, as this information can be updated by other users. Medical History (Updated 07/11/24 @ 04:57 by Raffy Bolanos MD) Episodic migraine Urinary tract infection Leukocytosis COPD exacerbation Abdominal pain UTI (urinary tract infection) Anaphylaxis Acute hypokalemia Enteritis due to Rotavirus Encounter for pre-operative cardiovascular clearance Nausea & vomiting Incisional hernia Vaso-vagal reaction Abdominal cramping Acute constipation Left wrist sprain Contusion of hand, left COVID-19 Cellulitis of second toe, right Fracture of second toe, right, closed Acute exacerbation of chronic obstructive airways disease Migraine Ulnar neuropathy Post-COVID chronic neurologic symptoms Vomiting and diarrhea Leukocytosis Withdrawal complaint Anxiety state Gastroenteritis UTI (urinary tract infection) Hyperglycemia Neuropathy History of gestational diabetes Edema of lower extremity Dizziness Mitral regurgitation Obesity Elevated brain natriuretic peptide (BNP) level Renal insufficiency Chest pain Heart disease Colon cancer Breast cancer Gallbladder & bile duct stone with obstruction Hiatal hernia Dyspnea Obesity (BMI 30-39.9) Neuropathy Surgical History Hx of exploratory laparotomy Hx of left mastectomy Hx of breast lump removal Hx of hernia repair History of cholecystectomy H/O: H/O heart bypass surgery Family History Mother Diabetes Coronary artery disease Hyperlipidemia Cancer, Onset Age: 69 kidney, larynx Father Diabetes Coronary artery disease Diverticula of colon Hyperlipidemia Cancer, Onset Age: 67 lymphoma Hypertension Other Heart attack Kidney disease Social History Smoking Status: Never smoker alcohol intake: former substance use type: denies use current occupational status: retired Travel in the last 8 weeks: None household members: none housing: apartment marital status: number of children: 3 education level: master's degree do you feel safe at home: Yes victim of physical abuse: No victim of emotional abuse: No victim of sexual abuse: No would you like helpful sources: No Other Medical History Have you received the Flu Vaccine for this season: No Have you received the Pneumonia Vaccine: Yes ROS Obtained: Yes All systems reviewed & no additional complaints except as documented Physical Exam General General appearance: alert and anxious (Mildly diaphoretic) Head Head exam: atraumatic and normocephalic Eye Eye exam: Present normal appearance, PERRL and EOMI ENT ENT exam: Present normal oropharynx and normal external ear exam Neck Neck exam: Present normal inspection and full ROM Chest Chest inspection: Present normal inspection and symmetric chest wall rise; Absent tenderness Respiratory Respiratory exam: Present normal lung sounds bilaterally; Absent respiratory distress Cardiovascular Cardiovascular exam: Present regular rate and normal rhythm Abdominal Exam Abdominal exam: Present soft; Absent distention, tenderness or guarding Extremities Exam Extremities exam: Present normal inspection and edema (Minimal); Absent joint swelling Back Exam Back exam: Present normal inspection; Absent tenderness Neurological Exam Neurological exam: Present alert and oriented X3; Absent motor sensory deficit Psychiatric Psychiatric exam: Present normal affect and normal mood Skin Skin exam: Present warm, dry and normal color Lymphatic Lymphatic Findings: no adenopathy Medical Decision Making Medical Records Medical records reviewed: Yes I reviewed the patient's medical records. Screening: Per USPSTF and CDC recommendations, given the prevalence of disease in our region, it is our hospital?s policy to screen for HIV and viral Hepatitis for all patients aged 18 and over and those with ongoing risk factors. Faraz Inquiry Pt receiving controlled substance: No Faraz was queried for this patient: No Vital Signs: 07/11/24 01:23 07/11/24 01:30 07/11/24 03:30 Temperature 97.7 F 97.9 F Temperature Source Oral Oral Pulse Rate 79 63 Pulse Rate [Right Brachial] 85 Respiratory Rate 20 17 Blood Pressure 168/84 H 145/65 H Blood Pressure [Right Arm] 142/86 H Blood Pressure Mean 112 Blood Pressure Mean [Right Arm] 104 Blood Pressure Source Automatic Cuff Blood Pressure Source [Right Arm] Automatic Cuff Blood Pressure Position Supine Blood Pressure Position [Right Arm] Supine 02 Sat by Pulse Oximetry 96 96 Oxygen Delivery Method Room Air Room Air Lab Data Lab results reviewed: Yes I reviewed the patient's lab results. Lab Results 07/11/24 01:22: POC Glucose 144 H 07/11/24 01:30: WBC 19.2 H, RBC 4.10 L, Hgb 12.3, Hct 37.9, MCV 92.4, MCH 30.0, MCHC 32.5, RDW 15.2, Plt Count 378, MPV 11.0 H, Neut % (Auto) 52.3, Lymph % (Auto) 42.2, [place] % (Auto) 3.5, Eos % (Auto) 1.1, Baso % (Auto) 0.4, Neut # (Auto) 10.0 H, Lymph # (Auto) 8.1 H, Irwin # (Auto) 0.7, Eos # (Auto) 0.2, Baso # (Auto) 0.1, Total Counted 100, Neutrophils % (Manual) 45, Lymphocytes % (Manual) 55 H, Platelet Estimate Normal, Stomatocytes 1+, Sodium 142, Potassium 3.5, Chloride 107, Carbon Dioxide 26, Anion Gap 12.5, BUN 23 H, Creatinine 1.00, Estimated Creat Clear 63, Estimated GFR 55 L, Est GFR ( Amer) 66, Glucose 138 H, Calcium 9.7, Magnesium 1.8, Total Bilirubin 0.3, AST 28, ALT 21, Alkaline Phosphatase 126, Troponin I < 0.01, NT-Pro-B Natriuret Pep 808 H, Total Protein 7.3, Albumin 3.8, Globulin 3.5 H, Albumin/Globulin Ratio 1.1, TSH 3.97, Thyroxine (T4) 8.1 07/11/24 01:33: VBG pH 7.43 H, VBG pCO2 35.9, VBG pO2 53.3 H, VBG HCO3 23.1, VBG Total CO2 24.2, VBG O2 Saturation 89.3 H, VBG Base Excess -1.2, VBG Lactic Acid 3.8 H, POC Glucose 184 H 07/11/24 01:36: SARS-CoV-2 (PCR) Not detected, Influenza A Untype (PCR) Not detected, Influenza Type B (PCR) Not detected 07/11/24 02:12: Urine Color Yellow, Urine Appearance Clear, Urine pH 6.0, Ur Specific [place] 1.015, Urine Protein Negative, Urine Glucose (UA) Negative, Urine Ketones Negative, Urine Blood Negative, Urine Nitrate Negative, Urine Bilirubin Negative, Urine Urobilinogen 0.2, Ur Leukocyte Esterase Negative, Ur Squamous Epith Cells Occasional, Urine Bacteria Trace 07/11/24 02:46: POC Glucose 280 H 07/11/24 03:27: POC Glucose 317 H* 07/11/24 01:30 07/11/24 01:30 Orders (Tests/Meds): ORDERS Category Date Time Status CXR --portable [XR chest portable] Stat Exams 07/11/24 01:32 Completed BNP [NT Pro Brain Natriuretic Pep.] Stat Lab 07/11/24 01:30 Completed CBC w/Auto Diff [Complete Blood Count Auto Diff] Stat Lab 07/11/24 01:30 Completed CMP [Comprehensive Metabolic Panel] Stat Lab 07/11/24 01:30 Completed Magnesium Stat Lab 07/11/24 01:30 Completed POC Glucose,Bedside Routine Lab 07/11/24 01:22 Completed POC Glucose,Bedside Routine Lab 07/11/24 01:33 Completed POC Glucose,Bedside Routine Lab 07/11/24 02:46 Completed POC Glucose,Bedside Routine Lab 07/11/24 03:27 Completed Rapid PCR Covid and Flu A/B Stat Lab 07/11/24 01:36 Completed T4 (Thyroxine) Stat Lab 07/11/24 01:30 Completed TSH [Thyroid Stimulating Hormone] Stat Lab 07/11/24 01:30 Completed Troponin I Q3H Lab 07/11/24 01:30 Completed UA [Urinalysis and Microscopic] Stat Lab 07/11/24 02:12 Completed Blood Culture Stat Micro 07/11/24 02:10 Received VBG [Venous Blood Gas] Stat RT 07/11/24 01:33 Completed ECG Data Tracing #1: I reviewed this ECG and interpreted as documented below: Sinus rhythm, rate of 70, no significant ST changes, no evidence of arrhythmia. ECG initial impression date: 07/11/24 ECG initial impression time: 01:42 HEART Score History (anamnesis): Slightly suspicious ECG: Normal Age: >65 years Risk factors: Atherosclerosis history Troponin: </= normal limit HEART Score: 4 Medical Decision Narrative: 73-year-old female with history of diabetes hypertension heart failure COPD, CAD status post CABG presents for recurrent hypoglycemia at home reports no changes in her insulin regimen. Denies any recent illness. History was obtained via interactive discussion with patient, EMS. On arrival, patient is [afebrile, hemodynamically stable, satting appropriately, alert, oriented x4, GCS 15], moving all extremities spontaneously. Full physical exam performed and significant for no significant physical exam abnormalities. Blood sugar in the 140s on arrival. Patient mildly anxious and diaphoretic appearing. Differential includes but is not limited to hypoglycemia, medication error, pneumonia, UTI, bacteremia, electrolyte derangement. Patient was given 500 mL fluid bolus, p.o. food for symptomatic management and correction of underlying abnormalities. Workup initiated including CBC CMP EKG troponin TSH T4 chest x-ray UA viral panel. On re-evaluation, patient [remains afebrile, HD stable.] Blood sugar remained stable, now in the 180s. Laboratory workup independently interpreted by me and significant for leukocytosis with white count of 19, mildly elevated lactate, though likely from hypoglycemia. Additionally, our VBG's are not carried on ice which is likely to result in a higher lactates. No significant electrolyte derangement, glucose 138, normal thyroid studies, negative COVID flu, urinalysis without evidence of infection. Imaging independently interpreted by me and significant for clear lungs bilaterally without focal opacity.. See radiology read for full review of final results. Admission was considered, but deemed unnecessary due to resolution of hypoglycemia. Given patient history, exam and workup, patient's presentation most likely represents hypoglycemia. Patient was monitored for 2 hours with no hypoglycemia noted. Patient does have a leukocytosis, but she reports that she always has leukocytosis due to history of long COVID. No evidence of acute viral or bacterial infection based on exam and workup to this point. No obvious indication for admission. Interactive discussion was had with patient regarding her presentation and she was discharged in stable condition with return precautions. Patient agreeable to plan. Procedures Risk/Benefits of Procedure(s) Were Explained: Yes Critical Care Critical Care Time Critical Care Time: No
[2024-07-11 02:37] LABS: NT Pro Brain Natriuretic Pep. 808 pg/mL (0-125)
[2024-07-11 02:47] LABS: Troponin I < 0.01 ng/ml (0.00-0.034)
[2024-07-11 02:51] LABS: Bacteria,Urine Trace /lpf; Squamous Epithelial Cell,Urine Occasional #/hpf (0-5)
[2024-07-11 02:53] LABS: POC Glucose,Bedside 184 (70-110)
[2024-07-11 02:53] LABS: POC Glucose,Bedside 280 (70-110)
[2024-07-11 03:30] VITALS: BP 145/65; PULSE 63; RESP 17; TEMP 36.6; O2SAT 96
[2024-07-11 03:36] LABS: POC Glucose,Bedside 317 (70-110)
== END 2024-07-11 04:00 | disposition home or self-care (01) ==
PROVIDERS: Emergency Provider Emergency Medicine
DX: E11.649 Type 2 diabetes mellitus with hypoglycemia without coma (principal); D72.829 Elevated white blood cell count, unspecified
CPT/HCPCS: 71045; 80053; 81001; 82803; 82962; 83735; 83880; 84436; 84443; 84484; 85007; 85025; 85027; 87040; 87636; 93005; 99284

== ENCOUNTER 2024-08-15 06:51 | Emergency (ER) | payer MEDICARE, MEDICAID, SELFPAY ==
[2024-08-15] VITALS (8 sets, daily range): BP systolic 108–126; BP diastolic 45–69; PULSE 60–83; RESP 16–18; TEMP 36.6–36.9; O2SAT 91–98; BMI 41.5
[2024-08-15 07:13] LABS: Microscopic, Urine URINE MICROSCOPIC (MICROSCOPIC)
[2024-08-15 07:13] LABS: Basophils # 0.1 K/mm3 (0-0.2); Basophils % 0.4 % (0.1-2.0); Eosinophils # 0.2 Kmm3 (0.0-0.4); Hemoglobin 13.1 g/dL (12.2-16.2); Immature Granulocytes # 0.07 10^3uL; Immature Granulocytes % 0.4 %; Lymphocytes # 4.1 K/mm3 (0.7-4.5); Mean Corpuscular Hemoglobin 29.8 pg (27.0-31.2); Mean Corpuscular Volume 93.2 fl (81-99); Mean Platelet Volume 11.3 fl (7.4-10.4); Monocytes # 0.6 K/mm3 (0.1-1.0); Monocytes % 3.9 % (1.7-9.3); Neutrophils # 10.8 K/mm3 (1.8-7.8); Neutrophils % 68.3 % (37.0-80.0); Nucleated Red Blood Cells # 0 10^3/uL; Nucleated Red Blood Cells % 0 %; Platelet Count 342 K/mm3 (142-424); Red Cell Distribution Width 15.5 % (11.5-17.5); Red Cell Distribution Width-SD 53.1 fL; White Blood Count 15.8 K/mm3 (4.8-10.8)
[2024-08-15 07:19] LABS: Appearance,Urine CLEAR (Clear); Bilirubin,Urine Negative (Negative); Blood, Urine Negative (Negative); Color,Urine YELLOW (Yellow); Glucose,Urine (UA) Negative (Negative); Ketones,Urine TRACE (Negative); Leukocyte Esterase,Urine 1+ (Negative); Nitrate,Urine Negative (Negative); Protein,Urine Negative (Negative); Urobilinogen,Urine 0.2 EU/dl (0.2)
[2024-08-15] MEDS: ONDANSETRON 4MG/2ML VIAL 4 MG IV (07:20)
[2024-08-15] MEDS: LACTATED RINGERS 1000ML 1,000 ML 999 ML IV (07:20)
[2024-08-15] MEDS: KETOROLAC 30MG/ML VIAL 15 MG IV (07:20)
[2024-08-15 07:31] LABS: Alanine Aminotransferase 16 U/L (12-78); Albumin Level 4.2 g/dl (3.5-5.0); Albumin/Globulin Ratio 1.4 (1.1-1.8); Alkaline Phosphatase 107 U/L (38-126); Anion Gap 15.6 mEq/L (5-15); Aspartate Amino Transferase 27 U/L (14-36); Bilirubin,Total 0.6 mg/dl (0.2-1.3); Blood Urea Nitrogen 31 mg/dl (7-17); Calcium 9.6 mg/dl (8.4-10.2); Carbon Dioxide 28 mmol/L (22.0-30.0); Chloride 100 mmol/L (98-107); Creatinine Clearance Estimated 28 mL/min (50-200); Estimated Glomerular Filt Rate 40 ml/min (>60); GFR (African American) 49 ML/MIN (>60); Globulin 3.1 g/dL (1.3-3.2); Glucose 182 mg/dl (74-100); Lipase 47 U/L (23-300); Potassium 4.6 mmoL/L (3.5-5.1); Sodium 139 mmol/L (136-145); Total Protein,Serum 7.3 g/dl (6.3-8.2)
[2024-08-15 07:45] LABS: Lactic Acid 1.6 mmol/L (0.7-2.1)
--- NOTE | 2024-08-15 07:50 | CT_ITS ---
FINAL REPORT TECHNIQUE: After the administration of intravenous contrast, axial images were obtained through the abdomen and pelvis by computed tomography. The study was performed with techniques to keep radiation dose as low as reasonably achievable, (ALARA). Individual dose reduction techniques using automated exposure control or adjustment of mA and/or kV according to the patient's size were employed. CLINICAL HISTORY: h/o divertic, LLQ pain, popping, and vomiting COMPARISON: Report dated 12/02/2022 FINDINGS: CT ABDOMEN PELVIS WITH CONTRAST: Abdomen: Scarring is present in the lung bases. The liver parenchyma is homogeneous. The gallbladder is surgically absent. Calcified granulomas are present in the spleen. The pancreas and adrenals appear unremarkable. The left kidney is asymmetrically small when compared to the right, with slight compensatory hypertrophy of the right kidney. The aorta is normal in caliber. There is no free fluid or adenopathy. There is stranding in the root of the mesentery, and mesenteric panniculitis cannot be excluded. There is an umbilical hernia containing fat. Pelvis: The appendix is not identified. There are diverticula present in the descending and sigmoid portions of the colon, without evidence of acute inflammatory change. The urinary bladder is incompletely distended. There is no free fluid or adenopathy. IMPRESSION: Stranding is present in the root of the mesentery, and mesenteric panniculitis cannot be excluded. Diverticulosis without evidence of diverticulitis. Bladder incompletely distended without definite abnormality. Reviewed, Interpreted and Dictated by Raymundo Lambert MD Transcribed by Iliana Huerta Authenticated and [facility]
[2024-08-15 07:59] LABS: Bacteria,Urine 1+ /lpf
--- NOTE | 2024-08-15 07:59 | ED_ITS ---
Discharge Plan Disposition Patient Disposition: Home, Self-Care Chief Complaint: Abdominal Pain Prescriptions Prescriptions: No Action Ubrelvy 50 mg tablet 100 mg PO ONCE Patient Comments: TAKE 2 TABLETS BY MOUTH ONCE MAY REPEAT DOSE ONCE AFTER 2 HOURS IF NEEDED DO NOT EXCEED 200 MG IN 24 HOURS acetaminophen [Tylenol Extra Strength] 500 mg tablet 500 mg PO Q6H PRN Nurtec ODT 75 mg tablet,disintegrating 75 mg PO QODHS Qty: 16 11RF metoprolol succinate 50 MG tablet extended release 24 hr 50 mg PO DAILY clopidogrel 75 MG tablet 75 mg PO DAILY allopurinol 100 MG tablet 1 tab PO BID omeprazole 40 MG capsule,delayed release(DR/EC) 40 mg PO DAILY spironolactone 25 MG tablet 25 mg PO DAILY isosorbide mononitrate 60 MG tablet extended release 24 hr 60 mg PO DAILY levothyroxine 125 MCG tablet 125 mcg PO DAILY rosuvastatin 20 mg tablet 20 mg PO DAILY ipratropium-albuterol 0.5 mg-3 mg(2.5 mg base)/3 mL solution for nebulization 3 ml inhalation Q4H PRN (Reason: wheezing) Qty: 180 2RF albuterol sulfate 90 mcg/actuation HFA aerosol inhaler 2 puff INHALATION Q6HP PRN (Reason: shortness of air ) prazosin 2 mg capsule 2 mg PO DAILY epinephrine [EpiPen 2-Arnold] 0.3 mg/0.3 mL auto-injector 0.3 mg IM Q10M PRN (Reason: anaphylaxis) Qty: 2 0RF Rx Instructions: for 2 doses fluoxetine 20 mg capsule 60 mg PO DAILY Linzess 72 mcg capsule 72 mcg PO DAILY aspirin 81 mg Tablet,Delayed Release (Dr/Ec) 81 mg PO MOWEFR Novolin R Regular U100 Insulin 100 unit/mL Solution 8 unit SQ TID montelukast 10 mg tablet 10 mg PO DAILY furosemide 40 MG tablet 40 mg PO AM 30 Days Qty: 30 0RF Referrals Follow up/Referrals: Indu Schrader APRN [Primary Care Provider] - See instructions Activity Restrictions/Add. Instructions Additional Instructions/Restrictions: Call your family doctor to establish care for this visit to the emergency department and schedule follow-up within 48 hours to ensure improvement. If you have any worsening of your condition or any other concerning signs or symptoms, return to the emergency department or your primary care doctor for further evaluation. Take Tylenol 1000 mg every 6 hours (4 times daily) and ibuprofen 400 mg every 6 hours (4 times daily) as needed with food and water to prevent GI upset and kidney damage. Clinical Impressions Clinical Impression: Abdominal pain Instructions Patient Instructions: DI for Acute Abdominal Pain Print Language Print Language: Portuguese Discharge ED Provider: Haresh Hussein General Adult HPI General Chief complaint: Abdominal Pain Stated complaint: L side abd pain, nausea Time Seen by Provider: 08/15/24 07:06 Mode of Arrival: Ambulatory Source of Information: Patient Description of Symptoms (Recalled from ER Triage Doc. by RN): patient states around 430 am she felt a sudden pop in her LLQ and is now having a numbing pain in her LLQ radiating up her back and down left leg with nausea. she reports history of diverticultis/diverticulosis History of Present Illness HPI narrative: Please note that above description of symptoms, in this electronic medical record under categorization of recalled from ER triage doctor by RN are reflective of an initial nursing assessment, however, is not reflective of my full history and physical exam that was personally taken and clarified. Consequentially, this preceding description of symptoms, which may include the patient's categorized chief complaint in the EMR, do not reflect my personal clinical impression, and the ultimate description of history of present illness and patient stated complaints should be deferred to this section of the note. Unless stated otherwise or congruent with this section of the note, additional signs, symptoms, or incongruence should be interpreted as inaccurate with my clinical impression. Related Data Home Medications ?Medication ?Instructions ?Recorded ?Confirmed allopurinol 100 mg tablet 1 tab PO BID 10/04/21 05/21/24 clopidogrel 75 mg tablet 75 mg PO DAILY 10/04/21 05/21/24 isosorbide mononitrate 60 mg 60 mg PO DAILY 10/04/21 05/21/24 tablet,extended release 24 hr levothyroxine 125 mcg tablet 125 mcg PO DAILY 10/04/21 05/21/24 metoprolol succinate 50 mg 50 mg PO DAILY 10/04/21 05/21/24 tablet,extended release 24 hr omeprazole 40 mg capsule,delayed 40 mg PO DAILY 10/04/21 05/21/24 release spironolactone 25 mg tablet 25 mg PO DAILY 10/04/21 05/21/24 rosuvastatin 20 mg tablet 20 mg PO DAILY 02/27/22 05/21/24 albuterol sulfate 90 mcg/actuation 2 puff inhalation Q6HP PRN 08/15/22 05/21/24 aerosol inhaler shortness of air prazosin 2 mg capsule 2 mg PO DAILY 08/15/22 05/21/24 aspirin 81 mg tablet,delayed 81 mg PO MOWEFR 04/04/24 05/21/24 release fluoxetine 20 mg capsule 60 mg PO DAILY 04/04/24 05/21/24 insulin regular human 100 unit/mL 8 unit SQ TID 04/04/24 05/21/24 injection solution (Novolin R Regular U-100 Insulin) linaclotide 72 mcg capsule 72 mcg PO DAILY 04/04/24 05/21/24 (Linzess) montelukast 10 mg tablet 10 mg PO DAILY 04/04/24 05/21/24 acetaminophen 500 mg tablet 500 mg PO Q6H PRN 04/24/24 05/21/24 (Tylenol Extra Strength) ubrogepant 50 mg tablet (Ubrelvy) 100 mg PO ONCE 04/24/24 05/21/24 Previous Rx's ?Medication ?Instructions ?Recorded epinephrine 0.3 mg/0.3 mL 0.3 mg (0.3 mL) IM Q10M PRN 10/27/22 injection, auto-injector (EpiPen anaphylaxis #2 ea 2-Arnold) ipratropium 0.5 mg-albuterol 3 mg 3 ml inhalation Q4H PRN wheezing 04/12/23 (2.5 mg base)/3 mL nebulization #180 mL soln furosemide 40 mg tablet 40 mg PO AM 30 days #30 tabs 04/04/24 rimegepant 75 mg disintegrating 75 mg PO QODHS Migraine #16 tabs 04/24/24 tablet (Nurtec ODT) Allergies Allergy/AdvReac Type Severity Reaction Status Date / Time morphine (MORPHINE) Allergy Unknown Verified 05/21/24 13:09 [facility] Disclaimer: The information contained in this section may have been updated after the patient was seen, as this information can be updated by other users. Medical History (Updated 08/15/24 @ 10:11 by Haresh Hussein MD) Episodic migraine Urinary tract infection Leukocytosis COPD exacerbation Abdominal pain UTI (urinary tract infection) Anaphylaxis Acute hypokalemia Enteritis due to Rotavirus Encounter for pre-operative cardiovascular clearance Nausea & vomiting Incisional hernia Vaso-vagal reaction Abdominal cramping Acute constipation Left wrist sprain Contusion of hand, left COVID-19 Cellulitis of second toe, right Fracture of second toe, right, closed Acute exacerbation of chronic obstructive airways disease Migraine Ulnar neuropathy Post-COVID chronic neurologic symptoms Vomiting and diarrhea Leukocytosis Withdrawal complaint Anxiety state Gastroenteritis UTI (urinary tract infection) Hyperglycemia Neuropathy History of gestational diabetes Edema of lower extremity Dizziness Mitral regurgitation Obesity Elevated brain natriuretic peptide (BNP) level Renal insufficiency Chest pain Heart disease Colon cancer Breast cancer Gallbladder & bile duct stone with obstruction Hiatal hernia Dyspnea Obesity (BMI 30-39.9) Neuropathy Surgical History Hx of exploratory laparotomy Hx of left mastectomy Hx of breast lump removal Hx of hernia repair History of cholecystectomy H/O: H/O heart bypass surgery Family History Mother Diabetes Coronary artery disease Hyperlipidemia Cancer, Onset Age: 69 kidney, larynx Father Diabetes Coronary artery disease Diverticula of colon Hyperlipidemia Cancer, Onset Age: 67 lymphoma Hypertension Other Heart attack Kidney disease Social History Smoking Status: Never smoker alcohol intake: former substance use type: denies use current occupational status: retired Travel in the last 8 weeks?: None household members: none housing: apartment marital status: number of children: 3 education level: master's degree do you feel safe at home: Yes victim of physical abuse: No victim of emotional abuse: No victim of sexual abuse: No would you like helpful sources: No Have you lived/traveled outside [place] in past 30 days?: No Contact w/someone who lives/traveled outside [place] past 30 days?: No Exposure to someone with infectious disease in past 14 days?: No Do you have a fever (greater than 100.4 F or 38 C)?: No Have you tested positive for COVID-19?: No Exposed to someone with COVID-19 in past 14 days?: No Do you have a sore throat?: No Do you have a cough?: No Do you have any weakness?: No Do you have any diarrhea?: No Are you experiencing any unusual bleeding?: No Do you have any muscle aches/pain?: No Do you have any abdominal pain?: Yes Are you experiencing loss of taste or smell?: No Other Medical History Have you received the Flu Vaccine for this season: No Have you received the Pneumonia Vaccine: Yes ROS Obtained: Yes All systems reviewed & no additional complaints except as documented Physical Exam General General appearance: alert Head Head exam: atraumatic and normocephalic Eye Eye exam: Present normal appearance, PERRL and EOMI Neck Neck exam: Present normal inspection, full ROM and trachea midline Respiratory Respiratory exam: Absent respiratory distress, wheezes, stridor, accessory muscle use or prolonged expiratory phase Cardiovascular Cardiovascular exam: Present other (Pulses equal symmetric in upper and lower extremities) Abdominal Exam Abdominal exam: Present soft; Absent distention, tenderness or pulsatile mass Extremities Exam Extremities exam: Absent edema Neurological Exam Neurological exam: Present alert, oriented X3 and CN II-XII intact; Absent motor sensory deficit Skin Skin exam: Present warm and dry; Absent diaphoresis or erythema Medical Decision Making Medical Records Medical records reviewed: Yes I reviewed the patient's medical records. Screening: Per USPSTF and CDC recommendations, given the prevalence of disease in our region, it is our hospital?s policy to screen for HIV and viral Hepatitis for all patients aged 18 and over and those with ongoing risk factors. Faraz Inquiry Pt receiving controlled substance: No Faraz was queried for this patient: No Vital Signs: 08/15/24 07:05 08/15/24 07:10 08/15/24 07:30 Temperature 97.8 F Temperature Source Oral Pulse Rate 83 73 Pulse Rate [Right Radial] 80 Respiratory Rate 18 Blood Pressure 126/69 112/62 Blood Pressure [Right Arm] 126/69 Blood Pressure Mean [Right Arm] 88 Blood Pressure Source [Right Arm] Automatic Cuff Blood Pressure Position [Right Arm] Sitting 02 Sat by Pulse Oximetry 98 98 92 L Oxygen Delivery Method Room Air Room Air Room Air 08/15/24 08:01 08/15/24 08:30 08/15/24 09:31 Temperature Temperature Source Pulse Rate 67 64 62 Pulse Rate [Right Radial] Respiratory Rate Blood Pressure 108/45 L 125/61 121/58 L Blood Pressure [Right Arm] Blood Pressure Mean [Right Arm] Blood Pressure Source [Right Arm] Blood Pressure Position [Right Arm] 02 Sat by Pulse Oximetry 96 91 L 93 L Oxygen Delivery Method Room Air Room Air Room Air 08/15/24 10:01 Temperature Temperature Source Pulse Rate 62 Pulse Rate [Right Radial] Respiratory Rate Blood Pressure 124/51 L Blood Pressure [Right Arm] Blood Pressure Mean [Right Arm] Blood Pressure Source [Right Arm] Blood Pressure Position [Right Arm] 02 Sat by Pulse Oximetry 94 L Oxygen Delivery Method Room Air Lab Data Lab Results 08/15/24 06:58: Urine Color Yellow, Urine Appearance Clear, Urine pH 6.0, Ur Specific [place] 1.020, Urine Protein Negative, Urine Glucose (UA) Negative, Urine Ketones Trace, Urine Blood Negative, Urine Nitrate Negative, Urine Bilirubin Negative, Urine Urobilinogen 0.2, Ur Leukocyte Esterase 1+ A, Urine RBC None, Urine WBC 3-5, Ur Squamous Epith Cells 5-10, Urine Bacteria 1+ 08/15/24 07:07: WBC 15.8 H, RBC 4.40, Hgb 13.1, Hct 41.0, MCV 93.2, MCH 29.8, MCHC 32.0, RDW 15.5, Plt Count 342, MPV 11.3 H, Neut % (Auto) 68.3, Lymph % (Auto) 26.0, [place] % (Auto) 3.9, Eos % (Auto) 1.0, Baso % (Auto) 0.4, Neut # (Auto) 10.8 H, Lymph # (Auto) 4.1, [place] # (Auto) 0.6, Eos # (Auto) 0.2, Baso # (Auto) 0.1, Sodium 139, Potassium 4.6, Chloride 100, Carbon Dioxide 28, Anion Gap 15.6 H, BUN 31 H, Creatinine 1.30 H, Estimated Creat Clear 28, Estimated GFR 40 L, Est GFR ( Amer) 49 L, Glucose 182 H, Calcium 9.6, Total Bilirubin 0.6, AST 27, ALT 16, Alkaline Phosphatase 107, Total Protein 7.3, Albumin 4.2, Globulin 3.1, Albumin/Globulin Ratio 1.4, Lipase 47 08/15/24 07:26: Lactate 1.6 08/15/24 07:07 08/15/24 07:07 Orders (Tests/Meds): ED MEDICATIONS Discontinued Medications Generic Name Dose Route Start Last Admin Trade Name Freq PRN Reason Stop Dose Admin Lactated Ringer's 1,000 mls @ 999 mls/hr 08/15/24 07:07 08/15/24 07:20 Lactated Ringer's 1000 Ml Bag IV 08/15/24 08:07 999 mls/hr .Q1H1M ONE Administration Iopamidol 75 ml 08/15/24 09:00 08/15/24 09:01 Iopamidol-370 (76%);100ml Bottle IV 08/15/24 09:01 75 ml ONCE ONE Administration Ketorolac Tromethamine 15 mg 08/15/24 07:07 08/15/24 07:20 Ketorolac 30mg/Ml Vial IV 08/15/24 07:08 15 mg ONCE ONE Administration Ondansetron HCl 4 mg 08/15/24 07:07 08/15/24 07:20 Ondansetron 4mg/2ml Vial IV 08/15/24 07:08 4 mg ONCE ONE Administration Sodium Chloride 10 ml 08/15/24 09:00 08/15/24 09:01 Sodium Chloride 0.9% 10ml Syr (Rad Only) IV 08/15/24 09:01 10 ml ONCE ONE Administration ORDERS Category Date Time Status CT abdomen pelvis w con Stat Cat Scan 08/15/24 07:50 Completed CBC w/Auto Diff [Complete Blood Count Auto Diff] Stat Lab 08/15/24 07:07 Completed CMP [Comprehensive Metabolic Panel] Stat Lab 08/15/24 07:07 Completed Lactic Acid Stat Lab 08/15/24 07:26 Completed Lipase Stat Lab 08/15/24 07:07 Completed UA [Urinalysis and Microscopic] Stat Lab 08/15/24 06:58 Completed Urine Culture Stat Micro 08/15/24 06:58 Received Medical Decision Narrative: 74-year-old female history of diverticulitis, CAD status post stenting and CABG, hypertension, hyperlipidemia, type 2 diabetes, CKD, presenting with abdominal pain. She states that she woke up today, 08/15 at about 4 AM about 3 hours prior to this visit with a popping sensation in her low lower quadrant. States that it feels like it is blowing up, and stomach is becoming distended. Pain is moderate in intensity, does not radiate, associated with vomiting this nonbloody, nonbilious. Last bowel movement was yesterday and normal for her. Still passing gas. No fevers or chills, overlying skin changes, but patient has had , cholecystectomy, as well as laparoscopic hernia repair. History was obtained via conversation with patient. On arrival, patient hemodynamically stable, alert, oriented x4, appropriate, GCS 15, moving all extremities spontaneously, pupils equal and reactive to light. Full physical exam performed and significant for well-appearing female in no acute distress, intermittently retching. Abdomen is soft, mildly tender to deep palpation in the left lower quadrant, but no evidence of rebound, rigidity, guarding, or other signs of peritonitis. No flank tenderness. No overlying skin changes. She is hemodynamically stable, afebrile, nontachycardic. Neuro intact, pulses equal and symmetric in lower extremities. Differential includes gastritis, gastroenteritis, appendicitis, diverticulitis, diverticular rupture, nephrolithiasis, pyelonephritis, colitis, proctitis, less likely to be mesenteric ischemia given very clinically well-appearing patient in no acute distress with minimal abdominal tenderness, aortic dissection given neuro intact and pulses equal and symmetric in extremities, among others. Patient placed on continuous cardiac monitoring and continuous pulse ox with initial blood pressure 126/69, heart rate 80, saturation 98% on room air. Patient was given Toradol and fluids for symptomatic management and correction of underlying abnormalities. Workup independently interpreted and significant for mild leukocytosis of 15.8, which appears to be pretty standard for patient. Lactate negative at 1.6, urinalysis without concern for urinary tract infection given contaminated sample. Reevaluation, patient stating she still having some tightness in her left lower quadrant, but otherwise no acute complaints. Not actively retching or in significant pain on exam. On independent interpretation of imaging, no acute intra-abdominal abnormality. She does have stranding around the mesentery, but no other associated acute abnormalities. See radiology read for full review of final results. On reevaluation, patient resting comfortably. Given patient presentation, workup, history, this most likely represents left lower quadrant abdominal pain, idiopathic. Could likely be related to gastritis, duodenitis, or other inflammatory versus viral syndrome. No obvious evidence of abnormality on CT scan and unremarkable/nonactionable labs other than mild dehydration on chemistry, which was repleted with IV fluids. Lactate negative, given negative workup, nonactionable physical exam, and clinically stable patient, I feel she is appropriate for outpatient management. Close return precautions discussed as unable to completely delineate what may be causing her pain. Because patient at baseline without signs or symptoms of clinical decompensation, deemed appropriate for discharge. Results were relayed to patient who voiced understanding and were agreeable to outpatient management and follow up. I discussed my clinical impression with patient and answered all questions. At this time, the evidence for any other entities in the differential is insufficient to warrant any further testing or ED observation. This was explained as well. Advisory was given that persistent or worsening symptoms require further evaluation. I confirmed the understanding of this discussion. Radio Station Operator disclaimer Much of this encounter note is an electronic manual training teacher spoken language to printed text. Electronic manual training teacher of the spoken language may permit errors. Although I have reviewed the note, some errors may still exist. Critical Care Critical Care Time Critical Care Time: No
--- NOTE | 2024-08-15 08:03 | PC.NURSE ---
patient called out requesting her BG to be checked because she felt nervous, BG checked 184. patient given a pillow for arm at this time. provider notified. call light in reach
[2024-08-15] MEDS: IOPAMIDOL-370 (76%);100ML BOTTLE 75 ML IV (09:01)
[2024-08-15] MEDS: SODIUM CHLORIDE 0.9% 10ML SYR (RAD ONLY) 10 ML IV (09:01)
--- NOTE | 2024-08-15 10:26 | PC.NURSE ---
dr hickman at bedside to update pt and family
== END 2024-08-15 10:37 | disposition home or self-care (01) ==
PROVIDERS: Emergency Provider Emergency Medicine; PCP Nurse Practitioner Family
DX: R10.32 Left lower quadrant pain (principal); Z87.19 Personal history of other diseases of the digestive system
CPT/HCPCS: 74177; 80053; 81001; 83605; 83690; 85025; 87086; 96361; 96374; 96375; 99284; J1885; J2405; J7120; Q9967